=== PATIENT | male | born 1955 | race Caucasian/White ===

== ENCOUNTER 2021-07-17 21:54 | Inpatient (IN) | payer MEDICARE, OTHER ==
[~2021-07-17] VITALS: Ht 167.6 cm; Wt 77.1 kg
[~2021-07-17 21:54] MED LIST: ACET500C PO; AMLO5TAB OR; ASPI81TA83 OR; ATIV1TAB2 OR; CELE1CAP4 OR; CLON1TAB OR; CLOP75TA2 PO; COUM1TAB19 OR; CYCL10TA3 PO; CYMB1CAP PO; IBUP200T2 PO; PAXI20TA OR; PERC5TAB8 OR; PREG50CA OR; SKEL800T5 OR; STOOL SOFTENER PO; ULTR37.539 PO; ZANA4CAP OR; [UNRECOGNIZED DRUG - OTHER] OD
[2021-07-17 22:39] LABS: BASO # 0.1 10^3/uL (0.0-0.2); BASO % 0.4 % (0.0-1.0); HEMATOCRIT 43.5 % (42.0-52.0); HEMOGLOBIN 14.7 g/dl (13.5-17.5); LYMPH # 1.4 10^3/uL (1.5-5.0); LYMPH % 6.9 % (24.0-44.0); MEAN CORPUSCULAR HEMOGLOBIN 36.5 pg (27.0-33.0); MEAN CORPUSCULAR HGB CONC 33.8 g/dl (32.0-36.5); MEAN CORPUSCULAR VOLUME 107.9 fl (80.0-96.0); MONO # 1.8 10^3/uL (0.0-0.8); MONO % 8.7 % (2.0-8.0); NEUTROPHILS # 17.1 10^3/uL (1.5-8.5); PLATELET COUNT, AUTOMATED 264 10^3/uL (150-450); RED BLOOD COUNT 4.03 10^6/uL (4.30-6.10); WHITE BLOOD COUNT 20.6 10^3/uL (4.0-10.0)
[2021-07-17] MEDS ORDERED: HEPARIN DRIP 25,000 UNITS in IV 1 EA IV SCH ×2 (22:45→23:55)
[2021-07-17] MEDS ORDERED: MORPHINE 4 MG/ML 1ML VIAL/SYRINGE (J2270) IV ONE (22:45)
[2021-07-17] MEDS ORDERED: HEPARIN SOD (PORCINE) 5000UNITS/ML 1ML VIAL/SYRINGE IV PRN (22:45)
[2021-07-17 23:01] LABS: CREATININE FOR GFR 1.53 MG/DL (0.70-1.30)
[2021-07-17 23:02] LABS: C REACTIVE PROTEIN QUANTITATIV 0.51 MG/DL (0.00-0.30); CALCIUM LEVEL 8.6 MG/DL (8.8-10.2); MAGNESIUM LEVEL 1.9 MG/DL (1.8-2.4); POTASSIUM SERUM 5.3 MEQ/L (3.5-5.1)
[2021-07-17 23:09] LABS: HEMATOCRIT 39.2 % (42.0-52.0); HEMOGLOBIN 13.4 g/dl (13.5-17.5); MEAN CORPUSCULAR HEMOGLOBIN 36.7 pg (27.0-33.0); MEAN CORPUSCULAR HGB CONC 34.2 g/dl (32.0-36.5); MEAN CORPUSCULAR VOLUME 107.4 fl (80.0-96.0); PLATELET COUNT, AUTOMATED 258 10^3/uL (150-450); RED BLOOD COUNT 3.65 10^6/uL (4.30-6.10); WHITE BLOOD COUNT 20.8 10^3/uL (4.0-10.0)
[2021-07-17] MEDS ORDERED: NS 1,000 ML IV ONE (23:20)
[2021-07-17] MEDS ORDERED: ALLO300T2 PO (23:39)
[2021-07-17] MEDS ORDERED: ENOX80IN3 INJ (23:39)
[2021-07-17] MEDS ORDERED: LOSA100T50 PO (23:39)
[2021-07-17] MEDS ORDERED: PANT20TA6 PO (23:39)
[2021-07-17] MEDS ORDERED: HOME MED LIST COMPLETE! XX SCH (23:45)
--- OUTSIDE RECORDS SUMMARY | 2021-07-17 23:47 | CCD ---
Author Author [facility] Organization [facility] Address Unknown Phone Unavailable Care Team Providers Care Chief Sales Officer Name Role Phone Felton Chapin MD Unavailable Unavailable Felton Chapin MD Unavailable Unavailable Felton Chapin MD Unavailable Unavailable Felton Chapin MD Unavailable Unavailable Felton Chapin MD Unavailable Unavailable Felton Chapin MD Unavailable Unavailable Felton Chapin MD Unavailable Unavailable Felton Chapin MD Unavailable Unavailable Felton Chapin MD Unavailable Unavailable Felton Chapin MD Unavailable Unavailable Felton Chapin MD Unavailable Unavailable Felton Chapin MD Unavailable Unavailable Felton Chapin MD Unavailable Unavailable Felton Chapin MD Unavailable Unavailable Felton Chapin MD Unavailable Unavailable Felton Chapin MD Unavailable Unavailable Felton Chapin MD Unavailable Unavailable Felton Chapin MD Unavailable Unavailable Felton Chapin MD Unavailable Unavailable Felton Chapin MD Unavailable Unavailable Felton Chapin MD Unavailable Unavailable Felton Chapin MD Unavailable Unavailable Felton Cahpin MD Unavailable Unavailable Felton Chapin MD Unavailable Unavailable Felton Chapin MD Unavailable Unavailable Felton Chapin MD Unavailable Unavailable Felton Chapin MD Unavailable Unavailable Felton Chapin MD Unavailable Unavailable MAGDIEL, M.D. GUILLERMO M.D. Unavailable Unavailable MAGDIEL, M.D. GUILLERMO M.D. Unavailable Unavailable MAGDIEL, M.D. GUILLERMO M.D. Unavailable Unavailable MAGDIEL, M.D. GUILLERMO M.D. Unavailable Unavailable MAGDIEL, M.D. GUILLERMO M.D. Unavailable Unavailable MAGDIEL, M.D. GUILLERMO M.D. Unavailable Unavailable MAGDIEL, M.D. GUILLERMO M.D. Unavailable Unavailable MAGDIEL, M.D. GUILLERMO M.D. Unavailable Unavailable MAGDIEL, M.D. GUILLERMO M.D. Unavailable Unavailable MAGDIEL, M.D. GUILLERMO M.D. Unavailable Unavailable MAGDIEL, M.D. GUILLERMO M.D. Unavailable Unavailable MAGDIEL, M.D. GUILLERMO M.D. Unavailable Unavailable MAGDIEL, M.D. GUILLERMO M.D. Unavailable Unavailable MAGDIEL, M.D. GUILLERMO M.D. Unavailable Unavailable MAGDIEL, M.D. GUILLERMO M.D. Unavailable Unavailable Jayy Mcdaniel MD Unavailable Unavailable Palma, M Michelle FACULTY NEUROPSYCHOLOGIST Unavailable Unavailable Palma, M Michelle FACULTY NEUROPSYCHOLOGIST Unavailable Unavailable Palma, M Michelle FACULTY NEUROPSYCHOLOGIST Unavailable Unavailable Palma, M Michelle FACULTY NEUROPSYCHOLOGIST Unavailable Unavailable Palma, M Michelle FACULTY NEUROPSYCHOLOGIST Unavailable Unavailable Palma, M Michelle FACULTY NEUROPSYCHOLOGIST Unavailable Unavailable Palma, M Michelle FACULTY NEUROPSYCHOLOGIST Unavailable Unavailable Palma, M Michelle FACULTY NEUROPSYCHOLOGIST Unavailable Unavailable Palma, M Michelle FACULTY NEUROPSYCHOLOGIST Unavailable Unavailable Palma, M Michelle FACULTY NEUROPSYCHOLOGIST Unavailable Unavailable Nostrom, R Kurt HIGHWAY PATROL COMMANDER Unavailable Unavailable NAHUM, AGUILA PA Unavailable Unavailable NAHUM, AGUILA PA Unavailable Unavailable NAHUM, AGUILA PA Unavailable Unavailable NAHUM, AGUILA PA Unavailable Unavailable NAHUM, AGUILA PA Unavailable Unavailable NAHUM, AGUILA PA Unavailable Unavailable NAHUM, AGUILA PA Unavailable Unavailable NAHUM, AGUILA PA Unavailable Unavailable NAHUM, AGUILA PA Unavailable Unavailable NAHUM, AGUILA PA Unavailable Unavailable NAHUM, AGUILA PA Unavailable Unavailable BHAGAT, SUMEET Unavailable Unavailable WESTBROOKAnabelle RUBINA PA Unavailable Unavailable WESTBROOK, K RUBINA PA Unavailable Unavailable WESTBROOK, K RUBINA PA Unavailable Unavailable WESTBROOK, K RUBINA PA Unavailable Unavailable WESTBROOK, K RUBINA PA Unavailable Unavailable WESTBROOK, K RUBINA PA Unavailable Unavailable WESTBROOK, K RUBINA PA Unavailable Unavailable WESTBROOK, K RUBINA PA Unavailable Unavailable WESTBROOK, K RUBINA PA Unavailable Unavailable WESTBROOK, K RUBINA PA Unavailable Unavailable WESTBROOK, K RUBINA PA Unavailable Unavailable WESTBROOK, K RUBINA PA Unavailable Unavailable WESTBROOK, K RUBINA PA Unavailable Unavailable WESTBROOK, K RUBINA PA Unavailable Unavailable WESTBROOK, K RUBINA PA Unavailable Unavailable WESTBROOK, K RUBINA PA Unavailable Unavailable WESTBROOK, K RUBINA PA Unavailable Unavailable WESTBROOK, K RUBINA PA Unavailable Unavailable WESTBROOK, K RUBINA PA Unavailable Unavailable WESTBROOK, K RUBINA PA Unavailable Unavailable WESTBROOK, K RUBINA PA Unavailable Unavailable WESTBROOK, K RUBINA PA Unavailable Unavailable WESTBROOK, K RUBINA PA Unavailable Unavailable WESTBROOK, K RUBINA PA Unavailable Unavailable WESTBROOK, K RUBINA PA Unavailable Unavailable WESTBROOK, K RUBINA PA Unavailable Unavailable WESTBROOK, K RUBINA PA Unavailable Unavailable WESTBROOK, K RUBINA PA Unavailable Unavailable WESTBROOK, K RUBINA PA Unavailable Unavailable WESTBROOK, K RUBINA PA Unavailable Unavailable WESTBROOK, K RUBINA PA Unavailable Unavailable WESTBROOK, K RUBINA PA Unavailable Unavailable WESTBROOK, K RUBINA PA Unavailable Unavailable WESTBROOK, K RUBINA PA Unavailable Unavailable WESTBROOK, K RUBINA PA Unavailable Unavailable WESTBROOK, K RUBINA PA Unavailable Unavailable WESTBROOK, K RUBINA PA Unavailable Unavailable WESTBROOK, K RUBINA PA Unavailable Unavailable WESTBROOK, K RUBINA PA Unavailable Unavailable WESTBROOK, K RUBINA PA Unavailable Unavailable WESTBROOK, K RUBINA PA Unavailable Unavailable WESTBROOK, K RUBINA PA Unavailable Unavailable WESTBROOK, K RUBINA PA Unavailable Unavailable WESTBROOK, K RUBINA PA Unavailable Unavailable WESTBROOK, K RUBINA PA Unavailable Unavailable WESTBROOK, K RUBINA PA Unavailable Unavailable WESTBROOK, K RUBINA PA Unavailable Unavailable WESTBROOK, K RUBINA PA Unavailable Unavailable WESTBROOK, Anabelle CESPEDES PA Unavailable Unavailable WESTBROOK, K RUBINA PA Unavailable Unavailable WESTBROOK, K RUBINA PA Unavailable Unavailable WESTBROOK, K RUBINA PA Unavailable Unavailable WESTBROOK, K RUBINA PA Unavailable Unavailable WESTBROOK, K RUBINA PA Unavailable Unavailable WESTBROOK, K RUBINA PA Unavailable Unavailable Puja RIVAS MD Unavailable Unavailable Puja RIVAS MD Unavailable Unavailable Puja RIVAS MD Unavailable Unavailable Puja RIVAS MD Unavailable Unavailable WISPuja Lam MD Unavailable Unavailable DIGIACCO, EMILY DO Unavailable Unavailable DIGIACCO, EMILY DO Unavailable Unavailable DIGIACCO, EMILY DO Unavailable Unavailable DIGIACCO, EMILY DO Unavailable Unavailable DIGIACCO, EMILY DO Unavailable Unavailable DIGIACCO, EMILY DO Unavailable Unavailable DIGIACCO, EMILY DO Unavailable Unavailable DIGIACCO, EMILY DO Unavailable Unavailable DIGIACCO, EMILY DO Unavailable Unavailable DIGIACCO, EMILY DO Unavailable Unavailable DIGIACCO, EMILY DO Unavailable Unavailable DIGIACCO, EMILY DO Unavailable Unavailable DIGIACCO, EMILY DO Unavailable Unavailable DIGIACCO, EMILY DO Unavailable Unavailable DIGIACCO, EMILY DO Unavailable Unavailable DIGIACCO, EMILY DO Unavailable Unavailable DIGIACCO, EMILY DO Unavailable Unavailable DIGIACCO, EMILY DO Unavailable Unavailable DIGIACCO, EMILY DO Unavailable Unavailable DIGIACCO, EMILY DO Unavailable Unavailable DIGIACCO, EMILY DO Unavailable Unavailable DIGIACCO, EMILY DO Unavailable Unavailable DIGIACCO, EMILY DO Unavailable Unavailable Celso, Wahib MD Unavailable Unavailable Celso, Wahib MD Unavailable Unavailable Celso, Wahib MD Unavailable Unavailable Celso, Wahib MD Unavailable Unavailable Celso, Wahib MD Unavailable Unavailable Celso, Wahib MD Unavailable Unavailable Celso, Wahib MD Unavailable Unavailable Celso, Wahib MD Unavailable Unavailable Celso, Wahib MD Unavailable Unavailable Celso, Wahib MD Unavailable Unavailable Celso, Wahib MD Unavailable Unavailable Celso, Wahib MD Unavailable Unavailable Cleso, Wahib MD Unavailable Unavailable Celso, Wahib MD Unavailable Unavailable Celso, Wahib MD Unavailable Unavailable Celso, Wahib MD Unavailable Unavailable Celso, Wahib MD Unavailable Unavailable Celso, Wahib MD Unavailable Unavailable Celso, Wahib MD Unavailable Unavailable Celso, Wahib MD Unavailable Unavailable Celso, Wahib MD Unavailable Unavailable Celso, Wahib MD Unavailable Unavailable Celso, Wahib MD Unavailable Unavailable Celso, Wahib MD Unavailable Unavailable Celso, Wahib MD Unavailable Unavailable Celso, Wahib MD Unavailable Unavailable Celso, Wahib MD Unavailable Unavailable Celso, Wahib MD Unavailable Unavailable Celso, Wahib MD Unavailable Unavailable Celso, Wahib MD Unavailable Unavailable Mcdaniel, E Addis MD Unavailable Mcdaniel, E Addis MD Unavailable Mcdaniel, E Addis MD Unavailable Mcdaniel, E Addis MD Unavailable Mcdaniel, E Addis MD Unavailable Mcdaniel, E Addis MD Unavailable Mcdaniel, E Addis MD Unavailable Mcdaniel, E Addis MD Unavailable Mcdaniel, E Addis MD Unavailable Mcdaniel, E Addis MD Unavailable Mcdaniel, E Addis MD Unavailable Mcdaniel, E Addis MD Unavailable Mcdaniel, E Addis MD Unavailable Mcdaniel, E Addis MD Unavailable Mcdaniel, E Addis MD Unavailable Mcdaniel, E Addis MD Unavailable Mcdaniel, E Addis MD Unavailable Mcdaniel, E Adids MD Unavailable Mcdaniel, E Addis MD Unavailable Mcdaniel, E Addis MD Unavailable Mcdaniel, E Addis MD Unavailable Mcdaniel, E Addis MD Unavailable Mcdaniel, E Addis MD Unavailable Maxime Armendariz MD Unavailable Unavailable Maxime Armendariz MD Unavailable Unavailable Maxime Armendariz MD Unavailable Unavailable GALIMIDI ZORA DPM, J Zora DPM Unavailable GALIMIDI ZORA DPM, J Zora DPM Unavailable [phone] GALIMIDI ZORA DPM, J Zora DPM Unavailable [phone] GALIMIDI ZORA DPM, J Zora DPM Unavailable [phone] GALIMIDI ZORA DPM, J Zora DPM Unavailable [phone] GALIMIDI ZORA DPM, J Zora DPM Unavailable GALIMIDI ZORA DPM, J Zora DPM Unavailable GALIMIDI ZORA DPM, J Zora DPM Unavailable GALIMIDI ZORA DPM, J Zora DPM Unavailable GALIMIDI ZORA DPM, J Zora DPM Unavailable GALIMIDI ZORA DPM, J Zora DPM Unavailable Williams Ramirez MD Unavailable [phone] Williams Ramirez MD Unavailable [phone] Williams Ramirez MD Unavailable [phone] Williams Ramirez MD Unavailable [phone] Williams Ramirez MD Unavailable [phone] Williams Ramirez MD Unavailable [phone] Williams Ramirez MD Unavailable [phone] Williams Ramirez MD Unavailable [phone] NOSTROM, KURT BAILING MACHINE OPERATOR Unavailable Unavailable NOSTROM, KURT BAILING MACHINE OPERATOR Unavailable Unavailable NOSTROM, KURT BAILING MACHINE OPERATOR Unavailable Unavailable NOSTROM, KURT BAILING MACHINE OPERATOR Unavailable Unavailable NOSTROM, KURT BAILING MACHINE OPERATOR Unavailable Unavailable NOSTROM, KURT BAILING MACHINE OPERATOR Unavailable Unavailable NOSTROM, KURT BAILING MACHINE OPERATOR Unavailable Unavailable NOSTROM, KURT BAILING MACHINE OPERATOR Unavailable Unavailable NOSTROM, KURT BAILING MACHINE OPERATOR Unavailable Unavailable NOSTROM, KURT BAILING MACHINE OPERATOR Unavailable Unavailable NOSTROM, KURT BAILING MACHINE OPERATOR Unavailable Unavailable NOSTROM, KURT BAILING MACHINE OPERATOR Unavailable Unavailable NOSTROM, KURT BAILING MACHINE OPERATOR Unavailable Unavailable TYLER BIRMINGHAM MD Unavailable Unavailable BIRMINGHAMTYLER MD Unavailable Unavailable BIRMINGHAM, TYLER MD Unavailable Unavailable BIRMINGHAM, TYLER MD Unavailable Unavailable BIRMINGHAM, TYLER MD Unavailable Unavailable BIRMINGHAM, TYLER MD Unavailable Unavailable BIRMINGHAM, TYLER MD Unavailable Unavailable BIRMINGHAM, TYLER MD Unavailable Unavailable BIRMINGHAM, TYLER MD Unavailable Unavailable BIRMINGHAM, TYLER MD Unavailable Unavailable BIRMINGHAM, TYLER MD Unavailable Unavailable BIRMINGHAM, TYLER MD Unavailable Unavailable BIRMINGHAM, TYLER MD Unavailable Unavailable BIRMINGHAM, TYLER MD Unavailable Unavailable BIRMINGHAM, TYLER MD Unavailable Unavailable BIRMINGHAM, TYLER MD Unavailable Unavailable BIRMINGHAM, TYLER MD Unavailable Unavailable BIRMINGHAM, TYLER MD Unavailable Unavailable BIRMINGHAM, TYLER MD Unavailable Unavailable CHO, FREDY MD Unavailable Unavailable CHO, FREDY MD Unavailable Unavailable CHO, FREDY MD Unavailable Unavailable CHO, FREDY MD Unavailable Unavailable CHO, FREDY MD Unavailable Unavailable CHO, FREDY MD Unavailable Unavailable CHO, FREDY MD Unavailable Unavailable CHO, FREDY TURNER Unavailable Unavailable CHO, FREDY TURNER Unavailable Unavailable CHO, FREDY MD Unavailable Unavailable CHO, FREDY MD Unavailable Unavailable CHO, FREDY MD Unavailable Unavailable CHO, FREDY MD Unavailable Unavailable CHO, FREDY MD Unavailable Unavailable CHO, FREDY MD Unavailable Unavailable CHO, FREDY MD Unavailable Unavailable CHO, FREDY MD Unavailable Unavailable CHO, FREDY MD Unavailable Unavailable CHO, FREDY MD Unavailable Unavailable CHO, FREDY MD Unavailable Unavailable CHO, FREDYSUSAN TURNER Unavailable Unavailable Adelaide Sanders MD Unavailable Unavailable Adelaide Sanders MD Unavailable Unavailable Adelaide Sanders MD Unavailable Unavailable Adelaide Sanders MD Unavailable Unavailable Genaro Henry MD Unavailable Unavailable Genaro Henry MD Unavailable Unavailable Genaro Henry MD Unavailable Unavailable DR MD ADDIS MCDANIEL Unavailable Unavailable Shweta Curry MD Unavailable Unavailable SorShweta caban MD Unavailable Unavailable Sorarsh, Shweta Ray MD Unavailable Unavailable SorShweta caban MD Unavailable Unavailable Sorarsh C Cory TURNER Unavailable Unavailable Sorarsh, C Cory TURNER Unavailable Unavailable Sorarsh, C Cory TURNER Unavailable Unavailable Sorge, C Cory TURNER Unavailable Unavailable Sorge, C Cory TURNER Unavailable Unavailable Sorge, C Cory TURNER Unavailable Unavailable Sorge, C Cory MD Unavailable Unavailable Sorge, C Cory MD Unavailable Unavailable Sorge, C Cory MD Unavailable Unavailable Sorge, C Cory MD Unavailable Unavailable Sorge, C Cory MD Unavailable Unavailable Sorge, C Cory MD Unavailable Unavailable Sorge, C Cory MD Unavailable Unavailable Sorge, C Cory MD Unavailable Unavailable Sorge, C Cory MD Unavailable Unavailable Sorge, C Cory MD Unavailable Unavailable Sorge, C Cory MD Unavailable Unavailable Sorge, C Cory MD Unavailable Unavailable Sorge, C Cory MD Unavailable Unavailable Sorge, C Cory MD Unavailable Unavailable Sorge, C Cory MD Unavailable Unavailable Sorge, C Cory MD Unavailable Unavailable Yan, R Ousmane PA Unavailable Unavailable Yan, R Ousmane PA Unavailable Unavailable JULIA, NIHARIKA PA Unavailable Unavailable JULIA, NIHARIKA PA Unavailable Unavailable JULIA, NIHARIKA PA Unavailable Unavailable JULIA, NIHARIKA PA Unavailable Unavailable JULIA, NIHARIKA PA Unavailable Unavailable JULIA, NIHARIKA PA Unavailable Unavailable JULIA, NIHARIKA PA Unavailable Unavailable JULIA, NIHARIKA PA Unavailable Unavailable JULIA, NIHARIKA PA Unavailable Unavailable JULIA, NIHARIKA PA Unavailable Unavailable JULIA, NIHARIKA PA Unavailable Unavailable JULIA, NIHARIKA PA Unavailable Unavailable JULIA, NIHARIKA PA Unavailable Unavailable JULIA, NIHARIKA PA Unavailable Unavailable MD KALEN RIVAS Unavailable Unavailable Lashonda WALLACE MD Unavailable Unavailable MADISONLashonda JENKINS MD Unavailable Unavailable MADISONLashonda JENKINS MD Unavailable Unavailable MADISONLashonda MD Unavailable Unavailable MADISONLashonda MD Unavailable Unavailable MADISONLashonda MD Unavailable Unavailable Lashonda WALLACE MD Unavailable Unavailable Lashonda WALLACE MD Unavailable Unavailable Lashonda WALLACE MD Unavailable Unavailable Lashonda WALLACE MD Unavailable Unavailable Lashonda WALLACE MD Unavailable Unavailable Lashonda WALLACE MD Unavailable Unavailable Lashonda WALLACE MD Unavailable Unavailable Lashonda WALLACE MD Unavailable Unavailable Lashonda WALLACE MD Unavailable Unavailable Lashonda WALLACE MD Unavailable Unavailable Lashonda WALLACE MD Unavailable Unavailable MADISONLashonda JENKINS MD Unavailable Unavailable MADISONLashonda JENKINS MD Unavailable Unavailable MADISONLashonda JENKINS MD Unavailable Unavailable MADISONLashonda MD Unavailable Unavailable MADISON, J CHATO TURNER Unavailable Unavailable MADISON, J CHATO TURNER Unavailable Unavailable MADISON, J CHATO TURNER Unavailable Unavailable MADISON, J CHATO TURNER Unavailable Unavailable MADISON, J CHATO TURNER Unavailable Unavailable MADISON, J CHATO TURNER Unavailable Unavailable MADISON, J CHATO TURNER Unavailable Unavailable MADISON, J CHATO TURNER Unavailable Unavailable MADISON, J CHATO TURNER Unavailable Unavailable MADISON, J CHATO TURNER Unavailable Unavailable MADISON, J CHATO TURNER Unavailable Unavailable MADISON, J CHATO TURNER Unavailable Unavailable MADISON, J CHATO TURNER Unavailable Unavailable MADISON, J CHATO TURNER Unavailable Unavailable MADISON, J CHATO TURNER Unavailable Unavailable MADISON, J CHATO TURNER Unavailable Unavailable MADISON, J CHATO TURNER Unavailable Unavailable MADISON, J CHATO TURNER Unavailable Unavailable MADISON, J CHATO TURNER Unavailable Unavailable MADISON, J CHATO TURNER Unavailable Unavailable MADISON, J CHATO TURNER Unavailable Unavailable MADISON, J CHATO TURNER Unavailable Unavailable MADISON, J CHATO TURNER Unavailable Unavailable MADISON, J CHATO TURNER Unavailable Unavailable MADISON, J CHATO TURNER Unavailable Unavailable MADISON, J CHATO TURNER Unavailable Unavailable MADISON, J CHATO TURNER Unavailable Unavailable MADISON, J CHATO TURNER Unavailable Unavailable MADISON, J CHATO TURNER Unavailable Unavailable MADISON, J CHATO TURNER Unavailable Unavailable MADISON, J CHATO TURNER Unavailable Unavailable MADISON, J CHATO TURNER Unavailable Unavailable MADISON, J CHATO TURNER Unavailable Unavailable MADISON, J CHATO TURNER Unavailable Unavailable MADISON, J CHATO TURNER Unavailable Unavailable MADISON, J CHATO TURNER Unavailable Unavailable MADISON, J CHATO TURNER Unavailable Unavailable MADISON, J CHATO TURNER Unavailable Unavailable MADISON, J CHATO TURNER Unavailable Unavailable MADISON, J CHATO TURNER Unavailable Unavailable MADISON, J CHATO TURNER Unavailable Unavailable MADISON, J CHATO TURNER Unavailable Unavailable MADISON, J CHATO TURNER Unavailable Unavailable MADISON, J CHATO TURNER Unavailable Unavailable MADISON, J CHATO TURNRE Unavailable Unavailable MADISON, J CHATO TURNER Unavailable Unavailable MADISON, J CHATO TURNER Unavailable Unavailable MADISON, J CHTAO TURNER Unavailable Unavailable MADISON, J CHATO TURNER Unavailable Unavailable MADISON, J CHATO TURNER Unavailable Unavailable MADISON, J CHATO TURNER Unavailable Unavailable MADISON, J CHATO TURNER Unavailable Unavailable MADISON, J CHATO TURNER Unavailable Unavailable MADISON, J CHATO TURNER Unavailable Unavailable MADISON, J CHATO TURNER Unavailable Unavailable MADISON, J CHATO TURNER Unavailable Unavailable Lashonda WALLACE MD Unavailable Unavailable BROUGHAL, C BERNARD PA Unavailable Unavailable BROUGHAL, C BERNARD PA Unavailable Unavailable BROUGHAL, C BERNARD PA Unavailable Unavailable BROUGHAL, C BERNARD PA Unavailable Unavailable BROUGHAL, C BERNARD PA Unavailable Unavailable BROUGHAL, C BERNARD PA Unavailable Unavailable Re-disclosure Warning The records that you are about to access may contain information from federally-assisted alcohol or drug abuse programs. If such information is present, then the following federally mandated warning applies: This information has been disclosed to you from records protected by federal confidentiality rules (42 CFR part 2). The federal rules prohibit you from making any further disclosure of this information unless further disclosure is expressly permitted by the written consent of the person to whom it pertains or as otherwise permitted by 42 CFR part 2. A general authorization for the release of medical or other information is NOT sufficient for this purpose. The Federal rules restrict any use of the information to criminally investigate or prosecute any alcohol or drug abuse patient.The records that you are about to access may contain highly sensitive health information, the redisclosure of which is protected by Article 27-F of the [facility] Public Health law. If you continue you may have access to information: Regarding HIV / AIDS; Provided by facilities licensed or operated by the [facility] Office of Mental Health; or Provided by the [facility] Office for People With Developmental Disabilities. If such information is present, then the following [facility] mandated warning applies: This information has been disclosed to you from confidential records which are protected by state law. State law prohibits you from making any further disclosure of this information without the specific written consent of the person to whom it pertains, or as otherwise permitted by law. Any unauthorized further disclosure in violation of state law may result in a fine or residential sentence or both. A general authorization for the release of medical or other information is NOT sufficient authorization for further disc losure. Allergies and Adverse Reactions Type Description Substance Reaction Status Data Source(s ) Miscellaneous allergy No Known Drug Allergies No Known Drug Allergies [facility] Miscellaneous allergy No Known Environmental Allergies No Kn own Environmental Allergies [facility] Miscellaneous allergy No Known Food Allergies No Known Food Allergies [facility] Drug allergy Drug allergy oxycodone Nausea, Upset st omach Nausea/GI upset I Nausea [facility] Encounters Encounter Providers Location Date Indications Data Source(s ) Outpatient Attender: SUMEET BHAGAT [id number] 07/17/2021 04:45:20 PM EST [facility] Emergency Attender: NIHARIKA MEZA dmitter: NIHARIKA DUMONT PAConsultant: Cory Curry MD [id number] 07/17/2021 01:34:00 PM EST - 07/17/2021 08:23:00 PM EST Right groin/leg pain swelling [facility] Right groin/leg pain swelling Patient discharged. Outpatient Attender: Williams Ramirez MD [id number] 02:03:00 PM EST - 07/05/2021 02:04:00 PM EST [facility] Patient discharged. Outpatient Attender: Williams Ramirez MD [id number] 02:48:00 PM EST - 06/29/2021 02:49:00 PM EST H60.311 [facility] H60.311 Patient discharged. Outpatient Attender: Michelle SON CPSCAORT-CPSCAORT 1 10:39:00 AM EDT - 06/01/2021 10:40:00 AM EDT [facility] Patient discharged. Outpatient Attender: CHATO WALLACE MD CPSCAORT-LABPNP 01/2021 03:31:00 PM EDT - 05/25/2021 03:32:00 PM EDT Z98.890 [facility] Z98.890 Patient discharged. Outpatient Attender: BERNARD ARANA CPSCAORT-LABCOVWAR 1 01:03:00 PM EDT - 05/21/2021 01:04:00 PM [facility]. Outpatient Attender: Williams Ramirez MD CPSCAORT-[id number] 09:53:00 AM EDT - 05/11/2021 09:54:00 AM EDT [facility] Patient discharged. Outpatient Attender: KALEN RIVAS MD ER-CTCMEDON 05/04/2021 11:48:00 AM EDT [facility] Outpatient Attender: AGUILA ARANA CPSCAORT-CPSLADER 04/2021 10:43:00 AM EDT - 04/28/2021 10:44:00 AM EDT [facility] Patient discharged. Outpatient Attender: CHATO WALLACE MD CPSCAORT-LABPNP 03/21 12:53:00 PM EDT - 04/13/2021 12:54:00 PM EDT R60.1 [facility] R60.1 Patient discharged. Outpatient Attender: KALEN Carbajal er: KALEN Nagelsultant: Cory Curry MD 008 04/11/2021 09:55:00 AM EDT - 04/11/2021 09:55:00 AM EDT LAB TEST [facility] LAB TEST Emergency Attender: RUBINA Funes mitter: RUBINA WESTBROOK PAConsultant: Cory Curry MD [id number] 04/10/2021 02:53:00 PM EDT - 04/10/2021 07:30:00 PM EDT WEAKNESS [facility] WEAKNESS Patient discharged. Outpatient Attender: Williams Ramirez MD CPSCAORT-[id number] 11:02:00 AM EDT - 04/06/2021 11:03:00 AM EDT [facility] Patient discharged. Outpatient Attender: Holger Armendariz MD CPSCAORT-CPSCNPOD 10:35:00 AM EDT - 03/29/2021 10:36:00 AM EDT [facility] Patient discharged. Outpatient Attender: Williams Ramirez MD CPSCABHARATHI-ZMCT1YRE 12:45:00 PM EDT - 03/24/2021 12:46:00 PM EDT H66.93 [facility] H66.93 Patient discharged. Outpatient Attender: AGUILA ARANA CPSCABHARATHI-CPSLADER 09/2020 10:15:00 AM EDT - 03/21/2021 10:16:00 AM EDT [facility] Patient discharged. Emergency Attender: NIHARIKA MEZA dmitter: NIHARIKA DUMONT PAConsultant: Cory Curry MD 03/10/2021 08:29:20 PM EDT - 03/10/2021 09:00:00 PM EDT LEFT EAR PLUGGED [facility] LEFT EAR PLUGGED Patient discharged. Outpatient Attender: CHATO WALLACE MD CPSCAORT-LABPNP 01/18 01:07:00 PM EDT - 02/01/2021 01:08:00 PM [facility]. Outpatient Attender: Holger Armendariz MD CPSCAORT-CPSCNPOD 02:48:00 PM EDT - 01/19/2021 02:49:00 PM EDT [facility] al Patient discharged. Outpatient Attender: Zora MARTINEZ DPM DPM CPSCAORT- CPSCNPOD 01/19/2021 02:19:00 PM EDT - 01/19/2021 02:20:00 PM EDT [facility] Patient discharged. Outpatient Attender: CAHTO WALLACE MD CPSCAORT-LABPNP 08/2020 11:18:00 AM EDT - 01/18/2021 11:19:00 AM EDT R60.1 [facility] al R60.1 Patient discharged. Outpatient Attender: Addis Mcdaniel MD CPSCAORT-CPSCNFMP 01/06/2021 12:16:00 PM EDT - 01/06/2021 12:17:00 PM EDT [facility] pital Patient discharged. Outpatient Attender: KALEN RIVAS MD 01/05/2021 09:49:00 A M EDT [facility] Outpatient Attender: Addis Mcdaniel MD CPSCAORT-CPSCNFMP 12/13/2020 12:23:00 PM EDT - 12/13/2020 12:24:[facility] Emergency Attender: RUBINA Funes mitter: RUBINA WESTBROOK PAConsultant: Cory Curry MD [phone] 11/22/2020 01:30:00 PM EDT - 11/22/2020 06:09:00 PM EDT POSSIBLE BLOOD CLOT IN STOMACH/ GROIN AR [facility] POSSIBLE BLOOD CLOT IN STOMACH/ GROIN AR Patient discharged. Outpatient Attender: Kaci Houston [facility] 11/16/2020 11:41:00 AM EDT [facility] Outpatient Attender: [facility]cd[facility]iel [facility] 11/15/2020 11:06:00 AM EDT - 11/15/2020 11:07:00 AM EDT [facility] Patient discharged. Outpatient Attender: Addis Mcdaniel MDAttender: Addis Mcdaniel MDReferrer: Kaci Houston MD [facility] 11/10/2020 11:24:00 AM EDT - 11/10/2020 11:25:00 AM EDT K76.9;I10;E78.49 [facility] K76.9;I10;E78.49 Patient discharged. Emergency Attender: RUBINA Funes mitter: RUBINA WESTBROOK PAConsultant: Cory Curry MD [phone] 11/04/2020 09:57:00 PM EDT - 11/05/2020 12:27:00 AM EDT RIGHT LEG PAIN, S/P FALL [facility] RIGHT LEG PAIN, S/P FALL Patient discharged. Outpatient Attender: Addis Mcdaniel MD PSYCHIATRICCNP 11/02/2020 03:18:00 PM EDT - 11/02/2020 03:19:00 PM EDT [facility] Patient discharged. Emergency Attender: Ousmane Yan PAAttender: Kiko batista [facility] 11/01/2020 01:04:00 PM EDT - 11/01/2020 06:05:00 PM EDT BACK PAIN, LEG PAIN, LEG SWELLING, URINARY PROBLEM [facility] BACK PAIN, LEG PAIN, LEG SWELLING, URINA RY PROBLEM Patient discharged. Emergency Attender: Kiko Henry MD CPSCAORT-ED 03:32:00 PM EST - 10/28/2020 07:35:00 PM EST EVALUATION OF DVT IN R LEG, BACK PAIN [facility] EVALUATION OF DVT IN R LEG, BACK PAIN Patient discharged. Outpatient Attender: Addis Mcdaniel MD CPSCABHARATHI-CPSCNFMP 10/28/2020 01:32:00 PM EST - 10/28/2020 01:33:00 PM EST [facility] pital Patient discharged. Outpatient Attender: Addis Mcdaniel MD CPSCABHARATHI-CPSCNFMP 10/18/2020 12:23:00 PM EST - 10/18/2020 12:24:00 PM EST [facility] Patient discharged. Outpatient Attender: BERNARD ARANA [facility]LABCOVEJN 0 10/08/2020 09:50:00 AM EST - 10/08/2020 09:51:00 AM EST COVID SCREENING [facility] COVID SCREENING Patient discharged. Outpatient Attender: Addis Mcdaniel MD CPSCAORT-IMACN 0 10/04/2020 10:51:00 AM EST - 10/04/2020 10:52:00 AM EST M81.0 [facility] M81.0 Patient discharged. Outpatient Attender: Addis Mcdaniel MD CPSCAORT-CPSCNFMP 09/30/2020 11:21:00 AM EST - 09/30/2020 11:22:00 AM EST [facility] Patient discharged. Outpatient Attender: MIMA VELOZ M.D. [facility]CPSOMPMC 09/16 03:08:00 PM EST - 09/16/2020 03:09:00 PM EST [facility] Patient discharged. Outpatient Attender: Holger Armendariz MD CPSCABHARATHI-CPSCNPOD 09:24:00 AM EST - 09/15/2020 09:25:00 AM EST [facility] Outpatient Attender: Kaci Houston MD -CTCMEDON 09/09/2020 10:39:00 AM EST [facility] Outpatient [address] [place] [address] 12:00:00 AM EST eCW1 ([facility]) Outpatient Attender: Addis Mcdaniel [facility] 08/18/2020 12:42:00 PM EST - 08/18/2020 12:43:00 PM EST [facility] pital Patient discharged. Outpatient Attender: Felton Chapin MD [facility]-ONCPDMED 12:19:00 PM EST - 08/16/2020 12:20:00 PM EST FU DVT POST PROCEDURE CVPH [facility] FU DVT POST PROCEDURE CVPH Patient discharged. Outpatient Attender: Addis Mcdaniel [facility] 08/11/2020 02:34:00 PM EST - 08/11/2020 02:35:00 PM EST [facility] pital Patient discharged. Outpatient Attender: Felton Chapin MDA dmitter: Felton Chapin MDConsultant: Cory Curry MD 008 08/09/2020 11:31:00 AM EST - 08/09/2020 11:31:00 AM EST Lab test [facility] Lab test Emergency Attender: TYLER Luo DAttender: Kiko Henry MDAdmitter: TYLER BIRMINGHAM MD CPSCAORT-ED 07/29/2020 11:25:00 AM EST - 07/29/2020 08:39:00 PM EST DEEP VEIN THROMBOSIS [facility] DEEP VEIN THROMBOSIS Admission cancelled. Disregard status an d admitted date. Outpatient Attender: FREDY CHO [facility] 02:24:00 PM EST - 07/27/2020 02:25:00 PM EST R10.9; R19.7 [facility] R10.9; R19.7 Patient discharged. Outpatient Attender: DR ADDIS PRO NDAdmitter: DR ADDIS MCDANIELConsultant: Cory Curry MD 008 07/16/2020 09:3 6:00 AM EST - 07/16/2020 09:36:00 AM EST Lab test [facility] Lab test Outpatient Attender: EMILY DE DIOS DO 07/12/2020 12:52:0 0 PM EST [facility] Outpatient [address] [place] [address] 07/12/2020 12:00:00 AM EST eCW1 ([facility]) Outpatient Attender: DR ADDIS PRO NDAttender: Cory Curry MDAdmitter: DR ADDIS MCDANIELConsultant: Cory Curry MD 008 07/08/20 10:57:00 AM EST - 07/08/2020 10:57:00 AM EST Lab test [facility] Lab test Outpatient Attender: Addis Mcdaniel MD CPSCABHARATHI-CPSCNFMP 07/05/2020 12:51:00 PM EST - 07/05/2020 12:52:00 PM EST [facility] pital Patient discharged. Outpatient Attender: DR ADDIS PRO NDAdmitter: DR ADDIS MCDANIELConsultant: Cory Curry MD 008 07/05/2020 09:0 9:00 AM EST - 07/05/2020 09:10:00 AM EST Lab test [facility] Lab test Outpatient Attender: DR ADDIS PRO NDAdmitter: DR ADDIS MCDANIELConsultant: Cory Curry MD 008 06/30/2020 01:1 0:00 PM EST - 06/30/2020 01:10:00 PM EST Lab test [facility] Lab test Outpatient Attender: Felton Chapin MD CPSCAORT-ONCPDMED 10:17:00 AM EST - 06/30/2020 10:18:00 AM EST 3 WK FU HX DVT/PE-FAILED TX [facility] 3 WK FU HX DVT/PE-FAILED [place] Patient discharged. Outpatient Attender: Addis Mcdaniel MDAttender: Addis Mcdaniel MD CPSCAORT-IMACN 06/28/2020 09:39:00 AM EST - 06/28/2020 09:40:00 AM ES T Z79.01; M10.9; R74.8; R79.89; D75.89; M81.0 [facility] Z79.01; M10.9; R74.8; R79.89; D75.89; M8 1.0 Patient discharged. 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 Outpatient Attender: Holger Armendariz MD CPSCABHARATHI-CPSCNPOD 11:30:00 AM EDT - 06/09/2020 11:31:00 AM EDT [facility] Patient discharged. Outpatient Attender: Addis Mcdaniel MD CPSCAORT-CPSCNFMP 06/08/2020 11:49:00 AM EDT - 06/08/2020 11:50:00 AM EDT [facility] Patient discharged. Outpatient Attender: Adelaide Sanders MDAdmit ter: Adelaide Sanders MDConsultant: Cory Curry MD 008 06/04/2020 11:22:00 AM EDT - 06/04/2020 11:22:00 AM EDT Lab test [facility] Lab test Inpatient Attender: TYLER Luo DAttender: Kiko Henry MDAdmitter: TYLER BIRMINGHAM MDConsultant: KURT JONES NPConsultant: Kurt SUAREZ CPSCAORT-MSU2 05/27/2020 02:44:00 PM EDT - 06/02/2020 03:15:00 PM EDT DEEP VEIN THROMBOSIS [facility] DEEP VEIN THROMBOSIS Patient discharged. Outpatient Attender: Addis Mcdaniel MD CPSCAORT-IMAPD 1 12:54:00 PM EDT - 05/27/2020 12:55:00 PM EDT M79.89 [facility] M79.89 Patient discharged. Outpatient Attender: Addis Mcdaniel MD CPSCAORT-CPSCNFMP 05/27/2020 11:24:00 AM EDT - 05/27/2020 11:25:00 AM EDT [facility] Patient discharged. Immunizations Vaccine Date Status Description Data Source(s) COVID-19 VACCINE [facility] 06/10/2021 12:00:00 AM EDT completed [place] Vaccine Series Complete: YESThis Data wa s Submitted to [facility] Via [employer] COVID-19 VACCINE [facility] 11/11/2020 12:00:00 AM EDT completed [place] Vaccine Series Complete: YESThis Data wa s Submitted to [facility] [employer] COVID-19 VACCINE [facility] 10/21/2020 12:00:00 AM EST completed [facility] Vaccine Series Complete: NOThis Data was Submitted to [facility] [employer] Medications Medication Brand Name Start Date Product Form Dose Route Admi nistrative Instructions Pharmacy Instructions Status Indications Reaction Description Data Source(s) rivaroxaban 20 MG Oral Tablet [Xarelto] Xarelto 20MG O ral Tablet Xarelto 20MG Oral Tablet 11/22/2020 12:00:00 AM EDT 20 MILLIGRAMS ORAL active <td>Xarelto 20MG Oral Tablet</td><td>11/22/2020</td><td>Unknown</td><td>ORAL</td><td>DAILY</td><td>20 MILLIGRAMS</td><td>9620172</td><td>RxNorm</td><td>TAKE 20 MILLIGRAMS ORAL DAILY</td> [facility] atorvastatin 20 MG Oral Tablet Atorvastatin Calcium 20 MG Oral Tablet Atorvastatin Calcium 20MG Oral Tablet 11/22/2020 12:00:00 AM EDT 20 MILLIGRAMS ORAL active <td>Atorva statin Calcium 20MG Oral Tablet</td><td>11/22/2020</td><td>Unknown</td><td>ORAL</td><td>DAILY</td><td>20 MILLIGRAMS</td><td>[id number]</td><td>RxNorm</td><td>TAKE 20 MILLIGRAMS ORAL DAILY </td> [facility] Acetaminophen 325 MG / Hydrocodone Bobbi trate 5 MG Oral Tablet HYDROcodone bitartrate-acetaminophen 5MG-325MG Oral Tablet HYDROcodone bitartrate- acetaminophen 5MG-325MG Oral Tablet 11/22/2020 12:00:00 AM EDT 1 TABLET BY MOUTH active <td>HYDROcodon e bitartrate-acetaminophen 5MG-325MG Oral Tablet</td><td>11/22/2020</td><td>Unknown</td><td>BY MOUTH</td><td> NEEDED EVERY 6 HR</td><td>1 TABLET</td><td>219956</td><td>RxNorm</td><td>TAKE 1 TABLET BY MOUTH NEEDED EVERY 6 HR FOR Pain</td> [facility] Allopurinol 300 MG Oral Tablet Allopurinol 300MG Oral Tablet Allopurinol 300MG Oral Tablet 11/22/2020 12:00:00 AM EDT 300 MILLIGRAMS ORAL active <td>Allopurinol 300MG Oral Tablet</td><td>11/22/2020</td><td>Unknown</td><td>ORAL</td><td>DAILY</td><td>300 MILLIGRAMS</td><td>[id number]</td><td>RxNorm</td><td>TAKE 300 MILLIGRAMS ORAL DAILY </td> [facility] pantoprazole 20 MG Delayed Release Oral Tablet Pantoprazole Sodium 20 MG Oral Tablet, Delayed Release Pantoprazole Sodium 20 MG Oral Tablet, Delayed Release 11/22/2020 12:00:00 AM EDT 20 MG ORAL active <td>Pantoprazole Sodium 20 MG Oral Tablet, Delayed Release</td><td>11/22/2020</td><td>Unknown</td><td>ORAL</td><td>DAILY</td><td>20 MG</td><td>221783</td><td>RxNorm</td><td>TAKE 20 MG ORAL DAILY</td> [facility] Losartan Potassium 100 MG Oral Tablet Losartan Potassi um 100MG Oral Tablet Losartan Potassium 100MG Oral Tablet 11/04/2020 12:00:00 AM EDT 100 MILLIGRAMS ORAL active <td>Losart an Potassium 100MG Oral Tablet</td><td>11/04/2020</td><td>Unknown</td><td>ORAL</td><td>DAILY</td><td>100 MILLIGRAMS</td><td>342546</td><td>RxNorm</td><td>TAKE 100 MILLIGRAMS ORAL DAILY </td> [facility] gabapentin 300 MG Oral Capsule Gabapentin 300MG Oral C apsule Gabapentin 300MG Oral Capsule 11/04/2020 12:00:00 AM EDT 300 MILLIGRAMS ORAL active <td>Gabapentin 300MG Oral Capsule</td><td>11/04/2020</td><td>Unknown</td><td>ORAL</td><td>THREE TIMES A DAY</td><td>300 MILLIGRAMS</td><td>482848</td><td>RxNorm</td><td>TAKE 300 MILLIGRAMS ORAL THREE TIMES A DAY</td> [facility] Insurance Providers Payer name Policy type / Coverage type Policy ID Covered green party ID Covered green party's relationship to raygoza Policy Raygoza Plan Information GHANAIAN PROGRESSIVE [id number] S [id number] MEDICARE A [id number] Self [id number] A MEDICARE [id number] S [id number] [facility] [id number] [facility] [id number] AMER PROG TODAYS OPTIONS G [id number] Self [id number] AMER PROG TODAYS OPTIONS G [id number] Self [id number] [facility] INSURANCE FUND [id number] Other [id number] WELLCARE HEALTH TODAYS OPTIONS [id number] SP [id number] WELLCARE MAO [id number] SP [id number] ANSI-Commercial [id number] WELLCARE [id number] MSS INSURANCE FUND [id number] Other [id number] WELLCARE [id number] SP [id number] [facility] [id number] undefined [id number] GHANAIAN PROGRESSIVE-OP [id number] undefined [id number] STATE INSURANCE FUND-CLINIC [id number] undefined [id number] STATE INSURANCE FUND-OP [id number] undefined [id number] STATE INSURANCE FUND-IP [id number] 18 [id number] [facility] [id number] S [id number] A TODAYS OPTIONS AMER PROG [id number] Other [id number] [facility] [id number] SP [id number] WELLCARE [id number] Other [id number] WELLCARE [id number] S [id number] WELLCARE HEALTH PLANS - OP [id number] undefined [id number] [facility] INSURANCE FUND [id number] Other [id number] Problems, Conditions, and Diagnoses Code Display Name Description Problem Type Effective Dates Data Source(s) H61.21 Impacted cerumen, right ear IMPACTED CERUMEN, RIGHT EA R Diagnosis 07/05/2021 02:03:00 PM [facility] H66.004 Acute suppurative otitis med ia without spontaneous rupture of ear drum, recurrent, right ear AC SUPPR OTITIS MEDIA W/O SPON RUPT EAR DRUM, RECUR, R EAR Diagnosis 07/05/2021 02:03:00 PM [facility] H61.22 Impacted cerumen, left ear IMPACTED CERUMEN, LEFT EAR Diagnosis 06/29/2021 02:48:00 PM [facility] H60.311 Diffuse otitis externa, right ear DIFFUSE OTITIS EXTERNA, RIGHT EAR Diagnosis 06/29/2021 02:48:00 PM [facility] M25.571 Pain in right ankle and joints of right foot PAIN IN RIGHT ANKLE AND JOINTS OF RIGHT FOOT Diagnosis 06/01/2021 10:39:00 AM EDT [facility] Z20.822 CONTACT WITH AND (SUSPECTED) EXPOSURE TO COVID-19 CONTACT WITH AND (SUSPECTED) EXPOSURE TO COVID-19 Diagnosis 05/21/2021 01:03:00 PM EDT [facility] Z87.891 Personal history of nicotine dependence PERSONAL HISTORY OF NICOTINE DEPENDENCE Diagnosis 05/04/2021 11:48:00 AM EDT [facility] 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 Diagnosis 05/04/2021 11:48:00 AM EDT [facility] F10.20 Alcohol dependence, uncomplicated ALCOHOL DEPEND ENCE, UNCOMPLICATED Diagnosis 05/04/2021 11:48:00 AM EDT [facility] I10 Essential (primary) hypertension ESSENTIAL (PRIMARY) H YPERTENSION Diagnosis 05/04/2021 11:48:00 AM EDT [facility] K21.9 Gastro-esophageal reflux disease without esophagitis GASTRO-ESOPHAGEAL REFLUX DISEASE WITHOUT ESOPHAGIT Diagnosis 05/04/2021 11:48:00 AM EDT [facility] E78.5 Hyperlipidemia, unspecified HYPERLIPIDEMIA, UNSPECIFIE D Diagnosis 05/04/2021 11:48:00 AM [facility] 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 ferry terminal agent (current) use of anticoagulants Diagnosis 04/11/2021 09:55:00 AM EDT [facility] E878 Other disorders of electrolyte and fluid balance, not elsewhere classified Other disorders of electrolyte and fluid balance, not elsewhere classified Diagnosis 04/11/2021 09:55:00 AM EDT [facility] D689 Coagulation defect, unspecified Coagulation defect, un specified Diagnosis 04/10/2021 02:53:00 PM EDT [facility] D649 Anemia, unspecified Anemia, unspecified Diagnosis 0 04/10/2021 02:53:00 PM [facility] E860 Dehydration Dehydration Diagnosis 04/10/2021 02:53:00 PM EDT [facility] E861 Hypovolemia Hypovolemia Diagnosis 04/10/2021 02:53:00 PM EDT [facility] I959 Hypotension, unspecified Hypotension, unspecified Diag nosis 04/10/2021 02:53:00 PM [facility] R42 Dizziness and giddiness Dizziness and giddiness Diagno sis 04/10/2021 02:53:00 PM [facility] H62.41 Otitis externa in other diseases classif ied elsewhere, right ear OTITIS EXTERNA IN OTH DISEASES CLASSD ELSWHR, RIGHT EAR Diagnosis 04/06 11:02:00 AM [facility] B36.9 Superficial mycosis, unspecified SUPERFICIAL MYC OSIS, UNSPECIFIED Diagnosis 04/06/2021 11:02:00 AM [facility] H60.312 Diffuse otitis externa, left ear DIFFUSE OTITIS EXTERNA, LEFT EAR Diagnosis 04/06/2021 11:02:00 AM [facility] M79.672 Pain in left foot PAIN IN LEFT FOOT Diagnosis 03/29 10:35:00 AM [facility] M72.2 Plantar fascial fibromatosis PLANTAR FASCIAL FIBROMATO SIS Diagnosis 03/29/2021 10:35:00 AM [facility] H66.93 Otitis media, unspecified, bilateral BRIJESH TIS MEDIA, UNSPECIFIED, BILATERAL Diagnosis 03/24/2021 12:45:00 PM [facility] B35.2 Tinea manuum TINEA MANUUM Diagnosis 03/21/2021 10:15:00 A [facility] H6693 Otitis media, unspecified, bilateral Otitis medi a, unspecified, bilateral Diagnosis 03/10/2021 08:29:00 PM [facility] H9202 Otalgia, left ear Otalgia, left ear Diagnosis 03/10/2021 08:29:00 PM [facility] R19.09 Other intra-abdominal and pelvic swellin g, mass and lump OTHER INTRA- ABDOMINAL AND PELVIC SWELLING, MASS AND LUMP Diagnosis 12:16:00 PM [facility] I82.409 Acute embolism and thrombosi s of unspecified deep veins of unspecified lower extremity ACUTE EMBOLISM AND THOMBOS UNSP DEEP VN UNSP LOWER EXT REMITY Diagnosis 01/06/2021 12:16:00 PM [facility] M96.1 Postlaminectomy syndrome, not elsewhere classified POSTLAMINECTOMY SYNDROME, NOT ELSEWHERE CLASSIFIED Diagnosis 01/06/2021 12:16:00 PM ED T [facility] R04205 Personal history of other venous thrombo sis and embolism Personal history of other venous thrombosis and embolism Diagnosis 11/22/2020 01:30:00 PM EDT [facility] R102 Pelvic and perineal pain Pelvic and perineal pain Diag nosis 11/22/2020 01:30:00 PM EDT [facility] K8020 Calculus of gallbladder without cholecys titis without obstruction Calculus of gallbladder without cholecystitis without obstruction Diagnosis 11/22/2020 01:30:00 PM EDT [facility] A24221 Muscle spasm of back Muscle spasm of back Diagnosis 11/22/2020 01:30:00 PM EDT [facility] R109 Unspecified abdominal pain Unspecified abdominal pain Diagnosis 11/22/2020 01:30:00 PM EDT [facility] R2241 Localized swelling, mass and lump, right lower limb Localized swelling, mass and lump, right lower limb Diagnosis 11/04/2020 09:57:00 PM EDT [facility] N53921 Unspecified place in single- family (private) house as the place of occurrence of the external cause Unspecified place in single-family (priv ate) house as the place of occurrence of the external cause Diagnosis 11/04/2020 09:57:00 PM EDT [facility] Y9301 Activity, walking, marching and hiking A ctivity, walking, marching and hiking Diagnosis 11/04/2020 09:57:00 PM EDT [facility] Y998 Other external cause status Other external cause statu s Diagnosis 11/04/2020 09:57:00 PM EDT [facility] [id number] Overexertion from prolonged static or awkward postures, initial encounter Overexertion from prolonged static or aw kward postures, initial encounter Diagnosis 11/04/2020 09:57:00 PM EDT [facility] [id number] Fall on same level, unspecified, initial encounter Fall on same level, unspecified, initial encounter Diagnosis 11/04/2020 09:57:00 PM EDT [facility] [id number] Sprain of unspecified ligament of right ankle, initial encounter Sprain of unspecified ligament of right ankle, initial encounter Diagnosis 11/04/2020 09:57:00 PM EDT [facility] Q57368 Pain in right ankle and joints of right foot Pain in right ankle and joints of right foot Diagnosis 11/04/2020 09:57:00 PM EDT [facility] [id number] Unspecified injury of head, initial enco unter Unspecified injury of head, initial encounter Diagnosis 11/04/2020 09:57:00 PM EDT [facility] M25.471 Effusion, right ankle EFFUSION, RIGHT ANKLE Diagnosis 10/28/2020 01:32:00 PM [facility] M79.671 Pain in right foot PAIN IN RIGHT FOOT Diagnosis 09:24:00 AM [facility] M20.22 Hallux rigidus, left foot HALLUX RIGIDUS, LEFT FOOT Di agnosis 09/15/2020 09:24:00 AM [facility] Z80.6 Family history of leukemia FAMILY HISTORY OF LEUKEMIA Diagnosis 09/09/2020 10:39:00 AM [facility] Z90.79 Acquired absence of other genital organ( s) ACQUIRED ABSENCE OF OTHER GENITAL ORGAN(S) Diagnosis 09/09/2020 10:39:[address] [facility] Z87.01 Personal history of pneumonia (recurrent ) PERSONAL HISTORY OF PNEUMONIA (RECURRENT) Diagnosis 09/09/2020 10:39:[address] 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 maria l Z98.890 OTHER SPECIFIED POSTPROCEDURAL STATES OT HER SPECIFIED POSTPROCEDURAL STATES Diagnosis 09/09/2020 10:39:[address] [facility] maria l Z86.718 Personal history of other venous thrombo sis and embolism PERSONAL HISTORY OF OTHER VENOUS THROMBOSIS AND EM Diagnosis 09/09/2020 10:39:0 0 AM [facility] I87.1 Compression of vein COMPRESSION OF VEIN Diagnosis 0 09/09/2020 10:39:00 AM [facility] Z86.718 Personal history of other venous thrombo sis and embolism PERSONAL HISTORY OF OTHER VENOUS THROMBOSIS AND EMBOLISM Diagnosis 2019 12:19:00 PM [facility] Z88.5 Allergy status to narcotic agent status ALLERGY STATUS TO NARCOTIC AGENT Diagnosis 07/29/2020 11:25:00 AM [facility] Z79.899 Other longterm (current) drug therapy O THER HALFWAY (CURRENT) DRUG THERAPY Diagnosis 07/29/2020 11:25:00 AM [facility] Z79.01 ferry 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 agent (current) use of anticoagulant s 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 OF 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 (CURRENT) USE OF ANTICOAGULANTS Diagnosis 07/29/2020 11:25:00 AM [facility] Z90.89 Acquired absence of other organs ACQUIRED ABSENC E OF OTHER ORGANS Diagnosis 07/29/2020 11:25:00 AM [facility] Z72.0 Tobacco use TOBACCO USE Diagnosis 07/29/2020 11:25:00 AM [facility] Z85.47 Personal history of malignant neoplasm o f testis PERSONAL HISTORY OF MALIGNANT NEOPLASM OF TESTIS Diagnosis 07/29/2020 11:25:00 AM [facility] R56.9 Unspecified convulsions UNSPECIFIED CONVULSIONS Diagno sis 07/29/2020 11:25:00 AM [facility] I25.2 Old myocardial infarction OLD MYOCARDIAL INFARCTION Di agnosis 07/29/2020 11:25:00 AM [facility] E78.5 Hyperlipidemia, unspecified HYPERLIPIDEMIA, UNSPECIFIE D Diagnosis 07/29/2020 11:25:00 AM [facility] I10 Essential (primary) hypertension ESSENTIAL (PRIMARY) H YPERTENSION Diagnosis 07/29/2020 11:25:00 AM [facility] K21.9 Gastro-esophageal reflux disease without esophagitis GASTRO-ESOPHAGEAL REFLUX DISEASE WITHOUT ESOPHAGITIS Diagnosis 07/29/2020 11:25:00 AM [facility] 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 ATHSCL HEART DISEASE OF [place] CORONARY ARTERY W/O ANG PCTRS Diagnosis 07/29/2020 11:25:00 AM [facility] F41.9 Anxiety disorder, unspecified ANXIETY DISORDER, UNSPEC IFIED Diagnosis 07/29/2020 11:25:00 AM [facility] I82.403 Acute embolism and thrombosi s of unspecified deep veins of lower extremity, bilateral ACUTE EMBOLISM AND THOMBOS UNSP DEEP VEI NS OF LOW EXTRM, BI Diagnosis 07/29/2020 11:25:00 AM [facility] R11.2 Nausea with vomiting, unspecified NAUSEA WITH VO MITING, UNSPECIFIED Diagnosis 07/27/2020 02:24:00 PM [facility] R19.7 Diarrhea, unspecified DIARRHEA, UNSPECIFIED Diagnosis 07/27/2020 02:24:00 PM [facility] R10.9 Unspecified abdominal pain UNSPECIFIED ABDOMINAL PAIN Diagnosis 07/27/2020 02:24:00 PM [facility] G89.29 Other chronic pain OTHER CHRONIC PAIN Diagnosis 12:52:00 PM [facility] M54.5 Low back pain LOW BACK PAIN Diagnosis 07/12/2020 12:52:00 PM [facility] G40.909 Epilepsy, unspecified, not intractable, without status epilepticus EPILEPSY, UNSP, NOT INTRACTABLE, WITHOUT STATUS EPILEPTICUS Diagnosis 07/12/2020 12:52:00 PM [facility] Z5181 Encounter for therapeutic drug level mon itoring Encounter for therapeutic drug level monitoring Diagnosis 07/05/2020 09:09:00 AM [facility] I82.402 Acute embolism and thrombosi s of unspecified deep veins of left lower extremity ACUTE EMBOLISM AND THOMBOS UNSP DEEP VEINS OF L LOW EXTREM D iagnosis 06/30/2020 10:17:00 AM [facility] Z51.81 Encounter for therapeutic drug level mon itoring ENCOUNTER FOR THERAPEUTIC DRUG LEVEL MONITORING Diagnosis 06/28/2020 09:39:00 AM [facility] D75.89 Other specified diseases of blood and bl ood-forming organs OTHER SPECIFIED DISEASES OF BLOOD AND BLOOD-FORMING ORGANS Diagnosis 1 08/28/2019 09:39:00 AM [facility] R79.89 Other specified abnormal findings of blo od chemistry OTHER SPECIFIED ABNORMAL FINDINGS OF BLOOD CHEMISTRY Diagnosis 06/28/2020 09:39:00 AM [facility] R74.8 Abnormal levels of other serum enzymes A BNORMAL LEVELS OF OTHER SERUM ENZYMES Diagnosis 06/28/2020 09:39:00 AM [facility] [id number] Acute embolism and thrombosi s of unspecified deep veins of right lower extremity Acute embolism and thrombosis of unspeci fied deep veins of right lower extremity Diagnosis 06/14/2020 [facility] Chronic embolism and thrombo sis of unspecified deep veins of left lower extremity Chronic embolism and thrombosis of unspe cified deep veins of left lower extremity Diagnosis 06/14/2020 10:09:00 AM [facility] Z23 Encounter for immunization ENCOUNTER FOR IMMUNIZATION Diagnosis 06/08/2020 11:49:00 AM [facility] M81.0 Age-related osteoporosis without current pathological fracture AGE-RELATED OSTEOPOROSIS W/O CURRENT PATHOLOGICAL FRACTURE Diagnosis 2019 11:49:00 AM [facility] Z86.711 Personal history of pulmonary embolism P ERSONAL HISTORY OF PULMONARY EMBOLISM Diagnosis 05/27/2020 02:44:00 PM [facility] F10.10 Alcohol abuse, uncomplicated ALCOHOL ABUSE, UNCOMPLICA YAHAIRA Diagnosis 05/27/2020 02:44:00 PM [facility] F17.290 Nicotine dependence, other tobacco produ ct, uncomplicated NICOTINE DEPENDENCE, OTHER TOBACCO PRODUCT, UNCOMPLICATED Diagnosis 05/27 02:44:00 PM [facility] Z96.642 Presence of left artificial hip joint MI ESENCE OF LEFT ARTIFICIAL HIP JOINT Diagnosis 05/27/2020 02:44:00 PM [facility] Z85.72 Personal history of non-Hodgkin lymphoma s PERSONAL HISTORY OF NON-HODGKIN LYMPHOMAS Diagnosis 05/27/2020 02:44:00 PM [facility] Z87.11 Personal history of peptic ulcer disease PERSONAL HISTORY OF PEPTIC ULCER DISEASE Diagnosis 05/27/2020 02:44:00 PM [facility] M54.9 Dorsalgia, unspecified DORSALGIA, UNSPECIFIED Diagnosi s 05/27/2020 02:44:00 PM [facility] G89.29 Other chronic pain OTHER CHRONIC PAIN Diagnosis 03/2020 02:44:00 PM [facility] N18.2 Chronic kidney disease, stage 2 (mild) C HRONIC KIDNEY DISEASE, STAGE 2 (MILD) Diagnosis 05/27/2020 02:44:00 PM [facility] I12.9 Hypertensive chronic kidney disease with stage 1 through stage 4 chronic kidney disease, or unspecified chronic kidney disease HYPERTENSIVE CHRONIC KIDNEY DISEASE W STG 1-4/UNSP CHR KDNY Diagnosis 05/27/2020 02:44:00 P M [facility] M10.9 Gout, unspecified GOUT, UNSPECIFIED Diagnosis 05/27/2020 02:44:00 PM [facility] L03.116 Cellulitis of left lower limb CELLULITIS OF LEFT LOWER LIMB Diagnosis 05/27/2020 02:44:00 PM [facility] R60.0 Localized edema LOCALIZED EDEMA Diagnosis 05/27/2020 12:5 4:00 PM [facility] I82.412 Acute embolism and thrombosis of left fe moral vein ACUTE EMBOLISM AND THROMBOSIS OF LEFT FEMORAL VEIN Diagnosis 05/27/2020 12:54:00 PM [facility] R59.0 Localized enlarged lymph nodes LOCALIZED ENLARGED LYMP H NODES Diagnosis 05/27/2020 12:54:00 PM [facility] Z87.81 Personal history of (healed) traumatic f racture PERSONAL HISTORY OF (HEALED) TRAUMATIC FRACTURE Diagnosis 05/27/2020 12:54:[address] [facility] M11.262 Other chondrocalcinosis, left knee OTHER CHONDRO CALCINOSIS, LEFT KNEE Diagnosis 05/27/2020 12:54:00 PM [facility] M79.89 Other specified soft tissue disorders OT HER SPECIFIED SOFT TISSUE DISORDERS Diagnosis 05/27/2020 12:54:00 PM [facility] R11.2 Nausea and vomiting Nausea & vomiting Problem 0 12:00:00 AM EST eCW1 ([facility]) R10.9 Abdominal pain Abdominal pain Problem 07/21/2020 12:00: 00 AM EST eCW1 ([facility]) R19.7 Diarrhea Diarrhea Problem 07/21/2020 12:00:00 AM ES T eCW1 ([facility]) Surgeries/Procedures Procedure Description Date Indications Data Source(s) Hospital outpatient clinic visit for assessment and ma nagement of a patient Hospital Outpatient Clinic Visit 06/29/2021 12:00:00 AM [facility] RMVL IMPACTED CERUMEN SPX 1/BOTH EARS REMOVE IMPACTED EAR WA X UNI 06/29/2021 12:00:00 AM [facility] CUL BACT AEROBIC ADDL METHS DEFINITIVE EA ISOL CULTURE AEROB IC IDENTIFY 06/29/2021 12:00:00 AM [facility] CUL BACT XCPT URINE BLOOD/STOOL AEROBIC ISOL CULTURE OTHR SP ECIMN AEROBIC 06/29/2021 12:00:00 AM [facility] SUSCEPTIBLTY STDY ANTIMICRBIAL MICRO/AGAR DILUTJ MICROBE MARIA ESTHER CEPTIBLE [place] 06/29/2021 12:00:00 AM [facility] RADEX ANKLE COMPLETE MINIMUM 3 VIEWS X-RAY EXAM OF ANKLE 12:00:00 AM [facility] C9803 Sars-cov-2 Hospital outpt clinic visit s pecimen collection 05/21/2021 12:00:00 AM [facility] U0003 SARS-CoV-2 detection by nucleic acid 05/21/2021 12:00: 00 AM [facility] INJECTION 1 TENDON SHEATH/LIGAMENT APONEUROSIS INJ TENDON SH EATH/LIGAMENT 01/19/2021 12:00:00 AM [facility] DEBRIDEMENT NAIL ANY METHOD 6/> DEBRIDE NAIL 6 OR MORE 01/19 12:00:00 AM [facility] Injection, triamcinolone acetonide, not otherwise specified , 10 mg 01/19/2021 12:00:00 AM [facility] ARTHROCENTESIS ASPIR&/INJECTION SMALL JT/BURSA DRAIN/INJ KRISTA NT/BURSA W/O US 09/15/2020 12:00:00 AM [facility] DUP-SCAN XTR VEINS COMPLETE BILATERAL STUDY EXTREMITY STUDY 07/29/2020 12:00:00 AM [facility] ECG ROUTINE ECG W/LEAST 12 LDS TRCG ONLY W/O I&R ELECTROCARD IOGRAM TRACING 07/29/2020 12:00:00 AM [facility] 54494 SARS-COV-2 COVID-19 AMP PRB 07/29/2020 12:00:00 AM [facility] THROMBOPLASTIN TIME PARTIAL PLASMA/WHOLE BLOOD THROMBOPLASTI N TIME PARTIAL 07/29/2020 12:00:00 AM [facility] PROTHROMBIN TIME PROTHROMBIN TIME 07/29/2020 12:00:00 AM [facility] BLOOD COUNT COMPLETE AUTO&AUTO DIFRNTL WBC COUNT COMPLETE CB C W/AUTO DIFF WBC 07/29/2020 12:00:00 AM [facility] TROPONIN QUANTITATIVE ASSAY OF TROPONIN QUANT 07/29/2020 12:00:00 A M [facility] BASIC METABOLIC PANEL CALCIUM TOTAL METABOLIC PANEL TOTAL CA 07/29/2020 12:00:00 AM [facility] Injection, acetaminophen, 10 mg 07/29/2020 12:00:00 AM [facility] Injection, heparin sodium, per 1000 units 07/29/2020 1 2:00:00 AM [facility] Injection, morphine sulfate, up to 10 mg 07/29/2020 12 :00:00 AM [facility] COLLECTION VENOUS BLOOD VENIPUNCTURE ROUTINE VENIPUNCTURE 12:00:00 AM [facility] THERAPEUTIC INJECTION IV PUSH EACH NEW DRUG TX/PRO/DX INJ NE W DRUG ADDON 07/29/2020 12:00:00 AM [facility] THER PROPH/DX NJX IV PUSH SINGLE/1ST SBST/DRUG THER/PROPH/DI AG INJ IV PUSH 07/29/2020 12:00:00 AM [facility] EMERGENCY DEPT VISIT HIGH SEVERITY&THREAT FUNCJ EMERGENCY DE PT VISIT 07/29/2020 12:00:00 AM [facility] PARATHORMONE ASSAY OF PARATHORMONE 06/28/2020 12:00:00 AM [facility] THYROXINE FREE ASSAY OF FREE THYROXINE 06/28/2020 12:00:00 AM [facility] THYROID STIMULATING HORMONE TSH ASSAY THYROID STIM HORMONE 1 08/28/2019 12:00:00 AM [facility] 25 HYDROXY INCLUDES FRACTIONS IF PERFORMED VITAMIN D 25 HYDR OXY 06/28/2020 12:00:00 AM [facility] FOLIC ACID SERUM ASSAY OF FOLIC ACID SERUM 06/28/2020 12:00:00 AM [facility] CYANOCOBALAMIN VITAMIN B-12 VITAMIN B-12 06/28/2020 12:00:00 AM [facility] URIC ACID BLOOD ASSAY OF BLOOD/URIC ACID 06/28/2020 12:00:00 AM [facility] TRIIODOTHYRONINE T3 FREE FREE ASSAY (FT-3) 06/28/2020 12:00:00 AM [facility] COMPREHENSIVE METABOLIC PANEL COMPREHEN METABOLIC PANEL 04/2020 12:00:00 AM [facility] Computerized Tomography (CT Scan) of Left Foot/Toe Krista nt COMPUTERIZED TOMOGRAPHY (CT SCAN) OF LEFT FOOT/TOE JOINT 06/01/2020 12:00:00 AM [facility] DUP-SCAN XTR VEINS UNILATERAL/LIMITED STUDY EXTREMITY STUDY 05/27/2020 12:00:00 AM [facility] RADIOLOGIC EXAMINATION TIBIA & FIBULA 2 VIEWS X-RAY EXAM OF LOWER LEG 05/27/2020 12:00:00 AM [facility] BLOOD COUNT SMEAR MCRSCP W/MNL DIFRNTL WBC COUNT BL SMEAR W/ DIFF WBC COUNT 05/27/2020 12:00:00 AM [facility] BLOOD COUNT COMPLETE AUTOMATED COMPLETE CBC AUTOMATED 2019 12:00:00 AM [facility] Non-covered item or service NON-COVERED ITEM OR SERVICE 03/2020 12:00:00 AM [facility] Injection, enoxaparin sodium, 10 mg 05/27/2020 12:00:0 0 AM [facility] Results ID Date Data Source [id number] 07/17/2021 04:45:20 PM [facility] Name Value Range Interpretation Code Description Data Gala rce(s) Supporting Document(s) Progress Note [facility] ZURXKo3yBxNSNrBi58/VVQbsLZCvx9IfKKmhEWa3VAjvPAAkZ7EyTYV7fW5gZEB9FWiBIfIpSfKeOFH3 lbm [file] [facility]//2/330yE784jwnIjY4ij95xMUCZ0TVNQW58OP2njEKhVr+vc8JijLBKOpIjNh2UeM4H6rfCpe05 [file] ogICAgICAgICAgICAgICAgICAgICAgICAgICAgICAgICAgICAgICAgICAgICAgICAgICAgICAgICAgIC AgICAgICAgICAgICAgICAgICAgICAgICAgICAgICAgICAgICAgICAgDQogICAgICAgICAgICAgICAgIC AgICAgICAgICAgICAgICAgICAgICAgICAgICAgICAg ICAgICAgICAgICAgICAgICAgICAgICAgICAgICAgICAgICAgICAgICAgICAgICAgICAgDQogICAgICAg ICAgICAgICAgICAgICAgICAgICAgICAgICAgICAgICAgICAgICAgICAgICAgICAgICAgICAgICAgICAg ICAgICAgICAgICAgICAgICAgICAgICAgICAgICAgIC AgDQogICAgICAgICAgICAgICAgICAgICAgICAgICAgICAgICAgICAgICAgICAgICAgICAgICAgICAgIC AgICAgICAgICAgICAgICAgICAgICAgICAgICAgICAgICAgICAgICAgICAgDQogICAgICAgICAgICAgIC AgICAgICAgICAgICAgICAgICAgICAgICAgICAgICAg ICAgICAgICAgICAgICAgICAgICAgICAgICAgICAgICAgICAgICAgICAgICAgICAgICAgICAgDQogICAg ICAgICAgICAgICAgICAgICAgICAgICAgICAgICAgICAgICAgICAgICAgICAgICAgICAgICAgICAgICAg ICAgICAgICAgICAgICAgICAgICAgICAgICAgICAgIC AgICAgDQogICAgICAgICAgICAgICAgICAgICAgICAgICAgICAgICAgICAgICAgICAgICAgICAgICAgIC AgICAgICAgICAgICAgICAgICAgICAgICAgICAgICAgICAgICAgICAgICAgICAgDQogICAgICAgICAgIC AgICAgICAgICAgICAgICAgICAgICAgICAgICAgICAg ICAgICAgICAgICAgICAgICAgICAgICAgICAgICAgICAgICAgICAgICAgICAgICAgICAgICAgICAgDQog ICAgICAgICAgICAgICAgICAgICAgICAgICAgICAgICAgICAgICAgICAgICAgICAgICAgICAgICAgICAg ICAgICAgICAgICAgICAgICAgICAgICAgICAgICAgIC AgICAgICAgDQogICAgICAgICAgICAgICAgICAgICAgICAgICAgICAgICAgICAgICAgICAgICAgICAgIC YvHPQyWWIeTHSeAZImWBFhQSLuQYMwIBFhITVhVQNcPYQtDNRfUKHpULDhDQTeRANgLSt0V1uySCRgYL OjMY4aTOz6Qz4+IHaBWaFoBUI9qlEacC2AEG6mo4Cf EAtfNDSdm2WlBSn3JL5KJFJbMUkuAO5AZUivap4HPBLqPDRboRPIo8asEzFyUCR9VJUnIddjNI8FDOCp W1xhdrOzTQGgLPCANL3LHvVrJ9BqzE57AMWUUw4+FBdtadMwOecPBcRkPLXhi3UoGCb6DK3FKHUuEmjn i2DlLeOgXDBQTTznHL3JEZE6KXCyTBHlCl2AKXDzU6 53vdVjJQ0DUo7HMdNgUY8veb7GIoFcREYySblRQqs6AGdhAV4IoXKyGRpAhn4ckrHugyQKl0IsuuHglN LJpHIzYOOnDCZgd1Lwu70mREXWHtBdcCHfXI4vPF1lGIZyEIB9VrB8JSPXQD4YDSCnOCHqnUJkMCMrPU UGST5ZQFpgJZV2QWVbvhWynBAtGZlbIM8ZWJMmeuDo MjIgMCBSDQo+Xx0DMR4px2RjYItyPANcDQ6oup8ZXKcUPdLgT2O3hDIdC0H2JVuxUg0DQDGhFSEtHiEh XRUNDLntMT0JJJ6kruS4NX3PpYOiGPMkTFCjcNVyUHs6M85ltWGjYSnbQM3RRRE+Sarah Beth+Up9NCGJdKHLp LVPiYaEpTKAMUqUlT0HaJ5ZXq4XxY4XlUH33vKxedu OgCNwqOZ2SUA2xJPNxTFAHAK1TzAGtzU1idvMfJgGiBGKQYiLlM60psPSvPFCaNNNxASDuBk1MQKRwS3 YppdPplAiwdtXxQLBpJECEIV3NDXvotpMsiCUxrPasAI72aQpeLV8VQt4TKmAqKY4uam2McBDbBh3ZLD KeHU7HBZJfWMYaFAChSYP1KFIgXtRpNHaqWKQfIPYf HHP5ZPUsBNElVS8YMuAmCSYiTMjpXhUrKUZnDAWmzn1CKWUmSVUyHWUxHSCmIIQpHFBzMQveXJJfPPDl CXX3JRQfNXXzES5DMxViEZKiDTK1DKHqGBOlGDUigi7SONIdWOHdNzYqEGBaYHReNRBgPPceFUWwJBUn LXR2UEPlSZOtSO3AClUaGWUuBWQtWLSxLJQoWJZslq 4CNTVsLUXkZzFlRYIdXWCeIYXiWQnbTIHpDCQ5NmhyMJDtARNuBY2EXvLtSVYsWQO0HRZyNEOpVYYumj 1DYKSqKYRaOBP5FbFyKGUbVGYjJWlsFZKdKCO8SRB1OGPlTPKmNK8OJbXvLGSlHIRpWGMbHBRrWUUiyv 5XHXDvDKVaGsE5MoTuDRNaTUSoCCphPNHlXYA4RWWn MRQnFMOeOI5PJaHaYDOhMDJ1MMdmOUFjKAGqvb3MKVWdWFVgKcd7RkKdQVYpDMIzRIjkIPRsLSU5IPgh CLYuRIHvHW3SJpOhTFCpVTpuKMBpACYhLCBdts2TXNDxCGEdONU0JIOhYLKmEDByHOdjOGOuMVKjPKy8 JQNyIJAkHA9NYwIsSOUzKxBfRcuzCZFcKVQemj1JJG BoEQFxUEDhROZxNYHsLIEeCEw2fwDokTPoICd1KX7TB8EniuAeUwMMFn8Fj436IXZ0STFdSr3PF5ykCw 6qVQKpQDUVOp1BLJw1EUc8AlI8EVRrTkG3Q8R1Noi1KZU3TXNeFXQgPPDtAnY+PVjaAUblRnJvUkX8MJ p1XBhfFdBoIgzfPTGcGuXuHiIiFp3uORSCUa7+IZxpoZGseFetIFELLjWlVPZ0DYrwNVOMZh8H ID Date Data Source [id number] 07/17/2021 02:50:00 PM EST [facility] Name Value Range Interpretation Code Description Data Gala rce(s) Supporting Document(s) Lactate [Moles/volume] in Serum or Plasma 3.9 mmol/L 0.4 - 2.0 Above high normal [facility] \\BLDo\\[LA]LACTIC ACID \\BLDx\\ [facility] Adult and Pediatric Sepsis Protocols: Adult SIRS/Septic Patient = Lactate > or = 4.0 mmol/L Pediatric SIRS/Septic Patient = Lactate > or = 2.2 mmol/L Base Line, 3 hour and 6 hour lactic acid values should be obtained for further evaluation. ID Date Data Source [id number] 07/17/2021 02:50:00 PM EST [facility] Name Value Range Interpretation Code Description Data Gala rce(s) Supporting Document(s) Potassium [Moles/volume] in Serum or Plasma 5.6 mEq/L 3.5 - 5.1 Above high normal [facility] ID Date Data Source [id number] 07/17/2021 02:25:00 PM EST [facility] Name Value Range Interpretation Code Description Data Gala rce(s) Supporting Document(s) RESP PROFILE RP2.1 NASAL PCR [facility] \\BLDo\\RESPIRATORY PROFILE NASAL PHARYNGEAL BY PCR\\BLDx\\ \\BLDo\\DETECTED _NONE \\BLDx\\ [facility] \\BLDo\\EQUIVOCAL _NONE \\BLDx\\ 07/17/21[facility] VIRUSES ADENOVIRUS NOT DETECTED NORMAL: NOT DETECTED [facility] CORONAVIRUS 229E NOT DETECTED NORMAL: NOT DETECTED [facility] CORONAVIRUS HKU1 NOT DETECTED NORMAL: NOT DETECTED [facility] CORONAVIRUS NL63 NOT DETECTED NORMAL: NOT DETECTED [facility] CORONAVIRUS OC43 NOT DETECTED NORMAL: NOT DETECTED [facility] 95461-5 NOT DETECTED NORMAL: NOT DETECTED [facility] REPORT TO DEPARTMENT OF HEAL TH HUMAN METAPNEUMO NOT DETECTED NORMAL: NOT DETECTED [facility] HUMAN RHINO/ENTERO NOT DETECTED NORMAL: NOT DETECTED [facility] NOT DETECTEDNOT DETECTEDNOT DETECTEDNOT DETECTED PARAINFLUENZA V3 NOT DETECTED NORMAL: NOT DETECTED [facility] NOT DETECTED RSV NOT DETECTED NORMAL: NOT DETECTED [facility] BACTERIANOT DET ECTEDNOT DETECTEDNOT DETECTEDNOT DETECTED TESTING PERFORMED USING THE [employer] RP2.1 MULTIPLEXED NUCLEIC ACID TEST. THIS TEST HAS NOT BEEN FDA CLEARED OR APPROVED; THIS TEST HAS BEEN AUTHORIZED BY FDA UNDER AN EUA FOR USE BY AUTHORIZED LABORATORIES; THIS TEST HAS BEEN AUTHORIZED ONLY FOR THE DETECTION AND DIFFERENTATION OF NUCLEI ACID OF SARS-CoV-2 FROM MULTIPLE RESPIRATORY VIRAL AND BACTERIAL ORGANIMS; AND THIS TEST IS ONLY AUTHORIZED FOR THE DURATION OF THE DECLARATION THAT CIRCUMSTANCES EXIST JUSTIFYING THE AUTHORIZATION OF EMERGENCY USE OF IN VITRO DIAGNOSTIC TESTS FOR THE DETECTION AND/OR DIAGNOSIS OF COVID-19 UNDER SECTION 564(b)(1) OF THE ACT, 21 U.S.C. 360bbb-3(b) (1), UNLESS THE AUTHORIZATION IS TERMINATED OR REVOKED SOONER. ID Date Data Source [id number] 07/17/2021 02:10:00 PM EST [facility] Name Value Range Interpretation Code Description Data [facility] rce(s) Supporting Document(s) Magnesium [Mass/volume] in Serum or Plasma 1.8 mg/dL 1.8 - 2.4 [facility] ID Date Data Source [id number] 07/17/2021 02:10:00 PM EST [facility] Name Value Range Interpretation Code Description Data [facility] rce(s) Supporting Document(s) COMPREHENSIVE CHEM PROFILE [facility] COMPREHENSIVE METABOLIC PANEL Sodium [Moles/volume] in Serum or Plasma 135 mEq/L 136 - 145 Below low normal [facility] Potassium [Moles/volume] in Serum or Plasma 5.6 mEq/L 3.5 - 5.1 Above high normal [facility] Chloride [Moles/volume] in Serum or Plasma 101 mEq/L 98 - 107 [facility] Carbon dioxide, total [Moles/volume] in Serum or Plasma 20.2 mEq /L 21.0 - 32.0 Below low normal [facility] Glucose [Mass/volume] in Serum or Plasma 140 mg/dL 70 - 100 Above high normal [facility] Urea nitrogen [Mass/volume] in Serum or Plasma 7 mg/dL 7 - 18 [facility] CREATININE SERUM 1.06 mg/dL 0.70 - 1.30 [facility] AGE 65 yrs [facility] HEIGHT 66.00 INCHES [facility] ital eGFR NON-AFR AMR >60 [facility] eGFR AFR AMR >60 [facility] ital BUN/CREAT 7 6 - 25 [facility] l Protein [Mass/volume] in Serum or Plasma 6.6 g/dL 6.0 - 8.3 [facility] Albumin [Mass/volume] in Serum or Plasma 3.0 g/dL 3.8 - 5.4 Below low normal [facility] GLOBULIN 3.6 g/dL 2.0 - 4.0 [facility] A/G RATIO 0.8 0.8 - 2.0 [facility] Calcium [Mass/volume] in Serum or Plasma 8.5 mg/dL 8.8 - 10.2 Below low normal [facility] Bilirubin.total [Mass/volume] in Serum or Plasma 0.5 mg/dL 0.2 - 1.0 [facility] Bilirubin.direct [Mass/volume] in Serum or Plasma 0.2 mg/dL 0.0 - 0. 2 [facility] INDIRECT BILI 0.3 mg/dL 0.0 - 1.1 [facility] pital ALK PHOSPHATASE 259 U/L 40 - 129 Above high normal [facility] Aspartate aminotransferase [Enzymatic ac tivity/volume] in Serum or Plasma by With P-5'-P 62 IU/L 7 - 37 Above high normal [facility] Alanine aminotransferase [Enzymatic acti vity/volume] in Serum or Plasma by With P-5'-P 33 IU/L 12 - 78 [facility] ANION GAP 14 7 - 15 [facility] Estimated GFR referenc e range: >60ml/min/1.73m >18 years: Calculated using IDMS traceable Study Equation <18 years: Calculated using IDNC tracable Bedside Schartz Equation ID Date Data Source [id number] 07/17/2021 02:10:00 PM EST [facility] Name Value Range Interpretation Code Description Data Gala rce(s) Supporting Document(s) CBC [facility] COMPLETE BLOOD COUNT Leukocytes [#/volume] in Blood by Automated count 18.8 K/uL 4.0 - 10.0 Above high normal [facility] Erythrocytes [#/volume] in Blood by Automated count 3.76 M/uL 4.30 - 6.10 Below low normal [facility] Hemoglobin [Mass/volume] in Blood 13.9 g/dL 13.5 - 17.5 [facility] Hematocrit [Volume Fraction] of Blood by Automated count 39.6 % 3 9.0 - 50.0 [facility] Erythrocyte mean corpuscular volume [Entitic volume] b y Automated count 105.3 fL 80.0 - 96.0 Above high normal [facility] Erythrocyte mean corpuscular hemoglobin [Entitic mass] by Automated count 37.0 pg 26.0 - 34.0 Above high normal [facility] Erythrocyte mean corpuscular hemoglobin concentration [Mass/volume] by Automated count 35.1 g/dL 32.0 - 36.0 [facility] Erythrocyte distribution width [Ratio] by Automated count 15.4 % 11.6 - 14.8 Above high normal [facility] Platelets [#/volume] in Blood by Automated count 273 K/uL 150 - 450 [facility] Platelet mean volume [Entitic volume] in Blood by Automated count 8.4 fL 7.1 - 10.4 [facility] Neutrophils [#/volume] in Blood by Automated count 16.26 K/uL 1.70 - 7.70 Above high normal [facility] Lymphocytes [#/volume] in Blood by Automated count 1.04 K/uL 1.50 - 6.00 Below low normal [facility] Monocytes [#/volume] in Blood by Automated count 1.17 K/uL 0.00 - 1.00 Above high normal [facility] Eosinophils [#/volume] in Blood by Automated count 0.02 K/uL 0.03 - 0.48 Below low normal [facility] Basophils [#/volume] in Blood by Automated count 0.12 K/uL 0.01 - 0.08 Above high normal [facility] 0.15 Urinalysis macro (dipstick) panel - Urine 0.150 10^3/uL 0.000 - 0.012 Above high normal [facility] Neutrophils/100 leukocytes in Blood by Automated count 86.8 % 42.0 - 75.0 Above high normal [facility] Lymphocytes/100 leukocytes in Blood by Automated count 5.5 % 15.0 - 41.0 Below low normal [facility] Monocytes/100 leukocytes in Blood by Automated count 6.2 % 0.0 - 12.0 [facility] Eosinophils/100 leukocytes in Blood by Automated count 0.1 % 0.0 - 7.0 [facility] 0.60.80 NRBC 0.8 % Rahul Fine Hospita l MANUAL DIFF NOT INDICATED [facility] H ospital RBC MORPH NOT INDICATED [facility] pital ID Date Data Source [id number] 07/17/2021 02:10:00 PM EST [facility] Name Value Range Interpretation Code Description Data Gala rce(s) Supporting Document(s) [id number] 15.0 pg/mL 4.0 - 76.2 [facility] Hospi maria l \\BLDo\\TROPONIN I I NTERPRETATION:\\BLDx\\ FEMALE: <= 51.4 pg/mL NORMAL MALE: <= 76.2 pg/mL NORMAL In addition to an elevated troponin, WHO recommends additional criterion for confirmation of acute myocardial infarction; 1) Electrochanges consistent with infarction or 2) chest disc omfort of significant duration. Reference range and units updated for new HIGH SENSITIVE TROPONIN LOCI method. Effective 06/16/21. ID Date Data Source [id number] 07/17/2021 02:10:00 PM [facility] Name Value Range Interpretation Code Description Data Gala rce(s) Supporting Document(s) Fibrin D-dimer DDU [Mass/volume] in Platelet poor plas ma by Immunoassay >5000 ng/mL 0 - 400 Above high normal [facility] METHODOLOGY: FLUORESCENCE IMM UNOASSAY \\BLDo\\D- DIMER INTERPRETATION\\BLDx\\ Elevated D-dimer levels occur in a number of clinical situations and are not diagnostic of any specific condition. While increased levels are not specific for DVT or PE, low D-dimer levels may be used to rule out these conditions. Limitations: Specimens from patients who have routinely exposed to animals or to animal serum products may have contain heterophile antibodies, which may cause erroneous D-dimer results. ID Date Data Source [id number] 07/01/2021 11:59:00 AM EST [facility] Value Range Interpretation Code Description Data Gala rce(s) Supporting Document(s) Ear Culture [facility] pital ID Date Data Source [id number] 07/01/2021 11:59:00 AM EST [facility] Value Range Interpretation Code Description Data Gala rce(s) Supporting Document(s) Ampicillin 16 Specimen in lab; results pending [facility] Cefazolin Susceptible. Indicates for microbiol ogy susceptibilities only. [facility] Cefepime Susceptible. Indicates for microbiol ogy susceptibilities only. [facility] ESBL - [facility] Hospi maria l Ceftazadime Susceptible. Indicates for m icrobiology susceptibilities only. [facility] Ceftriaxone Susceptible. Indicates for m icrobiology susceptibilities only. [facility] Ciprofloxacin Susceptible. Ind icates for microbiology susceptibilities only. [facility] Ertapenem Susceptible. Indicates for microbiol ogy susceptibilities only. [facility] Gentamicin Susceptible. Indicates for microbiol ogy susceptibilities only. [facility] Levofloxacin Susceptible. Indicates for m icrobiology susceptibilities only. [facility] Pipercillin/Tazobactam Susceptib le. Indicates for microbiology susceptibilities only. [facility] Trimeth/Sulfamethoxazole Suscept ible. Indicates for microbiology susceptibilities only. [facility] ID Date Data Source [id number] 06/02/2021 07:26:00 AM EDT [facility] Name: ZAY SMITH : 7 Age/Sex: 65M Ordering Provider: ADELAIDA Goncalves Med Rec #: [id number] Reg Status: [facility] Room #: Date of Service: 06/01/21 Report Number: [id number] cc:ADELAIDA Goncalves Send Report To: [id number] XRP/XR Ankle Rt Min. 3 Views Reason for exam: RIGHT ANKLE PAIN Comparison: 11-01-2020. FINDINGS: A sideplate is present at the distal fibula and surgical screws are present in the medial malleolus. No change in alignment or position is identified as compared to the previous examination. There is a well corticatedcalcification inferior to the medial malleolus likely secondary to an old healedfracture. Degenerative changes are identified in the foot and ankle. Soft tissues appear unremarkable. IMPRESSION: Postsurgical and degenerative changes. No acute findings. REPORT DICTATED BY LUZ SINGH, REVIEWED AND SIGNED BY DR. ENGLE. Fluoroscopy time in seconds: Number of Exposures: Time Portable Image Performed: Contrast Agent in ml: Method of Administration: REPORT SIGNATURE ON FILE Reported By: Luz Engle MD Electronically signed by: Luz Engle MD 06/02/21 0904 Dictation Date/Time: 06/01/21 1527 Transcribed Date/Time: 06/02/21 0726 Tip Fixer: MANDEEP Name Value Range Interpretation Code Description Data Gala rce(s) Supporting Document(s) ID Date Data Source [id number] 05/25/2021 10:21:00 PM EDT [facility] Name Value Range Interpretation Code Description Data Gala rce(s) Supporting Document(s) White Blood Count 4.8-10.8 Above high normal [facility] Red Blood Count 4.35-6.08 Below low normal [facility] Hemoglobin 13.0-17.5 Normal (applies to non-numeric resul ts) [facility] Hematocrit 37.7-51.0 Below low normal [facility] Mean Corpuscular Volume 80-94 Above high normal [facility] Mean Corpuscular Hemoglobin 27.0-33.0 Above high normal [facility] Mean Corpuscular HGB Conc 32.0-36.0 Normal (applies to no n-numeric results) [facility] Red Cell Distribution Width 11.5-14.5 Normal (appli es to non-numeric results) [facility] Platelet Count 466 X10 3/uL 130-450 Above high normal [facility] Mean Platelet Volume 9.6-13.1 Normal (applies to non-num mariya results) [facility] Imm Grans% (AUTO) 1 % 0-2 Normal (applies to non-numeri c results) [facility] Neutrophils % (AUTO) 59 % 40-75 Normal (applies to non-num mariya results) [facility] Lymphocytes % (AUTO) 28 % 21-46 Normal (applies to non-num mariya results) [facility] Monocytes % (AUTO) 10 % 5-12 Normal (applies to non-numer ic results) [facility] Eosinophils % (AUTO) 1 % 1-5 Normal (applies to non-num mariya results) [facility] Basophils % (AUTO) 1 % 0-1 Normal (applies to non-numer ic results) [facility] Imm Grans# (AUTO) 0.0-0.5 Normal (applies to non-numeri c results) [facility] Neutrophils # (AUTO) 1.5-8.1 Normal (applies to non-num mariya results) [facility] Lymphocytes # (AUTO) 1.0-3.1 Above high normal [facility] Monocytes # (AUTO) 0.2-1.3 Normal (applies to non-numer ic results) [facility] Eosinophils# (AUTO) 0.0-0.5 Normal (applies to non-nume adrianna results) [facility] Basophils # (AUTO) 0.0-0.1 Above high normal [facility] Slide Reviewed By Normal (applies to non-numeri c results) [facility] Slide has been reviewed and findings con firmed by a technologist/survey data technician. ID Date Data Source [id number] 05/25/2021 08:49:00 PM EDT [facility] Name Value Range Interpretation Code Description Data Gala rce(s) Supporting Document(s) Sodium 136 mmol/L 137-145 Below low normal [facility] Potassium 3.5-5.1 Normal (applies to non-numeric resul ts) [facility] Chloride 105 mmol/L 98-112 Normal (applies to non-numeric resul ts) [facility] Carbon Dioxide CO2 22.0-33.0 Normal (applies to non-numer ic results) [facility] Anion Gap 4.0-11.0 Normal (applies to non-numeric resul ts) [facility] BUN 6 mg/dL 9-20 Below low normal [facility] Creatinine 0.80-1.50 Below low normal [facility] GFR >60 Normal (applies to non-numeric results) [facility] Result based on MDRD formula. Glucose Level 56 mg/dL 74-99 Below low normal [facility] The reference range is only applicable w hen fasting. Calcium-Uncorrected 8.4-10.2 Normal (applies to non-nume adrianna results) [facility] Corrected Calcium 8.4-10.2 Normal (applies to non-numeri c results) [facility] ID Date Data Source [id number] 05/21/2021 01:03:00 PM EDT [facility] Name Value Range Interpretation Code Description Data Gala rce(s) Supporting Document(s) Respiratory specimen severe acute respir atory syndrome coronavirus 2 (SARS-CoV-2) RNA Negative (qualifier value) [facility] This lab was ordered by [facility] dania and reported by [facility]. ID Date Data Source [id number] 05/21/2021 10:37:00 PM EDT [facility] COVID-19 Specimen Source NASOPHARYNGEAL Testing was performed using the Aptima SARS-CoV-2 Assay (NetCom System) Methodology: Nucleic Acid Amplification Utilization Reviewer RT-PCR Mediated Amplification (TMA) and Dual Kinetic Assay (DKA) Negative results do not preclude SARS-CoV-2 infection and should not be used as the sole basis for patient management decisions. Negative results must be combined with clinical observations, patient history, and epidemiological information. This test has been authorized by FDA under an (Emergency Use Authorization) EUA for use by authorized laboratories for individuals who are suspected of COVID-19 by their healthcare provider. This test is only authorized for the duration of the declaration that circumstances exist justifying the authorization of emergency use of in vitro diagnostic tests for detection and/or diagnosis of SARS-CoV-2. Fact sheets for this EUA assay can be found at the following links EUA Fact Sheet for Providers: https://www.fda.gov/media/716277/download EUA Fact Sheet for Patients: https://www.fda.gov/media/584942/download THIS IS A STATE REPORTABLE COMMUNICABLE DISEASE. Test Performed By: [facility] [address] [place] [address] Director: Jesús Chen MD Name Value Range Interpretation Code Description Data Gala rce(s) Supporting Document(s) ID Date Data Source [id number] 05/04/2021 12:53:00 PM EDT [facility] SALLY HopeJennifer [facility] [address] [place] [id number] FOLLOW UP NOTENAME: ZAY SMITH DPHYSICIAN: KALEN RIVAS MDDATE OF SERVICE: 05/04/21DATE OF : 57ACCOUNT #: [id number]: ZAY SMITHDate: May 04OB: 1955Physician: Dr. Malcolm Ballard M.D., M.P.H.Dr. Kaci Houston M.D.Kalen Rivas M.D.Age: 65Note Title: Follow UpDiagnosis:Primary - I82.4Z9 - Acute embolism and thrombosis of unspecified deep veins ofunspecified distal lower extremity, Diagnosed Sep 09, 2020 (Active)Primary - D64.9 - Anemia, unspecified, Diagnosed Sep 12, 2018 (Active)Primary - I26.99 - Other pulmonary embolism without acute cor pulmonale,Diagnosed Sep 12, 2018 (Active)History of Problems:Problems / Chief Complaint:hx of multiple clotting events.Toxicities:There are no reported toxicities.History of Present Illness:65 years old white male with known history of few medical problems includingatherosclerotic heart disease, dyslipidemia, gastroesophageal reflux disease,hypertension, history of atypical pneumonia, alcohol dependence, chronic backpain, history of pneumothorax and history of pulmonary embolization and recentdiagnosis of recurrent DVT right lower extremity. Patient was noncompliantwith oral anticoagulation and currently on Lovenox twice daily. Patient offersno new complaint today especially no bleeding and no skin rash or petechiae.Patient claimed the swelling of the right lower extremity is better. Patientis more compliant with Lovenox injection twice daily.Lower extremitiesLower extremities.Patient claimed that the oral anticoagulants were not effective and he hadclotting disorder while he is taking oral treatment. He is more comfortableusing Lovenox.Past Medical History:Atypical pneumoniaChronic alcohol abuseChronic back painCoronary artery diseaseDyslipidemiaGastroesophageal reflux diseaseHypertensionPneumothoraxPulmonary emboliRight femoral vein DVTSeizurePast Surgical History:Ankle SurgeryAppendectomyBack surgeryDiscectomy - L3- L6Yqkkxtftr back stimulatorRight chest tube placementSplenectomyTesticle removal - rightTonsillectomyCataract surgery in 2016Cardiac catheterization in 2016Right knee scope in 1980Speenectomy in 1974Allergies:OxycodoneCurrent Medications:Allopurinol 300 mg Tablet Oral daily (Start Date - unknown)Cozaar 100 mg Tablet Oral daily (Start Date - unknown)Ferrous Sulfate 325 mg Tablet Oral daily (Start Date - unknown)Gabapentin 300 mg Capsule Oral t.i.d. (Start Date - unknown)Lipitor 20 mg Tablet Oral daily (Start Date - unknown)Lovenox 80 mg Subcutaneous b.i.d. (Start Date - unknown)Pantoprazole Sodium 40 mg Tablet, enteric coated Oral daily (Start Date -unknown)Social History:Mr. SMITH is single and he is retired. Mr. SMITH no longer smokes buthad smoked for 46 years. He drinks occasionally.Mr. SMITH reports the following support systems: lives alone and lives inown house. Patient states he was a "very heavy liquor drinker" but now onlydrinks beer.Family History:Mr. SMITH's mother is alive. Mr. SMITH's father is : LeukemiaCancer.Review of Systems:ConstitutionalNormal - No fevers, chills, night sweats, excessive fatigue or weight loss.Allergic/ImmunologicNormal - Denies allergies and adverse reactions.EyesNormal - Denies blurred vision, double vision, lacrimation, night blindness,visual difficulties and photophobia.ENMTNormal - Denies dysphagia, ear pain, epistaxis, esophagitis, problems withhearing, mouth dryness, oral bleeding, otitis, sinusitis, sputum production,stomatitis, altered taste and tinnitus.EndocrineNormal - Denies diabetes, hot flashes, menstrual irregularities and thyroiddisease.Hematologic/LymphaticNormal - Denies easy bruising and tender or enlarged lymph nodes.BreastsNormal - Denies breast masses, nipple discharge, nipple inversion and pain.RespiratoryNormal - Denies cough, dyspnea, hemoptysis, hiccoughs, pleuritic chest painand wheezing.CardiovascularNormal - Denies arrhythmias, chest pain, dyspnea, edema, orthopnea andpalpitations.GastrointestinalNormal - Denies abdominal pain, change in bowel habits, constipation,diarrhea, heartburn / dyspepsia, hematemesis, hematochezia, hemorrhoids, melena/ GI bleeding, nausea, pain / cramping, satiety and vomiting.Genitourinary (M)Normal - Denies dysuria, frequency, hematuria, impotence, incontinence,nocturia, renal stone disease, retrograde ejaculation, scrotal swelling,urgency and urine color change.MusculoskeletalAbnormal - improvement in rom, mild to moderate swelling of the right lowerextremities.IntegumentaryNormal - Denies alopecia, blistering, bruising, dry skin, facial burning, nailchanges, photosensitivity, pruritus, rash and urticaria.NeurologicNormal - Denies disorientation, dizziness, abnormal gait, headaches, insomnia,memory loss, motor weakness, sensory problems, paralysis, seizure and stroke.PsychiatricNormal - Denies delusions, hallucinations, mood swings, depression andeuphoria.Vital Signs:Performed on May 04, 2021 11:07Quwvkg27.00 ooZhehct257 lbs(LOW)BSA (derived)1.84 sq.mBMI26.14Ysxfsoszmoq63.7 CJrblx20 /dshHftvuxaoxqs30 /pltWH137/72Pulse Oximetry (O2 Sat)98 %Fall RiskModerate RiskPerformance Status:1 - No physically strenuous activity, but ambulatory and able to carry outlight or sedentary work (e.g. office work, light house work). (ECOG)Physical Exam:ConstitutionalNormal - Alert, cooperative, oriented. Mood and affect appropriate. Appearsclose to chronological age. Well nourished. Well developed.HeadNormal - Normocephalic; no scars.EyesNormal - Conjunctivae and sclerae are clear and without icterus.ENMTN ormal - Sinuses are nontender. No oral exudates, ulcers, masses, thrush ormucositis. Oropharynx clear. Tongue normal.NeckNormal - Supple without masses or thyromegaly. No jugular venous distension.Hematologic/LymphaticNormal - No petechiae or purpura.RespiratoryAbnormal - decreased breath sound,Few scattered rhonchi bilaterally.CardiovascularAbnormal - faint systolic murmur,Normal S1 and S2, no gallop.ChestNormal - Chest is symmetric without chest wall deformities.AbdomenNormal - Non-tender, non-distended, no masses, ascites or hepatosplenomegaly.Good bowel sounds. NBack/SpineAbnormal - tender to pa lpation.ExtremitiesAbnormal - Mild to moderate swelling of the right lower extremities, slighterythema, no tenderness, no palpable cords. Homans' sign is negative.Peripheral pulses palpable.MusculoskeletalAbnormal - restricted ROMIntegumentaryNormal - No rashes, scars, or lesions suggestive of malignancy.NeurologicNormal - grossly non focalPsychiatricNormal - Alert and oriented times three. Coherent speech. Verbalizesunderstanding of our discussions today.Laboratory:Most recent lab results are not available for this patient.Test performed on Sep 12, 2018 11:00Please Note - CommentProtein electrophoresis scan will follow via computer,mail, or liquor merchant delivery.Impression:65 years old white male with known history of few medical problems includingatherosclerotic heart disease, dyslipidemia, gastroesophageal reflux disease,hypertension, history of atypical pneumonia, alcohol dependence, chronic backpain, history of pneumothorax and history of pulmonary embolization and recentdiagnosis of recurrent DVT right lower extremity. Patient was noncompliantwith oral anticoagulation and currently on Lovenox twice daily. Patient offersno new complaint today especially no bleeding and no skin rash or petechiae.Patient claimed the swelling of the right lower extremity is better. Patientis more compliant with Lovenox injection twice daily.Lower extremitiesLower extremities.Patient claimed that the oral anticoagulants were not effective and he hadclotting disorder while he is taking oral treatment. He is more comfortableusing Lovenox.Most recent laboratory studies done on 04/11/2021: WBC 12.3,hemoglobin 11.3, hematocrit 32.9, platelet count 453. Differential countneutrophils 58.3% and lymphocytes 26.6%. Lymphocytes 10.1%. D-dimer 104(normal).Plan:1) Recurrent DVT and history of pulmonary embolization. Patient is currentlyon Lovenox twice daily without adverse reaction. Patient claims improvement ofright lower extremity swelling. Patient is advised to continue Lovenox twicedaily as ordered. Most likely patient will need long-term anticoagulation inview of recurrent DVT and pulmonary embolization.We will schedule the patient for laboratory studies and Doppler studies inthe future to evaluate the response to the treatment.2) History of leukocytosis: Most likely reactive, patient has history ofsplenectomy. Patient will be scheduled for routine laboratory studies prior tonext visit.3) mild anemia hemoglobin 11.3 and hematocrit 32.9.Patient will be scheduled for anemia work-up in the future.No evidence of bleeding.Discussed with patient colonoscopy.4) health maintenance: Discussed with patient lifestyle, screening andvaccination.Patient is advised to continue all his other routine medications and tofollow-up with his primary care provider as directed.5) follow-up:Return to clinic after 2 months with labs and Doppler studies of lowerextremities. Name Value Range Interpretation Code Description Data Gala rce(s) Supporting Document(s) ID Date Data Source [id number] 04/13/2021 01:25:00 PM EDT [facility] Name Value Range Interpretation Code Description Data Gala rce(s) Supporting Document(s) Sodium 141 mmol/L 137-145 Normal (applies to non-numeric resul ts) [facility] Potassium 3.5-5.1 Normal (applies to non-numeric resul ts) [facility] Chloride 112 mmol/L 98-112 Normal (applies to non-numeric resul ts) [facility] Carbon Dioxide CO2 22.0-33.0 Normal (applies to non-numer ic results) [facility] Anion Gap 4.0-11.0 Normal (applies to non-numeric resul ts) [facility] BUN 8 mg/dL 9-20 Below low normal [facility] Creatinine 0.80-1.50 Below low normal [facility] GFR >60 Normal (applies to non-numeric results) [facility] Result based on MDRD formula. Glucose Level 89 mg/dL 74-99 Normal (applies to non-numeric re sults) [facility] The reference range is only applicable w hen fasting. Calcium-Uncorrected 8.4-10.2 Normal (applies to non-nume adrianna results) [facility] Corrected Calcium 8.4-10.2 Normal (applies to non-numeri c results) [facility] ID Date Data Source [id number] 04/11/2021 09:55:00 AM EDT [facility] Name Value Range Interpretation Code Description Data Gala rce(s) Supporting Document(s) COMPREHENSIVE CHEM PROFILE [facility] COMPREHENSIVE METABOLIC PANEL Sodium [Moles/volume] in Serum or Plasma 140 mEq/L 136 - 145 [facility] Potassium [Moles/volume] in Serum or Plasma 3.8 mEq/L 3.5 - 5.1 [facility] Chloride [Moles/volume] in Serum or Plasma 105 mEq/L 98 - 107 [facility] Carbon dioxide, total [Moles/volume] in Serum or Plasma 23.6 mEq /L 21.0 - 32.0 [facility] Glucose [Mass/volume] in Serum or Plasma 97 mg/dL 70 - 100 [facility] Urea nitrogen [Mass/volume] in Serum or Plasma 5 mg/dL 7 - 18 Below low normal [facility] CREATININE SERUM 1.03 mg/dL 0.70 - 1.30 [facility] AGE 65 yrs [facility] HEIGHT NA [facility] eGFR NON-AFR AMR >60 [facility] eGFR AFR AMR >60 [facility] BUN/CREAT 5 6 - 25 Below low normal [facility] Protein [Mass/volume] in Serum or Plasma 5.7 g/dL 6.0 - 8.3 Below low normal [facility] Albumin [Mass/volume] in Serum or Plasma 2.7 g/dL 3.8 - 5.4 Below low normal [facility] GLOBULIN 3.0 g/dL 2.0 - 4.0 [facility] A/G RATIO 0.9 0.8 - 2.0 [facility] Calcium [Mass/volume] in Serum or Plasma 8.3 mg/dL 8.8 - 10.2 Below low normal [facility] Bilirubin.total [Mass/volume] in Serum or Plasma 0.8 mg/dL 0.2 - 1.0 [facility] Bilirubin.direct [Mass/volume] in Serum or Plasma 0.3 mg/dL 0.0 - 0.2 Above high normal [facility] INDIRECT BILI 0.5 mg/dL 0.0 - 1.1 [facility] pital ALK PHOSPHATASE 142 U/L 40 - 129 Above high normal [facility] Aspartate aminotransferase [Enzymatic ac tivity/volume] in Serum or Plasma by With P-5'-P 34 IU/L 7 - 37 [facility] Alanine aminotransferase [Enzymatic acti vity/volume] in Serum or Plasma by With P-5'-P 22 IU/L 12 - 78 [facility] ANION GAP 11 7 - 15 [facility] Estimated GFR referenc e range: >60ml/min/1.73m >18 years: Calculated using IDMS traceable Study Equation <18 years: Calculated using IDMS tracable Bedside Schartz Equation ID Date Data Source [id number] 04/11/2021 09:55:00 AM EDT [facility] Name Value Range Interpretation Code Description Data Gala rce(s) Supporting Document(s) Fibrin D-dimer DDU [Mass/volume] in Platelet poor plas ma by Immunoassay 104 ng/mL 0 - 400 [facility] METHODOLOGY: FLUORESCENCE IMM UNOASSAY \\BLDo\\D- DIMER INTERPRETATION\\BLDx\\ Elevated D-dimer levels occur in a number of clinical situations and are not diagnostic of any specific condition. While increased levels are not specific for DVT or PE, low D-dimer levels may be used to rule out these conditions. Limitations: Specimens from patients who have routinely exposed to animals or to animal serum products may have contain heterophile antibodies, which may cause erroneous D-dimer results. ID Date Data Source [id number] 04/11/2021 09:55:00 AM EDT [facility] Name Value Range Interpretation Code Description Data Gala rce(s) Supporting Document(s) CBC [facility] COMPLETE BLOOD COUNT Leukocytes [#/volume] in Blood by Automated count 12.3 K/uL 4.0 - 10.0 Above high normal [facility] Erythrocytes [#/volume] in Blood by Automated count 3.09 M/uL 4.30 - 6.10 Below low normal [facility] Hemoglobin [Mass/volume] in Blood 11.3 g/dL 13.5 - 17.5 Below low no rmal [facility] Hematocrit [Volume Fraction] of Blood by Automated count 32.9 % 39.0 - 50.0 Below low normal [facility] Erythrocyte mean corpuscular volume [Entitic volume] b y Automated count 106.5 fL 80.0 - 96.0 Above high normal [facility] Erythrocyte mean corpuscular hemoglobin [Entitic mass] by Automated count 36.6 pg 26.0 - 34.0 Above high normal [facility] Erythrocyte mean corpuscular hemoglobin concentration [Mass/volume] by Automated count 34.3 g/dL 32.0 - 36.0 [facility] Erythrocyte distribution width [Ratio] by Automated count 14.6 % 11.6 - 14.8 [facility] Platelets [#/volume] in Blood by Automated count 453 K/uL 150 - 450 Above high normal [facility] Platelet mean volume [Entitic volume] in Blood by Automated count 8.1 fL 7.1 - 10.4 [facility] Neutrophils [#/volume] in Blood by Automated count 7.17 K/uL 1.70 - 7.70 [facility] Lymphocytes [#/volume] in Blood by Automated count 3.28 K/uL 1.50 - 6.00 [facility] Monocytes [#/volume] in Blood by Automated count 1.25 K/uL 0.00 - 1.00 Above high normal [facility] Eosinophils [#/volume] in Blood by Automated count 0.37 K/uL 0.03 - 0.48 [facility] Basophils [#/volume] in Blood by Automated count 0.15 K/uL 0.01 - 0.08 Above high normal [facility] 0.10 Urinalysis macro (dipstick) panel - Urine 0.090 10^3/uL 0.000 - 0.012 Above high normal [facility] Neutrophils/100 leukocytes in Blood by Automated count 58.3 % 42. 0 - 75.0 [facility] Lymphocytes/100 leukocytes in Blood by Automated count 26.6 % 15. 0 - 41.0 [facility] Monocytes/100 leukocytes in Blood by Automated count 10.1 % 0.0 - 12.0 [facility] Eosinophils/100 leukocytes in Blood by Automated count 3.0 % 0.0 - 7.0 [facility] 1.20.80 NRBC 0.7 % [facility] NOT INDICATED [facility] ospital RBC MORPH NOT INDICATED [facility] pital ID Date Data Source [id number] 04/10/2021 06:10:00 PM EDT [facility] Name Value Range Interpretation Code Description Data Gala rce(s) Supporting Document(s) RESP PROFILE RP2.1 NASAL PCR [facility] \\BLDo\\RESPIRATORY PROFILE NASAL PHARYNGEAL BY PCR\\BLDx\\ \\BLDo\\DETECTED _NONE \\BLDx\\ 04/10/21.1902.TMG. \\BLDo\\EQUIVOCAL _NONE \\BLDx\\ 04/10/21.TMG. VIRUSES ADENOVIRUS NOT DETECTED NORMAL: NOT DETECTED [facility] CORONAVIRUS 229E NOT DETECTED NORMAL: NOT DETECTED [facility] CORONAVIRUS HKU1 NOT DETECTED NORMAL: NOT DETECTED [facility] CORONAVIRUS NL63 NOT DETECTED NORMAL: NOT DETECTED [facility] CORONAVIRUS OC43 NOT DETECTED NORMAL: NOT DETECTED [facility] [id number] NOT DETECTED NORMAL: NOT DETECTED [facility] REPORT TO DEPARTMENT OF HEAL TH HUMAN METAPNEUMO NOT DETECTED NORMAL: NOT DETECTED [facility] HUMAN RHINO/ENTERO NOT DETECTED NORMAL: NOT DETECTED [facility] NOT DETECTEDNOT DETECTEDNOT DETECTEDNOT DETECTED PARAINFLUENZA V3 NOT DETECTED NORMAL: NOT DETECTED [facility] NOT DETECTED RSV NOT DETECTED NORMAL: NOT DETECTED [facility] BACTERIANOT DET ECTEDNOT DETECTEDNOT DETECTEDNOT DETECTED TESTING PERFORMED USING THE kooabaARRAY RP2.1 MULTIPLEXED NUCLEIC ACID TEST. THIS TEST HAS NOT BEEN FDA CLEARED OR APPROVED; THIS TEST HAS BEEN AUTHORIZED BY FDA UNDER AN EUA FOR USE BY AUTHORIZED LABORATORIES; THIS TEST HAS BEEN AUTHORIZED ONLY FOR THE DETECTION AND DIFFERENTATION OF NUCLEI ACID OF SARS-CoV-2 FROM MULTIPLE RESPIRATORY VIRAL AND BACTERIAL ORGANIMS; AND THIS TEST IS ONLY AUTHORIZED FOR THE DURATION OF THE DECLARATION THAT CIRCUMSTANCES EXIST JUSTIFYING THE AUTHORIZATION OF EMERGENCY USE OF IN VITRO DIAGNOSTIC TESTS FOR THE DETECTION AND/OR DIAGNOSIS OF COVID-19 UNDER SECTION 564(b)(1) OF THE ACT, 21 U.S.C. 360bbb-3(b) (1), UNLESS THE AUTHORIZATION IS TERMINATED OR REVOKED SOONER. ID Date Data Source [id number] 04/10/2021 06:10:00 PM EDT [facility] Name Value Range Interpretation Code Description Data Gala rce(s) Supporting Document(s) URINALYSIS ROUTINE wMICRO RFLX TO CX [facility] URINALYSIS W/REFLEX CULTURE REFERENCE RANGES SOURCE Clean Catch [facility] maria l COLOR Yellow Colorless-Suzie [facility] ospital CLARITY Clear Normal: Clear [facility] pital LEUK EST Negative Negative - Trace [facility] NITRITE Negative Normal: Negative [facility] UROBILINOGEN Negative Negative - Trace [facility] PROTEIN Negative Negative - Trace [facility] pH 7.0 5.0 - 8.0 [facility] l BLOOD Negative Negative - Trace [facility] SPEC GRAVITY <=1.005 1.000 - 1.030 Abnormal (applies to non-numeri c results) [facility] KETONE Negative Negative - Trace [facility] BILIRUBIN Negative Normal: Negative [facility] GLUCOSE Negative Normal: Negative [facility] MICROSCOPIC See Below [facility] maria l WBC 1 - 3 None Seen - 5/hpf [facility] RBC 0 - 1 None Seen - 5/hpf [facility] EPITHELIAL See Below NORMAL: None Seen [facility] SQUAMOUS EPI FEW/hpf NORMAL: None Seen [facility] TRANS EPI NONE SEEN NORMAL: None Seen [facility] RENAL EPI NONE SEEN NORMAL: None Seen [facility] BACTERIA NONE SEEN NORMAL: None Seen [facility] MUCOUS NONE SEEN NORMAL: None Seen [facility] CASTS Not Indicated [facility] pital CRYSTALS Not Indicated [facility] pital CULTURE INDICATED? NO Normal: No [facility] ID Date Data Source [id number] 04/10/2021 06:05:00 PM EDT [facility] Name Value Range Interpretation Code Description Data Gala rce(s) Supporting Document(s) Lactate [Moles/volume] in Serum or Plasma 2.8 mmol/L 0.4 - 2.0 Above high normal [facility] \\BLDo\\[LA]LACTIC ACID [facility] Protocols: Adult SIRS/Septic Patient = Lactate > or = 4.0 mmol/L Pediatric SIRS/Septic Patient = Lactate > or = 2.2 mmol/L Base Line, 3 hour and 6 hour lactic acid values should be obtained for further evaluation. ID Date Data Source [id number] 04/10/2021 06:05:00 PM EDT [facility] Name Value Range Interpretation Code Description Data Gala rce(s) Supporting Document(s) Troponin I.cardiac [Mass/volume] in Serum or Plasma <0.017 ng/mL 0.017 - 0.060 [facility] \\BLDo\\TROPONIN I I NTERPRETATION:\\BLDx\\ < 0.06 ng/mL NOT SUSPICIOUS FOR AN AMI 0.06 - 0.59 ng/mL RUSSELL ZONE FOR AN AMI, SERIAL MONITORING RECOMMENDED 0.6 - 1.5 ng/mL SUSPICIOUS FOR AN AMI Reference range updated for new chemiluminescent immunoassay method based on RingCentral technology. Effective 04/01/18. ID Date Data Source [id number] 04/10/2021 03:15:00 PM EDT [facility] Name Value Range Interpretation Code Description Data Gala rce(s) Supporting Document(s) Lactate [Moles/volume] in Serum or Plasma 6.1 mmol/L 0.4 - 2.0 Above high normal [facility] \\BLDo\\[LA]LACTIC ACID \\BLDx\\ [facility] Adult and Pediatric Sepsis Protocols: Adult SIRS/Septic Patient = Lactate > or = 4.0 mmol/L Pediatric SIRS/Septic Patient = Lactate > or = 2.2 mmol/L Base Line, 3 hour and 6 hour lactic acid values should be obtained for further evaluation. ID Date Data Source [id number] 04/10/2021 03:15:00 PM EDT [facility] Name Value Range Interpretation Code Description Data Gala rce(s) Supporting Document(s) Fibrin D-dimer DDU [Mass/volume] in Platelet poor plas ma by Immunoassay <100 ng/mL 0 - 400 [facility] METHODOLOGY: FLUORESCENCE IMM UNOASSAY \\BLDo\\D- DIMER INTERPRETATION\\BLDx\\ Elevated D-dimer levels occur in a number of clinical situations and are not diagnostic of any specific condition. While increased levels are not specific for DVT or PE, low D-dimer levels may be used to rule out these conditions. Limitations: Specimens from patients who have routinely exposed to animals or to animal serum products may have contain heterophile antibodies, which may cause erroneous D-dimer results. ID Date Data Source [id number] 04/10/2021 03:15:00 PM EDT [facility] Name Value Range Interpretation Code Description Data Gala rce(s) Supporting Document(s) Natriuretic peptide B [Mass/volume] in Serum or Plasma 487 PG/ML 0 - 125 Above high normal [facility] Testing methodology changed t o chemiluminscent immunoassay based on RingCentral technology. Effective 03/26/18. ID Date Data Source [id number] 04/10/2021 03:15:00 PM EDT [facility] Name Value Range Interpretation Code Description Data Gala rce(s) Supporting Document(s) Troponin I.cardiac [Mass/volume] in Serum or Plasma <0.017 ng/mL 0.017 - 0.060 [facility] \\BLDo\\TROPONIN I I NTERPRETATION:\\BLDx\\ < 0.06 ng/mL NOT SUSPICIOUS FOR AN AMI 0.06 - 0.59 ng/mL RUSSELL ZONE FOR AN AMI, SERIAL MONITORING RECOMMENDED 0.6 - 1.5 ng/mL SUSPICIOUS FOR AN AMI Reference range updated for new chemiluminescent immunoassay method based on [employer]Central technology. Effective 04/01/18. ID Date Data Source [id number] 04/10/2021 03:15:00 PM EDT [facility] Name Value Range Interpretation Code Description Data Gala rce(s) Supporting Document(s) COMPREHENSIVE CHEM PROFILE [facility] COMPREHENSIVE METABOLIC PANEL Sodium [Moles/volume] in Serum or Plasma 138 mEq/L 136 - 145 [facility] Potassium [Moles/volume] in Serum or Plasma 3.6 mEq/L 3.5 - 5.1 [facility] Chloride [Moles/volume] in Serum or Plasma 104 mEq/L 98 - 107 [facility] Carbon dioxide, total [Moles/volume] in Serum or Plasma 19.1 mEq /L 21.0 - 32.0 Below low normal [facility] Glucose [Mass/volume] in Serum or Plasma 109 mg/dL 70 - 100 Above high normal [facility] Urea nitrogen [Mass/volume] in Serum or Plasma 5 mg/dL 7 - 18 Below low normal [facility] CREATININE SERUM 1.06 mg/dL 0.70 - 1.30 [facility] AGE 65 yrs [facility] l HEIGHT 65.00 INCHES [facility] ital eGFR NON-AFR AMR >60 [facility] eGFR AFR AMR >60 [facility] ital BUN/CREAT 5 6 - 25 Below low normal [facility] Protein [Mass/volume] in Serum or Plasma 5.4 g/dL 6.0 - 8.3 Below low normal [facility] Albumin [Mass/volume] in Serum or Plasma 2.6 g/dL 3.8 - 5.4 Below low normal [facility] GLOBULIN 2.8 g/dL 2.0 - 4.0 [facility] A/G RATIO 0.9 0.8 - 2.0 [facility] Calcium [Mass/volume] in Serum or Plasma 8.3 mg/dL 8.8 - 10.2 Below low normal [facility] Bilirubin.total [Mass/volume] in Serum or Plasma 0.4 mg/dL 0.2 - 1.0 [facility] Bilirubin.direct [Mass/volume] in Serum or Plasma 0.2 mg/dL 0.0 - 0. 2 [facility] INDIRECT BILI 0.2 mg/dL 0.0 - 1.1 [facility] pital ALK PHOSPHATASE 127 U/L 40 - 129 [facility] ospital Aspartate aminotransferase [Enzymatic ac tivity/volume] in Serum or Plasma by With P-5'-P 36 IU/L 7 - 37 [facility] Alanine aminotransferase [Enzymatic acti vity/volume] in Serum or Plasma by With P-5'-P 19 IU/L 12 - 78 [facility] ANION GAP 15 7 - 15 [facility] Estimated GFR referenc e range: >60ml/min/1.73m >18 years: Calculated using IDMS traceable Study Equation <18 years: Calculated using IDMS tracable Bedside Schartz Equation ID Date Data Source [id number] 04/10/2021 03:15:00 PM EDT [facility] PROTHROMBIN TIME Name Value Range Interpretation Code Description Data Gala rce(s) Supporting Document(s) WARFARIN? NO [facility] 13.2 INR in Platelet poor plasma by Coagulation assay 1.0 1.0 - 4.5 [facility] Reference ranges Warf aldair (Coumadin) Therapy: 21.6 - 40.7 secs Normal (Non-warfarin Therapy): 10.7 - 15.2 secs New Protime Reference Range as of July 09, 2020 ID Date Data Source [id number] 04/10/2021 03:15:00 PM EDT [facility] Name Value Range Interpretation Code Description Data Gala rce(s) Supporting Document(s) CBC [facility] COMPLETE BLOOD COUNT Leukocytes [#/volume] in Blood by Automated count 13.2 K/uL 4.0 - 10.0 Above high normal [facility] Erythrocytes [#/volume] in Blood by Automated count 2.94 M/uL 4.30 - 6.10 Below low normal [facility] Hemoglobin [Mass/volume] in Blood 10.7 g/dL 13.5 - 17.5 Below low no rmal [facility] Hematocrit [Volume Fraction] of Blood by Automated count 31.0 % 39.0 - 50.0 Below low normal [facility] Erythrocyte mean corpuscular volume [Entitic volume] b y Automated count 105.4 fL 80.0 - 96.0 Above high normal [facility] Erythrocyte mean corpuscular hemoglobin [Entitic mass] by Automated count 36.4 pg 26.0 - 34.0 Above high normal [facility] Erythrocyte mean corpuscular hemoglobin concentration [Mass/volume] by Automated count 34.5 g/dL 32.0 - 36.0 [facility] Erythrocyte distribution width [Ratio] by Automated count 14.5 % 11.6 - 14.8 [facility] Platelets [#/volume] in Blood by Automated count 425 K/uL 150 - 450 [facility] Platelet mean volume [Entitic volume] in Blood by Automated count 8.1 fL 7.1 - 10.4 [facility] Neutrophils [#/volume] in Blood by Automated count 9.42 K/uL 1.70 - 7.70 Above high normal [facility] Lymphocytes [#/volume] in Blood by Automated count 1.89 K/uL 1.50 - 6.00 [facility] Monocytes [#/volume] in Blood by Automated count 1.52 K/uL 0.00 - 1.00 Above high normal [facility] Eosinophils [#/volume] in Blood by Automated count 0.10 K/uL 0.03 - 0.48 [facility] Basophils [#/volume] in Blood by Automated count 0.16 K/uL 0.01 - 0.08 Above high normal [facility] 0.10 Urinalysis macro (dipstick) panel - Urine 0.090 10^3/uL 0.000 - 0.012 Above high normal [facility] Neutrophils/100 leukocytes in Blood by Automated count 71.4 % 42. 0 - 75.0 [facility] Lymphocytes/100 leukocytes in Blood by Automated count 14.3 % 15.0 - 41.0 Below low normal [facility] Monocytes/100 leukocytes in Blood by Automated count 11.5 % 0.0 - 12.0 [facility] Eosinophils/100 leukocytes in Blood by Automated count 0.8 % 0.0 - 7.0 [facility] 1.20.80 NRBC 0.7 % [facility] l MANUAL DIFF NOT INDICATED [facility] H ospital RBC MORPH NOT INDICATED [facility] pital ID Date Data Source [id number] 03/27/2021 08:18:00 AM EDT [facility] Name Value Range Interpretation Code Description Data Gala rce(s) Supporting Document(s) Ear Culture [facility] pital ID Date Data Source [id number] 03/27/2021 08:18:00 AM EDT [facility] Name Value Range Interpretation Code Description Data Gala rce(s) Supporting Document(s) Ceftazadime Susceptible. Indicates for m icrobiology susceptibilities only. [facility] Ciprofloxacin 2 Specimen in lab; results pending [facility] Gentamicin Susceptible. Indicates for microbiol ogy susceptibilities only. [facility] Imipenem Susceptible. Indicates for microbiol ogy susceptibilities only. [facility] Levofloxacin 4 Specimen in lab; results pending [facility] Pipercillin/Tazobactam 8 Susceptib le. Indicates for microbiology susceptibilities only. [facility] ID Date Data Source [id number] 03/26/2021 10:05:00 AM EDT [facility] RIGHT EAR YEASTSCTFew Name Value Range Interpretation Code Description Data Gala rce(s) Supporting Document(s) ID Date Data Source [id number] 02/03/2021 08:36:00 AM EDT [facility] Name Value Range Interpretation Code Description Data Gala rce(s) Supporting Document(s) Ear Culture [facility] pital ID Date Data Source [id number] 02/03/2021 08:36:00 AM EDT [facility] Name Value Range Interpretation Code Description Data Gala rce(s) Supporting Document(s) Ampicillin Results entered -- not verified [facility] Cefazolin Susceptible. Indicates for microbiol ogy susceptibilities only. [facility] Cefepime Susceptible. Indicates for microbiol ogy susceptibilities only. [facility] Ceftazadime Susceptible. Indicates for m icrobiology susceptibilities only. [facility] Ceftriaxone Susceptible. Indicates for m icrobiology susceptibilities only. [facility] Ciprofloxacin Susceptible. Ind icates for microbiology susceptibilities only. [facility] Ertapenem Susceptible. Indicates for microbiol ogy susceptibilities only. [facility] Gentamicin Susceptible. Indicates for microbiol ogy susceptibilities only. [facility] Levofloxacin Susceptible. Indicates for m icrobiology susceptibilities only. [facility] Pipercillin/Tazobactam Susceptib le. Indicates for microbiology susceptibilities only. [facility] Trimeth/Sulfamethoxazole Suscept ible. Indicates for microbiology susceptibilities only. [facility] ID Date Data Source [id number] 01/18/2021 02:21:00 PM EDT [facility] Name Value Range Interpretation Code Description Data Gala rce(s) Supporting Document(s) Sodium 139 mmol/L 137-145 Normal (applies to non-numeric resul ts) [facility] Potassium 3.5-5.1 Above high normal [facility] Chloride 105 mmol/L 98-112 Normal (applies to non-numeric resul ts) [facility] Carbon Dioxide CO2 22.0-33.0 Normal (applies to non-numer ic results) [facility] Anion Gap 4.0-11.0 Normal (applies to non-numeric resul ts) [facility] BUN 4 mg/dL 9-20 Below low normal [facility] Creatinine 0.80-1.50 Below low normal [facility] GFR >60 Normal (applies to non-numeric results) [facility] Result based on MDRD formula. Glucose Level 82 mg/dL 74-99 Normal (applies to non-numeric re sults) [facility] The reference range is only applicable w hen fasting. Calcium-Uncorrected 8.4-10.2 Normal (applies to non-nume adrianna results) [facility] Corrected Calcium 8.4-10.2 Normal (applies to non-numeri c results) [facility] Bilirubin,Total 0.2-1.3 Normal (applies to non-numeric results) [facility] SGOT(AST) 37 U/L 17-59 Normal (applies to non-numeric resul ts) [facility] SGPT(ALT) 16 U/L 21-72 Below low normal [facility] Alkaline Phosphatase 183 U/L 38-126 Above high normal [facility] can increase Alkaline Phosp le vels up to 2 times the normal adult value. Normal values for children and adolescents are 2 to 3 times the normal adult value. Total Protein 6.3-8.2 Normal (applies to non-numeric re sults) [facility] Albumin 3.5-5.0 Below low normal [facility] ID Date Data Source [id number] 01/18/2021 02:21:00 PM EDT [facility] Name Value Range Interpretation Code Description Data Gala rce(s) Supporting Document(s) B-Type Natriuretic Peptide BNP 433 pg/mL <125 Above high neno l [facility] NT-proBNP values less than 300 pg/mL hav e a 99% negative predictive value for excluding acute congestive heart failure. A diagnostic NT-proBNP cutoff of 900 pg/mL has been suggested in adults over 50 years of age in the absence of renal failure. A cutoff of 1200 pg/mL for patients with GFR <60 yields a diagnostic sensitivity and specificity of 89% and 72% for acute congestive failure. ID Date Data Source [id number] 11/25/2020 11:16:04 AM EDT [facility] [address] [place] [address] TELEPHONE RADIOLOGY DEPARTMENT Name: [facility] #: [id number] : 1955 Ordering Physician: PIETRO OKEEFE Sex: M Date: 11/22/20 Admission Type: E/R X-ray Number: [id number] Unsigned Transcriptions are preliminary reports and do not represent a Medical or Legal Document XRAY CHEST 2 VIEW SUMIT SOLIZ [id number] COMPLETE:11/22/20 15:34 LEI 16702 (REASON FOR CHEST: COUGH FINDINGS: Examination of the chest 2 views submitted for evaluation. Mediastinal structures are midline. The heart is normal in size and shape. Hilar structures are normal in appearance. The lungs are clear. No diaphragmatic, pleural or skeletal abnormalities are seen. IMPRESSION: Normal study. Electronically Reviewed and Signed By TUNDE GOETZ 11:14 Dictating Initials: BE Transcribed Date: 11/24/20 08:30 Transcribe Initials: LI Name Value Range Interpretation Code Description Data Gala rce(s) Supporting Document(s) ID Date Data Source [id number] 11/25/2020 11:15:58 [place] [address] TELEPHONE RADIOLOGY DEPARTMENT Name: [facility] #: [id number] : 1955 Ordering Physician: PIETRO OKEEFE Sex: M Date: 11/22/20 Admission Type: E/R X-ray Number: [id number] Unsigned Transcriptions are preliminary reports and do not represent a Medical or Legal Document CT ABDOMEN PELVIS WO CONTRAST [id number] COMPLETE:11/22/20 15:34 LEI 97454 (REASON FOR ABDOMEN: right flank/back pain Patient weight: 168lbs FINDINGS: Noncontrast CT examination of the abdomen and pelvis acquired. Axial, coronal and sagittal images evaluated. Visualized lower lungs are clear. Decreased attenuation of the liver with areas of sparing. No obvious liver lesion. Small gallstone. Gallbladder is fluid distended. Pancreas is within normal limits. Small splenule remnants are identified in the left upper quadrant. Bilateral adrenal glands are unremarkable. No obstructing renal stones or hydronephrosis. Ureters are unremarkable. Multiple surgical clips are identified in the retroperitoneum. No retroperitoneal adenopathy. No aneurysm or dilatation of the aorta. No bowel obstruction. Appendix is not visualized. No free air or free fluid. Few scattered diverticula along the distal colon. No surrounding inflammation. [id number] [place] [address] TELEPHONE RADIOLOGY DEPARTMENT Name: SARAH HERNANDEZ [facility] #: [id number] : 1955 Ordering Physician: PIETRO OKEEFE Sex: M Date: 11/22/20 Admission Type: E/R X-ray Number: [id number] Unsigned Transcriptions are preliminary reports and do not represent a Medical or Legal Document Urinary bladder is unremarkable. Prostate gland and seminal vesicles are unremarkable. Left hip prosthesis causing some artifact. IMPRESSION: No renal or ureteral stones. No hydronephrosis. Appendix not visual ized. Diverticulosis. No obstruction. No free air or free fluid. Single gallstone. While performing the above CT exam, Radiation dose reduction was accomplished utilizing automated exposure control, adjusting of the mA and kV based on the patient's body size and/or the use of imperative reconstructive techniques. CT dose in mGy*CM: 409.5 Electronically Reviewed and Signed By TUNDE GOETZ 11/25/20 11:14 Dictating Initials: BE Transcribed Date: 11/24/20 08:32 Transcribe Initials: LI Name Value Range Interpretation Code Description Data Gala rce(s) Supporting Document(s) ID Date Data Source [id number] 11/22/2020 03:02:00 PM EDT [facility] Name Value Range Interpretation Code Description Data Gala rce(s) Supporting Document(s) URINE DRUG PANEL ER AND IP i [facility] [facility] URINE DRUG SCREEN AMPHETAMINES NEGATIVE NORMAL: NEGATIVE [facility] BARBITURATES NEGATIVE NORMAL: NEGATIVE [facility] BENZO NEGATIVE NORMAL: NEGATIVE [facility] COCAINE NEGATIVE NORMAL: NEGATIVE [facility] METHADONE NEGATIVE NORMAL: NEGATIVE [facility] METHAMPHET NEGATIVE NORMAL: NEGATIVE [facility] OPIATES NEGATIVE NORMAL: NEGATIVE [facility] PCP NEGATIVE NORMAL: NEGATIVE [facility] THC NEGATIVE NORMAL: NEGATIVE [facility] TRICYCLIC NEGATIVE NORMAL: NEGATIVE [facility] OXYCODONE NEGATIVE NORMAL: NEGATIVE [facility] PROPOXYPHENE NEGATIVE NORMAL: NEGATIVE [facility] \\BLDo\\URINE D RUG SCREEN INTERPRETATION\\BLDx\\ Qualitative results only. A result of "Negative" may mean that the drug is present, but below the threshold of the method. A result of "Positive" indicates a presence of the drug in the sample. Additional tests are necessary for confirmation. TEST NAME DRUG STANDARD CUTOFF CONC. (ng/mL) THC 99-KEV-[id number] 50 OPI MORPHINE 100 AMP D-AMPHETAMINE 500 NGOZI BENZOLYECGONINE 150 TCA DESIPRAMINE 300 BAR BUTALBITAL 200 MTD METHADONE 200 BZO NORDIAZEPAM 150 PPX NORPROPOXYPHENE 300 MAMP d-METHAMPHETAMINE 500 OXY OXYCODONE 100 PCP PHENCYCLIDINE 25 ID Date Data Source [id number] 11/22/2020 03:02:00 PM EDT [facility] Name Value Range Interpretation Code Description Data [facility] rce(s) Supporting Document(s) URINALYSIS ROUTINE wMICRO RFLX TO CX [facility] URINALYSIS W/REFLEX CULTURE REFERENCE RANGES SOURCE [facility] Yellow Colorless-Suzie [facility] CLARITY Clear Normal: Clear [facility] LEUK EST Negative Negative - Trace [facility] NITRITE Negative Normal: Negative [facility] UROBILINOGEN 1+ Negative - Trace Abnormal (applies to non-num mariya results) [facility] PROTEIN Negative Negative - Trace [facility] pH 6.5 5.0 - 8.0 [facility] l BLOOD Negative Negative - Trace [facility] SPEC GRAVITY 1.010 1.000 - 1.030 [facility] KETONE Negative Negative - Trace [facility] BILIRUBIN Negative Normal: Negative [facility] GLUCOSE Negative Normal: Negative [facility] MICROSCOPIC See Below [facility] WBC 0 - 1 None Seen - 5/hpf [facility] RBC NONE SEEN None Seen - 5/hpf [facility] EPITHELIAL None Seen NORMAL: None Seen [facility] BACTERIA NONE SEEN NORMAL: None Seen [facility] MUCOUS NONE SEEN NORMAL: None Seen [facility] CASTS Not Indicated [facility] pital CRYSTALS Not Indicated [facility] pital OTHER 0 [facility] CULTURE INDICATED? NO Normal: No [facility] ID Date Data Source [id number] 11/22/2020 02:40:00 PM EDT [facility] Name Value Range Interpretation Code Description Data Gala rce(s) Supporting Document(s) Lactate [Moles/volume] in Serum or Plasma 4.0 mmol/L 0.4 - 2.0 Above high normal [facility] \\BLDo\\[LA]LACTIC ACID \\BLDx\\ [facility] Adult and Pediatric Sepsis Protocols: Adult SIRS/Septic Patient = Lactate > or = 4.0 mmol/L Pediatric SIRS/Septic Patient = Lactate > or = 2.2 mmol/L Base Line, 3 hour and 6 hour lactic acid values should be obtained for further evaluation. ID Date Data Source [id number] 11/22/2020 02:40:00 PM EDT [facility] Name Value Range Interpretation Code Description Data Gala rce(s) Supporting Document(s) RESP PROFILE RP2.1 NASAL PCR [facility] \\BLDo\\RESPIRATORY PROFILE NASAL PHARYNGEAL BY PCR\\BLDx\\ \\BLDo\\DETECTED _NONE \\BLDx\\ 04/05/21.1541.TMG. \\BLDo\\EQUIVOCAL _NONE \\BLDx\\ 11/22/20.1541.TMG. VIRUSES ADENOVIRUS NOT DETECTED NORMAL: NOT DETECTED [facility] CORONAVIRUS 229E NOT DETECTED NORMAL: NOT DETECTED [facility] CORONAVIRUS HKU1 NOT DETECTED NORMAL: NOT DETECTED [facility] CORONAVIRUS NL63 NOT DETECTED NORMAL: NOT DETECTED [facility] CORONAVIRUS OC43 NOT DETECTED NORMAL: NOT DETECTED [facility] [id number] NOT DETECTED NORMAL: NOT DETECTED [facility] REPORT TO DEPARTMENT OF HEAL TH HUMAN METAPNEUMO NOT DETECTED NORMAL: NOT DETECTED [facility] HUMAN RHINO/ENTERO NOT DETECTED NORMAL: NOT DETECTED [facility] NOT DETECTEDNOT DETECTEDNOT DETECTEDNOT DETECTED PARAINFLUENZA V3 NOT DETECTED NORMAL: NOT DETECTED [facility] NOT DETECTED RSV NOT DETECTED NORMAL: NOT DETECTED [facility] BACTERIANOT DET ECTEDNOT DETECTEDNOT DETECTEDNOT DETECTED TESTING PERFORMED USING THE [employer] RP2.1 MULTIPLEXED NUCLEIC ACID TEST. THIS TEST HAS NOT BEEN FDA CLEARED OR APPROVED; THIS TEST HAS BEEN AUTHORIZED BY FDA UNDER AN EUA FOR USE BY AUTHORIZED LABORATORIES; THIS TEST HAS BEEN AUTHORIZED ONLY FOR THE DETECTION AND DIFFERENTATION OF NUCLEI ACID OF SARS-CoV-2 FROM MULTIPLE RESPIRATORY VIRAL AND BACTERIAL ORGANIMS; AND THIS TEST IS ONLY AUTHORIZED FOR THE DURATION OF THE DECLARATION THAT CIRCUMSTANCES EXIST JUSTIFYING THE AUTHORIZATION OF EMERGENCY USE OF IN VITRO DIAGNOSTIC TESTS FOR THE DETECTION AND/OR DIAGNOSIS OF COVID-19 UNDER SECTION 564(b)(1) OF THE ACT, 21 U.S.C. 360bbb-3(b) (1), UNLESS THE AUTHORIZATION IS TERMINATED OR REVOKED SOONER. ID Date Data Source [id number] 11/22/2020 02:00:00 PM EDT [facility] Name Value Range Interpretation Code Description Data Gala rce(s) Supporting Document(s) C reactive protein [Mass/volume] in Serum or Plasma <2.0 mg/L 0.0 - 9.0 [facility] Reference range updated to adriana monique recommended. Effective 04/17/18. ID Date Data Source [id number] 11/22/2020 02:00:00 PM EDT [facility] Name Value Range Interpretation Code Description Data Gala rce(s) Supporting Document(s) COMPREHENSIVE CHEM PROFILE [facility] COMPREHENSIVE METABOLIC PANEL Sodium [Moles/volume] in Serum or Plasma 135 mEq/L 136 - 145 Below low normal [facility] Potassium [Moles/volume] in Serum or Plasma 4.3 mEq/L 3.5 - 5.1 [facility] Chloride [Moles/volume] in Serum or Plasma 101 mEq/L 98 - 107 [facility] Carbon dioxide, total [Moles/volume] in Serum or Plasma 23.1 mEq /L 21.0 - 32.0 [facility] Glucose [Mass/volume] in Serum or Plasma 74 mg/dL 70 - 100 [facility] Urea nitrogen [Mass/volume] in Serum or Plasma 11 mg/dL 7 - 18 [facility] CREATININE SERUM 0.66 mg/dL 0.70 - 1.30 Below low normal [facility] AGE 65 yrs [facility] l eGFR NON-AFR AMR >60 [facility] eGFR AFR AMR >60 [facility] ital BUN/CREAT 17 6 - 25 [facility] Protein [Mass/volume] in Serum or Plasma 5.8 g/dL 6.0 - 8.3 Below low normal [facility] Albumin [Mass/volume] in Serum or Plasma 2.7 g/dL 3.8 - 5.4 Below low normal [facility] GLOBULIN 3.1 g/dL 2.0 - 4.0 [facility] A/G RATIO 0.9 0.8 - 2.0 [facility] Calcium [Mass/volume] in Serum or Plasma 7.7 mg/dL 8.8 - 10.2 Below low normal [facility] Bilirubin.total [Mass/volume] in Serum or Plasma 1.0 mg/dL 0.2 - 1.0 [facility] Bilirubin.direct [Mass/volume] in Serum or Plasma 0.4 mg/dL 0.0 - 0.2 Above high normal [facility] INDIRECT BILI 0.6 mg/dL 0.0 - 1.1 [facility] pital ALK PHOSPHATASE 150 U/L 40 - 129 Above high normal [facility] Aspartate aminotransferase [Enzymatic ac tivity/volume] in Serum or Plasma by With P-5'-P 51 IU/L 7 - 37 Above high normal [facility] Alanine aminotransferase [Enzymatic acti vity/volume] in Serum or Plasma by With P-5'-P 28 IU/L 12 - 78 [facility] ANION GAP 11 7 - 15 [facility] l Estimated GFR referenc e range: >60ml/min/1.73m >18 years: Calculated using IDNC traceable Study Equation <18 years: Calculated using IDNC tracable Bedside Schartz Equation ID Date Data Source [id number] 11/22/2020 02:00:00 PM EDT [facility] Name Value Range Interpretation Code Description Data Gala rce(s) Supporting Document(s) Fibrin D-dimer DDU [Mass/volume] in Platelet poor plas ma by Immunoassay <100 ng/mL 0 - 400 [facility] METHODOLOGY: FLUORESCENCE IMM UNOASSAY \\BLDo\\D- DIMER INTERPRETATION\\BLDx\\ Elevated D-dimer levels occur in a number of clinical situations and are not diagnostic of any specific condition. While increased levels are not specific for DVT or PE, low D-dimer levels may be used to rule out these conditions. Limitations: Specimens from patients who have routinely exposed to animals or to animal serum products may have contain heterophile antibodies, which may cause erroneous D-dimer results. ID Date Data Source [id number] 11/22/2020 02:00:00 PM EDT [facility] PROTHROMBIN TIME Name Value Range Interpretation Code Description Data Gala rce(s) Supporting Document(s) WARFARIN? NO [facility] l 19.8 INR in Platelet poor plasma by Coagulation assay 1.8 1.0 - 4.5 [facility] Reference ranges Warf aldair (Coumadin) Therapy: 21.6 - 40.7 secs Normal (Non-warfarin Therapy): 10.7 - 15.2 secs New Protime Reference Range as of July 09, 2020 ID Date Data Source [id number] 11/22/2020 02:00:00 PM EDT [facility] Name Value Range Interpretation Code Description Data Gala e(s) Supporting Document(s) CBC [facility] COMPLETE BLOOD COUNT Leukocytes [#/volume] in Blood by Automated count 14.9 K/uL 4.0 - 10.0 Above high normal [facility] Erythrocytes [#/volume] in Blood by Automated count 3.11 M/uL 4.30 - 6.10 Below low normal [facility] Hemoglobin [Mass/volume] in Blood 12.4 g/dL 13.5 - 17.5 Below low no rmal [facility] Hematocrit [Volume Fraction] of Blood by Automated count 34.9 % 39.0 - 50.0 Below low normal [facility] Erythrocyte mean corpuscular volume [Entitic volume] b y Automated count 112.2 fL 80.0 - 96.0 Above high normal [facility] Erythrocyte mean corpuscular hemoglobin [Entitic mass] by Automated count 39.9 pg 26.0 - 34.0 Above high normal [facility] Erythrocyte mean corpuscular hemoglobin concentration [Mass/volume] by Automated count 35.5 g/dL 32.0 - 36.0 [facility] Erythrocyte distribution width [Ratio] by Automated count 17.4 % 11.6 - 14.8 Above high normal [facility] Platelets [#/volume] in Blood by Automated count 426 K/uL 150 - 450 [facility] Platelet mean volume [Entitic volume] in Blood by Automated count 8.8 fL 7.1 - 10.4 [facility] Neutrophils [#/volume] in Blood by Automated count 11.19 K/uL 1.70 - 7.70 Above high normal [facility] Lymphocytes [#/volume] in Blood by Automated count 2.20 K/uL 1.50 - 6.00 [facility] Monocytes [#/volume] in Blood by Automated count 1.23 K/uL 0.00 - 1.00 Above high normal [facility] Eosinophils [#/volume] in Blood by Automated count 0.07 K/uL 0.00 - 0.30 [facility] Basophils [#/volume] in Blood by Automated count 0.13 K/uL 0.00 - 0.10 Above high normal [facility] 0.08 Urinalysis macro (dipstick) panel - Urine 0.170 10^3/uL 0.000 - 0.012 Above high normal [facility] Neutrophils/100 leukocytes in Blood by Automated count 75.0 % 42. 2 - 75.2 [facility] Lymphocytes/100 leukocytes in Blood by Automated count 14.8 % 15.0 - 41.0 Below low normal [facility] Monocytes/100 leukocytes in Blood by Automated count 8.3 % 0.0 - 12.0 [facility] Eosinophils/100 leukocytes in Blood by Automated count 0.5 % 0.0 - 7.0 [facility] 0.90.50 NRBC 1.1 % [facility] MANUAL DIFF NOT INDICATED [facility] RBC MORPH NOT INDICATED [facility] ID Date Data Source [id number] 11/16/2020 11:16:00 PM EDT [facility] [place] [address] [address] FOLLOW UP NOTENAME: ZAY SMITH DPHYSICIAN: KACI HOUSTON, PAWANATE OF SERVICE: 11/16/20DATE OF : [birth year]ACCOUNT #: [id number]: ZAY AmorHONGDate: Nov 16OB: 1955Physician: Dr. Malcolm Ballard M.D., M.P.H.Dr. 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 after dc he was placed on oral eliquis.patient was readmiited to hospital with clot of RLE after traumatic fallinjuring the left leg. HE says a week after falling and hurting his leg, hedeveloped pain the RLE. He says he did not take his eqlius regularly, wouldnever take it at night and sometimes take it in the day.he would like a pill once a day, his primary dr. mcdaniel has prsescribedthis for him and he will start the medication tomorrow. patient is aware ofclotting risks during air travel. he is leaving for [place] at the end of the week.he thinks he will be more complaint with a daily pill because then he can takeit with all his other medications.Past Medical History:Atypical pneumoniaChronic alcohol abuseChronic back painCoronary artery diseaseDyslipidemiaGastroesophageal reflux diseaseHypertensionPneumothoraxPulmonary emboliRight femoral vein DVTSeizurePast Surgical History:Ankle SurgeryAppendectomyBack surgeryDiscectomy - L3- D9Svgmflxyq back stimulatorRight chest tube placementSplenectomyTesticle removal - rightTonsillectomyCataract surgery in 2016Cardiac catheterization in 2016Right knee scope in 1980Speenectomy in 1974Allergies:OxycodoneCurrent Medications:Allopurinol 100 mg Tablet Oral daily (Start Date - unknown)Lipitor 20 mg (of 40 mg) Tablet Oral daily (Start Date - unknown)Losartan Potassium 100 mg Tablet Oral daily (Start Date - unknown)Lovenox 80 mg Subcutaneous b.i.d. (Start Date - unknown)Pantoprazole Sodium 40 mg (of 40 mg) Tablet, enteric coated Oral daily (StartDate - unknown)Social History:Mr. SMITH is single and he is retired. Mr. SMITH no longer smokes buthad smoked for 44 years. He drinks occasionally.Mr. SMITH reports the following support systems: lives alone and lives inown house. Patient states he was a "very heavy liquor drinker" but now onlydrinks beer.Family History:Mr. SMITH's mother is alive. Mr. SMITH's father is : LeukemiaCancer.Review of Systems:ConstitutionalNormal - non compliance of doac because would forget to take evening dose ofpills/p fall prior to dvt in right leg.Allergic/ImmunologicNormal - Denies allergies and adverse reactions.EyesNormal - Denies blurred vision, double vision, lacrimation, night blindness,visual difficulties and photophobia.ENMTNormal - Denies dysphagia, ear pain, epistaxis, esophagitis, problems withhearing, mouth dryness, oral bl eeding, otitis, sinusitis, sputum production,stomatitis, altered taste and tinnitus.EndocrineNormal - Denies diabetes, hot flashes, menstrual irregularities and thyroiddisease.Hematologic/LymphaticNormal - Denies easy bruising and tender or enlarged lymph nodes.BreastsNormal - Denies breast masses, nipple discharge, nipple inversion and pain.RespiratoryNormal - Denies cough, dyspnea, hemoptysis, hiccoughs, pleuritic chest painand wheezing.CardiovascularNormal - Denies arrhythmias, chest pain, dyspnea, edema, orthopnea andpalpitations.GastrointestinalNormal - Denies abdominal pain, change in bowel habits, constipation,diarrhea, heartburn / dyspepsia, hematemesis, hematochezia, hemorrhoids, melena/ GI bleeding, nausea, pain / cramping, satiety and vomiting.Genitourinary (M)Normal - Denies dysuria, frequency, hematuria, impotence, incontinence,nocturia, renal stone disease, retrograde ejaculation, scrotal swelling,urgency and urine color change.MusculoskeletalAbnormal - improvement in romIntegumentaryNormal - Denies alopecia, blistering, bruising, dry skin, facial burning, nailchanges, photosensitivity, pruritus, rash and urticaria.NeurologicNormal - Denies disorientation, dizziness, abnormal gait, headaches, insomnia,memory loss, motor weakness, sensory problems, paralysis, seizure and stroke.PsychiatricNormal - Denies delusions, hallucinations, mood swings, depression andeuphoria.Vital Signs:Performed on Nov 16, 2020 11:16Jwcqyq95.00 daDmctsf105 lbs(LOW)BSA (derived)1.84 sq.mBMI26.45Gzedssaiwbx84.5 QCsmbp20 /rdsJedjijiydle98 /ebdZN714/70Pulse Oximetry (O2 Sat)95 %(LOW)Fall RiskModerate RiskPerformance Status:0 - Fully active, able to carry on all predisease activities withoutrestrictions. (ECOG)Physical Exam:ConstitutionalNormal - Alert, cooperative, oriented. Mood and affect appropriate. Appearsclose to chronological age. Well nourished. Well developed.HeadNormal - Normocephalic; no scars.EyesNormal - Conjunctivae and sclerae are clear and without icterus.ENMTNormal - Sinuses are nontender. No oral exudates, ulcers, masses, thrush ormucositis. Oropharynx clear. Tongue normal.NeckNormal - Supple without masses or thyromegaly. No jugular venous distension.Hematologic/LymphaticNormal - No petechiae or purpura.RespiratoryAbnormal - decreased breath soundCardiovascularAbnormal - faint systolic murmurAbdomenNormal - Non-tender, non-distended, no masses, ascites or hepatosplenomegaly.Good bowel sounds. NBack/SpineAbnormal - tender to palpation.ExtremitiesAbnormal - left leg circumference > right leg; no residual pain or tendernessin calf/thigh.MusculoskeletalAbnormal - restricted ROMInteg umentaryNormal - No rashes, scars, or lesions suggestive of malignancy.NeurologicNormal - grossly non focalPsychiatricNormal - Alert and oriented times three. Coherent speech. 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 This was completed during hospitalizationin July 2020.new RLE dvt after fall; patient was "taking elquis" but after furtherquestioning , he reports infrequently taking the medication. He never tookeliquis dose at night and in the day he would sporadically, he know feels hewill take the DOAC regularly and be complaint but will not be able to take amedication that is required to be taken twice daily. 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 hismcv reflective of this. daily folic acid would be recommended.Plan:xarelto 20mg dailyrepeat cbc, d dimer , folate, b12 levels todayf/u in 3 monthsElectronically signed by:Dr. Kaci HoustonCC: Name Value Range Interpretation Code Description Data [facility] rce(s) Supporting Document(s) ID Date Data Source [id number] 11/12/2020 11:51:00 AM EDT [facility] Name Value Range Interpretation Code Description Data [facility] rce(s) Supporting Document(s) Coag Fac VIII F8 Act Assay res 205 % 55 - 200 [facility] ADDITIONAL INFORMATIO N This test has been modified from the floor layer's instructions. Its performance characteristics were determined by [facility] in a manner consistent with CLIA requirements. This test has not been cleared or approved by the U.S. Food and Drug Administration. Test Performed by: [facility] [address] [address] Engineering Agent: Kurt Castillo M.D. Ph.D.; CLIA# [id number] ID Date Data Source [id number] 11/10/2020 02:40:00 PM EDT [facility] Name Value Range Interpretation Code Description Data [facility] rce(s) Supporting Document(s) PT 9.4-12.5 Above high normal [facility] INR Normal (applies to non-numeric results) [facility] The use of the INR is restricted to steven ents on stable oral anticoagulant. Therapeutic Range: 2.0-3.0 High Risk Values: 2.5-3.5 ID Date Data Source [id number] 11/10/2020 02:40:00 PM EDT [facility] Name Value Range Interpretation Code Description Data Gala rce(s) Supporting Document(s) PTT 25.1-36.5 Above high normal [facility] ID Date Data Source [id number] 11/10/2020 02:40:00 PM EDT [facility] Name Value Range Interpretation Code Description Data Gala rce(s) Supporting Document(s) D-Dimer Quant 546 ng/mLFEU <500 PH [facility] BHUPENDRA OVALLE read back critical informa tion 11/10/20 1434 LAB.DAVSA Positive for D-Dimer. DVT/PE or DIC may be present. D-Dimer is an exclusionary test and is used in conjunction with a clinical pretest probability (PTP) assessment model to exclude DVT and PE. Consider further diagnostic studies to confirm diagnosis. ID Date Data Source [id number] 11/10/2020 02:33:00 PM T [facility] Name Value Range Interpretation Code Description Data Gala rce(s) Supporting Document(s) LDH 195 U/L 87-241 Normal (applies to non-numeric resul ts) [facility] ID Date Data Source [id number] 11/10/2020 02:33:00 PM T [facility] Name Value Range Interpretation Code Description Data Gala rce(s) Supporting Document(s) Vitamin B12 332 pg/mL 193-986 Normal (applies to non-numeric resu lts) [facility] ID Date Data Source [id number] 11/10/2020 01:16:00 PM [facility] Name Value Range Interpretation Code Description Data Gala rce(s) Supporting Document(s) White Blood Count 4.8-10.8 Above high normal [facility] Red Blood Count 4.35-6.08 Below low normal [facility] Hemoglobin 13.0-17.5 Below low normal [facility] Hematocrit 37.7-51.0 Below low normal [facility] Mean Corpuscular Volume 80-94 Above high normal [facility] Mean Corpuscular Hemoglobin 27.0-33.0 Above high normal [facility] Mean Corpuscular HGB Conc 32.0-36.0 Above high normal [facility] Red Cell Distribution Width 11.5-14.5 Above high normal [facility] Platelet Count 631 X10 3/uL 130-450 Above high normal [facility] Mean Platelet Volume 9.6-13.1 Below low normal [facility] Imm Grans% (AUTO) 0 % 0-2 Normal (applies to non-numeri c results) [facility] Neutrophils % (AUTO) 70 % 40-75 Normal (applies to non-num mariya results) [facility] Lymphocytes % (AUTO) 20 % 21-46 Below low normal [facility] Monocytes % (AUTO) 7 % 5-12 Normal (applies to non-numer ic results) [facility] Eosinophils % (AUTO) 1 % 1-5 Normal (applies to non-num mariya results) [facility] [facility] Basophils % (AUTO) 2 % 0-[address] [facility] Imm Grans# (AUTO) 0.0-0.5 Normal (applies to non-numeri c results) [facility] Neutrophils # (AUTO) 1.5-8.1 Normal (applies to non-num mariya results) [facility] Lymphocytes # (AUTO) 1.0-3.1 Normal (applies to non-num mariya results) [facility] Monocytes # (AUTO) 0.2-1.3 Normal (applies to non-numer ic results) [facility] Eosinophils# (AUTO) 0.0-0.5 Normal (applies to non-nume adrianna results) [facility] Basophils # (AUTO) 0.0-0.1 Above high normal [facility] ID Date Data Source [id number] 11/12/2020 09:18:00 AM EDT [facility] Name Value Range Interpretation Code Description Data Gala rce(s) Supporting Document(s) FibroTest Score Normal (applies to non-numeric results) [facility] FibroTest Stage Normal (applies to non-numeric results) [facility] FibroTest Interpretation Normal (applies to non -numeric results) [facility] FibroTest estimates liver fibrosis Fibr oTest Score Stage Interpretation 0.00-0.21 F0 no fibrosis 0.21-0.27 F0-F1 no fibrosis 0.27-0.31 F1 minimal fibrosis 0.31-0.48 F1-F2 minimal fibrosis 0.48-0.58 F2 moderate fibrosis 0.58-0.72 F3 advanced fibrosis 0.72-0.74 F3-F4 advanced fibrosis 0.74-1.00 F4 severe fibrosis (Cirrhosis) NashTest 2 Score Normal (applies to non-numeric results) [facility] NashTest 2 Grade Normal (applies to non-numeric results) [facility] NashTest 2 Interpretation Normal (applies to no n-numeric results) [facility] NashTest 2 estimates non-alcoholic steat ohepatitis (BRANHAM) NashTest 2 Score Grade Interpretation 0.00-0.25 N0 no BRANHAM 0.25-0.50 N1 mild BRANHAM 0.50-0.75 N2 moderate BRANHAM 0.75-1.00 N3 severe BRANHAM SteatoTest 2 Score Normal (applies to non-numer ic results) [facility] SteatoTest 2 Grade Normal (applies to non-numer ic results) [facility] SteatoTest 2 Interpretation Normal (applies to non-numeric results) [facility] RESULT: moderate/severe steatosis (34-10 0%) SteatoTest 2 estimates liver steatosis. A stage of S1 or S2S3 is considered clinically significant. SteatoTest 2 Score Stage Interpretation 0.00-0.40 S0 no steatosis (<5%) 0.40-0.55 S1 mild steatosis (5-33%) 0.55-1.00 S2S3 moderate/severe steatosis (34-100%) BRANHAM-FibroTest Comment Normal (applies to non-n umeric results) [facility] The reliability of results is dependent on compliance with the preanalytical and analytical conditions recommended by [facility]. The tests have to be deferred for: acute hemolysis, acute hepatitis, acute inflammation, extra hepatic cholestasis. The advice of a specialist should be sought for interpretation in chronic hemolysis and Gilbert's syndrome. The test interpretation is not validated in liver transplant patients. Isolated extreme values of one of the components should lead to caution in interpreting the results. In case of discordance between a biopsy result and a test, it is r ecommended to seek advice of a specialist. The causes of these discordances could be due to a flaw of the test or to a flaw in the biopsy: i.e. a liver biopsy has a 33% variability rate for one fibrosis stage. FibroTest is interpretable for chronic hepatitis B and C, alcoholic and non alcoholic steatosis. SteatoTest 2 is interpretable for chronic hepatitis B and C, and non alcoholic steatosis. NashTest 2 is interpretable for assessing the severity of BRANHAM in patients with non alcoholic fatty liver disease (NAFLD). ADDITIONAL INFORMATION This test was developed and its performance characteristics determined by [facility] in a manner consistent with CLIA requirements. This test has not been cleared or approved by the U.S. Food and Drug Administration. [facility] Serial Number [id number] Normal (appli es to non-numeric results) [facility] Apolipoprotein A1,S 124 mg/dL >=120 Normal (applies to non-nume adrianna results) [facility] Aonyt-1-Rzlogielqtinv,S 141 mg/dL 100 - 280 Normal ( applies to non-numeric results) [facility] Haptoglobin,S 92 mg/dL 30 - 200 Normal (applies to non-numeric re sults) [facility] Alanine Amino (ALT),S 43 U/L 7-55 Normal (applies to non-nu meric results) [facility] Gamma Glutamyltrans (GGT),S 807 U/L 8 - 61 [facility] Total Bilirubin,S <=1.2 Normal (applies to non-numeri c results) [facility] Aspartate Aminotrans (AST),S 115 U/L 8 - 48 [facility] Total Cholesterol,S 79 mg/dL Normal (applies to non-nume adrianna results) [facility] REFERENCE VALUE------ Desirable: < 200 Borderline high: 200 - 239 High: > or = 240 Triglycerides,S 95 mg/dL Normal (applies to non-numeric results) [facility] REFERENCE VALUE------ Normal: <150 Borderline high: 150-199 High: 200-499 Very high: > or =500 Fasting Glucose,Plas 130 mg/dL 70 - 100 [facility] Test Performed by: [facility] - [facility] [address] [place] [address] Engineering Agent: Kurt Castillo M.D. Ph.D.; CLIA# [id number] Test Performed by: [facility] - [facility] [address] [place] [address] Engineering Agent: Kurt Castillo M.D. Ph.D.; CLIA# [id number] ID Date Data Source [id number] 11/10/2020 03:39:00 PM EDT [facility] Name Value Range Interpretation Code Description Data Gala rce(s) Supporting Document(s) Creatinine,Urine Normal (applies to non-numeric results) [facility] Interpret with care as there is no estab lished reference range associated with this assay's methodology that pertains to this particular sex and/or age. Microalbumin,Urine <1.7 Normal (applies to non-numer ic results) [facility] Albumin/Creatinine Ratio,Urine Normal (applies to non-numeric results) [facility] Reference Ranges for Microalbumin,spot: Normal <30 ug/mg creatinine Microalbuminuria 30-300 ug/mg creatinine Clinical Albuminuria >300 ug/mg creatinine ID Date Data Source [id number] 11/10/2020 03:00:00 PM EDT [facility] Name Value Range Interpretation Code Description Data Gala rce(s) Supporting Document(s) Hep C Ab-T Test Nonreactive Normal (applies to non-numeric results) [facility] ID Date Data Source [id number] 11/10/2020 02:58:00 PM EDT [facility] Name Value Range Interpretation Code Description Data Gala rce(s) Supporting Document(s) Sodium 139 mmol/L 137-145 Normal (applies to non-numeric resul ts) [facility] Potassium 3.5-5.1 Normal (applies to non-numeric resul ts) [facility] Chloride 111 mmol/L 98-112 Normal (applies to non-numeric resul ts) [facility] Carbon Dioxide CO2 22.0-33.0 Normal (applies to non-numer ic results) [facility] Anion Gap 4.0-11.0 Normal (applies to non-numeric resul ts) [facility] BUN 6 mg/dL 9-20 Below low normal [facility] Creatinine 0.80-1.50 Below low normal [facility] GFR >60 Normal (applies to non-numeric results) [facility] Result based on MDRD formula. Glucose Level 126 mg/dL 74-99 Above high normal [facility] The reference range is only applicable w hen fasting. Calcium-Uncorrected 8.4-10.2 Normal (applies to non-nume adrianna results) [facility] Corrected Calcium 8.4-10.2 Normal (applies to non-numeri c results) [facility] Bilirubin,Total 0.2-1.3 Normal (applies to non-numeric results) [facility] SGOT(AST) 111 U/L 17-59 Above high normal [facility] SGPT(ALT) 47 U/L 21-72 Normal (applies to non-numeric resul ts) [facility] Alkaline Phosphatase 157 U/L 38-126 Above high normal [facility] can increase Alkaline Phosp le vels up to 2 times the normal adult value. Normal values for children and adolescents are 2 to 3 times the normal adult value. Total Protein 6.3-8.2 Below low normal [facility] Albumin 3.5-5.0 Below low normal [facility] ID Date Data Source [id number] 11/10/2020 02:58:00 PM EDT [facility] Name Value Range Interpretation Code Description Data Gala rce(s) Supporting Document(s) Gamma Glutamyl Transpep GGT 1062 U/L 15-73 Above high normal [facility] ID Date Data Source [id number] 11/10/2020 02:58:00 PM EDT [facility] Name Value Range Interpretation Code Description Data Gala rce(s) Supporting Document(s) Triglycerides 92 mg/dL 0-150 Normal (applies to non-numeric re sults) [facility] Cholesterol 82 mg/dL 0-200 Normal (applies to non-numeric resu lts) [facility] LDL Cholesterol,Direct 28 mg/dL <100 Normal (applies to non-n umeric results) [facility] LDL Interpretative Data Optimal <100 (mg/dL) Near optimal 100-129 (mg/dL) Borderline High 130-159 (mg/dL) High 160-189 (mg/dL) Very High >190 (mg/dL) HDL Cholesterol 40 mg/dL 40-60 Normal (applies to non-numeric results) [facility] CHOL/HDL Ratio Normal (applies to non-numeric r esults) [facility] NATIONAL CHOLESTEROL GUIDEL [facility] ([facility]) guidelines for classificaton, testing and management of cholesterol levels in adults over 20 years of age. This new classification creates three categories of risk for coronary heart disease, regardless of age or sex, according to total amd LDL cholesterols levels: Based on total cholesterol level Desirable <200 mg/dl Borderline-high 200-239 mg/dl High >=240 mg/dl Based on cholesterol ratio CHD RISK CHOL/HDL RATIO MALE FEMALE 0.5 x Average 3.4 3.3 1.0 x Average 5.0 4.4 2.0 x Average 9.6 7.1 3.0 x Average 13.5 11.0 ID Date Data Source [id number] 11/05/2020 03:59:33 PM EDT [place] [id number] [place] [address] TELEPHONE RADIOLOGY DEPARTMENT Name: [facility] Hospital #: [id number] : 1955 Ordering Physician: PIETRO OKEEFE Sex: M Date: 11/04/20 Admission Type: E/R X-ray Number: [id number] Unsigned Transcriptions are preliminary reports and do not represent a Medical or Legal Document XRAY ANKLE RIGHT MIN 3 VIEWS [id number] COMPLETE:11/04/20 22:43 RLL [id number] (REASON FOR PROCESS: fall with twist Examination of the right ankle 4 views submitted. FINDINGS/IMPRESSION: Patient is status post ORIF for a bimalleolar fracture. There is no evidence of acute hardware complication. No acute fracture or dislocation. There is medial and lateral soft tissue swelling and a large joint effusion. Electronically Reviewed and Signed By KHAI PARK MD, MD 11/05/20 15:58 Dictating Initials: [place] Transcribed Date: 11/05/20 08:51 Transcribe Initials: [facility] Name Value Range Interpretation Code Description Data Gala rce(s) Supporting Document(s) ID Date Data Source [id number] 11/04/2020 10:24:00 PM EDT [facility] Name Value Range Interpretation Code Description Data Gala rce(s) Supporting Document(s) Urate [Mass/volume] in Serum or Plasma 2.1 mg/dL 3.5 - 7.2 Below lo w normal [facility] ID Date Data Source [id number] 11/04/2020 10:24:00 PM EDT [facility] Name Value Range Interpretation Code Description Data Gala rce(s) Supporting Document(s) COMPREHENSIVE CHEM PROFILE [facility] COMPREHENSIVE METABOLIC PANEL Sodium [Moles/volume] in Serum or Plasma 136 mEq/L 136 - 145 [facility] Potassium [Moles/volume] in Serum or Plasma 4.6 mEq/L 3.5 - 5.1 [facility] Chloride [Moles/volume] in Serum or Plasma 101 mEq/L 98 - 107 [facility] Carbon dioxide, total [Moles/volume] in Serum or Plasma 25.8 mEq /L 21.0 - 32.0 [facility] Glucose [Mass/volume] in Serum or Plasma 82 mg/dL 70 - 100 [facility] Urea nitrogen [Mass/volume] in Serum or Plasma 9 mg/dL 7 - 18 [facility] CREATININE SERUM 0.71 mg/dL 0.70 - 1.30 [facility] AGE 64 yrs [facility] l HEIGHT 66.00 INCHES [facility] ital eGFR NON-AFR AMR >60 [facility] eGFR AFR AMR >60 [facility] BUN/CREAT 13 6 - 25 [facility] l Protein [Mass/volume] in Serum or Plasma 6.0 g/dL 6.0 - 8.3 [facility] Albumin [Mass/volume] in Serum or Plasma 2.7 g/dL 3.8 - 5.4 Below low normal [facility] GLOBULIN 3.3 g/dL 2.0 - 4.0 [facility] l A/G RATIO 0.8 0.8 - 2.0 [facility] Calcium [Mass/volume] in Serum or Plasma 7.9 mg/dL 8.8 - 10.2 Below low normal [facility] Bilirubin.total [Mass/volume] in Serum or Plasma 0.6 mg/dL 0.2 - 1.0 [facility] Bilirubin.direct [Mass/volume] in Serum or Plasma 0.3 mg/dL 0.0 - 0.2 Above high normal [facility] INDIRECT BILI 0.3 mg/dL 0.0 - 1.1 [facility] pital ALK PHOSPHATASE 144 U/L 40 - 129 Above high normal [facility] Aspartate aminotransferase [Enzymatic ac tivity/volume] in Serum or Plasma by With P-5'-P 77 IU/L 7 - 37 Above high normal [facility] Alanine aminotransferase [Enzymatic acti vity/volume] in Serum or Plasma by With P-5'-P 29 IU/L 12 - 78 [facility] ANION GAP 9 7 - 15 [facility] l Estimated GFR referenc e range: >60ml/min/1.73m >18 years: Calculated using [facility] traceable Study Equation <18 years: Calculated using [facility] tracable Bedside Schartz Equation ID Date Data Source [id number] 11/04/2020 10:24:00 PM EDT [facility] Name Value Range Interpretation Code Description Data Gala rce(s) Supporting Document(s) Fibrin D-dimer DDU [Mass/volume] in Platelet poor plas ma by Immunoassay 149 ng/mL 0 - 400 [facility] METHODOLOGY: FLUORESCENCE IMM UNOASSAY \\BLDo\\D- DIMER INTERPRETATION\\BLDx\\ Elevated D-dimer levels occur in a number of clinical situations and are not diagnostic of any specific condition. While increased levels are not specific for DVT or PE, low D-dimer levels may be used to rule out these conditions. Limitations: Specimens from patients who have routinely exposed to animals or to animal serum products may have contain heterophile antibodies, which may cause erroneous D-dimer results. ID Date Data Source [id number] 11/04/2020 10:24:00 PM EDT [facility] Name Value Range Interpretation Code Description Data Gala rce(s) Supporting Document(s) CBC [facility] l COMPLETE BLOOD COUNT Leukocytes [#/volume] in Blood by Automated count 10.7 K/uL 4.0 - 10.0 Above high normal [facility] Erythrocytes [#/volume] in Blood by Automated count 3.07 M/uL 4.30 - 6.10 Below low normal [facility] Hemoglobin [Mass/volume] in Blood 11.8 g/dL 13.5 - 17.5 Below low no rmal [facility] Hematocrit [Volume Fraction] of Blood by Automated count 33.3 % 39.0 - 50.0 Below low normal [facility] Erythrocyte mean corpuscular volume [Entitic volume] b y Automated count 108.5 fL 80.0 - 96.0 Above high normal [facility] Erythrocyte mean corpuscular hemoglobin [Entitic mass] by Automated count 38.4 pg 26.0 - 34.0 Above high normal [facility] Erythrocyte mean corpuscular hemoglobin concentration [Mass/volume] by Automated count 35.4 g/dL 32.0 - 36.0 [facility] Erythrocyte distribution width [Ratio] by Automated count 17.9 % 11.6 - 14.8 Above high normal [facility] Platelets [#/volume] in Blood by Automated count 533 K/uL 150 - 450 Above high normal [facility] REVIEW OF SLIDE AGREES W/AUTOMATED PLT C T Platelet mean volume [Entitic volume] in Blood by Automated count 8.2 fL 7.1 - 10.4 [facility] Neutrophils [#/volume] in Blood by Automated count 5.08 K/uL 1.70 - 7.70 [facility] Lymphocytes [#/volume] in Blood by Automated count 3.65 K/uL 1.50 - 6.00 [facility] Monocytes [#/volume] in Blood by Automated count 1.24 K/uL 0.00 - 1.00 Above high normal [facility] Eosinophils [#/volume] in Blood by Automated count 0.38 K/uL 0.00 - 0.30 Above high normal [facility] Basophils [#/volume] in Blood by Automated count 0.21 K/uL 0.00 - 0.10 Above high normal [facility] 0.09 Urinalysis macro (dipstick) panel - Urine 0.040 10^3/uL 0.000 - 0.012 Above high normal [facility] 0.800.0 MANUAL DIFF SEE BELOW [facility] maria l SEGS 39 % 42.2000 - 75.2000 Below low normal [facility] RICHIE 0 % [facility] l MYEL 0 % [facility] META 1 % 0 - 1 [facility] l BAND 0 % 0 - 5 [facility] LYMPH 40 % 15 - 41 [facility] ALYM 0 % 0 - 5 [facility] MONO 10 % 0 - 12 [facility] EOS 6 % 0 - 7 [facility] BASO 4 % 0 - 2 Above high normal [facility] 0.0 RBC MORPH SEE BELOW [facility] POLYCHROMSIA NONE SEEN NORMAL: NONE SEEN [facility] HYPOCHROMIA NONE SEEN NORMAL: NONE SEEN [facility] POIKLOCYTOSIS NONE SEEN NORMAL: NONE SEEN [facility] BASO STIPPLING NONE SEEN NORMAL: NONE SEEN [facility] ANISOCYTOSIS 1+ NORMAL: NONE SEEN Abnormal (applies to non-nu meric results) [facility] MICROCYTOSIS NONE SEEN NORMAL: NONE SEEN [facility] MACROCYTOSIS 2+ NORMAL: NONE SEEN Abnormal (applies to non-nu meric results) [facility] SPHEROCYTES NONE SEEN NORMAL: NONE SEEN [facility] SCHISTOCYTES NONE SEEN NORMAL: NONE SEEN [facility] TARGET CELLS 1+ NORMAL: NONE SEEN [facility] TEARDROP NONE SEEN NORMAL: NONE SEEN [facility] OVALOCYTES NONE SEEN NORMAL: NONE SEEN [facility] STOMATOCYTES 1+ NORMAL: NONE SEEN [facility] HELMET CELLS NONE SEEN NORMAL: NONE SEEN [facility] CONSTANTINO JOLLY NONE SEEN NORMAL: NONE SEEN [facility] CABOT RINGS NONE SEEN NORMAL: NONE SEEN [facility] TOXIC GRAN NONE SEEN NORMAL: NONE SEEN [facility] DOHLE BODIES NONE SEEN NORMAL: NONE SEEN [facility] BRETT CELLS NONE SEEN NORMAL: NONE SEEN [facility] ACANTHOCYTES NONE SEEN NORMAL: NONE SEEN [facility] HYPER NEUT NONE SEEN NORMAL: NONE SEEN [facility] WILMA RODS NONE SEEN NORMAL: NONE SEEN [facility] ROULEAUX NONE SEEN NORMAL: NONE SEEN [facility] CRENATED CELL NONE SEEN NORMAL: NONE SEEN [facility] ID Date Data Source [id number] 11/01/2020 01:04:00 PM EDT [facility] Name: ZAY SMITH [facility] Rec #: [id number] : 1955 Age/Sex: 64M Date of Service: 11/01/20 DISPOSITION SUMMARY Discharge Summary [facility] Age:64 yrs Sex:Male :1955 Arrival:11/01/2020 13:04 Departure Date11/01/2020 Departure Time18:05 Private MD:Addis Mcdaniel MD Outcome: Discharge Location: Home/Self Care Condition: Good Chief Complaint: Back Pain, Leg Pain, Leg Swelling, Urinary Problem Diagnosis: Deep Vein Thrombosis (DVT) Prescriptions: Lovenox 80 mg/0.8 mL Subcutaneous syringe - inject 0.8 milliliter by SUBCUTANEOUS route every 12 hours; 34 milliliter, Georgiana 5-325 mg Oral Tablet - take 1 tablet by ORAL route every 6 hours As needed; 12 tablet Follow up: Addis Mcdaniel MD Custom Notes: <span>Please call your primary care provider, Dr. Mcdaniel, tomorrow morning</span><span> to establish a follow-up appointment</span><span> this week concerning your DVT and medication change.</span><span> Please take</span><span> the Lovenox subcutaneously every 12 hours</span><span>.</span><span> Please call your primary care provider or return to the emergency department should you experience worsening symptoms.</span> Attending Physician: Kiko Henry MD Private MD: Addis Mcdaniel MD Mid Level Provider: Ousmane Yan PA Followup Physician: Addis Mcdaniel MD Orders: UA., Cbc With Auto Differential, COMMET, PT, PTT, POC COVID19 NOW, Us Duplex Lower Ext Veins Rt, Collect Urine - Clean Catch, HYDROcodone- acetaminophen, Ankle Rt Min 3 Views - Xray, Lovenox, POC - Col lect COVID-19 swab, HYDROcodone-acetaminophen Discharge Instruction: Discharge Summary Sheet, Deep Vein Thrombosis, Medication Reconciliation Name Value Range Interpretation Code Description Data Gala rce(s) Supporting Document(s) ID Date Data Source [id number] 11/01/2020 01:04:00 PM EDT [facility] Name: ZAY SMITH [facility] Rec #: [id number] : 1955 Age/Sex: 64M Date of Service: 11/01/20 PHYSICIAN CHART Physician Documentation [facility] Name: Zay Smith Age: 64 yrs Sex: Male : 1955 Arrival Date: 11/01/2020 Time: 13:04 Bed 12 Private MD: Addis Mcdaniel E ED Physician Kiko Henry Disposition: 11/01 17:29 Attestation: I was present, saw, evaluated and participated jam2 in the care with the Advanced Practice Provider. I agree with HPI as documented. My personal exam reveals findings consistent with those documented. I have reviewed relevant laboratory values and/or imaging studies. HPI: 15:09 This 64 yrs old Male presents to ER via zrw1 Wheelchair with complaints of Back Pain, Leg Pain, Leg Swelling, Urinary Problem. 15:09 This patient is a 64-year-old male history of anxiety, CAD, zrw1 chronic back pain, DVT and PE currently on anticoagulation, GERD, HTN, hyperlipidemia that presents to the emergency department concerns of right leg swelling. Patient reports that he was seen here last week and discharged with supportive measures. He states that the leg swelling is remained the same since that time. He does have a history of breakthrough clotting despite anticoagulation. In July 2020 the patient was transferred for thrombectomy of the left leg. He states that he has had no issues with the left leg since. He has had this right DVT for several weeks now. He is currently taking Eliquis 10 mg daily as anticoagulation. He also reports continued low back pain which has been a chronic issue for him. He feels like it has been worse for the past 1 to 2 weeks. He also notes he has had some urinary urgency recently. He denies any urinary incontinence, bowel incontinence, numbness to the groin. He denies any fevers, chills, chest pain, shortness of breath, cough, hemoptysis, headache, abdominal pain.. Historical: - Allergies: Oxycodone HCl (nausea, stomach discomforts); - Home Meds: 1. allopurinol 100 mg Oral tab 1 tab once daily 2. artificial tears(hypromellose) 0.3 % Opht drop 1 drop in each eye at bedtime 3. colon health 1 tab daily 4. latanoprost 0.005 % ophthalmic (eye) drop 1 drop in each eye at bedtime. 5. losartan 100 mg Oral tab 1 tab once daily 6. mirtazapine 15 mg Oral tab 1 tab at bedtime, PRN 7. Multiple Vitamins Oral tab 1 tab daily 8. nitroglycerin 0.4 mg SL subl 1 tab every 5 minutes x 3, PRN 9. tramadol 50 mg Oral tab 1 tab Twice a day, PRN 10. Warfarin Oral 3mg on Mondays, Tuesdays, Wednesdays, , Fridays and 4mg on Saturdays and Sundays. 11. Xarelto 5mg Oral 1 tab 2 times per day 12. hydrocodone-acetaminophen 5-325 mg Oral tab 2 tabs every 4-6 hours - PMHx: ANXIETY; BACK PAIN; Blood Clots (leg and lungs); CAD - coronary artery disease; GERD; HTN - hypertension; Hyperlipidemia; LYMPHOMA; AK; narcotic OD accidental; 12/30; SEIZURES; testicular cancer; - PSHx: Appendectomy; Hip replacement- Left; spleenectomy; testical - right; Thrombectomy; - Med Reconciliation:: Yellow Alert: The patient's home medication list is partly complete. However, additional information is required to complete list. Medications reviewed, completed by nurse verbally from patient/family. - Immunization history: Flu vaccine is up to date. - Advance directive: There is no existing advanced directive. Information offered. - Family History:: mother is . Father is . - Social History: Smoking status (Tobacco): Pt states smokes cigars, No barriers to communication noted, The patient speaks fluent [place]. ROS: 15:22 Skin: Negative for injury, rash, and discoloration. zrw1 Constitutional: Negative for fever, chills. Cardiovascular: Negative for chest pain, palpitations. Respiratory: Negative for cough, shortness of breath, hemoptysis. Abdomen/GI: Negative for abdominal pain, nausea, vomiting, diarrhea. Back: See HPI. MS/extremity: See HPI. Exam: 15:23 Head/Face: Normocephalic, atraumatic. zrw1 15:23 Constitutional: The patient appears to have no acute distress, appears alert, appears to be awake. 15:23 Cardiovascular: Rate: normal, R hythm: regular, Pulses: no pulse deficits are appreciated, Heart sounds: normal, normal S1and S2, no murmur, Edema: 2+ edema to level of right midcalf. 15:23 Respiratory: the patient does not display signs of respiratory distress, Respirations: normal, Breath sounds: are normal, clear throughout, no rales, no wheezing. 15:23 Abdomen/GI: Inspection: abdomen appears normal, Bowel sounds: normal, active, all quadrants, Palpation: abdomen is soft and non-tender, in all quadrants. 15:23 Back: pain, that is moderate, of the left low back and right low back, ROM is painful. 15:23 Musculoskeletal/extremity: Extremities: grossly normal except: noted in the right le+ pitting edema to the midcalf. Tenderness to palpation above the right ankle posteriorly. Neurovascularly intact distally., Circulation is intact in all extremities. Sensation intact. 15:23 Skin: Appearance: normal except for affected area. 15:23 Neuro: Motor: moves all fours, Sensation: no obvious gross deficits, Gait: is steady. Vital Signs: 13:21 BP 106 / 66; Pulse 104; Resp 18; Temp 98.9; Pulse Ox 97% on edv R/A; Weight 76.2 kg; Height 5 ft. 6 in. (167.64 cm); 15:26 BP 111 / 76; Pulse 92; Resp 20; Pulse Ox 99% on R/A; willi 18:04 BP 118 / 72; Pulse 88; Resp 18; Temp 98.4(TE); Pulse Ox 99% md1 on R/A; Pain 4/10; 13:21 Body Mass Index 27.12 (76.20 kg, 167.64 cm) edv MDM: 14:40 Patient medically screened. zrw1 15:16 ED course: Ultrasound today demonstrates "there is DVT zrw1 identified in the proximal femoral vein through the popliteal vein. That is not significantly changed as compared to previous study 10/28/2020. Some clotted material is also noted in the posterior tibial vein.". 17:20 Case presented to: Dr. Kiko Henry. Data reviewed: zrw1 vital signs, nurses notes, old medical records, lab test result(s), radiologic studies. ED course: 64-year-old male with history of chronic recurrent DVTs presents today with continued right lower extremity swelling. Patient seen here 4 days ago and diagnosed with nonocclusive thrombus in the proximal superficial femoral vein. Patient has been stable while in the department. Denies chest pain, shortness of breath, hemoptysis. I reviewed the work-up from 4 days ago including a negative PE study. Laboratory work today not significantly different. I attempted to get a hold of the patients primary care provider, however; was unsuccessful. Patient has previously failed Xarelto, Coumadin, and now Eliquis. Therefore, I recommend initiating Lovenox therapy. The patient has been on Lovenox previously. I did offer the patient observation for further evaluation and education given the fact that he is unable to a hold of the patient's primary care provider. The hospitalist did not feel as though the patient would benefit from observation stay. Therefore, I will discharge the patient on Lovenox and instructed patient to call his primary care provider first thing tomorrow morning to schedule close follow-up appointment. I discussed indica tions for which the patient should return to the emergency department. Patient voices understanding and is agreeable to the discharge. The patient states he knows how to administer himself Lovenox as he had been on it for 1 month previously.. 11/01 15:03 Order name: UA.; Complete Time: 17:49 zrw1 11/01 17:50 Interpretation: Ur Color Yellow; Ur Clarity Clear; Ur Spec zrw1 gravity 1.005; Ur PH 7.5; Ur Protein Negative; Ur Glucose Negative; Ur Ketones Negative; Ur Blood Negative; Ur Bilirubin Negative; Ur Urobilinogen 1.0; Ur Leuk Est Negative; Ur Nitrite Negative. 11/01 15:59 Order name: Cbc With Auto Differential; Complete Time: 17:49zrw1 11/01 17:50 Interpretation: WBC 14.8; RBC 3.32; HGB 12.8; HCT 34.8; MCV zrw1 104.8; MCH 38.6; MCHC 36.8; RDW 18.1; PLT 415; MPV 8.6; ImmGran% (AUTO) 1; Neut% (AUTO) 72; Lymph% (AUTO) 15; [place]% (AUTO) 10; Eos% (AUTO) 2; Baso% (AUTO) 1; ImmGran# (AUTO) 0.1; Neut# (AUTO) 10.6; Lymph# (AUTO) 2.3; [place]# (AUTO) 1.5; Eos# (AUTO) 0.2; Baso# (AUTO) 0.1. 11/01 15:59 Order name: COMMET; Complete Time: 17:49 [facility] 11/01 17:50 Interpretation: NA 139; K 4.6; CL 106; CO2 28.0; GAP 5.0; zrw1 BUN 6; CREAT 0.58; Glom Filtration > 90; GLU 92; CA 8.4; Corrected CA 9.4; T Bili 0.9; SGOT(AST) 52; SGPT(ALT) 29; ALK PHOS 148; TP 5.9; ALB 2.7. 11/01 15:59 Order name: PT; Complete Time: 17:49 [facility] 11/01 17:50 Interpretation: PT 13.8; INR 1.20. [facility] 11/01 15:59 Order name: PTT; Complete Time: 17:49 [facility] 11/01 17:50 Interpretation: PTT 37.6. [facility] 11/01 16:52 Order name: POC COVID19 NOW; Complete Time: 17:49 [facility] 11/01 17:50 Interpretation: SARS-CoV-2 RNA Negative. [facility] 11/01 13:42 Order name: Us Duplex Lower Ext Veins Rt jam2 11/01 15:03 Order name: Collect Urine - Clean Catch; Complete Time: zrw1 17:24 11/01 15:23 Order name: Ankle Rt Min 3 Views - Xray [facility] 11/01 16:22 Order name: POC - Collect COVID-19 swab; Complete Time: zrw1 16:41 Dispensed Medications: 15:26 Drug: HYDROcodone- acetaminophen 1 tabs [hydrocodone 5 willi mg-acetaminophen 325 mg tablet (1 tabs)] Route: PO; 16:29 Follow up: Response: Pain is decreased md1 16:28 Drug: Lovenox 76.2 mg [Lovenox 100 mg/mL subcutaneous md1 syringe (0.762 mL)] Route: Sub-Q; Site: right lower abdomen; 18:03 Follow up: Response: No adverse reaction md1 18:03 Drug: HYDROcodone-acetaminophen 1 tabs [hydrocodone 5 md1 mg-acetaminophen 325 mg tablet (1 tabs)] Route: PO; 18:03 Follow up: Response: Medication administered at discharge.; 1 pt requested to take pill at home Disposition Summary: 11/01/20 17:25 Discharge Ordered Location: Home/Self Care zrw1 Condition: Good zrw1 Diagnosis - Deep Vein Thrombosis (DVT) zrw1 Followup: zrw1 - With: Addis Mcdaniel MD - When: 1 - 2 days - Reason: Recheck today's complaints, Continuance of care Discharge Instruc tions: - Discharge Summary Sheet zrw1 - Deep Vein Thrombosis zrw1 Forms: - Medication Reconciliation zrw1 Prescriptions: - Lovenox 80 mg/0.8 mL Subcutaneous syringe - inject 0.8 milliliter by SUBCUTANEOUS route every zrw1 12 hours; 34 milliliter; Refills: 0, Product Selection Permitted - [place] 5-325 mg Oral Tablet - take 1 tablet by ORAL route every 6 hours As zrw1 needed; 12 tablet; Refills: 0, Product Selection Permitted Signatures: Dispatcher [employer] Gene Mckeon RN RN edv MacKinnon, Justin, MD MD jam2 Ni Ceballos RN RN md1 Rosemary Bell RN RN ras Willis, Zachary, PA PA zrw1 Name Value Range Interpretation Code Description Data Gala rce(s) Supporting Document(s) ID Date Data Source [id number] 11/01/2020 01:04:00 PM EDT [facility] Name: ZAY SMITH [facility] Rec #: [id number] : 1955 Age/Sex: 64M Date of Service: 11/01/20 NURSE CHART Nurse's Notes [facility] Name: Zay Smith Age: 64 yrs Sex: Male : 1955 Arrival Date: 11/01/2020 Time: 13:04 Bed 12 Private MD: Addis Mcdaniel E Diagnosis: Deep Vein Thrombosis (DVT) Presentation: 11/01 13:20 Transition of care: patient was not received from another edv setting of care. Presenting complaint: Patient states - low back pain w/RT leg apin and swelling. Have you travelled in the last 30 days? No. Have you had contact with an individual with a confirmed diagnosis of Ebola or COVID-19? No. 13:20 Method Of Arrival: Wheelchair edv 13:20 Acuity: Urgent - 3 edv Triage Assessment: 13:20 Suicide Screening: Have you had thoughts of harming edv yourself or others? No. The patient appears to be uncomfortable, The patient is behaving appropriately according to age, cooperative. The patient complains of pain in lumbar area, left low back and right low back. The patient also complains of pain in lateral aspect of right calf, right ankle, right calf, medial aspect of right calf and anterior aspect of right ankle. The patient states the pain began gradually, 2weeks ago. The quality of the pain is described as sharp, The pain is described as continuous, The pain is reportedly aggravated by increased activity, weight bearing. 13:22 : loses control of bladder recently. edv 18:05 SEPSIS SCREEN: A Confirmed or Suspected Infection is md1 Unknown, SIRS or Sepsis criteria is not present. Historical: - Allergies: Oxycodone HCl (nausea, stomach discomforts); - Home Meds: 1. allopurinol 100 mg Oral tab 1 tab once daily 2. artificial tears(hypromellose) 0.3 % Opht drop 1 drop in each eye at bedtime 3. colon health 1 tab daily 4. latanoprost 0.005 % ophthalmic (eye) drop 1 drop in each eye at bedtime. 5. losartan 100 mg Oral tab 1 tab once daily 6. mirtazapine 15 mg Oral tab 1 tab at bedtime, PRN 7. Multiple Vitamins Oral tab 1 tab daily 8. nitroglycerin 0.4 mg SL subl 1 tab every 5 minutes x 3, PRN 9. tramadol 50 mg Oral tab 1 tab Twice a day, PRN 10. Warfarin Oral 3mg on Mondays, Tuesdays, Wednesdays, , Fridays and 4mg on Saturdays and Sundays. 11. Xarelto 5mg Oral 1 tab 2 times per day 12. hydrocodone-acetaminophen 5-325 mg Oral tab 2 tabs every 4- 6 hours - PMHx: ANXIETY; BACK PAIN; Blood Clots (leg and lungs); CAD - coronary artery disease; GERD; HTN - hypertension; Hyperlipidemia; LYMPHOMA; AK; narcotic OD accidental; 12/30; SEIZURES; testicular cancer; - PSHx: Appendectomy; Hip replacement- Left; spleenectomy; testical -right; Thrombectomy; - Med Reconciliation:: Yellow Alert: The patient's home medication list is partly complete. However, additional information is required to complete list. Medications reviewed, completed by nurse verbally from patient/family. - Immunization history: Flu vaccine is up to date. - Advance directive: There is no existing advanced directive. Information offered. - Family History:: mother is . Father is . - Social History: Smoking status (Tobacco): Pt states smokes cigars, No barriers to communication noted, The patient speaks fluent [place]. Screenin:26 AUDIT 1. How often do you have a drink containing alcohol? willi 4 or more times a week (4 points). Drug Abuse Screening Test: 1. Have you used drugs other than those required for medical reasons? No (0 points), screen is complete, no risk. Abuse screen: Denies threats or abuse. Denies injuries from another. Nutritional screening: No deficits noted. The patient uses crutches/cane to ambulate (15 points). Patient's gait is weak (10 points). The patient is a MODERATE FALL RISK (Daly Scale=25-45 pts). Fall prevention measures have been instituted. Side rails are up, patient is being reassessed frequently, Patient and Family have been educated on fall prevention program and strategies. Assessment: 15:27 See Triage Assessment. The patient complains of pain in willi right leg and right ankle. The patient also complains of pain in lumbar area. The patient states the pain began gradually, 2weeks ago. The patient appears to have no apparent distress, The patient is behaving appropriately acc ording to age, cooperative, The patient denies that he/she has been feeling like he/she has had a fever. Neuro: Level of Consciousness is awake, alert, Patient is oriented to person, place and time. Respiratory: Airway is patent. Respiratory effort is even, unlabored, Respiratory pattern is regular. Derm: Skin is intact, Skin is reddened, right lower leg, right ankle, right foot Skin temperature is warm right leg Edema noted in right leg and right ankle and right foot. Musculoskeletal: Circulation, motion, and sensation are all intact. Capillary Refill is sluggish, in right toes No deformity noted. Range of motion intact in all extremities. Swelling present in right foot and right leg. Pulses present in right dorsalis pedis artery and left dorsalis pedis artery. Vital Signs: 13:21 BP 106 / 66; Pulse 104; Resp 18; Temp 98.9; Pulse Ox 97% on edv R/A; Weight 76.2 kg; Height 5 ft. 6 in. (167.64 cm); 15:26 BP 111 / 76; Pulse 92; Resp 20; Pulse Ox 99% on R/A; willi 18:04 BP 118 / 72; Pulse 88; Resp 18; Temp 98.4(TE); Pulse Ox 99% md1 on R/A; Pain 4/10; 13:21 Body Mass Index 27.12 (76.20 kg, 167.64 cm) edv ED Course: 13:05 Patient arrived in ED. jst 13 :20 Addis Mcdaniel MD is Private Physician. edv 13:20 Triage completed. edv 13:22 Arm band placed on left wrist. Patient placed in exam room edv Patient has correct armband on for positive identification. 14:38 Rosemary Bell, ROLA is Primary Nurse. sm6 14:38 Ousmane Yan PA is PHCP. zrw1 14:38 Kiko Henry MD is Attending Physician. zrw1 14:44 Patient placed in exam room Patient has correct armband on willi for positive identification. Placed in gown. Bed in low position. Call light in reach. Side rails up X 1. 15:01 Ni Ceballos, RN is Primary Nurse. willi 15:26 Ankle Rt Min 3 Views - Xray Sent. willi 15:26 Us Duplex Lower Ext Veins Rt Sent. willi 15:31 Radiology: a portable X-ray was completed at 15:31. willi 16:52 The patient was tested for COVID-19 and the result was desiree negative, provider notified: Ousmane ARANA. 17:24 Addis Mcdaniel MD is Referral Physician. zrw1 17:24 Urine collected. Clean catch specimen. mdLatasha 18:05 No procedures ordered. md1 Administered Medications: 15:26 Drug: HYDROcodone-acetaminophen 1 tabs [hydrocodone 5 willi mg-acetaminophen 325 mg tablet (1 tabs)] Route: PO; 16:29 Follow up: Response: Pain is decreased mdLatasha 16:28 Drug: Lovenox 76.2 mg [Lovenox 100 mg/mL subcutaneous md1 syringe (0.762 mL)] Route: Sub-Q; Site: right lower abdomen; 18:03 Follow up: Response: No adverse reaction mdLatasha 18:03 Drug: HYDROcodone-acetaminophen 1 tabs [hydrocodone 5 md1 mg-acetaminophen 325 mg tablet (1 tabs)] Route: PO; 18:03 Follow up: Response: Medication administered at discharge.; md1 pt requested to take pill at home Intake: Outcome: 17:25 Discharge ordered by MD. zrw1 18:04 Reassessment: Patient states feeling better. desiree 18:04 Patient verbalized understanding of disposition instructions. Patient has no functional deficits. 18:04 Patient discharged to home via wheelchair. 18:04 Condition: stable 18:04 Discharge instructions given to patient, Patient was instructed on discharge instructions, follow up and referral plans, medication usage, The patient demonstrated understanding of instructions, medications, Prescriptions given X 1. 18:04 Vitals are Complete in accordance with Emergency Department Policy. 18:05 Patient left the ED. desiree 11/02 09:06 24 hour call back completed with no concerns vocalized. sm6 Signatures: Gene Crane RN RN edv Monroe, Susan, RN RN [facility] Ni Ceballos, RN RN Rosemary Webber RN RN willi Juanita Muhammad Zachary PA PA zrw1 Name Value Range Interpretation Code Description Data Gala rce(s) Supporting Document(s) ID Date Data Source [id number] 11/01/2020 05:34:00 PM EDT [facility] Name Value Range Interpretation Code Description Data Gala rce(s) Supporting Document(s) Color,Urine Yellow Normal (applies to non-numeric resu lts) [facility] Clarity,Urine Clear Normal (applies to non-numeric re sults) [facility] Specific [place],Urine 1.001-1.030 Normal (applies to non- numeric results) [facility] PH,Urine 5.0-8.0 Normal (applies to non-numeric resul ts) [facility] Protein,Urine Negative Normal (applies to non-numeric re sults) [facility] Glucose,Urine (UA) Negative Normal (applies to non-numer ic results) [facility] Ketones,Urine Negative Normal (applies to non-numeric re sults) [facility] Blood,Urine Negative Normal (applies to non-numeric resu lts) [facility] Bilirubin,Urine Negative Normal (applies to non-numeric results) [facility] Urobilinogen,Urine Norm 0.2-1 Normal (applies to non-numer ic results) [facility] Leukocyte Esterase,Urine Negative Normal (applies to non -numeric results) [facility] Nitrite,Urine Negative Normal (applies to non-numeric re sults) [facility] ID Date Data Source [id number] 11/01/2020 05:33:00 PM EDT [facility] Name Value Range Interpretation Code Description Data [facility] rce(s) Supporting Document(s) Sodium 139 mmol/L 137-145 Normal (applies to non-numeric resul ts) [facility] Potassium 3.5-5.1 Normal (applies to non-numeric resul ts) [facility] Chloride 106 mmol/L 98-112 Normal (applies to non-numeric resul ts) [facility] Carbon Dioxide CO2 22.0-33.0 Normal (applies to non-numer ic results) [facility] Anion Gap 4.0-11.0 Normal (applies to non-numeric resul ts) [facility] BUN 6 mg/dL 9-20 Below low normal [facility] Creatinine 0.80-1.50 Below low normal [facility] GFR >60 Normal (applies to non-numeric results) [facility] Result based on MDRD formula. Glucose Level 92 mg/dL 74-99 Normal (applies to non-numeric re sults) [facility] The reference range is only applicable w hen fasting. Calcium-Uncorrected 8.4-10.2 Normal (applies to non-nume adrianna results) [facility] Corrected Calcium 8.4-10.2 Normal (applies to non-numeri c results) [facility] Bilirubin,Total 0.2-1.3 Normal (applies to non-numeric results) [facility] SGOT(AST) 52 U/L 17-59 Normal (applies to non-numeric resul ts) [facility] SGPT(ALT) 29 U/L 21-72 Normal (applies to non-numeric resul ts) [facility] Alkaline Phosphatase 148 U/L 38-126 Above high normal [facility] can increase Alkaline Phosp le vels up to 2 times the normal adult value. Normal values for children and adolescents are 2 to 3 times the normal adult value. Total Protein 6.3-8.2 Below low normal [facility] Albumin 3.5-5.0 Below low normal [facility] ID Date Data Source [id number] 11/01/2020 05:18:00 PM EDT [facility] Name Value Range Interpretation Code Description Data Gala rce(s) Supporting Document(s) PT 9.4-12.5 Above high normal [facility] INR Normal (applies to non-numeric results) [facility] The use of the INR is restricted to steven ents on stable oral anticoagulant. Therapeutic Range: 2.0-3.0 High Risk Values: 2.5-3.5 ID Date Data Source [id number] 11/01/2020 05:18:00 PM EDT [facility] Name Value Range Interpretation Code Description Data Gaal rce(s) Supporting Document(s) PTT 25.1-36.5 Above high normal [facility] ID Date Data Source [id number] 11/01/2020 05:08:00 PM EDT [facility] Name Value Range Interpretation Code Description Data Gala rce(s) Supporting Document(s) White Blood Count 4.8-10.8 Above high normal [facility] Red Blood Count 4.35-6.08 Below low normal [facility] Hemoglobin 13.0-17.5 Below low normal [facility] Hematocrit 37.7-51.0 Below low normal [facility] Mean Corpuscular Volume 80-94 Above high normal [facility] Mean Corpuscular Hemoglobin 27.0-33.0 Above high normal [facility] Mean Corpuscular HGB Conc 32.0-36.0 Above high normal [facility] Red Cell Distribution Width 11.5-14.5 Above high normal [facility] Platelet Count 415 X10 3/uL 130-450 Normal (applies to non-numeric results) [facility] Mean Platelet Volume 9.6-13.1 Below low normal [facility] Imm Grans% (AUTO) 1 % 0-2 Normal (applies to non-numeri c results) [facility] Neutrophils % (AUTO) 72 % 40-75 Normal (applies to non-num mariya results) [facility] Lymphocytes % (AUTO) 15 % 21-46 Below low normal [facility] Monocytes % (AUTO) 10 % 5-12 Normal (applies to non-numer ic results) [facility] Eosinophils % (AUTO) 2 % 1-5 Normal (applies to non-num mariya results) [facility] Basophils % (AUTO) 1 % 0-1 Normal (applies to non-numer ic results) [facility] Imm Grans# (AUTO) 0.0-0.5 Normal (applies to non-numeri c results) [facility] Neutrophils # (AUTO) 1.5-8.1 Above high normal [facility] Lymphocytes # (AUTO) 1.0-3.1 Normal (applies to non-num mariya results) [facility] Monocytes # (AUTO) 0.2-1.3 Above high normal [facility] Eosinophils# (AUTO) 0.0-0.5 Normal (applies to non-nume adrianna results) [facility] Basophils # (AUTO) 0.0-0.1 Normal (applies to non-numer ic results) [facility] ID Date Data Source [id number] 11/01/2020 04:52:00 PM EDT [facility] Name Value Range Interpretation Code Description Data Gala rce(s) Supporting Document(s) Respiratory specimen severe acute respir atory syndrome coronavirus 2 (SARS-CoV-2) RNA Negative (qualifier value) [facility] This lab was ordered by [facility] dania and reported by [facility]. ID Date Data Source [id number] 11/01/2020 05:10:00 PM EDT [facility] Performed by: [employer] Pre sent? YCOVID Screen Result: NEGATIVENegative results should be treated as presumptive and, if inconsistent with clinical signs and symptoms or necessary for patient management, should be tested with different authorized or cleared molecular tests. Negative results do not preclude SARS-CoV-2 infection and should not be used as the sole basis for patient management decisions. Negative results should be considered in the context of a patients recent exposures, history and the presence of clinical signs and symptoms consistent with COVID-19. This test has not been FDA cleared or approved; this test has been authorized by FDA under an Emergency Use Authorization for use by laboratories certified under the Clinical Laboratory Improvement Amendments of 1988 (CLIA), 42 U.S.C. 263a, to perform moderate complexity/high complexity tests and at the Point of Care (POC), i.e., in patient care settings operating under a CLIA Certificate of Waiver, Certificate of Compliance, or Certificate of Accreditation. Factsheets for healthcare providers: https://www.fda.gov/media/035969/download Factsheets for patients: https://www.fda.gov/media/227093/download The ID NOW Instrument is a rapid molecular in vitro diagnostic test utilizing an isothermal nucleic acid amplification technology intended for the qualitative detection of nucleic acid from the SARS-CoV-2 viral RNA. THIS IS A STATE REPORTABLE COMMUNICABLE DISEASE. Manual entry verified by Mariza Abdi 11/01/209 Name Value Range Interpretation Code Description Data Gala rce(s) Supporting Document(s) ID Date Data Source [id number] 11/01/2020 05:01:00 PM EDT [facility] Name: ZAY SMITH : 7 Age/Sex: 64M Ordering Provider: SUMIT Gann Med Rec #: [id number] Reg Status: [facility] Room #: Date of Service: 11/01/20 Report Number: [id number] cc:Addis Mcdaniel MD Send Report To: [id number] XRP/XR Ankle Rt Min. 3 Views Reason for exam: PAIN. FINDINGS: Your patient is status post plating of the distal fibula and lag screwfixation of the medial malleolus. Hardware is intact with normal alignment and position. IMPRESSION: Normal alignment and position. DJD is noted. Hardware intact. Fluoroscopy time in seconds: 0 Number of Exposures: 4 Time Portable Image Performed: Contrast Agent in ml: Method of Administration: REPORT SIGNATURE ON FILE Reported By: Luz Engle MD <Electronically signed by Keith Engle MD> 11/02/20 0848 Dictation Date/Time: 11/01/20 1509 Transcribed Date/Time: 11/01/20 170 Tip Fixer: PATO Name Value Range Interpretation Code Description Data Gala rce(s) Supporting Document(s) ID Date Data Source [id number] 11/02/2020 07:23:00 AM EDT [facility] Name: ZAY SMITH : Age/Sex: 64M Ordering Provider: Kiko Henry MD Med Rec #: [id number] Reg Status: [facility] Room #: Date of Service: 11/01/20 Report Number: [id number] cc:Kiko Henry MD; Addis Mcdaniel MD Send Report To: [id number] US/US Duplex Lower Ext Veins Rt Reason for exam: PAIN, SWELLING Technique: Ultrasound imaging performed using color flow and spectral Doppler interrogation. Comparison: 10-28-20 FINDINGS: There is DVT identified in the proximal femoral vein through the popliteal vein. That is not significantly changed as compared to previous studyof 10-28-20. Some clotting material is also noted in the posterior tibial vein. IMPRESSION: DVT again noted not significantly changed. REPORT SIGNATURE ON FILE Reported By: Luz Engle MD <Electronically signed by Keith Engle MD> 11/02/20 0849 Dictation Date/Time: 11/01/20 1358 Transcribed Date/Time: 11/02/20 0723 Tip Fixer: MANDEEP Name Value Range Interpretation Code Description Data Gala rce(s) Supporting Document(s) ID Date Data Source [id number] 10/28/2020 03:32:00 PM EST [facility] Name: ZAY SMITH Med Rec #: [id number] : 1955 Age/Sex: 64M Date of Service: 10/28/20 PHYSICIAN CHART Physician Documentation [facility] Name: Zay Smith Age: 64 yrs Sex: Male : 1955 Arrival Date: 10/28/2020 Time: 15:32 Bed 2 Private MD: Addis Mcdaniel E ED Physician Kiko Henry Disposition: 10/28 18:39 Chart complete. [facility] HPI: 16:03 This 64 yrs old Male presents to ER via Walk-In [facility] with complaints of Evaluation of DVT in R Leg, Back Pain. 16:03 The patient presents for evaluation of right leg swelling [facility] and mid back pain bilaterally. He has a history of DVT and is on Eliquis. In July he was told he had DVTs in both lower extremities. He went to [facility] where he had a thrombectomy on the left side. No procedure on the right. He tells me he has been faithfully taking his Eliquis since. He for 1 week he has had swelling of his right lower extremity from the knee down. No fall or trauma. During the same time he also has had bilateral mid back pain. Worse with movement and palpation. No cough or shortness of breath. No abdominal pain. No nausea, vomiting, diarrhea. He was well before this. Historical: - Allergies: Oxycodone HCl (nausea, stomach discomforts); - Home Meds: 1. allopurinol 100 mg Oral tab 1 tab once daily 2. artificial tears(hypromellose) 0.3 % Opht drop 1 drop in each eye at bedtime 3. colon health 1 tab daily 4. latanoprost 0.005 % ophthalmic (eye) drop 1 drop in each eye at bedtime. 5. losartan 100 mg Oral tab 1 tab once daily 6. mirtazapine 15 mg Oral tab 1 tab at bedtime, PRN 7. Multiple Vitamins Oral tab 1 tab daily 8. nitroglycerin 0.4 mg SL subl 1 tab every 5 minutes x 3, PRN 9. tramadol 50 mg Oral tab 1 tab Twice a day, PRN 10. Xarelto 5mg oral 1 tab 2 times per day - PMHx: ANXIETY; BACK PAIN; Blood Clots (leg and lungs); CAD - coronary artery disease; GERD; HTN - hypertension; Hyperlipidemia; LYMPHOMA; AK; SEIZURES; testicular cancer; narcotic OD accidental; 12/30; - PSHx: Appendectomy; Hip replacement- Left; spleenectomy; testical - right; Thrombectomy; - Med Reconciliation:: Green Alert: The patient's med list is complete to the best of the nurse's/provider's knowledge. Medications reviewed, completed by nurse verbally from patient/family. - Immunization history: The patients tetanus immunization is up to date. Flu vaccine is up to date. Pneumococcal vaccine is up to date. COVID-19 Vaccine. - Advance directive: There is no existing advanced directive. Information offered. - Family History:: mother : unknown medical history. Father : unknown medical history. - Social History: Smoking status (Tobacco): Cigars. ROS: 16:04 Constitutional: Negative for fever, chills. Cardiovascular: jam2 Negative for chest pain. Respiratory: Negative for cough, shortness of breath. Abdomen/GI: Negative for abdominal pain, nausea, vomiting, diarrhea. Back: Positive for pain at rest, pain with movement. MS/extremity: Positive for swelling. All other systems are negative. Exam: 16:05 Constitutional: This is a well developed, well nourished jam2 patient who is awake, alert, and in no acute distress. Head/Face: Normocephalic, atraumatic. Eyes: Pupils equal round and reactive to light, extra-ocular motions intact. Conjunctiva and sclera are non-icteric and not injected. Periorbital areas with no swelling, redness, or edema. ENT: Oropharynx with no redness, swelling, or masses, exudates, or evidence of obstruction, uvula midline. Mucous membranes moist. Cardiovascular: Regular rate and rhythm with a normal S1 and S2. No gallops, murmurs, or rubs. No JVD. No pulse deficits. Respiratory: Lungs have equal breath sounds bilaterally, clear to auscultation. No rales, rhonchi or wheezes noted. No increased work of breathing, no retractions or nasal flaring. Abdomen/GI: Soft, non-tender, with normal bowel sounds. No distension. No rebound, rigidity, or guarding. No organomegaly. Skin: Warm, dry with normal turgor. Normal color with no rashes, no lesions, and no evidence of cellulitis. Psych: Awake, alert, with orientation to person, place and time. Behavior, mood, and affect are within normal limits. 16:05 Back: pain, that is mild, of the left subscapular area and right subscapular area, ROM is painful, with rotation to the right, with rotation to the left, vertebral tenderness, is not appreciated. 16:05 Musculoskeletal/extremity: ROM: full active range of motion, full passive range of motion, Circulation is intact in all extremities. Sensation intact. RLE 2+ nonpitting edema to the knee. 16:05 Neuro: Motor: strength is 5/5 in all extremities, jam2 Sensation: is normal, no obvious gross deficits. Vital Signs: 15:39 BP 104 / 68; Pulse 111; Resp 18; Temp 98.7; Pulse Ox 97% on selena R/A; Weight 74.84 kg (R); Height 5 ft. 6 in. (167.64 cm) (R); 16:56 BP 110 / 76; Pulse 91; Resp 15; Pulse Ox 96% on R/A; Pain tlf 8/10; 19:02 BP 106 / 65; Pulse 85; Resp 18; Pulse Ox 99% on R/A; Pain rp1 9/10; 19:15 BP 109 / 62; Pulse 85; Resp 18; Pulse Ox 94% on R/A; rp1 19:50 BP 109 / 70; Pulse 84; Resp 18; Pulse Ox 95% on R/A; khf 15:39 Body Mass Index 26.63 (74.84 kg, 167.64 cm) selena MDM: 15:55 Patient medically screened. jam2 18:37 Data reviewed: vital signs, nurses notes, lab test jam2 result(s), EKG, radiologic studies, CT scan, ultrasound. ECG: The ECG on this patient demonstrates no evidence of ischemia, normal sinus rhythm. ED course: The patient has been stable while here. He comes in with mid back pain which is acute on chronic. No mechanism of injury. He also complains of right leg pain that is again acute on chronic after bilateral DVTs in his lower extremities diagnosed in July. Here his right leg is mildly swollen. No sign of arterial insufficiency. Labs are similar to baseline. CT chest shows no PE. Ultrasound of the leg does show a nonocclusive DVT of the right superficial femoral vein to the popliteal. I reassessed the patient found to be improved. Given this ultrasound finding I suspect that the patient has not in fact failed Xarelto. He did have more extensive thrombus noted in his ultrasound in July. This clot is nonocclusive. I did discuss this with the patient. Rather than switching his anticoagulation at this point I advised discharge with supportive measures, elevating the leg as much as possible, and a repeat ultrasound next week. At that point he will have withstood the test of time and we will have more information about if the patient actually has failed Xarelto versus if he simply has a slowly resolving clot. He will follow-up with his primary. I did give indications for emergent return. He voiced understanding. 10/28 16:01 Order name: Cbc With Auto Differential; Complete Time: 17:14m2 10/28 16:01 Order name: COMMET; Complete Time: 17:20 [facility] 10/28 16:01 Order name: Troponin I; Complete Time: 17:14 [facility] 10/28 16:01 Order name: PT; Complete Time: 17:14 [facility] 10/28 16:01 Order name: PTT; Complete Time: 17:14 [facility] 10/28 16:01 Order name: Magnesium; Complete Time: 17:20 [facility] 10/28 16:01 Order name: Us Duplex Lower Ext Veins Rt [facility] 10/28 16:01 Order name: CT Chest for PE with contrast (choose symptom) [facility] 10/28 16:01 Order name: Cardiology EKG Interpretation - Choose Reason [facility] for Test 10/28 16:01 Order name: Lipase; Complete Time: 17:20 [facility] 10/28 16:01 Order name: BNP; Complete Time: 17:20 [facility] 10/28 17:58 Order name: POC COVID19 NOW; Complete Time: 18:02 kd2 10/28 16:01 Order name: Iv Saline Lock; Complete Time: 16:34 [facility] 10/28 16:01 Order name: Emergency Room EKG Order - Use EKG Work- Up [facility] /Quick Select; Complete Time: 16:16 10/28 16:01 Order name: POC - Collect COVID-19 swab; Complete Time: jam2 16:33 Dispensed Medications: 16:54 Drug: morphine 4 mg [morphine 2 mg/mL injection syringe (2 tlf mL)] Route: IVP; Site: left antecubital; 19:51 Follow up: Response: Pain is decreased khf 19:02 Drug: HYDROmorphone 1 mg [hydromorphone 0.5 mg/0.5 mL rp1 injection syringe (1 mL)] Route: IVP; Site: left antecubital; 19:51 Follow up: Response: Pain is decreased khf Disposition Summary: 10/28/20 18:40 Discharge Ordered Location: Home/Self Care jam2 Condition: Good jam2 Diagnosis - Acute Mid Back Pain, Thoracic jam2 - Deep Vein Thrombosis (DVT) jam2 Followup: jam2 - With: Addis Mcdanile MD - When: 1 week - Reason: Continuance of care Discharge Instructions: - Discharge Summary Sheet jam2 - Acute Back Pain, Adult jam2 - Deep Vein Thrombosis jam2 Forms: - Medication Reconciliation [facility] Prescriptions: - Georgiana 5-325 mg Oral Tablet - take 1 tablet by ORAL route every 6 hours As jam2 needed; 12 tablet; Refills: 0, Product Selection Permitted Signatures: Dispatcher [employer] EDMS Kiko Henry MD MD [facility] Silvia Auguste RN RN sm6 Farr, Tammy, RN RN tlf Lecuyer, Kelly, RN RN kal Paige, Rachel, RN RN rp1 Farr, Karina RN khf Corrections: (The following items were deleted from the chart) 15:48 15:45 Home Meds: Warfarin Oral 3mg on Mondays, Tuesdays, selena Wednesdays, , Fridays and 4mg on Saturdays and Sundays.; selena Name Value Range Interpretation Code Description Data Gala rce(s) Supporting Document(s) ID Date Data Source [id number] 10/28/2020 03:32:00 PM [facility] Name: ZAY SMITH [facility] Rec #: [id number] : 1955 Age/Sex: 64M Date of Service: 10/28/20 DISPOSITION SUMMARY Discharge Summary [facility] Name:[facility] Emergency Department Age:64 yrs Sex:Male :1955 Arrival:10/28/2020 15:32 Departure Date10/28/2020 Departure Time19:51 Private MD:Addis Mcdaniel MD Outcome: Discharge Location: Home/Self Care Condition: Good Chief Complaint: - Evaluation of DVT in R Leg, Back Pain Diagnosis: Acute Mid Back Pain, Thoracic, Deep Vein Thrombosis (DVT) Prescriptions: Georgiana 5-325 mg Oral Tablet - take 1 tablet by ORAL route every 6 hours As needed; 12 tablet Follow up: Addis Mcdaniel MD Custom Notes: Attending Physician: Kiko Henry MD Private MD: Addis Mcdaniel MD Mid Level Provider: Followup Physician: Addis Mcdaniel MD Orders: Cbc With Auto Differential, COMMET, Troponin I, PT, PTT, Magnesium, Us Duplex Lower Ext Veins Rt, CT Chest for PE with contrast (choose symptom), morphine, Cardiology EKG Interpretation - Choose Reason for Test, Lipase, BNP, POC COVID19 NOW, HYDROmorphone, Iv Saline Lock, Emergency Room EKG Order - Use EKG Work-Up /Quick Select, POC - Collect COVID-19 swab Discharge Instruction: Discharge Summary Sheet, Acute Back Pain, Adult, Deep Vein Thrombosis, Medication Reconciliation Name Value Range Interpretation Code Description Data Gala rce(s) Supporting Document(s) ID Date Data Source [id number] 10/28/2020 03:32:00 PM EST [facility] Name: ZAY SMITH [facility] Rec #: [id number] : 1955 Age/Sex: 64M Date of Service: 10/28/20 NURSE CHART Nurse's Notes [facility] Age[facility] 64 y[facility] Sex: Male : 1955 Arrival Date: 10/28/2020 Time: 15:32 Bed 2 Private MD: Addis Mcdaniel E Diagnosis: Acute Mid Back Pain, Thoracic;Deep Vein Thrombosis (DVT) Inbound Details: Referred by: Arriving by: Walk-In ETA: Who will see patient? ED Physician Notes: Call from Dr Bartlett office possible DVT RL leg Notify referring provider: Do not notify Presentation: 10/28 15:42 Transition of care: patient was not received from another [facility] setting of care. Presenting complaint: Patient states - States mid back pain since Sunday. No SOB. Here also for evaluation of pain in the Right lower leg that he had gout ruled out. His PCP is concerned for DVT. Hx. of DVT in left leg. Have you travelled in the last 30 days? No. Have you had contact with an individual with a confirmed diagnosis of Ebola or COVID-19? No. 15:42 Method Of Arrival: Walk-In [facility] 15:42 Acuity: Urgent - 3 [facility] Triage Assessment: 15:43 SEPSIS SCREEN: A Confirmed or Suspected Infection is selena Unknown, their temperature is not <96.8 or >100.9, their heart rate is >90, their RR is not >20, it is unknown if their WBC is <4 or >12, the patient does not have new or unexplained altered mental status. SIRS or Sepsis criteria is not present. Suicide Screening: Have you had thoughts of harming yourself or others? No. The patient appears to have some mild discomfort, The patient is cooperative. Patient states the pain is currently a 10 / 10 The patient complains of pain in right calf. The patient also complains of pain in left low back, left mid back, right mid back and right low back. The patient states the pain began 2weeks ago. The quality of the pain is described as aching, The pain is described as continuous. Historical: - Allergies: Oxycodone HCl (nausea, stomach discomforts); - Home Meds: 1. allopurinol 100 mg Oral tab 1 tab once daily 2. artificial tears(hypromellose) 0.3 % Opht drop 1 drop in each eye at bedtime 3. colon health 1 tab daily 4. latanoprost 0.005 % ophthalmic (eye) drop 1 drop in each eye at bedtime. 5. losartan 100 mg Oral tab 1 tab once daily 6. mirtazapine 15 mg Oral tab 1 tab at bedtime, PRN 7. Multiple Vitamins Oral tab 1 tab daily 8. nitroglycerin 0.4 mg SL subl 1 tab every 5 minutes x 3, PRN 9. tramadol 50 mg Oral tab 1 tab Twice a day, PRN 10. Xarelto 5mg oral 1 tab 2 times per day - PMHx: ANXIETY; BACK PAIN; Blood Clots (leg and lungs); CAD - coronary artery disease; GERD; HTN - hypertension; Hyperlipidemia; LYMPHOMA; AK; SEIZURES; testicular cancer; narcotic OD accidental; 12/30; - PSHx: Appendectomy; Hip replacement- Left; spleenectomy; testical - right; Thrombectomy; - Med Reconciliation:: Green Alert: The patient's med list is complete to the best of the nurse's/provider's knowledge. Medications reviewed, completed by nurse verbally from patient/family. - Immunization history: The patients tetanus immunization is up to date. Flu vaccine is up to date. Pneumococcal vaccine is up to date. COVID-19 Vaccine. - Advance directive: There is no existing advanced directive. Information offered. - Family History:: mother : unknown medical history. Father : unknown medical history. - Social History: Smoking status (Tobacco): Cigars. Screenin:34 Abuse screen: Denies threats or abuse. Nutritional tlf screening: No deficits noted. The patient has IV access (20 points). The patient is hooked up to a monitor (20 points). The patient is a MODERATE FALL RISK (Daly Scale=25-45 pts). Fall prevention measures have been instituted. Side rails are up, Placed close to Nursing Station, patient is being reassessed frequently, Patient and Fami ly have been educated on fall prevention program and strategies. Assessment: 16:34 See Triage Assessment. tlf 16:57 Musculoskeletal: Range of motion limited in right ankle tlf Swelling present in right ankle. Pulses are all present. Patient reports Pain in right ankle. 16:57 The patient appears to have some mild discomfort. tlf Vital Signs: 15:39 BP 104 / 68; Pulse 111; Resp 18; Temp 98.7; Pulse Ox 97% on selena R/A; Weight 74.84 kg (R); Height 5 ft. 6 in. (167.64 cm) (R); 16:56 BP 110 / 76; Pulse 91; Resp 15; Pulse Ox 96% on R/A; Pain tlf 8/10; 19:02 BP 106 / 65; Pulse 85; Resp 18; Pulse Ox 99% on R/A; Pain rp1 9/10; 19:15 BP 109 / 62; Pulse 85; Resp 18; Pulse Ox 94% on R/A; rp1 19:50 BP 109 / 70; Pulse 84; Resp 18; Pulse Ox 95% on R/A; khf 15:39 Body Mass Index 26.63 (74.84 kg, 167.64 cm) [facility] ED Course: 15:32 Patient arrived in ED. EDMS 15:41 Addis Mcdaniel MD is Private Physician. selena 15:43 Triage completed. selena 15:45 Arm band placed on right wrist. Patient placed in exam room selena Patient has correct armband on for positive identification. 15:48 Maite Estrada, ROLA is Primary Nurse. selena 15:55 Kiko Henry MD is Attending Physician. [facility] 16:11 An EKG was obtained and reviewed by Kiko Henry MD. [facility] 16:16 Cardiology EKG Interpretation - Choose Reason for Test Sent.[facility] 16:33 Us Duplex Lower Ext Veins Rt Sent. tlf 16:34 Radiology: The patient returned from ultrasound at 16:34. tlf 16:34 childcare center director on. Pulse on is on. NIBP on. tlf 16:40 Labs drawn by ED staff. The patient was tested for COVID-19 nnq and the result was. Inserted saline lock: 2 0 gauge in left antecubital area. 17:58 No procedures ordered. The patient was tested for COVID-19 kd2 and the result was negative, provider notified: Kiko Henry MD. 18:39 Addis Mcdaniel MD is Referral Physician. bobbi Administered Medications: 16:54 Drug: morphine 4 mg [morphine 2 mg/mL injection syringe (2 tlf mL)] Route: IVP; Site: left antecubital; 19:51 Follow up: Response: Pain is decreased [facility] 19:02 Drug: HYDROmorphone 1 mg [hydromorphone 0.5 mg/0.5 mL rp1 injection syringe (1 mL)] Route: IVP; Site: left antecubital; 19:51 Follow up: Response: Pain is decreased [facility] Outcome: 18:40 Discharge ordered by MD. martines 19:50 Patient verbalized understanding of disposition [facility] instructions. Patient has no functional deficits. 19:50 Patient discharged Discontinued lock intact, bleeding controlled, pressure dressing applied, No redness/swelling at site. 19:50 Condition: good Condition: stable 19:50 Discharge instructions given to patient, Patient was instructed on discharge instructions, follow up and referral plans, medication usage, The patient demonstrated understanding of instructions, medications, Prescriptions given X 1. 19:50 Vitals are Complete in accordance with Emergency Department Policy. 19:51 Patient left the ED. [facility] 10/29 10:04 24 hour call back attempted, no answer tp1 Signatures: Dispatcher [employer] EDYahaira Giraldo RN RN fidel1 Kiko Henry MD MD jam2 Monroe, Susan, RN RN sm6 Maite Estrada RN RN tlf Jessica Hernandez RN Morenita Bowen RN ROLA nnq Jamila Hernandez RN RN kd2 Renetta Archuleta RN RN rp1 Leti Estrada RN RN khf Corrections: (The following items were deleted from the chart) 10/28 15:48 15:45 Home Meds: Warfarin Oral 3mg on Mondays, Tuesdays, selena Wednesdays, , Fridays and 4mg on Saturdays and Sundays.; selena Name Value Range Interpretation Code Description Data Gala rce(s) Supporting Document(s) ID Date Data Source [id number] 10/28/2020 05:58:00 PM [facility] Name Value Range Interpretation Code Description Data Gala rce(s) Supporting Document(s) Respiratory specimen severe acute respir atory syndrome coronavirus 2 (SARS-CoV-2) RNA Negative (qualifier value) [facility] This lab was ordered by [facility] dania and reported by [facility]. ID Date Data Source [id number] 10/28/2020 06:02:[address] [facility] Performed by: Ramon moffett YCOVID Screen Result: NEGATIVENegative results should be treated as presumptive and, if inconsistent with clinical signs and symptoms or necessary for patient management, should be tested with different authorized or cleared molecular tests. Negative results do not preclude SARS-CoV-2 infection and should not be used as the sole basis for patient management decisions. Negative results should be considered in the context of a patients recent exposures, history and the presence of clinical signs and symptoms consistent with COVID-19. This test has not been FDA cleared or approved; this test has been authorized by FDA under an Emergency Use Authorization for use by laboratories certified under the Clinical Laboratory Improvement Amendments of 1988 (CLIA), 42 U.S.C. 263a, to perform moderate complexity/high complexity tests and at the Point of Care (POC), i.e., in patient care settings operating under a CLIA Certificate of Waiver, Certificate of Compliance, or Certificate of Accreditation. Factsheets for healthcare providers: https://www.fda.gov/media/358836/download Factsheets for patients: https://www.fda.gov/media/606495/download The ID NOW Instrument is a rapid molecular in vitro diagnostic test utilizing an isothermal nucleic acid amplification technology intended for the qualitative detection of nucleic acid from the SARS-CoV-2 viral RNA. THIS IS A STATE REPORTABLE COMMUNICABLE DISEASE. Manual entry verified by Mariza Abdi 10/28/201800 Name Value Range Interpretation Code Description Data Gala rce(s) Supporting Document(s) ID Date Data Source [id number] 10/28/2020 05:17:00 PM EST [facility] Name Value Range Interpretation Code Description Data [facility] rce(s) Supporting Document(s) Sodium 139 mmol/L 137-145 Normal (applies to non-numeric resul ts) [facility] Potassium 3.5-5.1 Normal (applies to non-numeric resul ts) [facility] Chloride 109 mmol/L 98-112 Normal (applies to non-numeric resul ts) [facility] Carbon Dioxide CO2 22.0-33.0 Normal (applies to non-numer ic results) [facility] Anion Gap 4.0-11.0 Normal (applies to non-numeric resul ts) [facility] BUN 8 mg/dL 9-20 Below low normal [facility] Creatinine 0.80-1.50 Normal (applies to non-numeric resul ts) [facility] GFR >60 Normal (applies to non-numeric results) [facility] Result based on MDRD formula. Glucose Level 124 mg/dL 74-99 Above high normal [facility] The reference range is only applicable w hen fasting. Calcium-Uncorrected 8.4-10.2 Normal (applies to non-nume adrianna results) [facility] Corrected Calcium 8.4-10.2 Normal (applies to non-numeri c results) [facility] Bilirubin,Total 0.2-1.3 Normal (applies to non-numeric results) [facility] SGOT(AST) 59 U/L 17-59 Normal (applies to non-numeric resul ts) [facility] SGPT(ALT) 29 U/L 21-72 Normal (applies to non-numeric resul ts) [facility] Alkaline Phosphatase 146 U/L 38-126 Above high normal [facility] can increase Alkaline Phosp le vels up to 2 times the normal adult value. Normal values for children and adolescents are 2 to 3 times the normal adult value. Total Protein 6.3-8.2 Below low normal [facility] Albumin 3.5-5.0 Below low normal [facility] ID Date Data Source [id number] 10/28/2020 05:17:[address] [facility] Name Value Range Interpretation Code Description Data Gala rce(s) Supporting Document(s) Lipase 117 U/L 73-393 Normal (applies to non-numeric resul ts) [facility] ID Date Data Source [id number] 10/28/2020 05:17:00 PM [facility] Value Range Interpretation Code Description Data Gala rce(s) Supporting Document(s) Magnesium 1.80-2.40 Normal (applies to non-numeric resul ts) [facility] ID Date Data Source [id number] 10/28/2020 05:17:[address] [facility] Name Value Range Interpretation Code Description Data Gala rce(s) Supporting Document(s) B-Type Natriuretic Peptide BNP 445 pg/mL <125 Above high neno l [facility] NT-proBNP values less than 300 pg/mL hav e a 99% negative predictive value for excluding acute congestive heart failure. A diagnostic NT-proBNP cutoff of 900 pg/mL has been suggested in adults over 50 years of age in the absence of renal failure. A cutoff of 1200 pg/mL for patients with GFR <60 yields a diagnostic sensitivity and specificity of 89% and 72% for acute congestive failure. ID Date Data Source [id number] 10/28/2020 05:13:[address] [facility] Name Value Range Interpretation Code Description Data Gala rce(s) Supporting Document(s) Troponin I 0.000-0.045 Normal (applies to non-numeric resu lts) [facility] ID Date Data Source [id number] 10/28/2020 05:08:[address] [facility] Name Value Range Interpretation Code Description Data Gala rce(s) Supporting Document(s) PT 9.4-12.5 Above high normal [facility] INR Normal (applies to non-numeric results) [facility] The use of the INR is restricted to steven ents on stable oral anticoagulant. Therapeutic Range: 2.0-3.0 High Risk Values: 2.5-3.5 ID Date Data Source [id number] 10/28/2020 05:08:[address] [facility] Name Value Range Interpretation Code Description Data Gala rce(s) Supporting Document(s) PTT 25.1-36.5 Normal (applies to non-numeric resul ts) [facility] ID Date Data Source [id number] 10/28/2020 04:52:[address] [facility] Name Value Range Interpretation Code Description Data Gala rce(s) Supporting Document(s) White Blood Count 4.8-10.8 Above high normal [facility] Red Blood Count 4.35-6.08 Below low normal [facility] Hemoglobin 13.0-17.5 Below low normal [facility] Hematocrit 37.7-51.0 Below low normal [facility] Mean Corpuscular Volume 80-94 Above high normal [facility] Mean Corpuscular Hemoglobin 27.0-33.0 Above high normal [facility] Mean Corpuscular HGB Conc 32.0-36.0 Above high normal [facility] Red Cell Distribution Width 11.5-14.5 Above high normal [facility] Platelet Count 504 X10 3/uL 130-450 Above high normal [facility] Mean Platelet Volume 9.6-13.1 Below low normal [facility] Imm Grans% (AUTO) 1 % 0-2 Normal (applies to non-numeri c results) [facility] Neutrophils % (AUTO) 74 % 40-75 Normal (applies to non-num mariya results) [facility] Lymphocytes % (AUTO) 15 % 21-46 Below low normal [facility] Monocytes % (AUTO) 9 % 5-12 Normal (applies to non-numer ic results) [facility] Eosinophils % (AUTO) 1 % 1-5 Normal (applies to non-num mariya results) [facility] Basophils % (AUTO) 1 % 0-1 Normal (applies to non-numer ic results) [facility] Imm Grans# (AUTO) 0.0-0.5 Normal (applies to non-numeri c results) [facility] Neutrophils # (AUTO) 1.5-8.1 Above high normal [facility] Lymphocytes # (AUTO) 1.0-3.1 Normal (applies to non-num mariya results) [facility] Monocytes # (AUTO) 0.2-1.3 Above high normal [facility] Eosinophils# (AUTO) 0.0-0.5 Normal (applies to non-nume adrianna results) [facility] Basophils # (AUTO) 0.0-0.1 Normal (applies to non-numer ic results) [facility] ID Date Data Source [id number] 10/29/2020 04:39:00 PM [facility] Hospital Name: ZAY SMITH : 7 Age/Sex: 64M Ordering Provider: Kiko Henry MD Med Rec #: [id number] Reg Status: [facility] Room #: Date of Service: 10/28/20 Report Number: [id number] cc:Kiko Henry MD; Addis Mcdaniel MD Send Report To: [id number] CT/CT Chest for PE with Contrast Reason for exam: _PAIN - CHEST FINDINGS: The neck base is clear. There is trace dependent atelectasis bilaterally. The heart is normal in size. Severe coronary artery calcifications are noted. There is no lymphadenopathy. There is no pulmonary embolism. The visualized upper abdomen demonstrates a fatty liver. There are old right posterolateral rib fractures of the fifth, sixth, seventh, eighth, ninth and eleventh ribs on the right. No acute osseous abnormality is visualized. IMPRESSION: No pulmonary embolism. No acute pulmonary process. Old right sided rib fractures. While performing the above CT exam, the following dose reduction techniques wereused: *Automated exposure control *Adjustment of the mA and/or kV according to patient size *Use of iterative reconstruction technique CT Dose in mSv: 2.55\\ Contrast Agent in ml: Isovue 370 90 Method of Administration: Intraveneous REPORT SIGNATURE ON FILE Reported By: Khai Park MD <Electronically signed by Khai Park MD> 11/01/20 1127 Dictation Date/Time: 10/28/20 1755 Transcribed Date/Time: 10/29/20 1639 Tip Fixer: PATO Name Value Range Interpretation Code Description Data Gala rce(s) Supporting Document(s) ID Date Data Source [id number] 10/29/2020 03:50:00 PM [facility] Name: ZAY SMITH : 7 Age/Sex: 64M Ordering Provider: Kiko Henry MD Med Rec #: [id number] Reg Status: [facility] Room #: Date of Service: 10/28/20 Report Number: [id number] cc:Kiko Henry MD; Addis Mcdaniel MD Send Report To: [id number] US/US Duplex Lower Ext Veins Rt Reason for exam: _INJURY Technique: Ultrasound imaging performed using color flow and spectral Doppler interrogation. Comparison is made to 09/06/2018 FINDINGS: There is nonocclusive thrombus identified in the superficial femoral vein through the popliteal vein. Thrombus is also identified in the posterior tibial vein. There is compressibility and color flow in the right common femoral vein and at the right saphenofemoral junction. Right groin lymph nodes identified. IMPRESSION: Nonocclusive thrombus from the proximal right superficial femoral vein through the popliteal vein. Age is indeterminate. REPORT SIGNATURE ON FILE Reported By: Tunde Plaza DO <Electronically signed by Tunde Plaza DO> 11/01/20 1010 Dictation Date/Time: 10/28/20 1735 Transcribed Date/Time: 10/29/20 1550 Tip Fixer: PATO Name Value Range Interpretation Code Description Data Gala rce(s) Supporting Document(s) ID Date Data Source [id number] 10/29/2020 07:02:00 AM [facility] Name: ZAY SMITH : 7 Age/Sex: 64M Ordering Provider: Kiko Henry MD Med Rec #: [id number] Reg Status:[facility] Room #: Date of Service: 10/28/20 Report Number: [id number] cc: Kiko Henry MD; Addis Mcdaniel MD Send Report To: Reason for exam: Chest Pain SINUS RHYTHM BORDERLINE LEFT AXIS DEVIATION LOW LIMB VOLTAGE BORDERLINE ECG NO SIGNIFICANT CHANGE Physician Director Product Development: Luz Sneed M.D. ECG HEART RATE: 99 /min ECG RR INTERVAL: 606 ms ECG P DURATION: 117 ms ECG QRS DURATION: 82 ms ECG MI INTERVAL: 170 ms ECG QT INTERVAL: 351 ms ECG QTC INTERVAL: 419 ms Q-T dispersion: ms ECG P AXIS: 41 deg ECG QRS AXIS: -24 deg ECG T AXIS: 39 deg REPORT SIGNATURE ON FILE 10/29/20 0703 Reported By: Luz Sneed MD <<Signature on File>> Exam Date/Time: 10/28/20 1611 Order #: [id number] Dictation Date/Time: 10/29/20701 Transcribed Date/Time: 10/29/20701 Tip Fixer: DANITA Name Value Range Interpretation Code Description Data Gala rce(s) Supporting Document(s) ID Date Data Source [id number] 10/08/2020 10:00:00 AM EST [facility] Name Value Range Interpretation Code Description Data Gala rce(s) Supporting Document(s) Respiratory specimen severe acute respir atory syndrome coronavirus 2 (SARS-CoV-2) RNA Negative (qualifier value) [facility] This lab was ordered by [facility] and reported by [facility]. ID Date Data Source [id number] 10/08/2020 08:55:[address] [facility] THIS IS A [facility] REPORTABLE COMMUNICABLE DISEASE. Testing was performed using the [employer] COVID-19 MDx Assay. This test has been authorized by FDA under an (Emergency Use Authorization) EUA for use by authorized laboratories for individuals who are suspected of COVID-19 by their healthcare provider. This test is only authorized for the duration of the declaration that circumstances exist justifying the authorization of emergency use of in vitro diagnostic tests for detection and/or diagnosis of SARS-CoV-2. Methodology: Endpoint RT-PCR. Fact sheets for this EUA assay can be found at the following links: Providers: https://www.fda.gov/media/867557/download Patients : https://www.fda.gov/media/101271/download THIS IS A [facility] REPORTABLE COMMUNICABLE DISEASE Negative results do not preclude SARS-CoV-2 infection and should not be used as the sole basis for patient management decisions. Negative results must be combined with clinical observations,patient history, and epidemiological information. Name Value Range Interpretation Code Description Data Gala rce(s) Supporting Document(s) ID Date Data Source [id number] 10/05/2020 09:37:00 AM [facility] Name: ZAY SMITH : 7 Age/Sex: 64M Ordering Provider: Addis Mcdaniel MD Med Rec #: [id number] Reg Status: DEP REF Room #: Date of Service: 10/04/20 Report Number: [id number] cc: Send Report To: [id number] BD/Bone Densitometry Reason for exam: OSTEOPOROSIS W/O CURRENT PATHOLOGICAL FX The Bone Density results for this patient can be found in the E-chart and/or Synapse. REPORT SIGNATURE ON FILE Reported By: COLIN Cordon 10/05/20937 Dictation Date/Time: 10/05/20936 Transcribed Date/Time: 10/05/20936 Tip Fixer: [email or web address] Name Value Range Interpretation Code Description Data Gala rce(s) Supporting Document(s) ID Date Data Source [id number] 09/13/2020 09:57:00 PM EST [facility] SALLY Syed [address] [address] NEW PATIENT CONSULTATIONNAME: ZAY SMITH DPHYSICIAN: KACI HOUSTON MDDATE OF SERVICE: 09/09/20DATE OF : [birth year]ACCOUNT #: [id number]: ZAY Antonina AmorHONGDate: Sep 09OB: 1955Physician: Dr. Malcolm Ballard M.D., M.P.H.Dr. 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 Patient is here for management of diseaseand restarting oral anticoagulant. Patient is on lovenox and can't affordinjections and would like to resume doac. patient had a clotting event on ppxdose of elqius, but on full dose has never clotted. patient denies bleeding ondoac, lovenox or warfarin in the past. Patient denies any acute events sincedischarge from hospital after stenting and thrombectomy. CT imaging did notshow malignancy. APS work up was negative.Past Medical History:Atypical pneumoniaChronic alcohol abuseChronic back painCoronary artery diseaseDyslipidemiaGastroesophageal reflux diseaseHypertensionPneumothoraxPulmonary emboliRight femoral vein DVTSeizurePast Surgical History:Ankle SurgeryAppendectomyBack surgeryDiscectomy - L3- U4Latxcptcq back stimulatorRight chest tube placementSplenectomyTesticle removal - rightTonsillectomyCataract surgery in 2016Cardiac catheterization in 2016Right knee scope in 1980Speenectomy in 1974Allergies:OxycodoneCurrent Medications:Eliquis 5 mg (of 5 mg) Tablet Oral b.i.d. for 30 days (Sep 09, 2020)Allopurinol 100 mg Tablet Oral daily (Start Date - unknown)Lipitor 20 mg (of 40 mg) Tablet Oral daily (Start Date - unknown)Losartan Potassium 100 mg Tablet Oral daily (Start Date - unknown)Lovenox 80 mg Subcutaneous b.i.d. (Start Date - unknown)Pantoprazole Sodium 40 mg (of 40 mg) Tablet, enteric coated Oral daily (StartDate - unknown)Social History:Mr. SMITH is single and he is retired. Mr. SMITH no longer smokes buthad smoked for 44 years. He drinks occasionally.Mr. SMITH reports the following support systems: lives alone and lives inown house. Patient states he was a "very heavy liquor drinker" but now onlydrinks beer.Family History:Mr. SMITH's mother is alive. Mr. SMITH's father is : LeukemiaCancer.Review of Systems:ConstitutionalDenies lack of appetite, fatigue, fever, lethargy, malaise, night sweats,rigors / chills and change in weight.Allergic/ ImmunologicDenies allergies and adverse reactions.EyesDenies blurred vision, double vision, lacrimation, night blindness, visualdifficulties and photophobia.ENMTDenies dysphagia, ear pain, epistaxis, esophagitis, problems with hearing,mouth dryness, oral bleeding, otitis, sinusitis, sputum production, stomatitis,altered taste and tinnitus.EndocrineDenies diabetes, hot flashes, menstrual irregularities and thyroid disease.Hematologic/LymphaticDenies easy bruising and tender or enlarged lymph nodes.BreastsDenies breast masses, nipple discharge, nipple inversion and pain.RespiratoryDenies cough, dyspnea, hemoptysis, hiccoughs, pleuritic chest pain andwheezing.CardiovascularDenies arrhythmias, chest pain, dyspnea, edema, orthopnea and palpitations.GastrointestinalDenies abdominal pain, change in bowel habits, constipation, diarrhea,heartburn / dyspepsia, hematemesis, hematochezia, hemorrhoids, melena / GIbleeding, nausea, pain / cramping, satiety and vomiting.Genitourinary (M)Denies dysuria, frequency, hematuria, impotence, incontinence, nocturia, renalstone disease, retrograde ejaculation, scrotal swelling, urgency and urinecolor change.Musculoskeletalimprovement in romIntegumentaryDenies alopecia, blistering, bruising, dry skin, facial burning, nail changes,photosensitivity, pruritus, rash and urticaria.NeurologicDenies disorientation, dizziness, abnormal gait, headaches, insomnia, memoryloss, motor weakness, sensory problems, paralysis, seizure and stroke.PsychiatricDenies delusions, hallucinations, mood swings, depression and euphoria.Vital Signs:Performed on Sep 09, 2020 10:22Qcgktu47.00 hbXmwiru476.2 lbs(HIGH)BSA (derived)1.89 sq.mBMI28.42Isioagyxmtj25.1 OHetmz54 /eulPwfsjwqhtvn34 /tfkEJ804/74Pulse Oximetry (O2 Sat)98 %Fall RiskModerate RiskPerformance Status:1 - No physically strenuous activity, but ambulatory and able to carry outlight or sedentary work (e.g. office work, light house work). (ECOG)Physical Exam:ConstitutionalNormal - Alert, cooperative, oriented. Mood and affect rich ropriate. Appearsclose to chronological age. Well nourished. Well developed.HeadNormal - Normocephalic; no scars.EyesNormal - Conjunctivae and sclerae are clear and without icterus.ENMTNormal - Sinuses are nontender. No oral exudates, ulcers, masses, thrush ormucositis. Oropharynx clear. Tongue normal.NeckNormal - Supple without masses or thyromegaly. No jugular venous distension.Hematologic/LymphaticNormal - No petechiae or purpura.RespiratoryAbnormal - decreased breath soundCardiovascularAbnormal - faint systolic murmurAbdomenNormal - Non-tender, non-distended, no masses, ascites or hepatosplenomegaly.Good bowel sounds. NBack/SpineAbnormal - tender to palpation.ExtremitiesAbnormal - left leg circumference > right leg; no residual pain or tendernessin calf/thigh.MusculoskeletalAbnormal - restricted ROMInteg umentaryNormal - No rashes, scars, or lesions suggestive of malignancy.NeurologicNormal - grossly non focalPsychiatricNormal - Alert and oriented times three. Coherent speech. 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 f/;u in 3 monthsddimer, coags, factor 8 and cbc before next visitElectronically signed by: Dr. Kaci HoustonCC: 21 :57:21 Name Value Range Interpretation Code Description Data Gala rce(s) Supporting Document(s) ID Date Data Source [id number] 08/30/2020 05:42:00 PM [facility] Name Value Range Interpretation Code Description Data Gala rce(s) Supporting Document(s) Respiratory specimen severe acute respir atory syndrome coronavirus 2 (SARS-CoV-2) RNA Negative (qualifier value) [facility] This lab was ordered by [facility] and reported by [facility]. ID Date Data Source [id number] 08/10/2020 09:10:00 AM EST [facility] Name Value Range Interpretation Code Description Data Gala rce(s) Supporting Document(s) FERRITIN 83 ng/mL 26 - 388 [facility] ID Date Data Source [id number] 08/10/2020 09:10:00 AM EST [facility] Name Value Range Interpretation Code Description Data Gala rce(s) Supporting Document(s) IRON AND TIBC PROFILE [facility] IRON PROFILE Iron [Mass/volume] in Serum or Plasma 62 ug/mL 65 - 175 Below low normal [facility] Iron binding capacity [Mass/volume] in Serum or Plasma 294 ug/dL 250 - 450 [facility] IRON SAT 21 % [facility] ID Date Data Source [id number] 08/09/2020 11:33:00 AM EST [facility] Name Value Range Interpretation Code Description Data Gala rce(s) Supporting Document(s) CBC [facility] COMPLETE BLOOD COUNT Leukocytes [#/volume] in Blood by Automated count 12.7 K/uL 4.0 - 10.0 Above high normal [facility] Erythrocytes [#/volume] in Blood by Automated count 3.62 M/uL 4.30 - 6.10 Below low normal [facility] Hemoglobin [Mass/volume] in Blood 12.8 g/dL 13.5 - 17.5 Below low no rmal [facility] Hematocrit [Volume Fraction] of Blood by Automated count 37.4 % 39.0 - 50.0 Below low normal [facility] Erythrocyte mean corpuscular volume [Entitic volume] b y Automated count 103.3 fL 80.0 - 96.0 Above high normal [facility] Erythrocyte mean corpuscular hemoglobin [Entitic mass] by Automated count 35.4 pg 26.0 - 34.0 Above high normal [facility] Erythrocyte mean corpuscular hemoglobin concentration [Mass/volume] by Automated count 34.2 g/dL 32.0 - 36.0 [facility] Erythrocyte distribution width [Ratio] by Automated count 18.7 % 11.6 - 14.8 Above high normal [facility] Platelets [#/volume] in Blood by Automated count 691 K/uL 150 - 450 Above upper panic limits [facility] CALLED TO: [facility] al REP/VERIFIED 699 [facility] ital READ BACK YES [facility] l Platelet mean volume [Entitic volume] in Blood by Automated count 8.2 fL 7.1 - 10.4 [facility] Neutrophils [#/volume] in Blood by Automated count 7.10 K/uL 1.70 - 7.70 [facility] Lymphocytes [#/volume] in Blood by Automated count 3.31 K/uL 1.50 - 6.00 [facility] Monocytes [#/volume] in Blood by Automated count 1.19 K/uL 0.00 - 1.00 Above high normal [facility] Eosinophils [#/volume] in Blood by Automated count 0.65 K/uL 0.00 - 0.30 Above high normal [facility] Basophils [#/volume] in Blood by Automated count 0.31 K/uL 0.00 - 0.10 Above high normal [facility] 0.10 Urinalysis macro (dipstick) panel - Urine 0.030 10^3/uL 0.000 - 0.012 Above high normal [facility] Neutrophils/100 leukocytes in Blood by Automated count 56.2 % 42. 2 - 75.2 [facility] Lymphocytes/100 leukocytes in Blood by Automated count 26.1 % 15. 0 - 41.0 [facility] Monocytes/100 leukocytes in Blood by Automated count 9.4 % 0.0 - 12.0 [facility] Eosinophils/100 leukocytes in Blood by Automated count 5.1 % 0.0 - 7.0 [facility] 2.40.80 NRBC 0.2 % [facility] MANUAL DIFF NOT INDICATED [facility] RBC MORPH NOT INDICATED [facility] ID Date Data Source [id number] 08/09/2020 11:33:00 AM EST [facility] Name Value Range Interpretation Code Description Data Gala rce(s) Supporting Document(s) COMPREHENSIVE CHEM PROFILE i [facility] COMPREHENSIVE METABOLIC PANEL Sodium [Moles/volume] in Serum or Plasma 137 mEq/L 136 - 145 [facility] Potassium [Moles/volume] in Serum or Plasma 4.6 mEq/L 3.5 - 5.1 [facility] Chloride [Moles/volume] in Serum or Plasma 103 mEq/L 98 - 107 [facility] Carbon dioxide, total [Moles/volume] in Serum or Plasma 22.5 mEq /L 21.0 - 32.0 [facility] Glucose [Mass/volume] in Serum or Plasma 123 mg/dL 70 - 100 Above high normal [facility] Urea nitrogen [Mass/volume] in Serum or Plasma 8 mg/dL 7 - 18 [facility] CREATININE SERUM 0.90 mg/dL 0.70 - 1.30 [facility] AGE 64 yrs [facility] HEIGHT NA [facility] eGFR NON-AFR AMR >60 [facility] eGFR AFR AMR >60 [facility] ital BUN/CREAT 9 6 - 25 [facility] Protein [Mass/volume] in Serum or Plasma 6.4 g/dL 6.0 - 8.3 [facility] Albumin [Mass/volume] in Serum or Plasma 2.6 g/dL 3.8 - 5.4 Below low normal [facility] GLOBULIN 3.8 g/dL 2.0 - 4.0 [facility] A/G RATIO 0.7 0.8 - 2.0 Below low normal [facility] Calcium [Mass/volume] in Serum or Plasma 8.8 mg/dL 8.8 - 10.2 [facility] Bilirubin.total [Mass/volume] in Serum or Plasma 0.5 mg/dL 0.2 - 1.0 [facility] Bilirubin.direct [Mass/volume] in Serum or Plasma 0.3 mg/dL 0.0 - 0.2 Above high normal [facility] INDIRECT BILI 0.2 mg/dL 0.0 - 1.1 [facility] pital ALK PHOSPHATASE 125 U/L 40 - 129 [facility] ospital Aspartate aminotransferase [Enzymatic ac tivity/volume] in Serum or Plasma by With P-5'-P 30 IU/L 7 - 37 [facility] Alanine aminotransferase [Enzymatic acti vity/volume] in Serum or Plasma by With P-5'-P 25 IU/L 12 - 78 [facility] ANION GAP 12 7 - 15 [facility] l Estimated GFR referenc e range: >60ml/min/1.73m >18 years: Calculated using IDNC traceable Study Equation <18 years: Calculated using IDNC tracable Bedside Schartz Equation ID Date Data Source [id number] 08/09/2020 11:33:00 AM EST [facility] Name Value Range Interpretation Code Description Data Gala rce(s) Supporting Document(s) ACTIVATED PARTIAL THROMBOPLASTIN [facility] ACTIVATED PARTIAL THROMBOPLASTIN HEPARIN? NO [facility] l PTT-A 37.2 24.3 - 100 [facility] al New PTT Heparin Therapeutic ra nge effective February 18, 2016 Heparin dose Therapeutic Range 0.1 - 0.3 uL 70.7 - 80.3 seconds 0.3 - 0.7 uL 80.3 - 99.6 seconds New normal reference range effective July 09, 2020 Normal 24.3 - 40.8 seconds ID Date Data Source [id number] 08/09/2020 11:33:00 AM EST [facility] PROTHROMBIN TIME Name Value Range Interpretation Code Description Data Gala rce(s) Supporting Document(s) WARFARIN? NO [facility] l 12.9 INR in Platelet poor plasma by Coagulation assay 1.0 1.0 - 4.5 [facility] Reference ranges Warf aldair (Coumadin) Therapy: 21.6 - 40.7 secs Normal (Non-warfarin Therapy): 10.7 - 15.2 secs New Protime Reference Range as of July 09, 2020 ID Date Data Source [id number] 07/29/2020 11:25:00 AM [facility] Name: ZAY SMITH [facility] Rec #: [id number] : 1955 Age/Sex: 64M Date of Service: 07/29/20 PHYSICIAN CHART Physician Documentation [facility] Name: Zay Smith Age: 64 yrs Sex: Male : 1955 Arrival Date: 07/29/2020 Time: 11:25 Bed 7 Private MD: Addis Mcdaniel E ED Physician Kkio Henry Disposition: 07/29 16:38 Attestation: I discussed the plan of care with [facility] Practice Provider and agree with what they have documented. HPI: 11:55 This 64 yrs old Male presents to ER via Walk-In jja1 with complaints of Leg Pain. 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 Patient has been followed by her alignment technician here at [facility]. Patient states that he had a therapeutic INR 1 week ago. He reports that he is supposed to have his blood work done tomorrow. Patient's primary complaint today is continued swelling of the left leg, redness, significant calf pain. He did call his primary care provider who instructed him to come to the emergency department. At this point patient denies chest pain, shortness of breath, palpitations, other symptoms.. Historical: - Allergies: Oxycodone HCl (nausea, stomach discomforts); - Home Meds: 1. pantoprazole 40 mg oral TbEC 1 tab every other day 2. tramadol 50 mg Oral tab 1 tab Twice a day, PRN 3. allopurinol 100 mg Oral tab 1 tab once daily 4. losartan 100 mg oral tab 1 tab once daily 5. mirtazapine 15 mg Oral tab 1 tab at bedtime, PRN 6. artificial tears(hypromellose) 0.3 % Opht drop 1 drop in each eye at bedtime 7. nitroglycerin 0.4 mg SL subl 1 tab every 5 minutes x 3, PRN 8. Multiple Vitamins oral tab 1 tab daily 9. latanoprost 0.005 % ophthalmic (eye) drop 1 drop in each eye at bedtime. 10. colon health 1 tab daily 11. warfarin Unknown Oral 3mg on Mondays, Tuesdays, Wednesdays, , Fridays and 4mg on Saturdays and Sundays. - PMHx: ANXIETY; BACK PAIN; Blood Clots (leg and lungs); CAD - coronary artery disease; GERD; HTN - hypertensio n; Hyperlipidemia; LYMPHOMA; AK; narcotic OD accidental; 12/30; SEIZURES; testicular cancer; - PSHx: Appendectomy; Hip replacement- Left; spleenectomy; testical -right; - Med Reconciliation:: Green Alert: The patient's med list is complete to the best of the nurse's/provider's knowledge. Medications reviewed, completed by Medical History Coordinator verbally from patient/family. from patient's primary provider's office. through the retail pharmacy the patient's meds were obtained from. - Immunization history: Flu vaccine is up to date. - Advance directive: There is no existing advanced directive. Information offered. - Family History:: mother : unknown medical history. Father : unknown medical history. - Social History: Smoking status (Tobacco): Cigars Preferred Language: Australian. - The history of the events were obtained from: the patient. ROS: 11:56 Constitutional: See HPI. Chest See HPI. Cardiovascular: See jja1 HPI. Respiratory: See HPI. MS/extremity: See HPI. Skin: See HPI. Neuro: Negative for tingling. All other systems are negative. Exam: 11:57 Constitutional: The patient appears alert, appears to be jja1 awake, does not appear to be toxic, appears well developed, is well groomed. 11:57 Musculoskeletal/extremity: Extremities: grossly normal except: noted in the left hart: pain, ROM: intact in all extremities, Pulses: noted to be 2+ in the left posterior tibial artery and left dorsalis pedis artery, Sensation intact. 11:57 Skin: Appearance: Color: 11:57 Neuro: Orientation: to person, place, time & situation. Vital Signs: 11:27 Pulse 86; Resp 18; Temp 97.7(TE); Pulse Ox 96% on R/A; awr Weight 77.11 kg (R); Height 5 ft. 6 in. (167.64 cm); Pain 8/10; 11:28 BP 117 / 80; awr 13:04 BP 115 / 68; Pulse 91; Resp 18; Pulse Ox 99% on R/A; awr 14:22 BP 105 / 78; Pulse 86; Resp 20; Pulse Ox 98% on R/A; Pain awr 8/10; 16:03 BP 104 / 66; Pulse 84; Resp 18; Pulse Ox 96% on R/A; awr 18:08 BP 112 / 67; Pulse 79; Resp 16; Pulse Ox 98% ; awr 20:02 BP 125 / 76; Pulse 77; Resp 16; Pulse Ox 98% on R/A; kl1 11:27 Body Mass Index 27.44 (77.11 kg, 167.64 cm) awr MDM: 11:32 Patient medically screened. j1 11:59 Case presented to: Dr. Kiko Henry. Data reviewed: jja1 vital signs, nurses notes, old medical records. 14:14 ED course: Patient presented to the ER today with jja1 complaints of left lower leg pain and swelling with known DVT. However, patient has been on Coumadin as an outpatient and been followed by hematology. He states that his INR was therapeutic 1 week ago. An ultrasound was performed here in the emergency department which shows extensive DVTs in bilateral legs. These clots have occurred despite being on anticoagulation as an outpatient. I have decided to employ the help of Dr. العلي on from internal medicine. We have discussed this case at length and decided to place patient on a heparin drip and to admit him to the hospital for further care. Patient continues to develop DVTs despite anticoagulation. This will be further looked into while admitted to the hospital.. 07/29 11:40 Order name: Cbc With Auto Differential; Complete Time: 12:23jja07/29 11:40 Order name: BMP; Complete Time: 13:33 jja07/29 11:40 Order name: PT 07/29 11:40 Order name: PTT jja1 07/29 11:40 Order name: Us Duplex Lower Ext Vein Bilat; Complete Time: jja 13:33 07/29 13:33 Order name: Troponin I j07/29 13:33 Order name: Emergency Room EKG Order - Use EKG Work-Up j /Quick Select; Complete Time: 13:43 07/29 13:33 Order name: Cardiology EKG Interpretation - Choose Reason jja for Test 07/29 13:41 Order name: Saline Lock; Complete Time: 13:47 jja07/29 14:32 Order name: Admit to Inpatient EDMS 07/29 13:53 Order name: POC - Collect COVID-19 swab; Complete Time: awr 13:53 Dispensed Medications: 14:00 Drug: Heparin - DVT/PE - heparin 1300 units/hr [heparin awr (porcine) 25,000 unit/500 mL in 0.45 % sodium chloride IV soln] {Co-Signature: selena (Jessica Hernandez RN).} Route: IV; Rate: 18 units/kg/hr; Site: left antecubital; 14:22 CANCELLED (Physician Discretion): HYDROmorphone 1 mg IVP jja1 once 14:26 Drug: Ofirmev 1000 mg [Ofirmev 1,000 mg/100 mL (10 mg/mL) awr intravenous solution] Route: IVPB; Site: right forearm; 14:41 Follow up: IV Status: Completed infusion; IV Intake: 100ml awr 19:42 Drug: morphine 4 mg Route: IVP; Site: right forearm; kl1 Disposition Summary: 07/29/20 20:39 Transfer Ordered Transfer Location: [facility] Reason: Higher level of care jesse Condition: Stable jesse Accepting Physician: Amrit(07/29/20 20:39) jesse Diagnosis - Deep Vein Thrombosis (DVT)(07/29/20 20:39) [facility] Forms: - Fax Visit Summary [facility] Signatures: Dispatcher [employer] EDMS Rob Garner RN RN kl1 Yahaira Thomas RN RN tp1 Kiko Henry MD MD jam2 Reed, Anthony, RN RN awr Banks, Gabrielle gab Adams, Joseph, RNP RNP jja1 JorgelulMeredith dmd Jessica walters Corrections: (The following items were deleted from the chart) 13:41 11:55 Patient is a 64-year-old male medical history jja1 significant for 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 Patient has been followed by her alignment technician here at [facility]. Patient states that he had a therapeutic INR 1 week ago. He reports that he is supposed to have his blood work done tomorrow. Patient's primary complaint today is continued swelling of the left leg, redness, significant calf pain. He did call his primary care provider who instructed him to come to the emergency department. At this point patient denies chest pain, shortness of breath, palpitations, other symptoms.. [email or web address] 14:22 14:22 HYDROmorphone 1 mg IVP once ordered. guerda guerda1 15:14 12:09 Home Meds: warfarin 1 mg Oral tab 1 tab once daily; dmd Every Sunday and Sunday; awr 15:14 12:09 Home Meds: warfarin 3 mg Oral tab 1 tab once daily; dmd awr 15:14 12:09 Home Meds: colchicine 0.6 mg Oral cap 1 cap once dmd daily; awr 15:16 12:09 Med Reconciliation: Green Alert: The patient's med dmd list is complete to the best of the nurse's/provider's knowledge. Medications reviewed, completed by nurse using patient's med list. awr 15:16 15:09 Home Meds: warfarin 4 mg oral tab Saturdays and dmd Sundays takes 4mg; dmd 15:16 15:09 Home Meds: warfarin 3 mg Oral tab 1 tab Sunday, dmd Sunday, Sunday, , Sunday; dmd 20:38 14:13 Inpatient Admission paulette jesse 20:38 14:13 [place], Tyler jja1 jesse 20:38 14:13 Med-Surg 2 jja1 jesse 20:38 14:13 jja1 jesse 20:38 14:13 Deep Vein Thrombosis (DVT) jja1 jesse 20:38 14:13 Patient Status Inpatient. jja1 jesse 20:39 20:39 Desa jesse jesse Name Value Range Interpretation Code Description Data Gala rce(s) Supporting Document(s) ID Date Data Source [id number] 07/29/2020 11:25:00 AM EST [facility] Name: ZAY SMITH [facility] Rec #: [id number] : 1955 Age/Sex: 64M Date of Service: 07/29/20 DISPOSITION SUMMARY Discharge Summary [facility] Name:[facility] Emergency Department Age:64 yrs Sex:Male :1955 Arrival:07/29/2020 11:25 Departure Date07/29/2020 Departure Time20:39 Private MD:Addis Mcdaniel MD Outcome: Transfer Location: [facility] Condition: Stable Chief Complaint: Leg Pain Diagnosis: Deep Vein Thrombosis (DVT) Prescriptions: Custom Notes: Attending Physician: Kiko Henry MD Private MD: Addis Mcdaniel MD Mid Level Provider: Santi Cook RNP Accepting Physician: Amrit Orders: Cbc With Auto Differential, BMP, PT, PTT, Us Duplex Lower Ext Vein Bilat, Troponin I, Emergency Room EKG Order - Use EKG Work-Up /Quick Select, Cardiology EKG Interpretation - Choose Reason for Test, Saline Lock, heparin, HYDROmorphone, Ofirmev, Admit to Inpatient, mor phine, POC - Collect COVID-19 swab Discharge Instruction: Fax Visit Summary Name Value Range Interpretation Code Description Data Gala rce(s) Supporting Document(s) ID Date Data Source [id number] 07/29/2020 11:25:00 AM [facility] Name: ZAY SMITH [facility] Rec #: [id number] : 1955 Age/Sex: 64M Date of Service: 07/29/20 NURSE CHART Nurse's Notes [facility] Name: aZy Smith Age: 64 yrs Sex: Male : 1955 Arrival Date: 07/29/2020 Time: 11:25 Bed 7 Private MD: Addis Mcdaniel E Diagnosis: Deep Vein Thrombosis (DVT) Presentation: 07/29 11:27 Transition of care: patient was not received from another [facility] setting of care. Presenting complaint: Patient states - I was admitted here for a week last month with blood clots in my leg. My left calf is now very swollen and tender, and my doctor told me to come right to the ER. Have you travelled in the last 30 days? No. Have you had contact with an individual with a confirmed diagnosis of Ebola or COVID-19? No. 11:27 Method Of Arrival: Walk-In awr 11:27 Acuity: Urgent - 3 awr Triage Assessment: 11:28 SEPSIS SCREEN: A Confirmed or Suspected Infection is awr Unknown. Suicide Screening: Have you had thoughts of harming yourself or others? No. The patient appears to have some mild discomfort, The patient is behaving appropriately according to age, cooperative. Patient states the pain is currently a 8 / 10. Historical: - Allergies: Oxycodone HCl (nausea, stomach discomforts); - Home Meds: 1. pantoprazole 40 mg oral TbEC 1 tab every other day 2. tramadol 50 mg Oral tab 1 tab Twice a day, PRN 3. allopurinol 100 mg Oral tab 1 tab once daily 4. losartan 100 mg oral tab 1 tab once daily 5. mirtazapine 15 mg Oral tab 1 tab at bedtime, PRN 6. artificial tears(hypromellose) 0.3 % Opht drop 1 drop in each eye at bedtime 7. nitroglycerin 0.4 mg SL subl 1 tab every 5 minutes x 3, PRN 8. Multiple Vitamins oral tab 1 tab daily 9. latanoprost 0.005 % ophthalmic (eye) drop 1 drop in each eye at bedtime. 10. colon health 1 tab daily 11. warfarin Unknown Oral 3mg on Mondays, Tuesdays, Wednesdays, , Fridays and 4mg on Saturdays and Sundays. - PMHx: ANXIETY; BACK PAIN; Blood Clots (leg and lungs); CAD - coronary artery disease; GERD; HTN - hypertension; Hyperlipidemia; LYMPHOMA; AK; narcotic OD accidental; 12/30; SEIZURES; testicular cancer; - PSHx: Appendectomy; Hip replacement- Left; spleenectomy; testical -right; - Med Reconciliation:: Green Alert: The patient's med list is complete to the best of the nurse's/provider's knowledge. Medications reviewed, completed by Medical History Coordinator verbally from patient/family. from patient's primary provider's office. through the retail pharmacy the patient's meds were obtained from. - Immunization history: Flu vaccine is up to date. - Advance directive: There is no existing advanced directive. Information offered. - Family History:: mother : unknown medical history. Father : unknown medical history. - Social History: Smoking status (Tobacco): Cigars Preferred Language: Australian. - The history of the events were obtained from: the patient. Screenin:51 AUDIT 1. How often do you have a drink containing alcohol? awr Never (0 points). Drug Abuse Screening Test: 1. Have you used drugs other than those required for medical reasons? No (0 points), screen is complete, no risk. Abuse screen: Denies threats or abuse. Denies injuries from another. Nutritional screening: No deficits noted. The patient has a history of falls (25 points). The patient has more than one active medical diagnosis or is on a medication that may impair gait. The patient uses cr utches/cane to ambulate (15 points). Patient's gait is weak (10 points). The patient is at HIGH RISK for falls (Daly Scale = >45 pts). Fall prevention measures have been instituted. Side rails are up, Placed close to Nursing Station, Patient and Family have been educated on fall prevention program and strategies. Assessment: 11:51 See Triage Assessment. awr Vital Signs: 11:27 Pulse 86; Resp 18; Temp 97.7(TE); Pulse Ox 96% on R/A; awr Weight 77.11 kg (R); Height 5 ft. 6 in. (167.64 cm); Pain 8/10; 11:28 BP 117 / 80; awr 13:04 BP 115 / 68; Pulse 91; Resp 18; Pulse Ox 99% on R/A; awr 14:22 BP 105 / 78; Pulse 86; Resp 20; Pulse Ox 98% on R/A; Pain awr 8/10; 16:03 BP 104 / 66; Pulse 84; Resp 18; Pulse Ox 96% on R/A; awr 18:08 BP 112 / 67; Pulse 79; Resp 16; Pulse Ox 98% ; awr 20:02 BP 125 / 76; Pulse 77; Resp 16; Pulse Ox 98% on R/A; kl1 11:27 Body Mass Index 27.44 (77.11 kg, 167.64 cm) awr ED Course: 11:26 Patient arrived in ED. mlr 11:27 Addis Mcdaniel MD is Private Physician. awr 11:28 Triage completed. awr 11:28 Arm band placed on Patient has correct armband on for awr positive identification. 11:30 Cory Awad RN is Primary Nurse. awr 11:32 Santi Cook RNP is PHCP. jja1 11:32 Kiko Henry MD is Attending Physician. jja1 11:52 Labs drawn by lab staff. awr 12:13 Radiology: The patient was taken to get an ultrasound at awr 12:13. 12:13 Us Duplex Lower Ext Vein Bilat Sent. awr 13:01 Radiology: The patient returned from ultrasound at 13:01. awr 13:43 An EKG was obtained and reviewed by Lashonda Henry MD. tp1 13:46 Labs drawn by ED staff. Inserted peripheral IV: 18 gauge in awr left antecubital area and blood collected. 13:56 Cardiology EKG Interpretation - Choose Reason for Test Sent.awr 14:13 Tyler [place] MD is Hospitalizing Provider. jja1 14:16 The patient was tested for COVID-19 by Cory Awad RN , awr the result was negative, the procedural control was valid, provider notified: Santi SUAREZ. 14:22 Inserted peripheral IV: 18 gauge in dorsal aspect of right awr forearm. 19:05 Rob Garner, ROLA is Primary Nurse. kl1 20:37 Primary Nurse role handed off by Cory Awad RN jc3 Administered Medications: 14:00 Drug: Heparin - DVT/PE - heparin 1300 units/hr [heparin awr (porcine) 25,000 unit/500 mL in 0.45 % sodium chloride IV soln] {Co-Signature: selena (Jessica Hernandez RN).} Route: IV; Rate: 18 units/kg/hr; Site: left antecubital; 14:22 CANCELLED (Physician Discretion): HYDROmorphone 1 mg IVP jja1 once 14:26 Drug: Ofirmev 1000 mg [Ofirmev 1,000 mg/100 mL (10 mg/mL) awr intravenous solution] Route: IVPB; Site: right forearm; 14:41 Follow up: IV Status: Completed infusion; IV Intake: 100ml awr 19:42 Drug: morphine 4 mg Route: IVP; Site: right forearm; kl1 Intake: 14:41 IV: 100ml; Total: 100ml. awr Outcome: 14:13 Decision to Hospitalize by Provider. jja1 19:54 Report given to ROLA Caldera at [facility] ER ([phone]) awr 20:39 ER care complete, transfer ordered by . jesse 20:39 Patient left the ED. jesse 07/30 09:02 24 hour call back N/A - Patient was transferred edv Signatures: Gene Crane, RN RN edv Rob Garner, RN RN kl1 Yahaira Thomas, RN RN tp1 Carolyn Wall RN RN jc3 Cory Awad RN RN awr Meliza Julian Joseph, HIGHWAY PATROL COMMANDER HIGHWAY PATROL COMMANDER jja1 Meredith Vásquez dmd Ni Tapia RN Corrections: (The following items were deleted from the chart) 07/29 15:14 12:09 Home Meds: warfarin 1 mg Oral tab 1 tab once daily; dmd Every Sunday and Sunday; awr 15:14 12:09 Home Meds: warfarin 3 mg Oral tab 1 tab once daily; dmd awr 15:14 12:09 Home Meds: colchicine 0.6 mg Oral cap 1 cap once dmd daily; awr 15:16 12:09 Med Reconciliation: Green Alert: The patient's med dmd list is complete to the best of the nurse's/provider's knowledge. Medications reviewed, completed by nurse using patient's med list. awr 15:16 15:09 Home Meds: warfarin 4 mg oral tab Saturdays and dmd Sundays takes 4mg; dmd 15:16 15:09 Home Meds: warfarin 3 mg Oral tab 1 tab Sunday, dmd Sunday, Sunday, , Sunday; dmd 07/30 09:02 09:00 24 hour call back completed edv edv Name Value Range Interpretation Code Description Data Gala rce(s) Supporting Document(s) ID Date Data Source [id number] 08/30/2020 05:27:[address] [facility] test? UNKNOWNEmployed in health[facility] re? UNKNOWNSymptomatic per CDC? UNKNOWNHospitalized? UNKNOWNICU? UNKNOWNResident in congregated care? ex skilled nursing, [facility] UNKNOWN? UNKNOWN Name Value Range Interpretation Code Description Data Gala rce(s) Supporting Document(s) SARS-CoV-2 RNA Negative Normal (applies to non-numeric r esults) [facility] Negative results should be treated as pr esumptive and, if inconsistent with clinical signs and symptoms or necessary for patient management, should be tested with different authorized or cleared molecular tests. Negative results do not preclude SARS-CoV-2 infection and should not be used as the sole basis for patient management decisions. Negative results should be considered in the context of a patients recent exposures, history and the presence of clinical signs and symptoms consistent with COVID-19. This test has not been FDA cleared or approved; this test has been authorized by FDA under an Emergency Use Authorization for use by laboratories certified under the Clinical Laboratory Improvement Amendments of 1988 (CLIA), 42 U.S.C. 263a, to perform moderate complexity/high complexity tests and at the Point of Care (POC), i.e., in patient care settings operating under a CLIA Certificate of Waiver, Certificate of Compliance, or Certificate of Accreditation. Factsheets for healthcare providers: https://www.fda.gov/media/582488/download Factsheets for patients: https://www.fda.gov/media/265538/download The ID NOW Instrument is a rapid molecular in vitro diagnostic test utilizing an isothermal nucleic acid amplification technology intended for the qualitative detection of nucleic acid from the SARS-CoV-2 viral RNA. THIS IS A STATE REPORTABLE COMMUNICABLE DISEASE. Manual entry verified by Mariza Abdi 08/30/20 1726 ID Date Data Source [id number] 08/03/2020 12:20:[address] [facility] Name Value Range Interpretation Code Description Data Gala rce(s) Supporting Document(s) Troponin I 0.000-0.045 Normal (applies to non-numeric resu lts) [facility] ID Date Data Source [id number] 07/29/2020 03:49:00 PM [facility] Name: ZAY SMITH Antonina : 7 Age/Sex: 64M Ordering Provider: Santi Cook IV, FNP Med Rec #: [id number] Reg Status:ADM IN Room #: ED7-1 Date of Service: 07/29/20 Report Number: [id number] cc: Santi Cook IV FACULTY NEUROPSYCHOLOGIST; Addis Mcdaniel MD; Tyler [place] MD Send Report To: Reason for exam: Baseline SINUS RHYTHM BORDERLINE LEFT AXIS DEVIATION BORDERLINE ECG Physician Director Product Development: Nancy Stanton M.D. ECG HEART RATE: 89 /min ECG RR INTERVAL: 674 ms ECG P DURATION: 123 ms ECG QRS DURATION: 86 ms ECG MI INTERVAL: 173 ms ECG QT INTERVAL: 354 ms ECG QTC INTERVAL: 404 ms Q-T dispersion: ms ECG P AXIS: 36 deg ECG QRS AXIS: -24 deg ECG T AXIS: 50 deg REPORT SIGNATURE ON FILE 07/29/20 154 Reported By: Nancy Stanton MD <<Signature on File>> Exam Date/Time: 07/29/20 1342 Order #: [id number] Dictation Date/Time: 07/29/201548 Transcribed Date/Time: 07/29/201548 Tip Fixer: DANITA Name Value Range Interpretation Code Description Data Gala rce(s) Supporting Document(s) ID Date Data Source [id number] 08/03/2020 12:20:[address] [facility] Name Value Range Interpretation Code Description Data Gala rce(s) Supporting Document(s) PT 9.4-12.5 Above high normal [facility] INR Normal (applies to non-numeric results) [facility] The use of the INR is restricted to steven ents on stable oral anticoagulant. Therapeutic Range: 2.0-3.0 High Risk Values: 2.5-3.5 ID Date Data Source [id number] 08/03/2020 12:20:00 PM EST [facility] Name Value Range Interpretation Code Description Data Gala rce(s) Supporting Document(s) PTT 25.1-36.5 Above high normal [facility] ID Date Data Source [id number] 08/03/2020 12:20:00 PM EST [facility] Name Value Range Interpretation Code Description Data Gala rce(s) Supporting Document(s) Sodium 133 mmol/L 137-145 Below low normal [facility] Potassium 3.5-5.1 Normal (applies to non-numeric resul ts) [facility] Chloride 102 mmol/L 98-112 Normal (applies to non-numeric resul ts) [facility] Carbon Dioxide CO2 22.0-33.0 Normal (applies to non-numer ic results) [facility] Anion Gap 4.0-11.0 Normal (applies to non-numeric resul ts) [facility] BUN 8 mg/dL 9-20 Below low normal [facility] Creatinine 0.80-1.50 Normal (applies to non-numeric resul ts) [facility] GFR 68 mL/min >60 Normal (applies to non-numeric resul ts) [facility] Result based on MDRD formula. Glucose Level 105 mg/dL 74-99 Above high normal [facility] The reference range is only applicable w hen fasting. Calcium-Uncorrected 8.4-10.2 Normal (applies to non-nume adrianna results) [facility] Corrected Calcium 8.4-10.2 Normal (applies to non-numeri c results) [facility] ID Date Data Source [id number] 08/03/2020 12:20:[address] [facility] Name Value Range Interpretation Code Description Data Gala rce(s) Supporting Document(s) White Blood Count 4.8-10.8 Above high normal [facility] Red Blood Count 4.35-6.08 Below low normal [facility] Hemoglobin 13.0-17.5 Normal (applies to non-numeric resul ts) [facility] Hematocrit 37.7-51.0 Normal (applies to non-numeric resul ts) [facility] Mean Corpuscular Volume 80-94 Above high normal [facility] Mean Corpuscular Hemoglobin 27.0-33.0 Above high normal [facility] Mean Corpuscular HGB Conc 32.0-36.0 Above high normal [facility] Red Cell Distribution Width 11.5-14.5 Above high normal [facility] Platelet Count 375 X10 3/uL 130-450 Normal (applies to non-numeric results) [facility] Mean Platelet Volume 9.6-13.1 Below low normal [facility] Imm Grans% (AUTO) 1 % 0-2 Normal (applies to non-numeri c results) [facility] Neutrophils % (AUTO) 74 % 40-75 Normal (applies to non-num mariya results) [facility] Lymphocytes % (AUTO) 9 % 21-46 Below low normal [facility] Monocytes % (AUTO) 13 % 5-12 Above high normal [facility] Eosinophils % (AUTO) 2 % 1-5 Normal (applies to non-num mariya results) [facility] Basophils % (AUTO) 1 % 0-1 Normal (applies to non-numer ic results) [facility] Imm Grans# (AUTO) 0.0-0.5 Normal (applies to non-numeri c results) [facility] Neutrophils # (AUTO) 1.5-8.1 Above high normal [facility] Lymphocytes # (AUTO) 1.0-3.1 Normal (applies to non-num mariya results) [facility] Monocytes # (AUTO) 0.2-1.3 Above high normal [facility] Eosinophils# (AUTO) 0.0-0.5 Normal (applies to non-nume adrianna results) [facility] Basophils # (AUTO) 0.0-0.1 Above high normal [facility] ID Date Data Source [id number] 07/30/2020 01:42:00 PM EST [facility] Name: ZAY SMITH : 7 Age/Sex: 64M Ordering Provider: Santi Cook IV, FNP Med Rec #: [id number] Reg Status: DEP ER Room #: Date of Service: 07/29/20 Report Number: [id number] cc:Addis Mcdaniel MD Send Report To: [id number] US/US Duplex Lower Ext Vein Bilat Reason for exam: HX DVT, INCREASED LEG SWELLING, KNOWN DVT LEFT LEG Ultrasound imaging performed using color flow and spectral Doppler interrogation. Patient had prior venous Doppler on the right which showed nonocclusive thrombi in the right superficial femoral vein and posterior tibial vein. FINDINGS: On the current study on the left there is occlusive thrombus apparentin the left superficial femoral vein extending into the left popliteal vein, also noncompressible, and into the posterior tibial vein. On the right there isdeep vein thrombosis involving the right superficial femoral vein and suspected portions of the profunda femoral vein with extension into the right popliteal vein with partial compressibility and into the posterior tibial vein. Incidental note is made of some lymph nodes in the left groin with central fat and the largest of these measures 2.1 cm maximally. IMPRESSION: Bilateral deep vein thrombosis as described above. Fluoroscopy time in se conds: Number of Exposures: Time Portable Image Performed: Contrast Agent in ml: Method of Administration: REPORT SIGNATURE ON FILE Reported By: Macy Cannon MD <Electronically signed by Macy Cannon MD> 08/03/20 1026 Dictation Date/Time: 07/29/20 1425 Transcribed Date/Time: 07/30/20 1342 Tip Fixer: JUDE Name Value Range Interpretation Code Description Data Gala rce(s) Supporting Document(s) ID Date Data Source [id number] 08/03/2020 10:42:00 AM [facility] C.difficile strain 027/[id number] has been associated with severe disease outbreaks and poor treatment outcomes in healthcare facilities worldwide. Reference Range: Toxin producing C. difficile and 027/NAP-1 Name Value Range Interpretation Code Description Data Gala rce(s) Supporting Document(s) ID Date Data Source [id number] 08/03/2020 10:42:00 AM [facility] Methodology: Multiplexed PCR Refer ence Range: None detected Name Value Range Interpretation Code Description Data Gala rce(s) Supporting Document(s) ID Date Data Source [id number] 07/16/2020 09:44:00 AM [facility] PROTHROMBIN TIME Name Value Range Interpretation Code Description Data Gala rce(s) Supporting Document(s) WARFARIN? YES [facility] l 22.2 INR in Platelet poor plasma by Coagulation assay 2.0 1.0 - 4.5 [facility] Reference ranges Warf aldair (Coumadin) Therapy: 21.6 - 40.7 secs Normal (Non-warfarin Therapy): 10.7 - 15.2 secs New Protime Reference Range as of July 09, 2020 ID Date Data Source [id number] 07/08/2020 11:00:00 AM [facility] Name Value Range Interpretation Code Description Data Gala rce(s) Supporting Document(s) PROTIME W/ANTICOAG 18.9 Secs 22.7 - 40.3 Below low normal [facility] INR in Platelet poor plasma by Coagulation assay 1.6 2.0 - 4.5 Below low normal [facility] New Protime Reference Range a s of June 20, 2019 ID Date Data Source [id number] 07/05/2020 09:13:00 AM [facility] Name Value Range Interpretation Code Description Data Gala rce(s) Supporting Document(s) PROTIME W/ANTICOAG 18.7 Secs 22.7 - 40.3 Below low normal [facility] INR in Platelet poor plasma by Coagulation assay 1.6 2.0 - 4.5 Below low normal [facility] New Protime Reference Range a s of June 20, 2019 ID Date Data Source [id number] 06/30/2020 01:12:00 PM [facility] Name Value Range Interpretation Code Description Data Gala rce(s) Supporting Document(s) PROTIME W/ANTICOAG 44.7 Secs 22.7 - 40.3 Above high normal [facility] INR in Platelet poor plasma by Coagulation assay 4.8 2.0 - 4.5 Above high normal [facility] New Protime Reference Range a s of June 20, 2019 ID Date Data Source [id number] 06/28/2020 12:52:[address] [facility] Name Value Range Interpretation Code Description Data Gala rce(s) Supporting Document(s) PT 9.4-12.5 Above high normal [facility] read back critical informat ion 06/28/20 1244 LAB.DAVSA The use of the INR is restricted to patients on stable oral anticoagulant. Therapeutic Range: 2.0-3.0 High Risk Values: 2.5-3.5 ID Date Data Source [id number] 06/28/2020 12:15:00 PM EST [facility] Name Value Range Interpretation Code Description Data Gala rce(s) Supporting Document(s) Sodium 137 mmol/L 137-145 Normal (applies to non-numeric resul ts) [facility] Potassium 3.5-5.1 Normal (applies to non-numeric resul ts) [facility] Chloride 106 mmol/L 98-112 Normal (applies to non-numeric resul ts) [facility] Carbon Dioxide CO2 22.0-33.0 Normal (applies to non-numer ic results) [facility] Anion Gap 4.0-11.0 Normal (applies to non-numeric resul ts) [facility] BUN 3 mg/dL 9-20 Below low normal [facility] Creatinine 0.80-1.50 Normal (applies to non-numeric resul ts) [facility] GFR 84 mL/min >60 Normal (applies to non-numeric resul ts) [facility] Result based on MDRD formula. Glucose Level 102 mg/dL 74-99 Above high normal [facility] The reference range is only applicable w hen fasting. Calcium-Uncorrected 8.4-10.2 Normal (applies to non-nume adrianna results) [facility] Corrected Calcium 8.4-10.2 Normal (applies to non-numeri c results) [facility] Bilirubin,Total 0.2-1.3 Normal (applies to non-numeric results) [facility] SGOT(AST) 25 U/L 17-59 Normal (applies to non-numeric resul ts) [facility] SGPT(ALT) 18 U/L 21-72 Below low normal [facility] Alkaline Phosphatase 155 U/L 38-126 Above high normal [facility] can increase Alkaline Phosp le vels up to 2 times the normal adult value. Normal values for children and adolescents are 2 to 3 times the normal adult value. Total Protein 6.3-8.2 Normal (applies to non-numeric re sults) [facility] Albumin 3.5-5.0 Below low normal [facility] ID Date Data Source [id number] 06/28/2020 12:15:[address] [facility] Name Value Range Interpretation Code Description Data Gala rce(s) Supporting Document(s) Vitamin B12 318 pg/mL 193-986 Normal (applies to non-numeric resu lts) [facility] ID Date Data Source [id number] 06/28/2020 12:15:00 PM [facility] Value Range Interpretation Code Description Data Gala rce(s) Supporting Document(s) Uric Acid 3.5-7.2 Normal (applies to non-numeric resul ts) [facility] ID Date Data Source [id number] 06/28/2020 12:15:[address] [facility] Name Value Range Interpretation Code Description Data Gala rce(s) Supporting Document(s) Free T4 (Free Thyroxine) 0.76-1.46 Normal (applies to non -numeric results) [facility] ID Date Data Source [id number] 06/28/2020 12:15:[address] [facility] Name Value Range Interpretation Code Description Data Gala rce(s) Supporting Document(s) Folate 2.76-20.0 Below low normal [facility] ID Date Data Source [id number] 06/28/2020 12:15:[address] [facility] Name Value Range Interpretation Code Description Data Gala rce(s) Supporting Document(s) Free T3 2.18-3.98 Normal (applies to non-numeric resul ts) [facility] ID Date Data Source [id number] 06/28/2020 12:15:00 PM [facility] Value Range Interpretation Code Description Data Gala rce(s) Supporting Document(s) Thyroid Stimulate Hormone TSH 0.358-3.740 No rmal (applies to non-numeric results) [facility] ID Date Data Source [id number] 06/28/2020 12:05:00 PM [facility] Value Range Interpretation Code Description Data Gala rce(s) Supporting Document(s) Parathyroid Hormone PTH Intact 18.4-80.1 N ormal (applies to non-numeric results) [facility] ID Date Data Source [id number] 06/28/2020 12:05:00 PM [facility] Value Range Interpretation Code Description Data Gala rce(s) Supporting Document(s) Vitamin D,Total (25OH) 30.0-100.0 Normal (applies to non-n umeric results) [facility] Reference Range: <10 ng/mL: Deficien t 10-30 ng/mL: Insufficient 30-100 ng/mL: Sufficient >100 ng/mL: Toxicity possible ID Date Data Source [id number] 06/14/2020 10:25:00 AM EDT [facility] Value Range Interpretation Code Description Data Gala rce(s) Supporting Document(s) FACTOR V LEIDEN MUTATION [facility] _FACTOR V LEIDEN MUTATION_ [facility] REPORT ID Date Data Source [id number] 06/14/2020 10:25:00 AM EDT [facility] Value Range Interpretation Code Description Data Gala rce(s) Supporting Document(s) FACTOR II DNA ANALYSIS [facility] _FACTOR II DNA ANALYSIS_Factor II, DNA AnalysisReported: 06/18/2020 20:05 Status=F --------TEST RESULT FLAG RANGE UNITS SC --Factor II, DNA Analysis TG 06/18/20.rfl.COMPLETE.LCTRNEGATIVENo mutation identified. .Comment:A point mutation ([id number]) in the factor II (prothrombin) gene is thesecond most common cause of inherited thrombophilia. The incidence ofthis mutation in the [place] population is about 2% and in therican [place] population it is approximately 0.5%. This mutation israre in the and population. Being heterozygousfor a prothrombin mutation increases the risk for developing venousthrombosis about 2 to 3 times above the general population risk. Beinghomozygous for the prothrombin gene mutation increases the relativerisk for venous thrombosis further, although it is not yet known howmuch further the risk is increased. In women heterozygous for theprothrombin gene mutation, the use of estrogen containing oralcontraceptives increases the relative risk of venous thrombosis about16 times and the risk of developing cerebral thrombosis is alsosignificantly increased. In the prothrombin gene mutationincreases risk for venous thrombosis and may increase risk forstillbirth, placental abruption, pre-eclampsia and growthrestriction. If the patient possesses two or more congenital oracquired thrombophilic risk factors, the risk for thrombosis may riseto more than the sum of the risk ratios for the individual mutations.This assay detects only the prothrombin [id number] mutation and doesnot measure genetic abnormalities elsewhere in the genome. Otherthrombotic risk factors may be pursued through systematic clinicallaboratory analysis. These factors include the R506Q ([place])mutation in the Factor V gene, plasma homocysteine levels, as wellas testing for deficiencies of antithrombin III, protein C andprotein S.Genetic Counselors are available for health care providersto discuss results at [phone] .Methodology:DNA analysis of the Factor II gene wa s performed by PCRamplification followed by restriction analysis. Thediagnostic sensitivity is >99% for both. All the tests mustbe combined with clinical information for the most accurateinterpretation. Molecular-based testing is highly accurate,but as in any laboratory test, diagnostic errors may occur. .This test was developed and its performance characteristicsdetermined by [employer]. It has not been cleared or approvedby the Food and Drug Administration. .Poort SR, et al. Blood. 1996; 88:3861-4312.Amada RAMOS. Circulation. 2004; 110:e15-e18.Lis I, et al. Arterioscler Thromb Vasc Biol. 1999;19:700-703. .Presley Wells, PhD, Yi Cedeno, PhD, Moises Kaur MJenniferSJennifer, PhD, Beth Yan, PhD, Arpita Aguero, PhD, Kellee Shi, PhD, [facility] Test performed by: [employer] [facility] [address] [place] [address] [id number] Brian Holland MD ID Date Data Source [id number] 06/14/2020 10:25:00 AM EDT [facility] Name Value Range Interpretation Code Description Data Gala rce(s) Supporting Document(s) ANTI CARDIOLIPIN IGA IGG IGM QN [facility] _ANTI-CARDIOLIPIN IGA/G/M,QN_Anticar diolip Ab, IgA/G/M, QnReported: 06/16/2020 16:05 Status=F --------TEST RESULT FLAG RANGE UNITS SC --Anticardiolipin Ab,IgG,Qn <9 0-14 RN 06/16/20.1605.rfl.COMPLETE.LCTRUNITS OF MEASURE:GPL U/mL Negative: <15 Indeterminate: 15 - 20 Low- Med Positive: >20 - 80 High Positive: >80Anticardiolipin Ab,IgM,Qn 12 0-12 RN 06/16/20.1605.rfl.COMPLETE.LCTRUNITS OF MEASURE:MPL U/mL Negative: <13 Indeterminate: 13 - 20 Low-Med Positive: >20 - 80 High Positive: >80Anticardiolipin Ab,IgA,Qn <9 0-11 RN 06/16/20.160.rfl.COMPLETE.LCTRUNITS OF MEASURE:APL U/mL Negative: <12 Indeterminate: 12 - 20 Low-Med Positive: >20 - 80 High Positive: >80RN Test performed by: [place] [address] Asha Sarkar MD ID Date Data Source [id number] 06/14/2020 10:25:00 AM EDT [facility] Name Value Range Interpretation Code Description Data Gala rce(s) Supporting Document(s) BETA 2 GLYCOPROTEIN 1 IGG A M [id number] [facility] _BETA 2 GLYCOPROTEIN 1 ABG/A/M 1639 15_Beta-2 Glycoprotein I Ab,G,A,MReported: 06/16/2020 16:05 Status=F --------TEST RESULT FLAG RANGE UNITS SC --Beta-2 Glycoprotein I <9 0-20 BN 06/16/20.1604.rfl.COMPLETE.LCTRAb, IgGUNITS OF MEASURE:GPI IgG unitsThe reference interval reflects a 3SD or 99th percentile interval,which is thought to represent a potentially clinically significantresult in accordance with the International Consensus Statement onthe classification criteria for definitive antiphospholipid syndrome(APS). J Thromb Haem 2006;4:295-306.Beta-2 Glycoprotein I <9 0-25 BN 06/16/20.1604.rfl.COMPLETE.LCTRAb, IgAUNITS OF MEASURE:GPI IgA unitsThe reference interval reflects a 3SD or 99th percentile interval,which is thought to represent a potentially clinically significantresult in accordance with the International Consensus Statement onthe classification criteria for definitive antiphospholipid syndrome(APS). J Thromb Haem 2006;4:295-306.Beta-2 Glycoprotein I <9 0-32 BN 06/16/20.rfl.COMPLETE.LCTRAb, IgMUNITS OF MEASURE:GPI IgM unitsThe reference interval reflects a 3SD or 99th percentile interval,which is thought to represent a potentially clinically significantresult in accordance with the International Consensus Statement onthe classification criteria for definitive antiphospholipid syndrome(APS). J Thromb Haem 2006;4:295-306.BN Test performed by: [employer] [address] [id number] Kurt Hogue MD ID Date Data Source [id number] 06/14/2020 10:25:00 AM EDT [facility] Name Value Range Interpretation Code Description Data Gala rce(s) Supporting Document(s) ANTITHROMBIN III PANEL [facility] _ANTITHROMBIN III PANEL_Antithrombi n III, Func/ImmunolReported: 06/16/2020 14:05 Status=F --------TEST RESULT FLAG RANGE UNITS SC --Antithrombin Activity 85 75-135 % BN 06/16/201405.rfl.COMPLETE.LCTRDirect Xa inhibitor anticoagulants such as rivaroxaban, apixaban andedoxaban will lead to spuriously elevated antithrombin activitylevels possibly masking a deficiency.Antithrombin Antigen 79 72-124 % BN 06/16/201405.rfl.COMPLETE.LCTRThis test was developed and its performance characteristicsdetermined by [employer]. It has not been cleared or approvedby the Food and Drug Administration.BN Test performed by: [employer] [address] [id number] Kurt Hogue MD ID Date Data Source [id number] 06/14/2020 10:25:00 AM EDT [facility] Name Value Range Interpretation Code Description Data Gala rce(s) Supporting Document(s) PHOSPHOLIPIDS SERUM [facility] _PHOSPHOLIPIDS SERUM_Phospholipids, SerumReported: 06/16/2020 14:05 Status=F RESULT FLAG RANGE UNITS SC --Phospholipids, Serum 243 150-250 mg/dL BN 06/16/201405.rfl.COMPLETE.LCTRResults for this test are for research purposes only by the assay'smanufacturer. The performance characteristics of this product havenot been established. Results should not be used as a diagnosticprocedure without confirmation of the diagnosis by another medicallyestablished diagnostic product or procedure.BN Test performed by: [employer] [address] [id number] Kurt Hogue MD ID Date Data Source [id number] 06/14/2020 10:25:00 AM EDT [facility] Name Value Range Interpretation Code Description Data Gala rce(s) Supporting Document(s) COMPREHENSIVE CHEM PROFILE [facility] COMPREHENSIVE METABOLIC PANEL Sodium [Moles/volume] in Serum or Plasma 137 mEq/L 136 - 145 [facility] Potassium [Moles/volume] in Serum or Plasma 3.9 mEq/L 3.5 - 5.1 [facility] Chloride [Moles/volume] in Serum or Plasma 102 mEq/L 98 - 107 [facility] Carbon dioxide, total [Moles/volume] in Serum or Plasma 21.7 mEq /L 21.0 - 32.0 [facility] Glucose [Mass/volume] in Serum or Plasma 107 mg/dL 70 - 100 Above high normal [facility] Urea nitrogen [Mass/volume] in Serum or Plasma 8 mg/dL 7 - 18 [facility] CREATININE SERUM 0.94 mg/dL 0.70 - 1.30 [facility] AGE 64 yrs [facility] l HEIGHT NA [facility] eGFR NON-AFR AMR >60 [facility] eGFR AFR AMR >60 [facility] ital BUN/CREAT 9 6 - 25 [facility] Protein [Mass/volume] in Serum or Plasma 6.6 g/dL 6.0 - 8.3 [facility] Albumin [Mass/volume] in Serum or Plasma 3.0 g/dL 3.8 - 5.4 Below low normal [facility] GLOBULIN 3.6 g/dL 2.0 - 4.0 [facility] A/G RATIO 0.8 0.8 - 2.0 [facility] Calcium [Mass/volume] in Serum or Plasma 8.9 mg/dL 8.8 - 10.2 [facility] Bilirubin.total [Mass/volume] in Serum or Plasma 0.4 mg/dL 0.2 - 1.0 [facility] Bilirubin.direct [Mass/volume] in Serum or Plasma 0.1 mg/dL 0.0 - 0. 2 [facility] INDIRECT BILI 0.3 mg/dL 0.0 - 1.1 [facility] pital ALK PHOSPHATASE 108 U/L 40 - 129 [facility] ospital Aspartate aminotransferase [Enzymatic ac tivity/volume] in Serum or Plasma by With P-5'-P 20 IU/L 7 - 37 [facility] Alanine aminotransferase [Enzymatic acti vity/volume] in Serum or Plasma by With P-5'-P 21 IU/L 12 - 78 [facility] ANION GAP 13 7 - 15 [facility] l Estimated GFR referenc e range: >60ml/min/1.73m >18 years: Calculated using IDMS traceable Study Equation <18 years: Calculated using IDMS tracable Bedside Schartz Equation ID Date Data Source [id number] 06/14/2020 10:25:00 AM EDT [facility] Name Value Range Interpretation Code Description Data Gala rce(s) Supporting Document(s) CBC [facility] l COMPLETE BLOOD COUNT Leukocytes [#/volume] in Blood by Automated count 13.0 K/uL 4.0 - 10.0 Above high normal [facility] Erythrocytes [#/volume] in Blood by Automated count 3.53 M/uL 4.30 - 6.10 Below low normal [facility] Hemoglobin [Mass/volume] in Blood 13.2 g/dL 13.5 - 17.5 Below low no rmal [facility] Hematocrit [Volume Fraction] of Blood by Automated count 37.9 % 39.0 - 50.0 Below low normal [facility] Erythrocyte mean corpuscular volume [Entitic volume] b y Automated count 107.4 fL 80.0 - 96.0 Above high normal [facility] Erythrocyte mean corpuscular hemoglobin [Entitic mass] by Automated count 37.4 pg 26.0 - 34.0 Above high normal [facility] Erythrocyte mean corpuscular hemoglobin concentration [Mass/volume] by Automated count 34.8 g/dL 32.0 - 36.0 [facility] Erythrocyte distribution width [Ratio] by Automated count 15.9 % 11.6 - 14.8 Above high normal [facility] Platelets [#/volume] in Blood by Automated count 643 K/uL 150 - 450 Above upper panic limits [facility] INCREASED PLATELETS NOTED ON SMEAR CALLED TO: [facility] spital REP/VERIFIED 645 [facility] ital READ BACK YES [facility] l Platelet mean volume [Entitic volume] in Blood by Automated count 8.2 fL 7.1 - 10.4 [facility] Neutrophils [#/volume] in Blood by Automated count 7.90 K/uL 1.70 - 7.70 Above high normal [facility] Lymphocytes [#/volume] in Blood by Automated count 2.67 K/uL 1.50 - 6.00 [facility] Monocytes [#/volume] in Blood by Automated count 1.68 K/uL 0.00 - 1.00 Above high normal [facility] Eosinophils [#/volume] in Blood by Automated count 0.45 K/uL 0.00 - 0.30 Above high normal [facility] Basophils [#/volume] in Blood by Automated count 0.21 K/uL 0.00 - 0.10 Above high normal [facility] 0.08 Urinalysis macro (dipstick) panel - Urine 0.040 10^3/uL 0.000 - 0.012 Above high normal [facility] Neutrophils/100 leukocytes in Blood by Automated count 60.8 % 42. 2 - 75.2 [facility] Lymphocytes/100 leukocytes in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 mariya results) [facility] Monocytes # (AUTO) 0.2-1.3 Above high normal [facility] Eosinophils# (AUTO) 0.0-0.5 Above high normal [facility] Basophils # (AUTO) 0.0-0.1 Normal (applies to non-numer ic results) [facility] ID Date Data Source [id number] 05/30/2020 07:41:00 AM EDT [facility] Name Value Range Interpretation Code Description Data Gala rce(s) Supporting Document(s) Sodium 141 mmol/L 137-145 Normal (applies to non-numeric resul ts) [facility] Potassium 3.5-5.1 Normal (applies to non-numeric resul ts) [facility] Chloride 112 mmol/L 98-112 Normal (applies to non-numeric resul ts) [facility] Carbon Dioxide CO2 22.0-33.0 Normal (applies to non-numer ic results) [facility] Anion Gap 4.0-11.0 Normal (applies to non-numeric resul ts) [facility] BUN 6 mg/dL 9-20 Below low normal [facility] Creatinine 0.80-1.50 Below low normal [facility] GFR >60 Normal (applies to non-numeric results) [facility] Result based on MDRD formula. Glucose Level 82 mg/dL 74-99 Normal (applies to non-numeric re sults) [facility] The reference range is only applicable w hen fasting. Calcium-Uncorrected 8.4-10.2 Below low normal [facility] Corrected Calcium 8.4-10.2 Normal (applies to non-numeri c results) [facility] Bilirubin,Total 0.2-1.3 Normal (applies to non-numeric results) [facility] SGOT(AST) 34 U/L 17-59 Normal (applies to non-numeric resul ts) [facility] SGPT(ALT) 19 U/L 21-72 Below low normal [facility] Alkaline Phosphatase 116 U/L 38-126 Normal (applies to non-num mariya results) [facility] can increase Alkaline Phosp le vels up to 2 times the normal adult value. Normal values for children and adolescents are 2 to 3 times the normal adult value. Total Protein 6.3-8.2 Below low normal [facility] Albumin 3.5-5.0 Below low normal [facility] ID Date Data Source [id number] 05/30/2020 07:39:00 AM EDT [facility] Name Value Range Interpretation Code Description Data Gala rce(s) Supporting Document(s) PT 9.4-12.5 Above high normal [facility] INR Normal (applies to non-numeric results) [facility] The use of the INR is restricted to steven ents on stable oral anticoagulant. Therapeutic Range: 2.0-3.0 High Risk Values: 2.5-3.5 ID Date Data Source [id number] 05/29/2020 01:06:00 PM EDT [facility] Name Value Range Interpretation Code Description Data Gala rce(s) Supporting Document(s) White Blood Count 4.8-10.8 Normal (applies to non-numeri c results) [facility] Red Blood Count 4.35-6.08 Below low normal [facility] Hemoglobin 13.0-17.5 Below low normal [facility] Hematocrit 37.7-51.0 Below low normal [facility] Mean Corpuscular Volume 80-94 DH [facility] Delta: 114.7(u) on 05/28/20 Mean Corpuscular Hemoglobin 27.0-33.0 Above high normal [facility] Mean Corpuscular HGB Conc 32.0-36.0 Above high normal [facility] Red Cell Distribution Width 11.5-14.5 Above high normal [facility] Platelet Count 505 X10 3/uL 130-450 Above high normal [facility] Mean Platelet Volume 9.6-13.1 Below low normal [facility] ID Date Data Source [id number] 05/29/2020 07:04:00 AM EDT [facility] Name Value Range Interpretation Code Description Data Gala rce(s) Supporting Document(s) Sodium 141 mmol/L 137-145 Normal (applies to non-numeric resul ts) [facility] Potassium 3.5-5.1 Normal (applies to non-numeric resul ts) [facility] Chloride 111 mmol/L 98-112 Normal (applies to non-numeric resul ts) [facility] Carbon Dioxide CO2 22.0-33.0 Normal (applies to non-numer ic results) [facility] Anion Gap 4.0-11.0 Normal (applies to non-numeric resul ts) [facility] BUN 5 mg/dL 9-20 Below low normal [facility] Creatinine 0.80-1.50 Below low normal [facility] GFR >60 Normal (applies to non-numeric results) [facility] Result based on MDRD formula. Glucose Level 86 mg/dL 74-99 Normal (applies to non-numeric re sults) [facility] The reference range is only applicable w hen fasting. Calcium-Uncorrected 8.4-10.2 Below low normal [facility] Corrected Calcium 8.4-10.2 Normal (applies to non-numeri c results) [facility] ID Date Data Source [id number] 05/29/2020 06:52:00 AM EDT [facility] Name Value Range Interpretation Code Description Data Gala rce(s) Supporting Document(s) PT 9.4-12.5 Above high normal [facility] INR Normal (applies to non-numeric results) [facility] The use of the INR is restricted to steven ents on stable oral anticoagulant. Therapeutic Range: 2.0-3.0 High Risk Values: 2.5-3.5 ID Date Data Source [id number] 05/27/2020 02:43:00 PM EDT [facility] Name: ZAY SMITH [facility] Rec #: [id number] : 1955 Age/Sex: 64M Date of Service: 05/27/20 PHYSICIAN CHART Physician Documentation [facility] Name: Zay Amorromain Age: 64 yrs Sex: Male : 1955 Arrival Date: 05/27/2020 Time: 14:43 Bed 8 Private MD: Addis Mcdaniel E ED Physician Kiko Henry Disposition: 05/27 16:47 Attestation: I was present, saw, evaluated and participated jam2 in the care with the Advanced Practice Provider. I agree with HPI as documented. My personal exam reveals findings consistent with those documented. I have reviewed relevant laboratory values and/or imaging studies. HPI: 16:28 This 64 yrs old Male presents to ER via Walk-In zrw1 with complaints of Leg Swelling. 16:28 This patient is a 64-year-old male with history of chronic zrw1 back pain, DVT, PE, CAD, anxiety presenting to the emergency department with concerns of a left lower leg DVT. The patient has had 2 weeks of left lower leg pain with swelling. His primary care provider ordered an outpatient ultrasound which was completed today and demonstrated "DVT identified in the entire left leg. Some enlarged lymph nodes in the left groin. Subcutaneous edema noted in the thigh." His PCP called him with the results and told him to report to the emergency department due to him developing a DVT while already on Eliquis. Patient has a remote history of pulmonary embolism and DVTs. His last clot was 4 years ago in his right leg. He has been chronically anticoagulated since that point. He did have a decrease in the blood thinner dose 1 year ago. He currently takes 5 mg daily divided between 2 doses. He denies any chest pain, shortness of breath, cough, abdominal pain, fever.. Historical: - Allergies: Oxycodone HCl (nausea, stomach discomforts); - Home Meds: 1. Eliquis 5 mg Oral tab 1 tab 2 times per day 2. Nitrostat 0.4 mg SL subl every 5 minutes x 3, PRN 3. pantoprazole 40 mg Oral chew 1 tab once daily - PMHx: ANXIETY; BACK PAIN; Blood Clots (leg and lungs); CAD - coronary artery disease; GERD; HTN - hypertension; Hyperlipidemia; LYMPHOMA; AK; narcotic OD accidental; 12/30; SEIZURES; testicular cancer; - PSHx: A ppendectomy; Hip replacement- Left; spleenectomy; testical - right; - Med Reconciliation:: Yellow Alert: The patient's home medication list is partly complete. However, additional information is required to complete list. Medications reviewed, completed by nurse verbally from patient/family. - Immunization history: Flu vaccine is not up to date. - Advance directive: Yes, Patient/patient's technical support representative states that a copy of his/her advanced directive/health care proxy document on file at [facility]. - Family History:: mother is healthy, Father has/had COPD, has a history of cancer, is . - Social History: Smoking status (Tobacco): Pt states smokes cigars, No barriers to communication noted, The patient speaks fluent [place]. ROS: 15:30 ENT: Negative for injury, pain, and discharge. zrw1 Constitutional: Negative for body aches, fever, chills, fatigue. Cardiovascular: Negative for chest pain, palpitations, edema. Respiratory: Negative for cough, shortness of breath, dyspnea on exertion, wheezing. Abdomen/GI: Negative for abdominal pain, nausea, vomiting, diarrhea, constipation. MS/extremity: See HPI. Skin: See HPI. Exam: 15:30 Head/Face: Normocephalic, atraumatic. ENT: Nares patent. zrw1 No nasal discharge, no septal abnormalities noted. External auditory canals are clear. Oropharynx with no redness, swelling, or masses, exudates, or evidence of obstruction, uvula midline. Mucous membranes moist. Chest/axilla: Normal chest wall appearance and motion. Nontender with no deformity. No lesions are appreciated. 15:30 Constitutional: The patient appears to have no acute d istress, appears alert, appears to be awake. 15:30 Cardiovascular: Rate: normal, Rhythm: regular, Pulses: Pulses are 2+ in right radial artery, right dorsalis pedis artery, left radial artery and left dorsalis pedis artery. Heart sounds: normal, normal S1and S2. 15:30 Respiratory: the patient does not display signs of respiratory distress, Respirations: normal, Breath sounds: are normal, clear throughout. 15:30 Abdomen/GI: Inspection: abdomen appears normal, Bowel sounds: normal, active, all quadrants, Palpation: abdomen is soft and non-tender, in all quadrants. 15:30 Musculoskeletal/extremity: DVT Exam: pain, swelling, tenderness, of the Left leg, erythema, Circulation intact Via Doppler. 15:30 Skin: Erythema of the left leg. Vital Signs: 15:10 BP 137 / 94; Pulse 109; Resp 16; Temp 97.6; Pulse Ox 99% ; sj 15:18 Weight 78.02 kg; Height 5 ft. 6 in. (167.64 cm); sj 16:19 BP 115 / 75; Pulse 96; Resp 18; Temp 99.3; Pulse Ox 99% on edv R/A; Pain 7/10; 16:50 BP 129 / 85; Pulse 95; Resp 18; Temp 99.1; Pulse Ox 98% on edv R/A; 17:23 BP 134 / 81; Pulse 96; Resp 16; Pulse Ox 97% ; jmg 15:18 Body Mass Index 27.76 (78.02 kg, 167.64 cm) sj MDM: 15:05 Patient medically screened. zrw1 17:00 Case presented to: Dr. Kiko Henry. Data reviewed: zrw1 vital signs, nurses notes, diagnostic data from outside facility, old medical records, lab test result(s). ED course: This patient is a 64-year-old male with history of blood clots (DVT and PE) with the most recent DVT occurring 4 years ago and the patient is chronically anticoagulated with Eliquis that presented to the emergency department with concerns of left leg swelling for 2 weeks. Patient was referred by his primary care provider who performed an outpatient ultrasound which demonstrated diffuse DVT to the left leg. This is concerning given the patient is curre ntly anticoagulated with 5 mg Eliquis daily. She recommended admitting the patient for Lovenox bridge therapy and switching the patient to Coumadin. Patient is a daily cigar smoker and has a very remote history of testicular cancer at the age of 15. Physical exam demonstrates a hemodynamically stable patient that is nontoxic in appearance. The left leg is erythematous, swollen, tender up to the level of the mid thigh. Distal pulses confirmed via Doppler. Patient does have sensation intact. Labs largely reassuring. Patient will be admitted to observation.. 05/27 15:18 Order name: Cbc With Auto Differential; Complete Time: 16:w05/27 15:18 Order name: COMMET; Complete Time: 16: [facility]05/27 15:18 Order name: PT; Complete Time: 16: [facility]05/27 15:18 Order n barb: PTT; Complete Time: 16: [facility]05/27 15:27 Order name: Saline Lock; Complete Time: 15:27 [facility] 05/27 16:41 Order name: Assign to Observation EDMS Dispensed Medications: 15:34 Drug: Ofirmev 1000 mg [Ofirmev 1,000 mg/100 mL (10 mg/mL) sj intravenous solution] Route: IVPB; Site: right antecubital; 15:48 Follow up: IV Status: Completed infusion; IV Intake: 100ml edv 16:56 Follow up: Response: Pain is unchanged, physician notified edv 16:50 Drug: Lovenox 78.02 mg [Lovenox 100 mg/mL subcutaneous edv syringe (0.78 mL)] Route: Sub-Q; Site: left lower abdomen; 16:57 Follow up: Response: Medication administered at discharge. edv 17:07 Drug: morphine 4 mg [morphine 4 mg/mL injection syringe (1 edv mL)] Route: IVP; Rate: 1 mg/min; Site: right antecubital; 17:13 Follow up: Response: Pain is decreased awr Disposition Summary: 05/27/20 16:40 Hospitalization Ordered Hospitalization Status: Observation [facility] Provider: Nostrom, Kurt zrw1 Location: Observation zrw1 Condition: Fair zrw1 Room Assignment: [id number](05/27/20 16:44) hmp Diagnosis - DVT of the left leg zrw1 Additional Information - Patient Status Observation. zrw1 Forms: - Medication Reconciliation zrw1 - SBAR zrw1 Signatures: Dispatcher [employer] EDGene Kaye RN RN edv Gala Noe, Reg Reg hmp Shayy Flores RN RN Kiko Kang MD MD jam2 Reed, Anthony, RN RN awr Ousmane Yan PA PA zrw1 Corrections: (The following items were deleted from the chart) 16:44 16:40 zrw1 hmp Name Value Range Interpretation Code Description Data Gala rce(s) Supporting Document(s) ID Date Data Source [id number] 05/27/2020 02:43:00 PM EDT [facility] Name: ZAY SMITH [facility] Rec #: [id number] : 1955 Age/Sex: 64M Date of Service: 05/27/20 DISPOSITION SUMMARY Discharge Summary [facility] Name:Zay [facility] Emergency Department Age:64 yrs Sex:Male :1955 Arrival:05/27/2020 14:43 Departure Date05/27/2020 Departure Time17:33 Private MD:Adids Mcdaniel MD Outcome: Hospitalize Location: Observation Condition: Fair Chief Complaint: Leg Swelling Diagnosis: - DVT of the left leg Prescriptions: Custom Notes: Attending Physician: Kiko Henry MD Private MD: Addis Mcdaniel MD Mid Level Provider: Ousmane Yan PA Hospitalizing Provider: Kurt Jones RNP Orders: Cbc With Auto Differential, COMMET, PT, PTT, Ofirmev, Lovenox, Saline Lock, Assign to Observation, morphine Discharge Instruction: Medication Reconciliation, SBAR Name Value Range Interpretation Code Description Data Gala rce(s) Supporting Document(s) ID Date Data Source [id number] 05/27/2020 02:43:00 PM EDT [facility] Name: ZAY SMITH [facility] Rec #: [id number] : 1955 Age/Sex: 64M Date of Service: 05/27/20 NURSE CHART Nurse's Notes [facility] Name: Zay Smith Age: 64 yrs Sex: Male : 1955 Arrival Date: 05/27/2020 Time: 14:43 Bed 8 Private MD: Addis Mcdaniel E Diagnosis: DVT of the left leg Inbound Details: Referred by: [phone] Arriving by: Walk-In ETA: Who will see patient? ED Physician Notes: DVT on ultrasound today. Already on eliquis. Hx of DVTs Notify referring provider: Do not notify Presentation: 05/27 15:07 Transition of care: patient was not received from another setting of care. Presenting complaint: Patient states - He has right lower leg swelling and pain for the past two weeks. He has history of blood clots and had DVT on ultrasound. He is on eliquis. Denies chest pain or shortness of breath. Have you travelled in the last 30 days? No. Have you had contact with an individual with a confirmed diagnosis of Ebola or COVID- 19? No. 15:07 Method Of Arrival: Walk-In 15:07 Acuity: Urgent - 3 Triage Assessment: 15:09 Patient states the pain is currently a . 16:51 Suicide Screening: Have you had thoughts of harming edv yourself or others? No. The patient appears to have some mild discomfort, The patient is behaving appropriately according to age, cooperative. Historical: - Allergies: Oxycodone HCl (nausea, stomach discomforts); - Home Meds: 1. Eliquis 5 mg Oral tab 1 tab 2 times per day 2. Nitrostat 0.4 mg SL subl every 5 minutes x 3, PRN 3. pantoprazole 40 mg Oral chew 1 tab once daily - PMHx: ANXIETY; BACK PAIN; Blood Clots (leg and lungs); CAD - coronary artery disease; GERD; HTN - hypertension; Hyperlipidemia; LYMPHOMA; AK; narcotic OD accidental; 12/30; SEIZURES; testicular cancer; - PSHx: Appendectomy; Hip replacement- Left; spleenectomy; testical - right; - Med Reconciliation:: Yellow Alert: The patient's home medication list is partly complete. However, additional information is required to complete list. Medications reviewed, completed by nurse verbally from patient/family. - Immunization history: Flu vaccine is not up to date. - Advance directive: Yes, Patient/patient's technical support representative states that a copy of his/her advanced directive/health care proxy document on file at [facility]. - Family History:: mother is healthy, Father has/had COPD, has a history of cancer, is . - Social History: Smoking status (Tobacco): Pt states smokes cigars, No barriers to communication noted, The patient speaks fluent [place]. Screenin:37 AUDIT 1. How often do you have a drink containing alcohol? sj 4 or more times a week (4 points) 2. How many standard drinks containing alcohol do you have on a typical day when drinking? 5 or 6 (2 points) 3. How often do you have five or more drinks on one occasion? Daily or almost daily (4 points) 4. How often during the last year have you found that you were not able to stop drinking once you had started? Never (0 points) 5. How often during the last year have you needed a first drink in the morning to get yourself going after a heavy drinking session? Never (0 points) 6. How often during the last year have you had a feeling of guilt or remorse after drinking? Never (0 points) 7. How often during the last year have you been unable to remember what happened the night before because you had been drinking? Never (0 points) 8. How often during the last year have you been un able to remember what happened the night before because you had been drinking? Never (0 points) 9. Have you or someone else been injured as a result of your drinking? No (0 points) 10. Has a relative, a friend, a doctor or another health worker been concerned about your drinking or suggested you cut down? No (0 points). Drug Abuse Screening Test: 1. Have you used drugs other than those required for medical reasons? No (0 points), screen is complete, no risk. Abuse screen: Denies threats or abuse. Nutritional screening: No deficits noted. Patient has no identifiable fall risk (Daly Scale: 0 points). Assessment: 15:36 Patient states the pain is currently a 6 / 10 The patient sj complains of pain in left calf. The quality of the pain is described as aching, burning, The pain is described as continuous. Musculoskeletal: Swelling present in left calf and dorsum of left foot. Pulses present in left posterior tibial artery and left dorsalis pedis artery, by doppler. Vital Signs: 15:10 BP 137 / 94; Pulse 109; Resp 16; Temp 97.6; Pulse Ox 99% ; sj 15:18 Weight 78.02 kg; Height 5 ft. 6 in. (167.64 cm); sj 16:19 BP 115 / 75; Pulse 96; Resp 18; Temp 99.3; Pulse Ox 99% on edv R/A; Pain 7/10; 16:50 BP 129 / 85; Pulse 95; Resp 18; Temp 99.1; Pulse Ox 98% on edv R/A; 17:23 BP 134 / 81; Pulse 96; Resp 16; Pulse Ox 97% ; jmg 15:18 Body Mass Index 27.76 (78.02 kg, 167.64 cm) ED Course: 14:34 Addis Mcdaniel MD is Referring Provider. zrw1 14:44 Patient arrived in ED. EDMS 15:05 Gene Crane, RN is Primary Nurse. nnq 15:05 Ousmane Yan PA is PHCP. zrw1 15:05 Kiko Henry MD is Attending Physician. zrw1 15:07 Referring Provider role handed off by Addis Mcdaniel MDsj 15:07 Addis Mcdaniel MD is Private Physician. 15:09 Triage completed. 15:11 Arm band placed on right wrist. 15:26 Labs drawn by ED staff. Inserted saline lock: 20 gauge in right antecubital area. 16:39 Kurt Jones RNP is Hospitalizing Provider. zrw1 16:51 Arm band placed on edv 16:51 No procedures ordered. edv 16:52 Radiology: None performed. edv Administered Medications: 15:34 Drug: Ofirmev 1000 mg [Ofirmev 1,000 mg/100 mL (10 mg/mL) intravenous solution] Route: IVPB; Site: right antecubital; 15:48 Follow up: IV Status: Completed infusion; IV Intake: 100ml edv 16:56 Follow up: Response: Pain is unchanged, physician notified edv 16:50 Drug: Lovenox 78.02 mg [Lovenox 100 mg/mL subcutaneous edv syringe (0.78 mL)] Route: Sub-Q; Site: left lower abdomen; 16:57 Follow up: Response: Medication administered at discharge. edv 17:07 Drug: morphine 4 mg [morphine 4 mg/mL injection syringe (1 edv mL)] Route: IVP; Rate: 1 mg/min; Site: right antecubital; 17:13 Follow up: Response: Pain is decreased awr Intake: 15:48 IV: 100ml; Total: 100ml. edv Outcome: 16:40 Decision to Hospitalize by Provider. zrw1 17:19 Reassessment: Patient states feeling better. Patient states awr symptoms have improved. 17:19 Patient verbalized understanding of disposition instructions. Patient has no functional deficits. 17:19 Patient admitted to the observation unit. 17:19 Condition: stable Condition: improved 17:19 Not Applicable. 17:19 Vitals are Complete in accordance with Emergency Department Policy. 17:33 Patient left the ED. edv Signatures: Dispatcher [employer] Gene Mckeon RN RN edv Jensen, Sandra, RN RN sj Reed, Anthony, RN RN awr Juanita Goldman NA NA jmg Quicke, Natasha, RN RN nnq Ousmane Yan PA PA zrw1 Name Value Range Interpretation Code Description Data [facility] rce(s) Supporting Document(s) ID Date Data Source [id number] 05/29/2020 05:19:00 PM EDT [facility] Name Value Range Interpretation Code Description [facility](s) White Blood Count 4.8-10.8 Normal (applies to non-numeri c results) [facility] Red Blood Count 4.35-6.08 Below low normal [facility] Hemoglobin 13.0-17.5 Below low normal [facility] Hematocrit 37.7-51.0 Below low normal [facility] Mean Corpuscular Volume 80-94 [facility] Delta: 105.7 on 05/27/20-1728 Mean Corpuscular Hemoglobin 27.0-33.0 Above high normal [facility] Mean Corpuscular HGB Conc 32.0-36.0 Normal (applies to no n-numeric results) [facility] Red Cell Distribution Width 11.5-14.5 Above high normal [facility] Platelet Count 486 X10 3/uL 130-450 Above high normal [facility] Mean Platelet Volume 9.6-13.1 Below low normal [facility] ID Date Data Source [id number] 05/29/2020 11:33:00 AM EDT [facility] Name Value Range Interpretation Code Description Data Gala rce(s) Supporting Document(s) PT 9.4-12.5 Above high normal [facility] INR Normal (applies to non-numeric results) [facility] The use of the INR is restricted to steven ents on stable oral anticoagulant. Therapeutic Range: 2.0-3.0 High Risk Values: 2.5-3.5 ID Date Data Source [id number] 05/27/2020 08:10:00 PM EDT [facility] Name Value Range Interpretation Code Description Data Gala rce(s) Supporting Document(s) White Blood Count 4.8-10.8 Above high normal [facility] Red Blood Count 4.35-6.08 Below low normal [facility] Hemoglobin 13.0-17.5 Below low normal [facility] Hematocrit 37.7-51.0 Below low normal [facility] Mean Corpuscular Volume 80-94 Above high normal [facility] Mean Corpuscular Hemoglobin 27.0-33.0 Above high normal [facility] Mean Corpuscular HGB Conc 32.0-36.0 Above high normal [facility] Red Cell Distribution Width 11.5-14.5 Above high normal [facility] Platelet Count 512 X10 3/uL 130-450 Above high normal [facility] Mean Platelet Volume 9.6-13.1 Below low normal [facility] Total Cells Counted 100 0-100 Normal (applies to non-nume adrianna results) [facility] Neutrophils % (manual) 72 % 40-75 Normal (applies to non-n umeric results) [facility] Lymphocytes % (manual) 16 % 21-46 Below low normal [facility] Monocytes % (manual) 3 % 5-12 Below low normal [facility] Eosinophils % (manual) 5 % 1-5 Normal (applies to non-n umeric results) [facility] Basophils % (manual) 0 % 0-1 Normal (applies to non-num mariya results) [facility] Band Neutrophils% (manual) 0 % 0-5 Normal (applies to n on-numeric results) [facility] Atypical Lymph% (manual) 4 % 0-5 Normal (applies to non -numeric results) [facility] Neutrophils # (Manual) 1.5-8.1 Above high normal [facility] Lymphocytes # (Manual) 1.0-3.1 Normal (applies to non-n umeric results) [facility] Monocytes # (Manual) 0.2-1.3 Normal (applies to non-num mariya results) [facility] Eosinophils# (Manual) 0.0-0.5 Above high normal [facility] Basophils # (Manual) 0.0-0.1 Normal (applies to non-num mariya results) [facility] Platelet Estimate Adequate Normal (applies to non-numeri c results) [facility] Estimate agrees with automated count Slide Reviewed By Normal (applies to non-numeri c results) [facility] Slide has been reviewed and findings con firmed by a technologist/survey data technician. ID Date Data Source [id number] 05/27/2020 04:05:00 PM EDT [facility] Name Value Range Interpretation Code Description Data Gala rce(s) Supporting Document(s) Sodium 140 mmol/L 137-145 Normal (applies to non-numeric resul ts) [facility] Potassium 3.5-5.1 Normal (applies to non-numeric resul ts) [facility] Chloride 110 mmol/L 98-112 Normal (applies to non-numeric resul ts) [facility] Carbon Dioxide CO2 22.0-33.0 Normal (applies to non-numer ic results) [facility] Anion Gap 4.0-11.0 Normal (applies to non-numeric resul ts) [facility] BUN 6 mg/dL 9-20 Below low normal [facility] Creatinine 0.80-1.50 Below low normal [facility] GFR >60 Normal (applies to non-numeric results) [facility] Result based on MDRD formula. Glucose Level 85 mg/dL 74-99 Normal (applies to non-numeric re sults) [facility] The reference range is only applicable w hen fasting. Calcium-Uncorrected 8.4-10.2 Normal (applies to non-nume adrianna results) [facility] Corrected Calcium 8.4-10.2 Normal (applies to non-numeri c results) [facility] Bilirubin,Total 0.2-1.3 Normal (applies to non-numeric results) [facility] SGOT(AST) 32 U/L 17-59 Normal (applies to non-numeric resul ts) [facility] SGPT(ALT) 19 U/L 21-72 Below low normal [facility] Alkaline Phosphatase 178 U/L 38-126 Above high normal [facility] can increase Alkaline Phosp le vels up to 2 times the normal adult value. Normal values for children and adolescents are 2 to 3 times the normal adult value. Total Protein 6.3-8.2 Normal (applies to non-numeric re sults) [facility] Albumin 3.5-5.0 Below low normal [facility] ID Date Data Source [id number] 05/27/2020 03:57:00 PM EDT [facility] Name Value Range Interpretation Code Description Data Gala rce(s) Supporting Document(s) PT 9.4-12.5 Normal (applies to non-numeric results) [facility] INR Normal (applies to non-numeric results) [facility] The use of the INR is restricted to steven ents on stable oral anticoagulant. Therapeutic Range: 2.0-3.0 High Risk Values: 2.5-3.5 ID Date Data Source [id number] 05/27/2020 03:57:00 PM EDT [facility] Name Value Range Interpretation Code Description Data Gala rce(s) Supporting Document(s) PTT 25.1-36.5 Normal (applies to non-numeric resul ts) [facility] ID Date Data Source [id number] 05/27/2020 03:44:00 PM EDT [facility] Name Value Range Interpretation Code Description Data Gala rce(s) Supporting Document(s) White Blood Count 4.8-10.8 Above high normal [facility] Red Blood Count 4.35-6.08 Below low normal [facility] Hemoglobin 13.0-17.5 Normal (applies to non-numeric resul ts) [facility] Hematocrit 37.7-51.0 Normal (applies to non-numeric resul ts) [facility] Mean Corpuscular Volume 80-94 Above high normal [facility] Mean Corpuscular Hemoglobin 27.0-33.0 Above high normal [facility] Mean Corpuscular HGB Conc 32.0-36.0 Normal (applies to no n-numeric results) [facility] Red Cell Distribution Width 11.5-14.5 Above high normal [facility] Platelet Count 553 X10 3/uL 130-450 Above high normal [facility] Mean Platelet Volume 9.6-13.1 Below low normal [facility] Imm Grans% (AUTO) 1 % 0-2 Normal (applies to non-numeri c results) [facility] Neutrophils % (AUTO) 62 % 40-75 Normal (applies to non-num mariya results) [facility] Lymphocytes % (AUTO) 20 % 21-46 Below low normal [facility] Monocytes % (AUTO) 11 % 5-12 Normal (applies to non-numer ic results) [facility] Eosinophils % (AUTO) 5 % 1-5 Normal (applies to non-num mariya results) [facility] Basophils % (AUTO) 2 % 0-1 Above high normal [facility] Imm Grans# (AUTO) 0.0-0.5 Normal (applies to non-numeri c results) [facility] Neutrophils # (AUTO) 1.5-8.1 Above high normal [facility] Lymphocytes # (AUTO) 1.0-3.1 Normal (applies to non-num mariya results) [facility] Monocytes # (AUTO) 0.2-1.3 Above high normal [facility] Eosinophils# (AUTO) 0.0-0.5 Above high normal [facility] Basophils # (AUTO) 0.0-0.1 Above high normal [facility] ID Date Data Source [id number] 05/28/2020 08:46:00 AM EDT [facility] Hospital Name: ZuleymaMICHELLELILIA OSWALDQUEENIE Sarkar : 7 Age/Sex: 64M Ordering Provider: Addis Mcdaniel MD Med Rec #: [id number] Reg Status: DEP REF Room #: Date of Service: 05/27/20 Report Number: [id number] cc:Addis Mcdaniel MD Send Report To: [id number] US/US Duplex Lower Ext Veins Lt Reason for exam: LEG SWELLING Technique: Ultrasound imaging performed using color flow and spectral Doppler interrogation. FINDINGS: There is DVT identified from the left common femoral vein through the left posterior tibial vein. There are enlarged nodes identified in the leftgroin with the largest one measuring 3.6 x 1.2 cm. IMPRESSION: DVT identified in the entire left leg. Some enlarged lymph nodes in the left groin. Subcutaneous edema noted in the thigh. REPORT SIGNATURE ON FILE Reported By: Luz Engle MD <Electronically signed by Keith Engle MD> 05/28/20 0956 Dictation Date/Time: 05/27/20 1635 Transcribed Date/Time: 05/28/20 0846 Tip Fixer: MANDEEP Name Value Range Interpretation Code Description Data Gala rce(s) Supporting Document(s) ID Date Data Source [id number] 05/28/2020 05:40:00 AM EDT [facility] Name: ZAY SMITH : 7 Age/Sex: 64M Ordering Provider: Addis Mcdaniel MD Med Rec #: [id number] Reg Status: DEP REF Room #: Date of Service: 05/27/20 Report Number: [id number] cc:Addis Mcdaniel MD Send Report To: [id number] XRP/XR Leg Tibia Fibula Lt 2 views Reason for exam: LEG SWELLING Comparison: 01/15/18 FINDINGS: There has been further remodeling at the fractures of the proximal shafts of the tibia and fibula since the study in December 2017. Minimal residual deformity is present. No residual fracture line is identified. There is no evidence of acute fracture or bone destruction. There is a small amount of calcification in the hyaline cartilage at the knee. The knee joint and ankle mortise are otherwise maintained. There may be mild soft tissue swelling. IMPRESSION: Healed fractures of the proximal shafts of the tibia and fibula. Chondrocalcinosis at the knee. Mild soft tissue swelling. Fluoroscopy time in seconds: 0 Number of Exposures: Time Portable Image Performed: Contrast Agent in ml: Method of Administration: REPORT SIGNATURE ON FILE Reported By: Klaus Catalan MD <Electronically signed by Klaus Catalan MD> 05/31/20 1128 Dictation Date/Time: 05/27/20 1329 Transcribed Date/Time: 05/28/20 0540 Tip Fixer: JUDE Name Value Range Interpretation Code Description Data Gala rce(s) Supporting Document(s) Procedure Social History Code Duration Value Status Description Data Source(s ) Smoking 08/30/2020 12:00:00 AM EST Former Smoker completed Former Smoker eCW1 ([facility]) Smoking 07/12/2020 12:00:00 AM EST Former Smoker completed Former Smoker eCW1 ([facility]) Vital Signs ID Date Data Source UNK Name Value Range Interpretation Code Description Data Source(s) Body mass index (BMI) [Ratio] 26.63 kg/m2 26.63 kg/m2 [facility] Systolic blood pressure 137 mm[Hg] 137 mm[Hg] [facility] Diastolic blood pressure 64 mm[Hg] 64 mm[Hg] [facility] Body surface area Derived from formula 1.91 m2 1.91 m2 [facility] Body height 170.1800 cm 170.1800 cm [facility] Oxygen saturation in Arterial blood by Pulse oximetry 96 % 96 % [facility] Heart rate 77.0 /min 77.0 /min [facility] Respiratory rate 18 /min 18 /min [facility] Body temperature 36.6 [place] 36.6 Brook [facility] Body weight 77.11 kg 77.11 kg [facility] Systolic blood pressure 107 mm[Hg] 107 mm[Hg] [facility] Diastolic blood pressure 70 mm[Hg] 70 mm[Hg] [facility] Body surface area Derived from formula 1.90 m2 1.90 m2 [facility] Body height 170.1800 cm 170.1800 cm [facility] Oxygen saturation in Arterial blood by Pulse oximetry 99 % 99 % [facility] Heart rate 72.0 /min 72.0 /min [facility] Respiratory rate 18 /min 18 /min [facility] Body temperature 37.3 [place] 37.3 Brook [facility] Body weight 76.20 kg 76.20 kg [facility] Body mass index (BMI) [Ratio] 26.31 kg/m2 26.31 kg/m2 [facility] Systolic blood pressure 115 mm[Hg] 115 mm[Hg] [facility] Diastolic blood pressure 78 mm[Hg] 78 mm[Hg] [facility] Oxygen saturation in Arterial blood by Pulse oximetry 97 % 97 % [facility] Heart rate 101.0 /min 101.0 /min [facility] Respiratory rate 16 /min 16 /min [facility] Body temperature 36.3 [place] 36.3 Brook [facility] Heart rate 108 /min 108 /min eCW1 ([facility] Respiratory rate 18 /min 18 /min eCW1 ([facility] Body height 66 [in_i] 66 [in_i] eCW1 ([facility] Body weight 169 [lb_av] 169 [lb_av] eCW1 ([facility]) Body temperature 99.6 [degF] 99.6 [degF] eCW1 ( [facility] Body mass index (BMI) [Ratio] 27.27 kg/m2 27.27 kg/m2 eCW1 ([facility]) Systolic blood pressure 114 mm[Hg] 114 mm[Hg] e CW1 ([facility]) Diastolic blood pressure 86 mm[Hg] 86 mm[Hg] eCW1 ([facility]) Body height 68 [in_i] 68 [in_i] eCW1 ([facility]) Body weight 177 [lb_av] 177 [lb_av] eCW1 ([facility]) Body mass index (BMI) [Ratio] 26.91 kg/m2 26.91 kg/m2 eCW1 ([facility]) Heart rate 112 /min 112 /min eCW1 ([facility]) Oxygen saturation in Arterial blood by Pulse oximetry 98 % 98 % eCW1 ([facility]) Systolic blood pressure 122 mm[Hg] 122 mm[Hg] e CW1 ([facility]) Diastolic blood pressure 84 mm[Hg] 84 mm[Hg] eCW1 ([facility]) ID Date Data Source [id number] 07/07/2021 05:41:00 AM [facility] Name Value Range Interpretation Code Description Data Source(s) Weight (Calculated Kilograms) 76.71 76.71 [facility] Height (Calculated Centimeters) 167.64 167. 64 [facility] Body Mass Index (BMI) 27.3 27.3 [facility] ID Date Data Source [id number] 07/11/2021 08:13:00 AM [facility] Value Range Interpretation Code Description Data Source(s) Weight (Calculated Kilograms) 76.71 76.71 [facility] Height (Calculated Centimeters) 167.64 167. 64 [facility] Body Mass Index (BMI) 27.3 27.3 [facility] ID Date Data Source [id number] 06/16/2021 07:51:00 AM EDT [facility] Name Value Range Interpretation Code Description Data Source(s) Weight (Calculated Kilograms) 76.71 76.71 [facility] Height (Calculated Centimeters) 167.64 167. 64 [facility] Body Mass Index (BMI) 27.3 27.3 [facility] ID Date Data Source [id number] 05/26/2021 08:23:00 AM EDT [facility] Name Value Range Interpretation Code Description Data Source(s) Weight (Calculated Kilograms) 76.71 76.71 [facility] Height (Calculated Centimeters) 167.64 167. 64 [facility] Body Mass Index (BMI) 27.3 27.3 [facility] Weight (Calculated Kilograms) 76.71 76.71 [facility] Height (Calculated Centimeters) 167.64 167. 64 [facility] Body Mass Index (BMI) 27.3 27.3 [facility] ID Date Data Source [id number] 06/01/2021 10:31:00 AM EDT [facility] Name Value Range Interpretation Code Description Data Source(s) Weight (Calculated Kilograms) 76.71 76.71 [facility] Height (Calculated Centimeters) 167.64 167. 64 [facility] Body Mass Index (BMI) 27.3 27.3 [facility] Weight (Calculated Kilograms) 76.71 76.71 [facility] Height (Calculated Centimeters) 167.64 167. 64 [facility] Body Mass Index (BMI) 27.3 27.3 [facility] ID Date Data Source [id number] 05/23/2021 10:39:00 AM EDT [facility] Name Value Range Interpretation Code Description Data Source(s) Weight (Calculated Kilograms) 76.71 76.71 [facility] Height (Calculated Centimeters) 167.64 167. 64 [facility] Body Mass Index (BMI) 27.3 27.3 [facility] ID Date Data Source [id number] 05/10/2021 11:54:00 AM EDT [facility] Name Value Range Interpretation Code Description Data Source(s) Weight (Calculated Kilograms) 76.71 76.71 [facility] Height (Calculated Centimeters) 167.64 167. 64 [facility] Body Mass Index (BMI) 27.3 27.3 [facility] ID Date Data Source [id number] 04/16/2021 08:28:00 AM EDT [facility] Name Value Range Interpretation Code Description Data Source(s) Weight (Calculated Kilograms) 76.71 76.71 [facility] Height (Calculated Centimeters) 167.64 167. 64 [facility] Body Mass Index (BMI) 27.3 27.3 [facility] Weight (Calculated Kilograms) 76.71 76.71 [facility] Height (Calculated Centimeters) 167.64 167. 64 [facility] Body Mass Index (BMI) 27.3 27.3 [facility] ID Date Data Source [id number] 04/18/2021 08:03:00 AM [facility] Name Value Range Interpretation Code Description Data Source(s) Weight (Calculated Kilograms) 76.71 76.71 [facility] Height (Calculated Centimeters) 167.64 167. 64 [facility] Body Mass Index (BMI) 27.3 27.3 [facility] ID Date Data Source [id number] 04/11/2021 12:36:00 PM T [facility] Name Value Range Interpretation Code Description Data Source(s) Weight (Calculated Kilograms) 76.71 76.71 [facility] Height (Calculated Centimeters) 167.64 167. 64 [facility] Body Mass Index (BMI) 27.3 27.3 [facility] ID Date Data Source [id number] 04/04/2021 12:58:00 PM [facility] Name Value Range Interpretation Code Description Data Source(s) Weight (Calculated Kilograms) 76.71 76.71 [facility] Height (Calculated Centimeters) 167.64 167. 64 [facility] Body Mass Index (BMI) 27.3 27.3 [facility] ID Date Data Source [id number] 04/04/2021 12:57:00 PM [facility] Name Value Range Interpretation Code Description Data Source(s) Weight (Calculated Kilograms) 76.71 76.71 [facility] Height (Calculated Centimeters) 167.64 167. 64 [facility] Body Mass Index (BMI) 27.3 27.3 [facility] ID Date Data Source [id number] 02/03/2021 08:36:[address] [facility] Name Value Range Interpretation Code Description Data Source(s) Weight (Calculated Kilograms) 76.71 76.71 [facility] Height (Calculated Centimeters) 167.64 167. 64 [facility] Body Mass Index (BMI) 27.3 27.3 [facility] ID Date Data Source [id number] 03/09/2021 11:26:[address] [facility] Name Value Range Interpretation Code Description Data Source(s) Weight (Calculated Kilograms) 76.71 76.71 [facility] Height (Calculated Centimeters) 167.64 167. 64 [facility] Body Mass Index (BMI) 27.3 27.3 [facility] ID Date Data Source [id number] 01/20/2021 12:30:00 AM [facility] Name Value Range Interpretation Code Description Data Source(s) Weight (Calculated Kilograms) 76.71 76.71 [facility] Height (Calculated Centimeters) 167.64 167. 64 [facility] Body Mass Index (BMI) 27.3 27.3 [facility] ID Date Data Source [id number] 01/19/2021 12:54:00 AM [facility] Name Value Range Interpretation Code Description Data Source(s) Weight (Calculated Kilograms) 76.71 76.71 [facility] Height (Calculated Centimeters) 167.64 167. 64 [facility] Body Mass Index (BMI) 27.3 27.3 [facility] ID Date Data Source [id number] 05/02/2021 03:42:00 PM [facility] Name Value Range Interpretation Code Description Data Source(s) Weight (Calculated Kilograms) 76.71 76.71 [facility] Height (Calculated Centimeters) 167.64 167. 64 [facility] Body Mass Index (BMI) 27.3 27.3 [facility] ID Date Data Source [id number] 12/14/2020 12:22:00 AM [facility] Name Value Range Interpretation Code Description Data Source(s) Weight (Calculated Kilograms) 76.71 76.71 [facility] Height (Calculated Centimeters) 167.64 167. 64 [facility] Body Mass Index (BMI) 27.3 27.3 [facility] ID Date Data Source [id number] 11/16/2020 12:20:00 AM EDT [facility] Name Value Range Interpretation Code Description Data Source(s) Weight (Calculated Kilograms) 76.71 76.71 [facility] Height (Calculated Centimeters) 167.64 167. 64 [facility] Body Mass Index (BMI) 27.3 27.3 [facility] ID Date Data Source [id number] 11/12/2020 11:51:00 AM T [facility] Name Value Range Interpretation Code Description Data Source(s) Weight (Calculated Kilograms) 76.71 76.71 [facility] Height (Calculated Centimeters) 167.64 167. 64 [facility] Body Mass Index (BMI) 27.3 27.3 [facility] ID Date Data Source [id number] 11/03/2020 12:39:00 AM [facility] Name Value Range Interpretation Code Description Data Source(s) Weight (Calculated Kilograms) 76.71 76.71 [facility] Height (Calculated Centimeters) 167.64 167. 64 [facility] Body Mass Index (BMI) 27.3 27.3 [facility] ID Date Data Source [id number] [facility] Value Range Interpretation Code Description Data Source(s) Weight (Calculated Kilograms) 76.71 76.71 [facility] Height (Calculated Centimeters) 167.64 167. 64 [facility] Body Mass Index (BMI) 27.3 27.3 [facility] Weight (Calculated Kilograms) 76.71 76.71 [facility] Height (Calculated Centimeters) 167.64 167. 64 [facility] Body Mass Index (BMI) 27.3 27.3 [facility] ID Date Data Source [id number] 11/01/2020 11:28:00 AM [facility] Name Value Range Interpretation Code Description Data Source(s) Weight (Calculated Kilograms) 76.71 76.71 [facility] Height (Calculated Centimeters) 167.64 167. 64 [facility] Body Mass Index (BMI) 27.3 27.3 [facility] Weight (Calculated Kilograms) 76.71 76.71 [facility] Height (Calculated Centimeters) 167.64 167. 64 [facility] Body Mass Index (BMI) 27.3 27.3 [facility] Weight (Calculated Kilograms) 76.71 76.71 [facility] Height (Calculated Centimeters) 167.64 167. 64 [facility] Body Mass Index (BMI) 27.3 27.3 [facility] ID Date Data Source [id number] 11/15/2020 11:16:00 AM EDT [facility] Name Value Range Interpretation Code Description Data Source(s) Weight (Calculated Kilograms) 76.71 76.71 [facility] Height (Calculated Centimeters) 167.64 167. 64 [facility] Body Mass Index (BMI) 27.3 27.3 [facility] ID Date Data Source [id number] 10/19/2020 12:51:00 AM EST [facility] Name Value Range Interpretation Code Description Data Source(s) Weight (Calculated Kilograms) 76.71 76.71 [facility] Height (Calculated Centimeters) 167.64 167. 64 [facility] Body Mass Index (BMI) 27.3 27.3 [facility] ID Date Data Source [id number] 10/09/2020 09:06:00 AM EST [facility] Hospital Name Value Range Interpretation Code Description Data Source(s) Weight (Calculated Kilograms) 76.71 76.71 [facility] Height (Calculated Centimeters) 167.64 167. 64 [facility] Body Mass Index (BMI) 27.3 27.3 [facility] Weight (Calculated Kilograms) 76.71 76.71 [facility] Height (Calculated Centimeters) 167.64 167. 64 [facility] Body Mass Index (BMI) 27.3 27.3 [facility] ID Date Data Source [id number] 10/05/2020 09:38:00 AM EST [facility] Hospital Name Value Range Interpretation Code Description Data Source(s) Weight (Calculated Kilograms) 76.71 76.71 [facility] Height (Calculated Centimeters) 167.64 167. 64 [facility] Body Mass Index (BMI) 27.3 27.3 [facility] ID Date Data Source [id number] 10/01/2020 01:06:00 AM [facility] Hospital Name Value Range Interpretation Code Description Data Source(s) Weight (Calculated Kilograms) 76.71 76.71 [facility] Height (Calculated Centimeters) 167.64 167. 64 [facility] Body Mass Index (BMI) 27.3 27.3 [facility] ID Date Data Source [id number] 09/17/2020 12:32:00 AM [facility] Hospital Name Value Range Interpretation Code Description Data Source(s) Weight (Calculated Kilograms) 76.71 76.71 [facility] Height (Calculated Centimeters) 167.64 167. 64 [facility] Body Mass Index (BMI) 27.3 27.3 [facility] ID Date Data Source [id number] 09/30/2020 09:18:00 AM [facility] Name Value Range Interpretation Code Description Data Source(s) Weight (Calculated Kilograms) 76.71 76.71 [facility] Height (Calculated Centimeters) 167.64 167. 64 [facility] Body Mass Index (BMI) 27.3 27.3 [facility] ID Date Data Source [id number] 08/19/2020 12:22:00 AM [facility] Hospital Name Value Range Interpretation Code Description Data Source(s) Weight (Calculated Kilograms) 76.71 76.71 [facility] Height (Calculated Centimeters) 167.64 167. 64 [facility] Body Mass Index (BMI) 27.3 27.3 [facility] ID Date Data Source [id number] 08/30/2020 08:41:00 AM [facility] Name Value Range Interpretation Code Description Data Source(s) Weight (Calculated Kilograms) 76.71 76.71 [facility] Height (Calculated Centimeters) 167.64 167. 64 [facility] Body Mass Index (BMI) 27.3 27.3 [facility] Weight (Calculated Kilograms) 76.71 76.71 [facility] Height (Calculated Centimeters) 167.64 167. 64 [facility] Body Mass Index (BMI) 27.3 27.3 [facility] ID Date Data Source [id number] 08/12/2020 12:24:00 AM EST [facility] Hospital Name Value Range Interpretation Code Description Data Source(s) Weight (Calculated Kilograms) 76.71 76.71 [facility] Height (Calculated Centimeters) 167.64 167. 64 [facility] Body Mass Index (BMI) 27.3 27.3 [facility] ID Date Data Source [id number] 11/10/2020 09:50:00 AM EDT [facility] Hospital Name Value Range Interpretation Code Description Data Source(s) Weight (Calculated Kilograms) 76.71 76.71 [facility] Height (Calculated Centimeters) 167.64 167. 64 [facility] Body Mass Index (BMI) 27.3 27.3 [facility] Weight (Calculated Kilograms) 76.71 76.71 [facility] Height (Calculated Centimeters) 167.64 167. 64 [facility] Body Mass Index (BMI) 27.3 27.3 [facility] Weight (Calculated Kilograms) 76.71 76.71 [facility] Height (Calculated Centimeters) 167.64 167. 64 [facility] Body Mass Index (BMI) 27.3 27.3 [facility] Weight (Calculated Kilograms) 76.71 76.71 [facility] Height (Calculated Centimeters) 167.64 167. 64 [facility] Body Mass Index (BMI) 27.3 27.3 [facility] Weight (Calculated Kilograms) 76.71 76.71 [facility] Height (Calculated Centimeters) 167.64 167. 64 [facility] Body Mass Index (BMI) 27.3 27.3 [facility] Weight (Calculated Kilograms) 76.71 76.71 [facility] Height (Calculated Centimeters) 167.64 167. 64 [facility] Body Mass Index (BMI) 27.3 27.3 [facility] Weight (Calculated Kilograms) 76.71 76.71 [facility] Height (Calculated Centimeters) 167.64 167. 64 [facility] Body Mass Index (BMI) 27.3 27.3 [facility] ID Date Data Source [id number] 08/04/2020 05:05:00 AM [facility] Hospital Name Value Range Interpretation Code Description Data Source(s) Weight (Calculated Kilograms) 76.71 76.71 [facility] Height (Calculated Centimeters) 167.64 167. 64 [facility] Body Mass Index (BMI) 27.3 27.3 [facility] Weight (Calculated Kilograms) 76.71 76.71 [facility] Height (Calculated Centimeters) 167.64 167. 64 [facility] Body Mass Index (BMI) 27.3 27.3 [facility] ID Date Data Source [id number] 07/06/2020 12:19:00 AM [facility] Hospital Name Value Range Interpretation Code Description Data Source(s) Weight (Calculated Kilograms) 76.71 76.71 [facility] Height (Calculated Centimeters) 167.64 167. 64 [facility] Body Mass Index (BMI) 27.3 27.3 [facility] ID Date Data Source [id number] 07/14/2020 10:39:00 AM [facility] Hospital Name Value Range Interpretation Code Description Data Source(s) Weight (Calculated Kilograms) 76.71 76.71 [facility] Height (Calculated Centimeters) 167.64 167. 64 [facility] Body Mass Index (BMI) 27.3 27.3 [facility] Weight (Calculated Kilograms) 76.71 76.71 [facility] Height (Calculated Centimeters) 167.64 167. 64 [facility] Body Mass Index (BMI) 27.3 27.3 [facility] ID Date Data Source [id number] 06/28/2020 12:52:00 PM [facility] Hospital Name Value Range Interpretation Code Description Data Source(s) Weight (Calculated Kilograms) 76.71 76.71 [facility] Height (Calculated Centimeters) 167.64 167. 64 [facility] Body Mass Index (BMI) 27.3 27.3 [facility] Weight (Calculated Kilograms) 76.71 76.71 [facility] Height (Calculated Centimeters) 167.64 167. 64 [facility] Body Mass Index (BMI) 27.3 27.3 [facility] ID Date Data Source [id number] 06/10/2020 12:28:00 AM EDT [facility] Name Value Range Interpretation Code Description Data Source(s) Weight (Calculated Kilograms) 76.71 76.71 [facility] Height (Calculated Centimeters) 167.64 167. 64 [facility] Body Mass Index (BMI) 27.3 27.3 [facility] Weight (Calculated Kilograms) 76.71 76.71 [facility] Height (Calculated Centimeters) 167.64 167. 64 [facility] Body Mass Index (BMI) 27.3 27.3 [facility] ID Date Data Source [id number] 06/10/2020 08:35:00 AM EDT [facility] Name Value Range Interpretation Code Description Data Source(s) Weight (Calculated Kilograms) 76.71 76.71 [facility] Height (Calculated Centimeters) 167.64 167. 64 [facility] Body Mass Index (BMI) 27.3 27.3 [facility] ID Date Data Source [id number] 06/11/2020 10:24:00 AM EDT [facility] Name Value Range Interpretation Code Description Data Source(s) Weight (Calculated Kilograms) 76.71 76.71 [facility] Height (Calculated Centimeters) 167.64 167. 64 [facility] Body Mass Index (BMI) 27.3 27.3 [facility] ID Date Data Source [id number] 07/07/2020 10:09:00 AM EST [facility] Name Value Range Interpretation Code Description Data Source(s) Weight Measurement Method 1 1 [facility] Weight (Calculated Kilograms) 76.71 76.71 [facility] Weight 2706 2706 [facility] Temperature Source 7 7 [facility] Temperature 98.2 98.2 [facility] Respiratory Effort 1 1 [facility] Respiratory Rate 16 16 [facility] Pulse Assessment Method 4 4 [facility] Pulse Rate 66 66 [facility] Height (Calculated Centimeters) 167.64 167. 64 [facility] Height 66 66 [facility] Blood Pressure 129/74 129/74 [facility] Body Mass Index (BMI) 27.3 27.3 [facility] Weight Measurement Method 1 1 [facility] Weight (Calculated Kilograms) 76.71 76.71 [facility] Weight 2706 2706 [facility] Temperature Source 7 7 [facility] Temperature 98.2 98.2 [facility] Respiratory Effort 1 1 [facility] Respiratory Rate 16 16 [facility] Pulse Assessment Method 4 4 [facility] Pulse Rate 66 66 [facility] Height (Calculated Centimeters) 167.64 167. 64 [facility] Height 66 66 [facility] Blood Pressure 129/74 129/74 [facility] Body Mass Index (BMI) 27.3 27.3 [facility] Weight Measurement Method 1 1 [facility] Weight (Calculated Kilograms) 76.71 76.71 [facility] Weight 2706 2706 [facility] Temperature Source 7 7 [facility] Temperature 100.9 100.9 [facility] Respiratory Effort 1 1 [facility] Respiratory Rate 18 18 [facility] Pulse Assessment Method 4 4 [facility] Pulse Rate 82 82 [facility] Height (Calculated Centimeters) 167.64 167. 64 [facility] Height 66 66 [facility] Blood Pressure 128/70 128/70 [facility] Body Mass Index (BMI) 27.3 27.3 [facility] Weight Measurement Method 1 1 [facility] Weight (Calculated Kilograms) 76.71 76.71 [facility] Weight 2706 2706 [facility] Temperature Source 7 7 [facility] Temperature 98 98 [facility] Respiratory Effort 1 1 [facility] Respiratory Rate 18 18 [facility] Pulse Assessment Method 4 4 [facility] Pulse Rate 87 87 [facility] Height (Calculated Centimeters) 167.64 167. 64 [facility] Height 66 66 [facility] Blood Pressure 119/83 119/83 [facility] Body Mass Index (BMI) 27.3 27.3 [facility] Weight (Calculated Kilograms) 77.75 77.75 [facility] Height (Calculated Centimeters) 167.64 167. 64 [facility] Body Mass Index (BMI) 27.6 27.6 [facility] Weight Measurement Method 1 1 [facility] Weight (Calculated Kilograms) 76.71 76.71 [facility] Weight 2706 2706 [facility] Temperature Source 7 7 [facility] Temperature 98.2 98.2 [facility] Respiratory Effort 1 1 [facility] Respiratory Rate 16 16 [facility] Pulse Assessment Method 4 4 [facility] Pulse Rate 66 66 [facility] Height (Calculated Centimeters) 167.64 167. 64 [facility] Height 66 66 [facility] Blood Pressure 129/74 129/74 [facility] Body Mass Index (BMI) 27.3 27.3 [facility] Weight Measurement Method 1 1 [facility] Weight (Calculated Kilograms) 76.71 76.71 [facility] Weight 2706 2706 [facility] Temperature Source 7 7 [facility] Temperature 98.2 98.2 [facility] Respiratory Effort 1 1 [facility] Respiratory Rate 16 16 [facility] Pulse Assessment Method 4 4 [facility] Pulse Rate 66 66 [facility] Height (Calculated Centimeters) 167.64 167. 64 [facility] Height 66 66 [facility] Blood Pressure 129/74 129/74 [facility] Body Mass Index (BMI) 27.3 27.3 [facility] Weight (Calculated Kilograms) 77.75 77.75 [facility] Height (Calculated Centimeters) 167.64 167. 64 [facility] Body Mass Index (BMI) 27.6 27.6 [facility] Weight (Calculated Kilograms) 77.75 77.75 [facility] Height (Calculated Centimeters) 167.64 167. 64 [facility] Body Mass Index (BMI) 27.6 27.6 [facility] ID Date Data Source [id number] 05/31/2020 12:43:00 PM EDT [facility] Name Value Range Interpretation Code Description Data Source(s) Weight (Calculated Kilograms) 77.75 77.75 [facility] Height (Calculated Centimeters) 167.64 167. 64 [facility] Body Mass Index (BMI) 27.6 27.6 [facility] Weight (Calculated Kilograms) 77.75 77.75 [facility] Height (Calculated Centimeters) 167.64 167. 64 [facility] Body Mass Index (BMI) 27.6 27.6 [facility] ID Date Data Source [id number] 05/28/2020 12:20:00 AM EDT [facility] Name Value Range Interpretation Code Description Data Source(s) Weight (Calculated Kilograms) 77.75 77.75 [facility] Height (Calculated Centimeters) 167.64 167. 64 [facility] Body Mass Index (BMI) 27.6 27.6 [facility] Patient Treatment Plan of Care Planned Activity Planned Date Details Description Data Source (s) Acetaminophen 325 MG / Hydrocodone Bitartrate 5 MG Ora l Tablet [facility] Delayed Release Oral Tablet 11/22/2020 12:00:00 AM [facility] atorvastatin 20 MG Oral Tablet 11/22/2020 12:00:00 AM [facility] Allopurinol 300 MG Oral Tablet 11/22/2020 12:00:00 AM [facility] Losartan Potassium 100 MG Oral Tablet [facility]04[facility] Oral Capsule 11/04/2020 12:00:00 AM [facility]
[2021-07-17] MEDS ORDERED: CALCIUM GLUCONATE 1,000 MG in D5W MINI-BAG PLUS 100 ML IV ONE (23:55)
[2021-07-17] MEDS ORDERED: MORPHINE 2 MG/ML 1ML VIAL (J2270) IV PRN (23:55)
[2021-07-17] MEDS ORDERED: SODIUM CHLORIDE 0.9% 1000ML IV SCH (23:55)
[2021-07-17] MEDS ORDERED: SOD POLYSTYRENE SULFONATE SUSP 15 GM/60 ML UD PO ONE (23:55)
[2021-07-18] VITALS (17 sets, daily range): BP systolic 88–118; BP diastolic 56–74
--- NOTE | 2021-07-18 00:03 | HPEPDOC ---
[facility] Medical History & Physical Date of Admission Jul 18, 2021 Date of Service: Jul 18, 2021 Attending Physician: ANIKA WASHINGTON MD History and Physical CHIEF COMPLAINT: [65 y/o male c/o right groin pain x1 day] HISTORY OF PRESENT ILLNESS: [This is a 65 y/o male with a pmh of recurrent dvt on outpatient therapeutic lovenox injections, lymphoma as a teen, htn, copd who presented to [facility] last night for evaluation of new onset severe right sided groin pain that began yesterday morning. Patient was found to have large occlusive right femoral thrombus and findings consistent with phlegmasia cerula dolens and thus was transferred to our ED for vascular surgery consultation and evaluation. As of my exam, patient tells me that he has been experiencing mild right sided groin pain for approximately a month, however, yesterday upon waking up that pain had acutely become very severe in nature. Patient tells me that between then and now, he has also developed some numbness in the right leg below the knee and foot. Patient describes his pain as severe right groin pain that radiates down the leg. Patient states that he has suffered no recent injury to the leg and tells me that he has actually been rather active as of late. Patient admits to some associated cough, however states that this is chronic. Of note, patient tells me that he has not urinated today. Patient, at the time of my exam, denies any fever, chills, headache, uri sx, chest pain, sob, wheezing, hemoptysis, abd pain, n/v/d/c. ] PAST MEDICAL HISTORY: 1. 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 2. [R Testicle removal]. 3. [Left hip arthroplasty 4. Unspec. R ankle orthopedic repair]. SOCIAL HISTORY: Tobacco use:[Cigar smoker] ETOH: [Admits to "a few" drinks daily] Illicit drug use: [Denies] FAMILY HISTORY: Reviewed - none pertinent ALLERGIES: Please see below. REVIEW OF SYSTEMS: CONSTITUTIONAL: [Denies fevers, chills]. HEENT: [Denies uri sx]. CARDIOVASCULAR: [Denies chest pain, palpitations]. RESPIRATORY: [Admits to chronic cough. Denies sob, wheezing]. GASTROINTESTINAL: [Denies abd pain, n/v/d/c]. GENITOURINARY: [Admits to oliguria today]. SKIN: [Admits to erythema or R leg]. MUSCULOSKELETAL: [See HPI]. NEUROLOGICAL: [Admits to paresthesias or RLE. Denies syncope]. ENDOCRINE: [Denies hx of DM]. HEMATOLOGIC/LYMPHATIC: [Hx of lymphoma, recurrent dvt]. HOME MEDICATIONS: Please see below. PHYSICAL EXAMINATION: VITAL SIGNS: Please see below. GENERAL APPEARANCE: [HARD OF HEARING 65 y/o male seated in ED stretcher. Patient does not appear to be in any acute distress]. HEENT: [No mass or lesion. Right sided hearing aide in place. EOMI. No scleral icterus. Nares patent. Oral mucosa moist]. CARDIOVASCULAR: [Tachy rate, regular rhythm. No murmurs, rubs, gallops]. LUNGS: [Good air flow b/l. No wheezing, rales, rhonchi]. ABDOMEN: [Soft, nontender]. MUSCULOSKELETAL: [No joint deformity noted]. EXTREMITIES: [The right thigh is mottled and very tender to any palpation. The right leg below the knee is cool to touch with pitting edema. Popliteal pulse is weak but palpable. Dorsalis pedis and posterior tibial pulses weak but palpable. The toes of the right foot are dusky with delayed capillary refill. ]. NEUROLOGICAL: [Sensation to right foot is dulled severely. Sensation resumes at the level of the right knee. Speech clear. A+Ox3. No focal deficit]. PSYCHIATRIC: [Mood and affect appropriate]. LABORATORY DATA: See below. IMAGING: [Vascular US performed at [place] [facility]: "Limited exam. Extensive deep venous thrombosis is seen within the visualized common femoral vein to the popliteal vein" CXR: FINDINGS: Tubes, catheters and devices: Epidural electrodes are noted in the lower thoracic spine. Lungs: There is decreased inflation of the lungs. Minimal left upper lobe linear atelectasis or scar. No focal infiltrates. Pleural spaces: Unremarkable. No pleural effusion. No pneumothorax. Heart/Mediastinum: The heart is within normal limits considering AP and lordotic projection. Bones/joints: Chronic bilateral rotator cuff tears of the shoulders. IMPRESSION: 1. Minimal left upper lobe linear atelectasis or scar. 2. Otherwise essentially negative lordotic chest. No acute process is identified. Renal US: FINDINGS: Right kidney: The right kidney measures 10.2 cm in its cephalocaudad dimension and 5.3 x 4.4 cm in diameter. No mass, cyst or hydronephrosis. Left kidney: The left kidney measures 12.0 cm in its cephalocaudad dimension and 6.8 x 5.2 cm in diameter. No mass or hydronephrosis. There is a small left renal cyst measuring 11 x 13 x 14 mm. Mild left perinephric fluid is noted. Bladder: The urinary bladder appears normal. IMPRESSION: 1. Left renal cyst measuring 11 x 13 x 14 mm. 2. Left perinephric fluid. 3. Otherwise negative renal sonogram. No hydronephrosis. CTA Chest: FINDINGS: Tubes, catheters and devices: Lower thoracic epidural electrodes in position. Pulmonary arteries: The main pulmonary artery measures 22 mm. Minimal pulmonary embolism extending into the superior segment of the left lower lobe. Aorta: The ascending thoracic aorta measures 37 mm. Lungs: Mild scattered fibro-atelectatic change, greatest in the lower lobes and anterior left upper lobe. Pleural spaces: Unremarkable. No pneumothorax. No pleural effusion. Heart: Unremarkable. No cardiomegaly. No pericardial effusion. Heart RV/LV ratio: RV diameter is 4.7 cm, LV diameter is 3.3 cm. RV/LV ratio is 1.4. Lymph nodes: Unremarkable. No enlarged lymph nodes. Bones/joints: Probable chronic bilateral rotator cuff tears of the shoulders. Multiple old right rib fractures. Soft tissues: Unremarkable. IMPRESSION: 1. Minimal pulmonary embolism extending into the superior segment of the left lower lobe. 2. Elevated RV/LV ratio of 1.4. 3. Mild scattered fibro-atelectatic change, greatest in the lower lobes and anterior left upper lobe. ] MICROBIOLOGY: Please see below. ASSESSMENT: [This is a 65 y/o male with a pmh of recurrent dvt on outpatient therapeutic lovenox injections, lymphoma as a teen, htn, copd who presented to [facility] last night for evaluation of new onset severe right sided groin pain that began yesterday morning. Patient was found to have large occlusive right femoral thrombus and findings consistent with phlegmasia cerula dolens and thus was transferred to our ED for vascular surgery consultation and evaluation.]. . PLAN: 1. 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 Tovar, has been consulted by ED provider, and has agreed to be consult in the case. Dr. Tovar plans to take patient to the OR in the AM for surgical intervention - Heparin drip has been initiated - Morphine for pain control - Neurovascular checks q2h - F/u cpk to help r/o compartment syndrome - Admit to pcu for tx - consider Hematology consult RE: lovenox failure 2. SIRS - pt with leukocytosis of 20, lactic acidosis of 4, tachycardia in the 110s - fluid boluses ordered, will empirically cover with vanco/zosyn - f/u procal, blood cultures, urine cultures, mrsa pcr - cxr/cta not indicative of pna 3. Pulmonary embolism - CTA performed in the ED indicative of small LLL pulmonary embolus. Likely embolized from lower extremity dvt - Patient not acutely requiring any supplemental o2 and is asymptomatic besides cough which he states is chronic - Right heart strain noted on cta with rv:lv ratio of 1.4, which does not seem to correlate with a small pe. - heparin drip, as stated above - cycle troponins 4. CHARLY - pt creatinine found to be 1.53 acutely - no recent baseline lab value is available to me, however patient tells me that he has no history of kidney disease - patient found to have acute urinary retention in the ED, nagel placed - No hydro on kidney us - potential urethral obstruction from clot burden - f/u ua, urine electrolytes - hold allopurinola and losartan bc of CHARLY - IVF to help prevent post contrast ATN 5. Hyperkalemia - patients potassium acutely elevated to 5.3 - no ekg changes - calcium gluconate, kayaxelate ordered - repeat in am 6. Alcohol abuse - patient daily drinker - ciwa protocol 7. HTN - continue hold losartan bc of CHARLY / start amlodipine 8. Gout - continue allopurinol 9. GERD - continue ppi 9. Nicotine abuse - patch ordered DVT prophylaxis - heparin drip]. Vital Signs Vital Signs Date Time Temp Pulse Resp B/P (MAP) Pulse Ox O2 Delivery O2 Flow Rate FiO2 07/17/21 22:59 18 07/17/21 22:30 111/71 (84) 07/17/21 22:24 105 97 07/17/21 21:54 99.6 Room Air Laboratory Data Labs 24H Laboratory Tests 2 07/17/21 22:28: Immature Granulocyte % (Auto) 1.0, Neutrophils (%) (Auto) 83.0H, Lymphocytes (%) (Auto) 6.9L, Monocytes (%) (Auto) 8.7H, Eosinophils (%) (Auto) 0.0, Basophils (%) (Auto) 0.4, Neutrophils # (Auto) 17.1H, Lymphocytes # (Auto) 1.4L, Monocytes # (Auto) 1.8H, Eosinophils # (Auto) 0.0, Basophils # (Auto) 0.1, Nucleated Red Blood Cells % (auto) 0.9H, Anion Gap 10, Glomerular Filtration Rate 49.0, Lactic Acid Level 4.0*H, Calcium Level 8.6L, Magnesium Level 1.9, C-Reactive Protein, Quantitative 0.51H 07/17/21 22:31: POC Troponin I (Misc) 0.01 07/17/21 22:50: Nucleated Red Blood Cells % (auto) 0.8H, Activated Partial Thromboplast Time 47.0H CBC/BMP Laboratory Tests 07/17/21 22:28 07/17/21 22:50 Home Medications Scheduled Enoxaparin Sodium (Enoxaparin Sodium) 80 Mg/0.8 Ml Syringe, 80 MG INJ BID Losartan Potassium (Losartan Potassium) 100 Mg Tablet, 100 MG PO DAILY Pantoprazole Sodium (Pantoprazole Sodium) 20 Mg Tablet.dr, 20 MG PO DAILY allopurinoL (allopurinoL) 300 Mg Tablet, 300 MG PO DAILY Allergies Coded Allergies: No Known Allergies (Verified , 12/17/09) A-FIB/CHADSVASC A-FIB History Current/History of A-Fib/PAF?: No Current PO Anticoag Therapy: No MICHELLE PLUNKETT Jul 18, 2021 00:03 ANIKA WASHINGTON MD Jul 18, 2021 04:57
[2021-07-18] MEDS ORDERED: LORazepam 2 MG TAB PO PRN (00:05)
--- OUTSIDE RECORDS SUMMARY | 2021-07-18 00:22 | CCD ---
Author Author [facility] Organization [facility] Address Unknown Phone Unavailable Care Team Providers Care Clinical Informaticist Name Role Phone Felton Chapin MD Unavailable [...] Mcdaniel MD Unavailable Unavailable Palma, M Michelle FIBERGLASS LAMINATOR Unavailable Unavailable Palma, M Michelle FIBERGLASS LAMINATOR Unavailable Unavailable Palma, M Michelle FIBERGLASS LAMINATOR Unavailable Unavailable Palma, M Michelle FIBERGLASS LAMINATOR Unavailable Unavailable Palma, M Michelle FIBERGLASS LAMINATOR Unavailable Unavailable Palma, M Michelle FIBERGLASS LAMINATOR Unavailable Unavailable Palma, M Michelle FIBERGLASS LAMINATOR Unavailable Unavailable Palma, M Michelle FIBERGLASS LAMINATOR Unavailable Unavailable Palma, M Michelle FIBERGLASS LAMINATOR Unavailable Unavailable Palma, M Michelle FIBERGLASS LAMINATOR Unavailable Unavailable Nostrom, R Kurt COLLARETTE SEPARATOR Unavailable Unavailable NAHUM, AGUILA PA Unavailable Unavailable [...] Unavailable DIGIACCO, EMILY DO Unavailable Unavailable DIGIACCO, EMLIY DO Unavailable Unavailable DIGIACCO, EMILY DO Unavailable [...] GALIMIDI ZORA DPM, J Zora DPM Unavailable [phone] GALIMIDI ZORA DPM, J Zora DPM Unavailable GALIMIDI ZORA DPM, J Zora DPM Unavailable [phone] GALIMIDI ZORA DPM, J Zora DPM Unavailable Williams Ramirez MD Unavailable [phone] Williams Ramirez MD Unavailable [phone] Williams Ramirez MD Unavailable [phone] Williams Ramirez MD Unavailable [phone] Williams Ramirez MD Unavailable [phone] Williams Ramirez MD Unavailable [phone] Williams Ramirez MD Unavailable [phone] Williams Ramirez MD Unavailable [phone] NOSTROM, KURT STATISTICS PROFESSOR Unavailable Unavailable NOSTROM, KURT STATISTICS PROFESSOR Unavailable Unavailable NOSTROM, KURT STATISTICS PROFESSOR Unavailable Unavailable NOSTROM, KURT STATISTICS PROFESSOR Unavailable Unavailable NOSTROM, KURT STATISTICS PROFESSOR Unavailable Unavailable NOSTROM, KURT STATISTICS PROFESSOR Unavailable Unavailable NOSTROM, KURT STATISTICS PROFESSOR Unavailable Unavailable NOSTROM, KURT STATISTICS PROFESSOR Unavailable Unavailable NOSTROM, KURT STATISTICS PROFESSOR Unavailable Unavailable NOSTROM, KURT STATISTICS PROFESSOR Unavailable Unavailable NOSTROM, KURT STATISTICS PROFESSOR Unavailable Unavailable NOSTROM, KURT STATISTICS PROFESSOR Unavailable Unavailable NOSTROM, KURT STATISTICS PROFESSOR Unavailable Unavailable TYLER BIRMINGHAM MD Unavailable Unavailable [...] C Cory MD Unavailable Unavailable Sorge, C Ocry MD Unavailable Unavailable Sorge, C Cory MD [...] is protected by Article 27-F of the [facility] Public Health law. If you continue you may have access to information: Regarding HIV / AIDS; Provided by facilities licensed or operated by the [facility] Office of Mental Health; or Provided by the [facility] Office for People With Developmental Disabilities. If such information is present, then the following [facility] mandated warning applies: This information has been [...] law may result in a fine or senior living sentence or both. A general authorization for the release of medical or other information is NOT sufficient authorization for further disc losure. Allergies and Adverse Reactions Type Description Substance Reaction Status Data Source(s ) Miscellaneous allergy No Known Drug Allergies No Known Drug Allergies [facility] Miscellaneous allergy No Known Environmental Allergies No Kn own Environmental Allergies [facility] l Miscellaneous allergy No Known Food Allergies No Known Food Allergies [facility] Drug allergy Drug allergy oxycodone Nausea, Upset st omach Nausea/GI upset I Nausea [facility] Encounters Encounter Providers Location Date Indications Data Source(s ) Outpatient Attender: SUMEET BHAGAT [id number] 07/17/2021 04:45:20 PM EST [facility] Emergency Attender: NIHARIKA MEZA dmitter: NIHARIKA DUMONT PAConsultant: Cory Curry MD [id number] 07/17/2021 01:34:00 PM EST - 07/17/2021 08:23:00 PM EST Right groin/leg pain swelling [facility] Right groin/leg pain swelling Patient discharged. Outpatient Attender: Williams Ramirez MD CPSCAORT-[id number] 02:03:00 PM EST - 07/05/2021 02:04:00 PM EST [facility] Patient discharged. Outpatient Attender: Williams Ramirez MD CPSCAORT-[id number] 02:48:00 PM EST - 06/29/2021 02:49:00 PM EST H60.311 [facility] H60.311 Patient discharged. Outpatient Attender: Michelle SON CPSCAORT-CPSCAORT 1 10:39:00 AM EDT - 06/01/2021 10:40:00 AM EDT [facility] Patient discharged. Outpatient Attender: CHATO WALLACE MD CPSCAORT-LABPNP 01/2021 03:31:00 PM EDT - 05/25/2021 03:32:00 PM EDT Z98.890 [facility] Z98.890 Patient discharged. Outpatient Attender: BERNARD ARANA CPSCAORT-LABCOVWAR 1 01:03:00 PM EDT - 05/21/2021 01:04:00 PM EDT [facility]. Outpatient Attender: Williams Ramirez MD CPSCAORT-[id number] 09:53:00 AM EDT - 05/11/2021 09:54:00 AM EDT [facility] Patient discharged. Outpatient Attender: KALEN RIVAS MD ER-CTCMEDON 05/04/2021 11:48:00 AM EDT [facility] Outpatient Attender: AGUILA ARANA CPSCAORT-CPSLADER 04/2021 10:43:00 AM EDT - 04/28/2021 10:44:00 AM EDT [facility] Patient discharged. Outpatient Attender: CHATO WALLACE MD CPSCAORT-LABPNP 03/21 12:53:00 PM EDT - 04/13/2021 12:54:00 PM EDT R60.1 [facility] R60.1 Patient discharged. Outpatient Attender: KALEN Carbajal er: KALEN Nagelsultant: Cory Curry MD 008 04/11/2021 09:55:00 AM EDT - 04/11/2021 09:55:00 AM EDT LAB TEST [facility] LAB TEST Emergency Attender: RUBINA Funes mitter: RUBINA WESTBROOK PAConsultant: Cory Curry MD [id number] 04/10/2021 02:53:00 PM EDT - 04/10/2021 07:30:00 PM EDT WEAKNESS [facility] WEAKNESS Patient discharged. Outpatient Attender: Williams Ramirez MD CPSCAORT-[id number] 11:02:00 AM EDT - 04/06/2021 11:03:00 AM EDT [facility] Patient discharged. Outpatient Attender: Holger Armendariz MD CPSCAORT-CPSCNPOD 10:35:00 AM EDT - 03/29/2021 10:36:00 AM EDT [facility] Patient discharged. Outpatient Attender: Williams Ramirez MD CPSCABHARATHI-[id number] 12:45:00 PM EDT - 03/24/2021 12:46:00 PM EDT H66.93 [facility] H66.93 Patient discharged. Outpatient Attender: AGUILA ARANA CPSCABHARATHI-CPSLADER 09/2020 10:15:00 AM EDT - 03/21/2021 10:16:00 AM EDT [facility] Patient discharged. Emergency Attender: NIHARIKA MEZA dmitter: NIHARIKA DUMONT PAConsultant: Cory Curry MD 03/10/2021 08:29:20 PM EDT - 03/10/2021 09:00:00 PM EDT LEFT EAR PLUGGED [facility] LEFT EAR PLUGGED Patient discharged. Outpatient Attender: CHATO WALLACE MD CPSCAORT-LABPNP 01/18 01:07:00 PM EDT - 02/01/2021 01:08:00 PM ED[facility] Outpatient Attender: Holger Armendariz MD CPSCAORT-CPSCNPOD 02:48:00 PM EDT - 01/19/2021 02:49:00 PM EDT [facility] Patient discharged. Outpatient Attender: Zora MARTINEZ DPM DPM CPSCAORT- CPSCNPOD 01/19/2021 02:19:00 PM EDT - 01/19/2021 02:20:[address] [facility] Patient discharged. Outpatient Attender: CHATO WALLACE MD CPSCAORT-LABPNP 08/2020 11:18:00 AM EDT - 01/18/2021 11:19:00 AM EDT R60.1 [facility] R60.1 Patient discharged. Outpatient Attender: Addis Mcdaniel MD CPSCAORT-CPSCNFMP 01/06/2021 12:16:00 PM EDT - 01/06/2021 12:17:00 PM EDT [facility] pital Patient discharged. Outpatient Attender: KALEN RIVAS MD 01/05/2021 09:49:00 A M EDT [facility] Outpatient Attender: Addis Mcdaniel MD CPSCAORT-CPSCNFMP 12/13/2020 12:23:00 PM EDT - 12/13/2020 12:24:00 PM [facility] Emergency Attender: RUBINA Funes mitter: RUBINA WESTBROOK PAConsultant: Cory Curry MD [phone] 11/22/2020 01:30:00 PM EDT - 11/22/2020 06:09:00 PM EDT POSSIBLE BLOOD CLOT IN STOMACH/ GROIN AR [facility] POSSIBLE BLOOD CLOT IN STOMACH/ GROIN AR Patient discharged. Outpatient Attender: [facility]aci Houston [facility] 11/16/2020 11:41:00 AM EDT [facility] Outpatient Attender: [facility]cd[facility]iel [facility] 11/15/2020 11:06:00 AM EDT - 11/15/2020 11:07:00 AM EDT [facility] Patient discharged. Outpatient Attender: Addis Mcdaniel MDAttender: Addis Mcdaniel MDReferrer: Kaci Houston MD [facility] 11/10/2020 11:24:00 AM EDT - 11/10/2020 11:25:00 AM EDT K76.9;I10;E78.49 [facility] K76.9;I10;E78.49 Patient discharged. Emergency Attender: RUBINA Funes mitter: RUBINA WESTBROOK PAConsultant: Cory Curry MD [phone] 11/04/2020 09:57:00 PM EDT - 11/05/2020 12:27:00 AM EDT RIGHT LEG PAIN, S/P FALL [facility] RIGHT LEG PAIN, S/P FALL Patient discharged. Outpatient Attender: [facility]cd[facility]iel [facility] 11/02/2020 03:18:00 PM EDT - 11/02/2020 03:19:00 PM EDT [facility] Patient discharged. Emergency Attender: Ousmane Yan PAAttender: Kiko batista [facility] 11/01/2020 01:04:00 PM EDT - 11/01/2020 06:05:00 PM EDT BACK PAIN, LEG PAIN, LEG SWELLING, URINARY PROBLEM [facility] BACK PAIN, LEG PAIN, LEG SWELLING, URINA RY PROBLEM Patient discharged. Emergency Attender: Kiko Henry MD CPSCAORT-ED 03:32:00 PM EST - 10/28/2020 07:35:00 PM EST EVALUATION OF DVT IN R LEG, BACK PAIN [facility] EVALUATION OF DVT IN R LEG, BACK PAIN Patient discharged. Outpatient Attender: Addis Mcdaniel MD CPSCABHARATHI-CPSCNFMP 10/28/2020 01:32:00 PM EST - 10/28/2020 01:33:00 PM EST [facility] pital Patient discharged. Outpatient Attender: Addis Mcdaniel MD CPSCABHARATHI-CPSCNFMP 10/18/2020 12:23:00 PM EST - 10/18/2020 12:24:00 PM EST [facility] Patient discharged. Outpatient Attender: BERNARD ARANA [facility] 0 10/08/2020 09:50:00 AM EST - 10/08/2020 09:51:00 AM EST COVID SCREENING [facility] COVID SCREENING Patient discharged. Outpatient Attender: Addis Mcdaniel MD CPSCAORT-IMACN 0 10/04/2020 10:51:00 AM EST - 10/04/2020 10:52:00 AM EST M81.0 [facility] M81.0 Patient discharged. Outpatient Attender: Addis Mcdaniel MD CPSCAORT-CPSCNFMP 09/30/2020 11:21:00 AM EST - 09/30/2020 11:22:00 AM EST [facility] Patient discharged. Outpatient Attender: MIMA VELOZ M.D. [facility] 09/16 03:08:00 PM EST - 09/16/2020 03:09:00 PM EST [facility] Patient discharged. Outpatient Attender: Holger Armendariz MD CPSCABHARATHI-CPSCNPOD 09:24:00 AM EST - 09/15/2020 09:25:00 AM EST [facility] Outpatient Attender: Kaci Houston MD -CTCMEDON 09/09/2020 10:39:00 AM EST [facility] [address] [place] [address] 12:00:00 AM EST eCW1 ([facility]) Outpatient Attender: Addis Mcdaniel MD [facility] 08/18/2020 12:42:00 PM EST - 08/18/2020 12:43:00 PM EST [facility] pital Patient discharged. Outpatient Attender: Felton Chapin MD [facility]-ONCPDMED 12:19:00 PM EST - 08/16/2020 12:20:00 PM EST FU DVT POST PROCEDURE CVPH [facility] FU DVT POST PROCEDURE CVPH Patient discharged. Outpatient Attender: Addis Mcdaniel MD [facility] 08/11/2020 02:34:00 PM EST - 08/11/2020 02:35:00 PM EST [facility] pital Patient discharged. Outpatient Attender: Felton Chapin MDA dmitter: Felton Chapin MDConsultant: Cory Curry MD 008 08/09/2020 11:31:00 AM EST - 08/09/2020 11:31:00 AM EST Lab test [facility] Lab test Emergency Attender: TYLER Luo DAttender: Kiko Henry MDAdmitter: TYLER BIRMINGHAM MD CPSCAORT-ED 07/29/2020 11:25:00 AM EST - 07/29/2020 08:39:00 PM EST DEEP VEIN THROMBOSIS [facility] DEEP VEIN THROMBOSIS Admission cancelled. Disregard status an d admitted date. Outpatient Attender: FREDY CHO MD CPSCAORT-LABBHC [facility] 02:24:00 PM EST - 07/27/2020 02:25:00 PM EST R10.9; R19.7 [facility] R10.9; R19.7 Patient discharged. Outpatient Attender: DR ADDIS PRO NDAdmitter: DR ADDIS MCDANIELConsultant: Cory Curry MD 008 07/16/2020 09:3 6:00 AM EST - 07/16/2020 09:36:00 AM EST Lab test [facility] Lab test Outpatient Attender: EMILY DE DIOS DO 07/12/2020 12:52:0 0 PM EST [facility] [address] [place] [address] 07/12/2020 12:00:00 AM EST eCW1 ([facility]) Outpatient Attender: DR ADDIS PRO NDAttender: Cory Curry MDAdmitter: DR ADDIS MCDANIELConsultant: Cory Curry MD 008 07/08/20 10:57:00 AM EST - 07/08/2020 10:57:00 AM EST Lab test [facility] Lab test Outpatient Attender: Addis Mcdaniel MD CPSCABHARATHI-CPSCNFMP 07/05/2020 12:51:00 PM EST - 07/05/2020 12:52:00 PM EST [facility] pital Patient discharged. Outpatient Attender: DR ADDIS PRO NDAdmitter: DR ADDIS MCDANIELConsultant: Cory Curry MD 008 07/05/2020 09:0 9:00 AM EST - 07/05/2020 09:10:00 AM EST Lab test [facility] Lab test Outpatient Attender: DR ADDIS PRO NDAdmitter: DR ADDIS MCDANIELConsultant: Cory Curry MD 008 06/30/2020 01:1 0:00 PM EST - 06/30/2020 01:10:00 PM EST Lab test [facility] Lab test Outpatient Attender: Felton Chapin MD CPSCAORT-ONCPDMED 10:17:00 AM EST - 06/30/2020 10:18:00 AM EST 3 WK FU HX DVT/PE-FAILED TX [facility] 3 WK FU HX DVT/PE-FAILED [place] Patient discharged. Outpatient Attender: Addis Mcdaniel MDAttender: Addis Mcdaniel MD CPSCAORT-IMACN 06/28/2020 09:39:00 AM EST - 06/28/2020 09:40:00 AM ES T Z79.01; M10.9; R74.8; R79.89; D75.89; M81.0 [facility] Z79.01; M10.9; R74.8; R79.89; D75.89; M8 1.0 Patient discharged. Outpatient Attender: Felton Chapin MDA dmitter: Felton Chapin MDConsultant: Cory Curry MD 008 06/14/2020 10:09:00 AM EDT - 06/14/2020 10:09:00 AM EDT Lab test [facility] Lab test Outpatient Attender: Felton Chapin MD CPSCAORT-ONCPDMED 01:45:00 PM EDT - 06/09/2020 01:46:00 PM EDT STATISTICS PROFESSOR HX DVT/PE - FAILED TX [facility] STATISTICS PROFESSOR HX DVT/PE - FAILED [place] Patient discharged. Outpatient Attender: Holger Armendariz MD CPSCABHARATHI-CPSCNPOD 11:30:00 AM EDT - 06/09/2020 11:31:00 AM EDT [facility] Patient discharged. Outpatient Attender: Addis Mcdaniel MD CPSCAORT-CPSCNFMP 06/08/2020 11:49:00 AM EDT - 06/08/2020 11:50:00 AM EDT [facility] Patient discharged. Outpatient Attender: Adelaide Sanders MDAdmit ter: Adelaide Sanders MDConsultant: Cory Curry MD 008 06/04/2020 11:22:00 AM EDT - 06/04/2020 11:22:00 AM EDT Lab test [facility] Lab test Inpatient Attender: TYLER Luo DAttender: Kiko Henry MDAdmitter: TYLER BIRMINGHAM MDConsultant: KURT JONES NPConsultant: Kurt SUAREZ CPSCAORT-MSU2 05/27/2020 02:44:00 PM EDT - 06/02/2020 03:15:00 PM EDT DEEP VEIN THROMBOSIS [facility] DEEP VEIN THROMBOSIS Patient discharged. Outpatient Attender: Addis Mcdaniel MD CPSCAORT-IMAPD 1 12:54:00 PM EDT - 05/27/2020 12:55:00 PM EDT M79.89 [facility] M79.89 Patient discharged. Outpatient Attender: Addis Mcdaniel MD CPSCAORT-CPSCNFMP 05/27/2020 11:24:00 AM EDT - 05/27/2020 11:25:00 AM EDT [facility] Patient discharged. Immunizations Vaccine Date Status Description Data Source(s) COVID-19 VACCINE [facility] 06/10/2021 12:00:00 AM EDT completed [facility] Vaccine Series Complete: YESThis Data wa s Submitted to [facility] Via [employer]. COVID-19 VACCINE [facility] 11/11/2020 12:00:00 AM EDT completed [facility] Vaccine Series Complete: YESThis Data wa s Submitted to [facility] [employer]. COVID-19 VACCINE [facility] 10/21/2020 12:00:00 AM EST completed [facility] Vaccine Series Complete: NOThis Data was Submitted to [facility] [employer]. Medications Medication Brand Name Start Date Product Form Dose Route Admi nistrative Instructions Pharmacy Instructions Status Indications Reaction Description Data Source(s) rivaroxaban 20 MG Oral Tablet [Xarelto] Xarelto 20MG O ral Tablet Xarelto 20MG Oral Tablet 11/22/2020 12:00:00 AM EDT 20 MILLIGRAMS ORAL active <td>Xarelto 20MG Oral Tablet</td><td>11/22/2020</td><td>Unknown</td><td>ORAL</td><td>DAILY</td><td>20 MILLIGRAMS</td><td>6706399</td><td>RxNorm</td><td>TAKE 20 MILLIGRAMS ORAL DAILY</td> [facility] atorvastatin 20 MG Oral Tablet Atorvastatin Calcium 20 MG Oral Tablet Atorvastatin Calcium 20MG Oral Tablet 11/22/2020 12:00:00 AM EDT 20 MILLIGRAMS ORAL active <td>Atorva statin Calcium 20MG Oral Tablet</td><td>11/22/2020</td><td>Unknown</td><td>ORAL</td><td>DAILY</td><td>20 MILLIGRAMS</td><td>[id number]</td><td>RxNorm</td><td>TAKE 20 MILLIGRAMS ORAL DAILY </td> [facility] Acetaminophen 325 MG / Hydrocodone Bobbi trate 5 MG Oral Tablet HYDROcodone bitartrate-acetaminophen 5MG-325MG Oral Tablet HYDROcodone bitartrate- acetaminophen 5MG-325MG Oral Tablet 11/22/2020 12:00:00 AM EDT 1 TABLET BY MOUTH active <td>HYDROcodon e bitartrate-acetaminophen 5MG-325MG Oral Tablet</td><td>11/22/2020</td><td>Unknown</td><td>BY MOUTH</td><td> NEEDED EVERY 6 HR</td><td>1 TABLET</td><td>143794</td><td>RxNorm</td><td>TAKE 1 TABLET BY MOUTH NEEDED EVERY 6 HR FOR Pain</td> [facility] Allopurinol 300 MG Oral Tablet Allopurinol 300MG Oral Tablet Allopurinol 300MG Oral Tablet 11/22/2020 12:00:00 AM EDT 300 MILLIGRAMS ORAL active <td>Allopurinol 300MG Oral Tablet</td><td>11/22/2020</td><td>Unknown</td><td>ORAL</td><td>DAILY</td><td>300 MILLIGRAMS</td><td>949218</td><td>RxNorm</td><td>TAKE 300 MILLIGRAMS ORAL DAILY </td> [facility] pantoprazole 20 MG Delayed Release Oral Tablet Pantoprazole Sodium 20 MG Oral Tablet, Delayed Release Pantoprazole Sodium 20 MG Oral Tablet, Delayed Release 11/22/2020 12:00:00 AM EDT 20 MG ORAL active <td>Pantoprazole Sodium 20 MG Oral Tablet, Delayed Release</td><td>11/22/2020</td><td>Unknown</td><td>ORAL</td><td>DAILY</td><td>20 MG</td><td>[id number]</td><td>RxNorm</td><td>TAKE 20 MG ORAL DAILY</td> [facility] Losartan Potassium 100 MG Oral Tablet Losartan Potassi um 100MG Oral Tablet Losartan Potassium 100MG Oral Tablet 11/04/2020 12:00:00 AM EDT 100 MILLIGRAMS ORAL active <td>Losart an Potassium 100MG Oral Tablet</td><td>11/04/2020</td><td>Unknown</td><td>ORAL</td><td>DAILY</td><td>100 MILLIGRAMS</td><td>974806</td><td>RxNorm</td><td>TAKE 100 MILLIGRAMS ORAL DAILY </td> [facility] gabapentin 300 MG Oral Capsule Gabapentin 300MG Oral C apsule Gabapentin 300MG Oral Capsule 11/04/2020 12:00:00 AM EDT 300 MILLIGRAMS ORAL active <td>Gabapentin 300MG Oral Capsule</td><td>11/04/2020</td><td>Unknown</td><td>ORAL</td><td>THREE TIMES A DAY</td><td>300 MILLIGRAMS</td><td>276322</td><td>RxNorm</td><td>TAKE 300 MILLIGRAMS ORAL THREE TIMES A DAY</td> [facility] Insurance Providers Payer name Policy type / Coverage type Policy ID Covered libertarian ID Covered libertarian's relationship to raygoza Policy Raygoza Plan Information THAI PROGRESSIVE [id number] S [id number] MEDICARE A [id number] Self [id number] A MEDICARE [id number] S [id number] [facility] [id number] [facility] [id number] AMER PROG TODAYS OPTIONS G [id number] Self [id number] AMER PROG TODAYS OPTIONS G [id number] Self [id number] [facility] INSURANCE FUND [id number] Other [id number] WELLCARE HEALTH TODAYS OPTIONS [id number] SP [id number] WELLCARE MAO [id number] SP [id number] ANSI-Commercial [id number] WELLCARE [id number] Other [id number] L[place] INSURANCE FUND [id number] Other [id number] WELLCARE [id number] SP [id number] THAI PROGRESSIVE-CLINIC [id number] undefined [id number] THAI PROGRESSIVE-OP [id number] undefined [id number] STATE INSURANCE FUND-CLINIC [id number] undefined [id number] STATE INSURANCE FUND-OP [id number] undefined [id number] STATE INSURANCE FUND-IP [id number] 18 [id number] [facility] [id number] S [id number] A TODAYS OPTIONS AMER PROG [id number] Other [id number] COUNT INCLUDES THE [facility] INSURANCE [facility] [id number] SP [id number] WELLCARE [id number] Other [id number] WELLCARE [id number] S [id number] WELLCARE HEALTH PLANS - OP [id number] undefined [id number] [facility] INSURANCE FUND [id number] Other [id number] Problems, Conditions, and Diagnoses Code Display Name Description Problem Type Effective Dates Data Source(s) H61.21 Impacted cerumen, right ear IMPACTED CERUMEN, RIGHT EA R Diagnosis 07/05/2021 02:03:00 PM [facility] H66.004 Acute suppurative otitis med ia without spontaneous rupture of ear drum, recurrent, right ear AC SUPPR OTITIS MEDIA W/O SPON RUPT EAR DRUM, RECUR, R EAR Diagnosis 07/05/2021 02:03:00 PM [facility] H61.22 Impacted cerumen, left ear IMPACTED CERUMEN, LEFT EAR Diagnosis 06/29/2021 02:48:00 PM [facility] H60.311 Diffuse otitis externa, right ear DIFFUSE OTITIS EXTERNA, RIGHT EAR Diagnosis 06/29/2021 02:48:00 PM [facility] M25.571 Pain in right ankle and joints of right foot PAIN IN RIGHT ANKLE AND JOINTS OF RIGHT FOOT Diagnosis 06/01/2021 10:39:00 AM EDT [facility] Z20.822 CONTACT WITH AND (SUSPECTED) EXPOSURE TO COVID-19 CONTACT WITH AND (SUSPECTED) EXPOSURE TO COVID-19 Diagnosis 05/21/2021 01:03:00 PM EDT [facility] Z87.891 Personal history of nicotine dependence PERSONAL HISTORY OF NICOTINE DEPENDENCE Diagnosis 05/04/2021 11:48:00 AM EDT [facility] 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 Diagnosis 05/04/2021 11:48:00 AM EDT [facility] F10.20 Alcohol dependence, uncomplicated ALCOHOL DEPEND ENCE, UNCOMPLICATED Diagnosis 05/04/2021 11:48:00 AM EDT [facility] I10 Essential (primary) hypertension ESSENTIAL (PRIMARY) H YPERTENSION Diagnosis 05/04/2021 11:48:00 AM EDT [facility] K21.9 Gastro-esophageal reflux disease without esophagitis GASTRO-ESOPHAGEAL REFLUX DISEASE WITHOUT ESOPHAGIT Diagnosis 05/04/2021 11:48:00 AM EDT [facility] E78.5 Hyperlipidemia, unspecified HYPERLIPIDEMIA, UNSPECIFIE D Diagnosis 05/04/2021 11:48:00 AM [facility] Z79.01 snf (current) use of anticoagulant s DETENTION (CURRENT) USE OF ANTICOAGULANTS Diagnosis 05/04/2021 11:48:00 AM EDT [facility] I82.401 Acute embolism and thrombosi s of unspecified deep veins of right lower extremity ACUTE EMBOLISM AND THOMBOS UNSP DEEP VEINS OF R LOW EXTREM D iagnosis 05/04/2021 11:48:00 AM EDT [facility] B35.1 Tinea unguium TINEA UNGUIUM Diagnosis 04/28/2021 10:43:00 AM EDT [facility] Z7901 laboratory scientist (current) use of anticoagulant s laboratory scientist (current) use of anticoagulants Diagnosis 04/11/2021 09:55:00 AM EDT [facility] E878 Other disorders of electrolyte and fluid balance, not elsewhere classified Other disorders of electrolyte and fluid balance, not elsewhere classified Diagnosis 04/11/2021 09:55:00 AM EDT [facility] D689 Coagulation defect, unspecified Coagulation defect, un specified Diagnosis 04/10/2021 02:53:00 PM EDT [facility] D649 Anemia, unspecified Anemia, unspecified Diagnosis 0 04/10/2021 02:53:00 PM [facility] E860 Dehydration Dehydration Diagnosis 04/10/2021 02:53:00 PM EDT [facility] E861 Hypovolemia Hypovolemia Diagnosis 04/10/2021 02:53:00 PM EDT [facility] I959 Hypotension, unspecified Hypotension, unspecified Diag nosis 04/10/2021 02:53:00 PM [facility] R42 Dizziness and giddiness Dizziness and giddiness Diagno sis 04/10/2021 02:53:00 PM [facility] H62.41 Otitis externa in other diseases classif ied elsewhere, right ear OTITIS EXTERNA IN OTH DISEASES CLASSD ELSWHR, RIGHT EAR Diagnosis 04/06 11:02:00 AM [facility] B36.9 Superficial mycosis, unspecified SUPERFICIAL MYC OSIS, UNSPECIFIED Diagnosis 04/06/2021 11:02:00 AM [facility] H60.312 Diffuse otitis externa, left ear DIFFUSE OTITIS EXTERNA, LEFT EAR Diagnosis 04/06/2021 11:02:00 AM [facility] M79.672 Pain in left foot PAIN IN LEFT FOOT Diagnosis 03/29 10:35:00 AM [facility] M72.2 Plantar fascial fibromatosis PLANTAR FASCIAL FIBROMATO SIS Diagnosis 03/29/2021 10:35:00 AM [facility] H66.93 Otitis media, unspecified, bilateral BRIJESH TIS MEDIA, UNSPECIFIED, BILATERAL Diagnosis 03/24/2021 12:45:00 PM [facility] B35.2 Tinea manuum TINEA MANUUM Diagnosis 03/21/2021 10:15:00 A [facility] H6693 Otitis media, unspecified, bilateral Otitis medi a, unspecified, bilateral Diagnosis 03/10/2021 08:29:00 PM [facility] H9202 Otalgia, left ear Otalgia, left ear Diagnosis 03/10/2021 08:29:00 PM [facility] R19.09 Other intra-abdominal and pelvic swellin g, mass and lump OTHER INTRA- ABDOMINAL AND PELVIC SWELLING, MASS AND LUMP Diagnosis 12:16:00 PM [facility] I82.409 Acute embolism and thrombosi s of unspecified deep veins of unspecified lower extremity ACUTE EMBOLISM AND THOMBOS UNSP DEEP VN UNSP LOWER EXT REMITY Diagnosis 01/06/2021 12:16:00 PM [facility] M96.1 Postlaminectomy syndrome, not elsewhere classified POSTLAMINECTOMY SYNDROME, NOT ELSEWHERE CLASSIFIED Diagnosis 01/06/2021 12:16:00 PM ED T [facility] [id number] Personal history of other venous thrombo sis and embolism Personal history of other venous thrombosis and embolism Diagnosis 11/22/2020 01:30:00 PM EDT [facility] R102 Pelvic and perineal pain Pelvic and perineal pain Diag nosis 11/22/2020 01:30:00 PM EDT [facility] K8020 Calculus of gallbladder without cholecys titis without obstruction Calculus of gallbladder without cholecystitis without obstruction Diagnosis 11/22/2020 01:30:00 PM EDT [facility] [id number] Muscle spasm of back Muscle spasm of back Diagnosis 11/22/2020 01:30:00 PM EDT [facility] R109 Unspecified abdominal pain Unspecified abdominal pain Diagnosis 11/22/2020 01:30:00 PM EDT [facility] R2241 Localized swelling, mass and lump, right lower limb Localized swelling, mass and lump, right lower limb Diagnosis 11/04/2020 09:57:00 PM EDT [facility] [id number] Unspecified place in single- family (private) house as the place of occurrence of the external cause Unspecified place in single-family (priv ate) house as the place of occurrence of the external cause Diagnosis 11/04/2020 09:57:00 PM EDT [facility] Y9301 Activity, walking, marching and hiking A ctivity, walking, marching and hiking Diagnosis 11/04/2020 09:57:00 PM EDT [facility] Y998 Other external cause status Other external cause statu s Diagnosis 11/04/2020 09:57:00 PM EDT [facility] [id number] Overexertion from prolonged static or awkward postures, initial encounter Overexertion from prolonged static or aw kward postures, initial encounter Diagnosis 11/04/2020 09:57:00 PM EDT [facility] [id number] Fall on same level, unspecified, initial encounter Fall on same level, unspecified, initial encounter Diagnosis 11/04/2020 09:57:[address] [facility] [id number] Sprain of unspecified ligament of right ankle, initial encounter Sprain of unspecified ligament of right ankle, initial encounter Diagnosis 11/04/2020 09:57:00 PM EDT [facility] N00348 Pain in right ankle and joints of right foot Pain in right ankle and joints of right foot Diagnosis 11/04/2020 09:57:00 PM EDT [facility] [id number] Unspecified injury of head, initial enco unter Unspecified injury of head, initial encounter Diagnosis 11/04/2020 09:57:00 PM EDT [facility] M25.471 Effusion, right ankle EFFUSION, RIGHT ANKLE Diagnosis 10/28/2020 01:32:00 PM [facility] M79.671 Pain in right foot PAIN IN RIGHT FOOT Diagnosis 09:24:00 AM [facility] M20.22 Hallux rigidus, left foot HALLUX RIGIDUS, LEFT FOOT Di agnosis 09/15/2020 09:24:00 AM [facility] Z80.6 Family history of leukemia FAMILY HISTORY OF LEUKEMIA Diagnosis 09/09/2020 10:39:00 AM [facility] Z90.79 Acquired absence of other genital organ( s) ACQUIRED ABSENCE OF OTHER GENITAL ORGAN(S) Diagnosis 09/09/2020 10:39:00 AM [facility] maria l Z87.01 Personal history of pneumonia (recurrent ) PERSONAL HISTORY OF PNEUMONIA (RECURRENT) Diagnosis 09/09/2020 10:39:00 AM [facility] maria l I25.10 Atherosclerotic heart diseas e of [place] coronary artery without angina pectoris ATHSCL HEART DISEASE OF [place] CORONARY ARTERY W/O Diagnosis 09/09/2020 10:39:00 AM [facility] Z86.711 Personal history of pulmonary embolism P ERSONAL HISTORY OF PULMONARY EMBOLISM Diagnosis 09/09/2020 10:39:00 AM [facility] maria l Z98.890 OTHER SPECIFIED POSTPROCEDURAL STATES OT HER SPECIFIED POSTPROCEDURAL STATES Diagnosis 09/09/2020 10:39:00 AM [facility] maria l Z86.718 Personal history of other venous thrombo sis and embolism PERSONAL HISTORY OF OTHER VENOUS THROMBOSIS AND EM Diagnosis 09/09/2020 10:39:0 0 AM [facility] I87.1 Compression of vein COMPRESSION OF VEIN Diagnosis 0 09/09/2020 10:39:00 AM [facility] Z86.718 Personal history of other venous thrombo sis and embolism PERSONAL HISTORY OF OTHER VENOUS THROMBOSIS AND EMBOLISM Diagnosis 2019 12:19:00 PM [facility] Z88.5 Allergy status to narcotic agent status ALLERGY STATUS TO NARCOTIC AGENT Diagnosis 07/29/2020 11:25:00 AM [facility] Z79.899 Other residential (current) drug therapy O THER DETENTION (CURRENT) DRUG THERAPY Diagnosis 07/29/2020 11:25:00 AM [facility] 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 Diagnosis 07/29/2020 11:25:00 AM [facility] Z90.89 Acquired absence of other organs ACQUIRED ABSENC E OF OTHER ORGANS Diagnosis 07/29/2020 11:25:00 AM [facility] Z72.0 Tobacco use TOBACCO USE Diagnosis 07/29/2020 11:25:00 AM [facility] Z85.47 Personal history of malignant neoplasm o f testis PERSONAL HISTORY OF MALIGNANT NEOPLASM OF TESTIS Diagnosis 07/29/2020 11:25:00 AM [facility] R56.9 Unspecified convulsions UNSPECIFIED CONVULSIONS Diagno sis 07/29/2020 11:25:00 AM [facility] I25.2 Old myocardial infarction OLD MYOCARDIAL INFARCTION Di agnosis 07/29/2020 11:25:00 AM [facility] E78.5 Hyperlipidemia, unspecified HYPERLIPIDEMIA, UNSPECIFIE D Diagnosis 07/29/2020 11:25:00 AM [facility] I10 Essential (primary) hypertension ESSENTIAL (PRIMARY) H YPERTENSION Diagnosis 07/29/2020 11:25:00 AM [facility] K21.9 Gastro-esophageal reflux disease without esophagitis GASTRO-ESOPHAGEAL REFLUX DISEASE WITHOUT ESOPHAGITIS Diagnosis 07/29/2020 11:25:00 AM ES T [facility] I25.10 Atherosclerotic heart diseas e of [place] coronary artery without angina pectoris ATHSCL HEART DISEASE OF [place] CORONARY ARTERY W/O ANG PCTRS Diagnosis 07/29/2020 11:25:00 AM [facility] F41.9 Anxiety disorder, unspecified ANXIETY DISORDER, UNSPEC IFIED Diagnosis 07/29/2020 11:25:00 AM [facility] I82.403 Acute embolism and thrombosi s of unspecified deep veins of lower extremity, bilateral ACUTE EMBOLISM AND THOMBOS UNSP DEEP VEI NS OF LOW EXTRM, BI Diagnosis 07/29/2020 11:25:00 AM [facility] R11.2 Nausea with vomiting, unspecified NAUSEA WITH VO MITING, UNSPECIFIED Diagnosis 07/27/2020 02:24:00 PM [facility] R19.7 Diarrhea, unspecified DIARRHEA, UNSPECIFIED Diagnosis 07/27/2020 02:24:00 PM [facility] R10.9 Unspecified abdominal pain UNSPECIFIED ABDOMINAL PAIN Diagnosis 07/27/2020 02:24:00 PM [facility] G89.29 Other chronic pain OTHER CHRONIC PAIN Diagnosis 12:52:00 PM [facility] M54.5 Low back pain LOW BACK PAIN Diagnosis 07/12/2020 12:52:00 PM [facility] G40.909 Epilepsy, unspecified, not intractable, without status epilepticus EPILEPSY, UNSP, NOT INTRACTABLE, WITHOUT STATUS EPILEPTICUS Diagnosis 07/12/2020 12:52:00 PM [facility] Z5181 Encounter for therapeutic drug level mon itoring Encounter for therapeutic drug level monitoring Diagnosis 07/05/2020 09:09:00 AM [facility] I82.402 Acute embolism and thrombosi s of unspecified deep veins of left lower extremity ACUTE EMBOLISM AND THOMBOS UNSP DEEP VEINS OF L LOW EXTREM D iagnosis 06/30/2020 10:17:00 AM [facility] Z51.81 Encounter for therapeutic drug level mon itoring ENCOUNTER FOR THERAPEUTIC DRUG LEVEL MONITORING Diagnosis 06/28/2020 09:39:00 AM [facility] D75.89 Other specified diseases of blood and bl ood-forming organs OTHER SPECIFIED DISEASES OF BLOOD AND BLOOD-FORMING ORGANS Diagnosis 1 08/28/2019 09:39:00 AM [facility] R79.89 Other specified abnormal findings of blo od chemistry OTHER SPECIFIED ABNORMAL FINDINGS OF BLOOD CHEMISTRY Diagnosis 06/28/2020 09:39:00 AM [facility] R74.8 Abnormal levels of other serum enzymes A BNORMAL LEVELS OF OTHER SERUM ENZYMES Diagnosis 06/28/2020 09:39:00 AM [facility] S75813 Acute embolism and thrombosi s of unspecified deep veins of right lower extremity Acute embolism and thrombosis of unspeci fied deep veins of right lower extremity Diagnosis 06/14/2020 [facility] Chronic embolism and thrombo sis of unspecified deep veins of left lower extremity Chronic embolism and thrombosis of unspe cified deep veins of left lower extremity Diagnosis 06/14/2020 10:09:00 AM [facility] Z23 Encounter for immunization ENCOUNTER FOR IMMUNIZATION Diagnosis 06/08/2020 11:49:00 AM [facility] M81.0 Age-related osteoporosis without current pathological fracture AGE-RELATED OSTEOPOROSIS W/O CURRENT PATHOLOGICAL FRACTURE Diagnosis 2019 11:49:00 AM [facility] Z86.711 Personal history of pulmonary embolism P ERSONAL HISTORY OF PULMONARY EMBOLISM Diagnosis 05/27/2020 02:44:00 PM [facility] F10.10 Alcohol abuse, uncomplicated ALCOHOL ABUSE, UNCOMPLICA YAHAIRA Diagnosis 05/27/2020 02:44:00 PM [facility] F17.290 Nicotine dependence, other tobacco produ ct, uncomplicated NICOTINE DEPENDENCE, OTHER TOBACCO PRODUCT, UNCOMPLICATED Diagnosis 05/27 02:44:00 PM [facility] Z96.642 Presence of left artificial hip joint NH ESENCE OF LEFT ARTIFICIAL HIP JOINT Diagnosis 05/27/2020 02:44:00 PM [facility] Z85.72 Personal history of non-Hodgkin lymphoma s PERSONAL HISTORY OF NON-HODGKIN LYMPHOMAS Diagnosis 05/27/2020 02:44:00 PM [facility] Z87.11 Personal history of peptic ulcer disease PERSONAL HISTORY OF PEPTIC ULCER DISEASE Diagnosis 05/27/2020 02:44:00 PM [facility] M54.9 Dorsalgia, unspecified DORSALGIA, UNSPECIFIED Diagnosi s 05/27/2020 02:44:00 PM [facility] G89.29 Other chronic pain OTHER CHRONIC PAIN Diagnosis 03/2020 02:44:00 PM [facility] N18.2 Chronic kidney disease, stage 2 (mild) C HRONIC KIDNEY DISEASE, STAGE 2 (MILD) Diagnosis 05/27/2020 02:44:00 PM [facility] I12.9 Hypertensive chronic kidney disease with stage 1 through stage 4 chronic kidney disease, or unspecified chronic kidney disease HYPERTENSIVE CHRONIC KIDNEY DISEASE W STG 1-4/UNSP CHR KDNY Diagnosis 05/27/2020 02:44:00 P M [facility] M10.9 Gout, unspecified GOUT, UNSPECIFIED Diagnosis 05/27/2020 02:44:00 PM [facility] L03.116 Cellulitis of left lower limb CELLULITIS OF LEFT LOWER LIMB Diagnosis 05/27/2020 02:44:00 PM [facility] R60.0 Localized edema LOCALIZED EDEMA Diagnosis 05/27/2020 12:5 4:00 PM [facility] I82.412 Acute embolism and thrombosis of left fe moral vein ACUTE EMBOLISM AND THROMBOSIS OF LEFT FEMORAL VEIN Diagnosis 05/27/2020 12:54:[address] [facility] R59.0 Localized enlarged lymph nodes LOCALIZED ENLARGED LYMP H NODES Diagnosis 05/27/2020 12:54:00 PM [facility] Z87.81 Personal history of (healed) traumatic f racture PERSONAL HISTORY OF (HEALED) TRAUMATIC FRACTURE Diagnosis 05/27/2020 12:54:00 PM [facility] M11.262 Other chondrocalcinosis, left knee OTHER CHONDRO CALCINOSIS, LEFT KNEE Diagnosis 05/27/2020 12:54:00 PM [facility] M79.89 Other specified soft tissue disorders OT HER SPECIFIED SOFT TISSUE DISORDERS Diagnosis 05/27/2020 12:54:00 PM [facility] R11.2 Nausea and vomiting Nausea & vomiting Problem 0 12:00:00 AM EST eCW1 ([facility]) R10.9 Abdominal pain Abdominal pain Problem 07/21/2020 12:00: 00 AM EST eCW1 ([facility]) R19.7 Diarrhea Diarrhea Problem 07/21/2020 12:00:00 AM ES T eCW1 ([facility]) Surgeries/Procedures Procedure Description Date Indications Data Source(s) Hospital outpatient clinic visit for assessment and ma nagement of a patient Hospital Outpatient Clinic Visit 06/29/2021 12:00:00 AM [facility] RMVL IMPACTED CERUMEN SPX 1/BOTH EARS REMOVE IMPACTED EAR WA X UNI 06/29/2021 12:00:00 AM [facility] CUL BACT AEROBIC ADDL METHS DEFINITIVE EA ISOL CULTURE AEROB IC IDENTIFY 06/29/2021 12:00:00 AM [facility] CUL BACT XCPT URINE BLOOD/STOOL AEROBIC ISOL CULTURE OTHR SP ECIMN AEROBIC 06/29/2021 12:00:00 AM [facility] SUSCEPTIBLTY STDY ANTIMICRBIAL MICRO/AGAR DILUTJ MICROBE MARIA ESTHER CEPTIBLE [place] 06/29/2021 12:00:00 AM [facility] RADEX ANKLE COMPLETE MINIMUM 3 VIEWS X-RAY EXAM OF ANKLE 12:00:00 AM [facility] C9803 Sars-cov-2 Hospital outpt clinic visit s pecimen collection 05/21/2021 12:00:00 AM [facility] U0003 SARS-CoV-2 detection by nucleic acid 05/21/2021 12:00: 00 AM [facility] INJECTION 1 TENDON SHEATH/LIGAMENT APONEUROSIS INJ TENDON SH EATH/LIGAMENT 01/19/2021 12:00:00 AM [facility] DEBRIDEMENT NAIL ANY METHOD 6/> DEBRIDE NAIL 6 OR MORE 01/19 12:00:00 AM [facility] Injection, triamcinolone acetonide, not otherwise specified , 10 mg 01/19/2021 12:00:00 AM [facility] ARTHROCENTESIS ASPIR&/INJECTION SMALL JT/BURSA DRAIN/INJ KRISTA NT/BURSA W/O US 09/15/2020 12:00:00 AM [facility] DUP-SCAN XTR VEINS COMPLETE BILATERAL STUDY EXTREMITY STUDY 07/29/2020 12:00:00 AM [facility] ECG ROUTINE ECG W/LEAST 12 LDS TRCG ONLY W/O I&R ELECTROCARD IOGRAM TRACING 07/29/2020 12:00:00 AM [facility] 64535 SARS-COV-2 COVID-19 AMP PRB 07/29/2020 12:00:00 AM [facility] THROMBOPLASTIN TIME PARTIAL PLASMA/WHOLE BLOOD THROMBOPLASTI N TIME PARTIAL 07/29/2020 12:00:00 AM [facility] PROTHROMBIN TIME PROTHROMBIN TIME 07/29/2020 12:00:00 AM [facility] BLOOD COUNT COMPLETE AUTO&AUTO DIFRNTL WBC COUNT COMPLETE CB C W/AUTO DIFF WBC 07/29/2020 12:00:00 AM [facility] TROPONIN QUANTITATIVE ASSAY OF TROPONIN QUANT 07/29/2020 12:00:00 A M [facility] BASIC METABOLIC PANEL CALCIUM TOTAL METABOLIC PANEL TOTAL CA 07/29/2020 12:00:00 AM [facility] Injection, acetaminophen, 10 mg 07/29/2020 12:00:00 AM [facility] Injection, heparin sodium, per 1000 units 07/29/2020 1 2:00:00 AM [facility] Injection, morphine sulfate, up to 10 mg 07/29/2020 12 :00:00 AM [facility] COLLECTION VENOUS BLOOD VENIPUNCTURE ROUTINE VENIPUNCTURE 12:00:00 AM [facility] THERAPEUTIC INJECTION IV PUSH EACH NEW DRUG TX/PRO/DX INJ NE W DRUG ADDON 07/29/2020 12:00:00 AM [facility] THER PROPH/DX NJX IV PUSH SINGLE/1ST SBST/DRUG THER/PROPH/DI AG INJ IV PUSH 07/29/2020 12:00:00 AM [facility] EMERGENCY DEPT VISIT HIGH SEVERITY&THREAT FUNCJ EMERGENCY DE PT VISIT 07/29/2020 12:00:00 AM [facility] PARATHORMONE ASSAY OF PARATHORMONE 06/28/2020 12:00:00 AM [facility] THYROXINE FREE ASSAY OF FREE THYROXINE 06/28/2020 12:00:00 AM [facility] THYROID STIMULATING HORMONE TSH ASSAY THYROID STIM HORMONE 1 08/28/2019 12:00:00 AM [facility] 25 HYDROXY INCLUDES FRACTIONS IF PERFORMED VITAMIN D 25 HYDR OXY 06/28/2020 12:00:00 AM [facility] FOLIC ACID SERUM ASSAY OF FOLIC ACID SERUM 06/28/2020 12:00:00 AM [facility] CYANOCOBALAMIN VITAMIN B-12 VITAMIN B-12 06/28/2020 12:00:00 AM [facility] URIC ACID BLOOD ASSAY OF BLOOD/URIC ACID 06/28/2020 12:00:00 AM [facility] TRIIODOTHYRONINE T3 FREE FREE ASSAY (FT-3) 06/28/2020 12:00:00 AM E [facility] COMPREHENSIVE METABOLIC PANEL COMPREHEN METABOLIC PANEL 04/2020 12:00:00 AM [facility] Computerized Tomography (CT Scan) of Left Foot/Toe Krista nt COMPUTERIZED TOMOGRAPHY (CT SCAN) OF LEFT FOOT/TOE JOINT 06/01/2020 12:00:00 AM [facility] DUP-SCAN XTR VEINS UNILATERAL/LIMITED STUDY EXTREMITY STUDY 05/27/2020 12:00:00 AM [facility] RADIOLOGIC EXAMINATION TIBIA & FIBULA 2 VIEWS X-RAY EXAM OF LOWER LEG 05/27/2020 12:00:00 AM [facility] BLOOD COUNT SMEAR MCRSCP W/MNL DIFRNTL WBC COUNT BL SMEAR W/ DIFF WBC COUNT 05/27/2020 12:00:00 AM [facility] BLOOD COUNT COMPLETE AUTOMATED COMPLETE CBC AUTOMATED 2019 12:00:00 AM [facility] Non-covered item or service NON-COVERED ITEM OR SERVICE 03/2020 12:00:00 AM [facility] Injection, enoxaparin sodium, 10 mg 05/27/2020 12:00:0 0 AM [facility] Results ID Date Data Source [id number] 07/17/2021 04:45:20 PM [facility] Name Value Range Interpretation Code Description Data Gala rce(s) Supporting Document(s) Progress Note [facility] PJTYWy0uZqILGjMx00/KHWznWYAtu1QjWAzlBCk6OUpoHCWlB7ImZNL2zE4xJIU7GQcPDhTiXiIuQUH8 lbm [file] [facility]//2/583rF417yqhOvS0vc17uTMRL4SDWJX16UR7ycJUdTb+kh4YxjHAXEnGuRw4XdT8V3xuAsz73 [file] ogICAgICAgICAgICAgICAgICAgICAgICAgICAgICAgICAgICAgICAgICAgICAgICAgICAgICAgICAgIC AgICAgICAgICAgICAgICAgICAgICAgICAgICAgICAgICAgICAgICAgDQogICAgICAgICAgICAgICAgIC AgICAgICAgICAgICAgICAgICAgICAgICAgICAgICAg ICAgICAgICAgICAgICAgICAgICAgICAgICAgICAgICAgICAgICAgICAgICAgICAgICAgDQogICAgICAg ICAgICAgICAgICAgICAgICAgICAgICAgICAgICAgICAgICAgICAgICAgICAgICAgICAgICAgICAgICAg ICAgICAgICAgICAgICAgICAgICAgICAgICAgICAgIC AgDQogICAgICAgICAgICAgICAgICAgICAgICAgICAgICAgICAgICAgICAgICAgICAgICAgICAgICAgIC AgICAgICAgICAgICAgICAgICAgICAgICAgICAgICAgICAgICAgICAgICAgDQogICAgICAgICAgICAgIC AgICAgICAgICAgICAgICAgICAgICAgICAgICAgICAg ICAgICAgICAgICAgICAgICAgICAgICAgICAgICAgICAgICAgICAgICAgICAgICAgICAgICAgDQogICAg ICAgICAgICAgICAgICAgICAgICAgICAgICAgICAgICAgICAgICAgICAgICAgICAgICAgICAgICAgICAg ICAgICAgICAgICAgICAgICAgICAgICAgICAgICAgIC AgICAgDQogICAgICAgICAgICAgICAgICAgICAgICAgICAgICAgICAgICAgICAgICAgICAgICAgICAgIC AgICAgICAgICAgICAgICAgICAgICAgICAgICAgICAgICAgICAgICAgICAgICAgDQogICAgICAgICAgIC AgICAgICAgICAgICAgICAgICAgICAgICAgICAgICAg ICAgICAgICAgICAgICAgICAgICAgICAgICAgICAgICAgICAgICAgICAgICAgICAgICAgICAgICAgDQog ICAgICAgICAgICAgICAgICAgICAgICAgICAgICAgICAgICAgICAgICAgICAgICAgICAgICAgICAgICAg ICAgICAgICAgICAgICAgICAgICAgICAgICAgICAgIC AgICAgICAgDQogICAgICAgICAgICAgICAgICAgICAgICAgICAgICAgICAgICAgICAgICAgICAgICAgIC MmTZXuRKUzXADpCSRnKNQnKTXnOZZmQONtVTPzJAOzEHNrSBTcBWWsTYNuIWSeAMHhCXd9Y9vpTMDmBV HlZI0qQAx7Fv0+TOvDEjDwIWV9eoEwxY6KRU2ma7Zc HEczQBKkh2MjGEa3FT8FBEWfBNygAW4NNRsstd6ZJZQtWDZspLCNp5vcNlNlPZS6ZRNvLxqjXX2DLFBf V8qhptIqKEUcUMTVKC8DLuCcJ7BtvS17TEIMZj4+DDndgpYeFujNYhTvBUAha6GxKIq0RY0MFJNgHjxc o9AmWsNyZZNGNZzeXU2ISSA9GZZrXFCyQo0QPOCvB5 07qhRqGN1KQe5FQiLcTT6oev2OTgWvXVHtEhgWYcl8XAxaNS4MxJMfGNaKfa6dnaZvayIHw9PlhkNlbZ WDfEEfYGLxSVPti9Sad15bOKAIBwAtlPXgCV0dDO1yYTKhFHZ0NfE2RUKPCR7LCEPfGRViyNNmROTvCN GEQQ6AHSmnSWR2PDZmvsBusXArYArzRV8SKSRzvfTt MjIgMCBSDQo+Mn9DDX3ka3HbIKpxXVKeQD5nhv2SOJsFCiUqH8T6dBPtS4C2ZNgqXu1TDXSsKOYvQpSt SXPUEBmvDQ6MDH7jgeK3CE9FcKFeFOAvIGJinHFwPFx9D17ieLZdYNfnWA9SORS+Sarah Beth+Cg7VXVLaKQYm NDJiEhViKEUUXhOtG8TuV5BLi3OzR6ZpMU60jJmbrs TuEYhfPF8HFD1tLWGcPUBAFT4GmHXrvJ4zzpLbYbKiBFDSMlAiA43gpCFsBDYnQPAsYLNnFe4IFDSrG6 GxhgFomDscheDcPMOgNBZIAF3JKCkovwFshGFnxLdyOG24aOmbXQ4FEt2SFvUbQQ5vfm3JtCYoGq8FWA SbKH9BTNHiTBZfIYCzCUY4BRQkZyNmFXyzSJZxHWXl RTH7IBEyRTKpLZ0XNcKoHZRkNYvtToAjEIEfRCWpfq9LFUVuYGUvHCFhCWAnUEVdHVZpUEdkMBXcHWEt HAU6HPDbTFMwYD6PZsMxHJXpVZX8UMRyKXHlDNAkgy7EXALmHIJhOtMoWAZlTJRlBYYnTStoLKOkBAOj EPU2RYWeAIJsHH5JPgKdMFIeHBWnYCNsGGLcKLErzd 0KPHMpSYHcQiAxVMUjKBAkYCDcRVklXKQyOGF8TpivWERfUQNjRI2VYwKtHRHjBSO6ENNmKBAaZFSnna 6RTCXsZKUeUWQ6RmOjSOCqNPFzZXdfEDBpPKM0LMG3EWKvNHGwLE3IFgDqVLYfFUBlIJOhLKQbBKFwan 9NYMObGDGuKeF2JjNwBUXcZUHpDBrrRAPjMMB8ZZJs ZEIpMCXmDQ0FQnOmWWPgAQR4ACzhYHIrHDKpft5GYPWqHABeNvs3KmJgBDXlFKUkUOrjZDPxCJA3SNpl QQOvVNUuXY5OGaFoWNTnZTrbIARnZROjZNQuzz6YRBPzUGQtLVM2DOGhUIDbSCRcPDolCKJtMOUyVRb6 XMGyZYOsUI6MAsHoPGEkZcZbWjiaCHJvTFCtnc4NXP AmIPYkEJTuGNYfBBChLFVcPZt3piAmqIVdKKs5IR5KM2PzlfDzTsDBIo0Jl772XOF0GDShDi5OM7wcQa 5nUYPkOYUSYf9JIAg8LTm8GbN4EZHjErB7Y3Y7Ejc5JHT5OVRrMTOpWIAsWbO+BXtfAEptTfEiVdY4CY k5ZCriRsYzFknjJVZpVoYrYyUvDu3xIFQLSl6+ECduzNHudMbzGBYQOvRzPPK2KBmwEINPTj3M ID Date Data Source [id number] 07/17/2021 02:50:00 PM EST [facility] Name Value Range Interpretation Code Description Data Gala rce(s) Supporting Document(s) Lactate [Moles/volume] in Serum or Plasma 3.9 mmol/L 0.4 - 2.0 Above high normal [facility] \\BLDo\\[LA]LACTIC ACID \\BLDx\\ [facility] Adult and Pediatric Sepsis Protocols: Adult SIRS/Septic Patient = Lactate > or = 4.0 mmol/L Pediatric SIRS/Septic Patient = Lactate > or = 2.2 mmol/L Base Line, 3 hour and 6 hour lactic acid values should be obtained for further evaluation. ID Date Data Source [id number] 07/17/2021 02:50:00 PM EST [facility] Name Value Range Interpretation Code Description Data Gala rce(s) Supporting Document(s) Potassium [Moles/volume] in Serum or Plasma 5.6 mEq/L 3.5 - 5.1 Above high normal [facility] ID Date Data Source [id number] 07/17/2021 02:25:00 PM EST [facility] Name Value Range Interpretation Code Description Data Gala rce(s) Supporting Document(s) RESP PROFILE RP2.1 [facility] \\BLDo\\RESPIRATORY PROFILE NASAL PHARYNGEAL BY PCR\\BLDx\\ \\BLDo\\DETECTED _NONE \\BLDx\\ 07/17/21.9.[facility]. \\BLDo\\EQUIVOCAL _NONE \\BLDx\\ 07/17/21.[facility]. VIRUSES ADENOVIRUS NOT DETECTED NORMAL: NOT DETECTED [facility] CORONAVIRUS 229E NOT DETECTED NORMAL: NOT DETECTED [facility] CORONAVIRUS HKU1 NOT DETECTED NORMAL: NOT DETECTED [facility] CORONAVIRUS NL63 NOT DETECTED NORMAL: NOT DETECTED [facility] CORONAVIRUS OC43 NOT DETECTED NORMAL: NOT DETECTED [facility] [id number] NOT DETECTED NORMAL: NOT DETECTED [facility] REPORT TO DEPARTMENT OF HEAL TH HUMAN METAPNEUMO NOT DETECTED NORMAL: NOT DETECTED [facility] HUMAN RHINO/ENTERO NOT DETECTED NORMAL: NOT DETECTED [facility] NOT DETECTEDNOT DETECTEDNOT DETECTEDNOT DETECTED PARAINFLUENZA V3 NOT DETECTED NORMAL: NOT DETECTED [facility] NOT DETECTED RSV NOT DETECTED NORMAL: NOT DETECTED [facility] BACTERIANOT DET ECTEDNOT DETECTEDNOT DETECTEDNOT DETECTED TESTING PERFORMED USING THE SwipeToSpin RP2.1 MULTIPLEXED NUCLEIC ACID TEST. THIS TEST [...] OR REVOKED SOONER. ID Date Data Source [id number] 07/17/2021 02:10:00 PM EST [facility] Name Value Range Interpretation Code Description Data [facility] rce(s) Supporting Document(s) Magnesium [Mass/volume] in Serum or Plasma 1.8 mg/dL 1.8 - 2.4 [facility] ID Date Data Source [id number] 07/17/2021 02:10:00 PM EST [facility] Name Value Range Interpretation Code Description Data [facility] rce(s) Supporting Document(s) COMPREHENSIVE CHEM PROFILE [facility] COMPREHENSIVE METABOLIC PANEL Sodium [Moles/volume] in Serum or Plasma 135 mEq/L 136 - 145 Below low normal [facility] Potassium [Moles/volume] in Serum or Plasma 5.6 mEq/L 3.5 - 5.1 Above high normal [facility] Chloride [Moles/volume] in Serum or Plasma 101 mEq/L 98 - 107 [facility] Carbon dioxide, total [Moles/volume] in Serum or Plasma 20.2 mEq /L 21.0 - 32.0 Below low normal [facility] Glucose [Mass/volume] in Serum or Plasma 140 mg/dL 70 - 100 Above high normal [facility] Urea nitrogen [Mass/volume] in Serum or Plasma 7 mg/dL 7 - 18 [facility] CREATININE SERUM 1.06 mg/dL 0.70 - 1.30 [facility] AGE 65 yrs [facility] HEIGHT 66.00 INCHES [facility] ital eGFR NON-AFR AMR >60 [facility] eGFR AFR AMR >60 [facility] ital BUN/CREAT 7 6 - 25 [facility] l Protein [Mass/volume] in Serum or Plasma 6.6 g/dL 6.0 - 8.3 [facility] Albumin [Mass/volume] in Serum or Plasma 3.0 g/dL 3.8 - 5.4 Below low normal [facility] GLOBULIN 3.6 g/dL 2.0 - 4.0 [facility] A/G RATIO 0.8 0.8 - 2.0 [facility] Calcium [Mass/volume] in Serum or Plasma 8.5 mg/dL 8.8 - 10.2 Below low normal [facility] Bilirubin.total [Mass/volume] in Serum or Plasma 0.5 mg/dL 0.2 - 1.0 [facility] Bilirubin.direct [Mass/volume] in Serum or Plasma 0.2 mg/dL 0.0 - 0. 2 [facility] INDIRECT BILI 0.3 mg/dL 0.0 - 1.1 [facility] pital ALK PHOSPHATASE 259 U/L 40 - 129 Above high normal [facility] Aspartate aminotransferase [Enzymatic ac tivity/volume] in Serum or Plasma by With P-5'-P 62 IU/L 7 - 37 Above high normal [facility] Alanine aminotransferase [Enzymatic acti vity/volume] in Serum or Plasma by With P-5'-P 33 IU/L 12 - 78 [facility] ANION GAP 14 7 - 15 [facility] Estimated GFR referenc e range: >60ml/min/1.73m >18 years: Calculated using IDMS traceable Study Equation <18 years: Calculated using IDNE tracable Bedside Schartz Equation ID Date Data Source [id number] 07/17/2021 02:10:00 PM EST [facility] Name Value Range Interpretation Code Description Data Gala rce(s) Supporting Document(s) CBC [facility] COMPLETE BLOOD COUNT Leukocytes [#/volume] in Blood by Automated count 18.8 K/uL 4.0 - 10.0 Above high normal [facility] Erythrocytes [#/volume] in Blood by Automated count 3.76 M/uL 4.30 - 6.10 Below low normal [facility] Hemoglobin [Mass/volume] in Blood 13.9 g/dL 13.5 - 17.5 [facility] Hematocrit [Volume Fraction] of Blood by Automated count 39.6 % 3 9.0 - 50.0 [facility] Erythrocyte mean corpuscular volume [Entitic volume] b y Automated count 105.3 fL 80.0 - 96.0 Above high normal [facility] Erythrocyte mean corpuscular hemoglobin [Entitic mass] by Automated count 37.0 pg 26.0 - 34.0 Above high normal [facility] Erythrocyte mean corpuscular hemoglobin concentration [Mass/volume] by Automated count 35.1 g/dL 32.0 - 36.0 [facility] Erythrocyte distribution width [Ratio] by Automated count 15.4 % 11.6 - 14.8 Above high normal [facility] Platelets [#/volume] in Blood by Automated count 273 K/uL 150 - 450 [facility] Platelet mean volume [Entitic volume] in Blood by Automated count 8.4 fL 7.1 - 10.4 [facility] Neutrophils [#/volume] in Blood by Automated count 16.26 K/uL 1.70 - 7.70 Above high normal [facility] Lymphocytes [#/volume] in Blood by Automated count 1.04 K/uL 1.50 - 6.00 Below low normal [facility] Monocytes [#/volume] in Blood by Automated count 1.17 K/uL 0.00 - 1.00 Above high normal [facility] Eosinophils [#/volume] in Blood by Automated count 0.02 K/uL 0.03 - 0.48 Below low normal [facility] Basophils [#/volume] in Blood by Automated count 0.12 K/uL 0.01 - 0.08 Above high normal [facility] 0.15 Urinalysis macro (dipstick) panel - Urine 0.150 10^3/uL 0.000 - 0.012 Above high normal [facility] Neutrophils/100 leukocytes in Blood by Automated count 86.8 % 42.0 - 75.0 Above high normal [facility] Lymphocytes/100 leukocytes in Blood by Automated count 5.5 % 15.0 - 41.0 Below low normal [facility] Monocytes/100 leukocytes in Blood by Automated count 6.2 % 0.0 - 12.0 [facility] Eosinophils/100 leukocytes in Blood by Automated count 0.1 % 0.0 - 7.0 [facility] 0.60.80 NRBC 0.8 % [facility] MANUAL DIFF NOT INDICATED [facility] osp[facility] RBC MORPH NOT INDICATED [facility] pital ID Date Data Source [id number] 07/17/2021 02:10:00 PM EST [facility] Name Value Range Interpretation Code Description Data Gala rce(s) Supporting Document(s) [id number] 15.0 pg/mL 4.0 - 76.2 [facility] Hospi maria l \\BLDo\\TROPONIN I I NTERPRETATION:\\BLDx\\ [...] method. Effective 06/16/21. ID Date Data Source [id number] 07/17/2021 02:10:00 PM [facility] Name Value Range Interpretation Code Description Data Gala rce(s) Supporting Document(s) Fibrin D-dimer DDU [Mass/volume] in Platelet poor plas ma by Immunoassay >5000 ng/mL 0 - 400 Above high normal [facility] METHODOLOGY: FLUORESCENCE IMM UNOASSAY \\BLDo\\D- DIMER [...] erroneous D-dimer results. ID Date Data Source [id number] 07/01/2021 11:59:00 AM EST [facility] Value Range Interpretation Code Description Data Gala rce(s) Supporting Document(s) Ear Culture [facility] pital ID Date Data Source [id number] 07/01/2021 11:59:00 AM EST [facility] Value Range Interpretation Code Description Data Gala rce(s) Supporting Document(s) Ampicillin 16 Specimen in lab; results pending [facility] Cefazolin Susceptible. Indicates for microbiol ogy susceptibilities only. [facility] Cefepime Susceptible. Indicates for microbiol ogy susceptibilities only. [facility] ESBL - [facility] Hospi maria l Ceftazadime Susceptible. Indicates for m icrobiology susceptibilities only. [facility] Ceftriaxone Susceptible. Indicates for m icrobiology susceptibilities only. [facility] Ciprofloxacin Susceptible. Ind icates for microbiology susceptibilities only. [facility] Ertapenem Susceptible. Indicates for microbiol ogy susceptibilities only. [facility] Gentamicin Susceptible. Indicates for microbiol ogy susceptibilities only. [facility] Levofloxacin Susceptible. Indicates for m icrobiology susceptibilities only. [facility] Pipercillin/Tazobactam Susceptib le. Indicates for microbiology susceptibilities only. [facility] Trimeth/Sulfamethoxazole Suscept ible. Indicates for microbiology susceptibilities only. [facility] ID Date Data Source [id number] 06/02/2021 07:26:00 AM EDT [facility] Name: ZAY SMITH : 7 Age/Sex: 65M Ordering Provider: ADELAIDA Goncalves Med Rec #: [id number] Reg Status: [facility] Room #: Date of Service: 06/01/21 Report Number: [id number] cc:ADELAIDA Goncalves Send Report To: [id number] XRP/XR Ankle Rt Min. 3 Views Reason [...] Date/Time: 06/01/21 1527 Transcribed Date/Time: 06/02/21 0726 Air Duct Mechanic: MANDEEP Name Value Range Interpretation Code Description Data Gala rce(s) Supporting Document(s) ID Date Data Source [id number] 05/25/2021 10:21:00 PM EDT [facility] Name Value Range Interpretation Code Description Data Gala rce(s) Supporting Document(s) White Blood Count 4.8-10.8 Above high normal [facility] Red Blood Count 4.35-6.08 Below low normal [facility] Hemoglobin 13.0-17.5 Normal (applies to non-numeric resul ts) [facility] Hematocrit 37.7-51.0 Below low normal [facility] Mean Corpuscular Volume 80-94 Above high normal [facility] Mean Corpuscular Hemoglobin 27.0-33.0 Above high normal [facility] Mean Corpuscular HGB Conc 32.0-36.0 Normal (applies to no n-numeric results) [facility] Red Cell Distribution Width 11.5-14.5 Normal (appli es to non-numeric results) [facility] Platelet Count 466 X10 3/uL 130-450 Above high normal [facility] Mean Platelet Volume 9.6-13.1 Normal (applies to non-num mariya results) [facility] Imm Grans% (AUTO) 1 % 0-2 Normal (applies to non-numeri c results) [facility] Neutrophils % (AUTO) 59 % 40-75 Normal (applies to non-num mariya results) [facility] Lymphocytes % (AUTO) 28 % 21-46 Normal (applies to non-num mariya results) [facility] Monocytes % (AUTO) 10 % 5-12 Normal (applies to non-numer ic results) [facility] Eosinophils % (AUTO) 1 % 1-5 Normal (applies to non-num mariya results) [facility] Basophils % (AUTO) 1 % 0-1 Normal (applies to non-numer ic results) [facility] Imm Grans# (AUTO) 0.0-0.5 Normal (applies to non-numeri c results) [facility] Neutrophils # (AUTO) 1.5-8.1 Normal (applies to non-num mariya results) [facility] Lymphocytes # (AUTO) 1.0-3.1 Above high normal [facility] Monocytes # (AUTO) 0.2-1.3 Normal (applies to non-numer ic results) [facility] Eosinophils# (AUTO) 0.0-0.5 Normal (applies to non-nume adrianna results) [facility] Basophils # (AUTO) 0.0-0.1 Above high normal [facility] Slide Reviewed By Normal (applies to non-numeri c results) [facility] Slide has been reviewed and findings con firmed by a technologist/emergency veterinary technician. ID Date Data Source [id number] 05/25/2021 08:49:00 PM EDT [facility] Name Value Range Interpretation Code Description Data Gala rce(s) Supporting Document(s) Sodium 136 mmol/L 137-145 Below low normal [facility] Potassium 3.5-5.1 Normal (applies to non-numeric resul ts) [facility] Chloride 105 mmol/L 98-112 Normal (applies to non-numeric resul ts) [facility] Carbon Dioxide CO2 22.0-33.0 Normal (applies to non-numer ic results) [facility] Anion Gap 4.0-11.0 Normal (applies to non-numeric resul ts) [facility] BUN 6 mg/dL 9-20 Below low normal [facility] Creatinine 0.80-1.50 Below low normal [facility] GFR >60 Normal (applies to non-numeric results) [facility] Result based on MDRD formula. Glucose Level 56 mg/dL 74-[address] [facility] The reference range is only applicable w hen fasting. Calcium-Uncorrected 8.4-10.2 Normal (applies to non-nume adrianna results) [facility] Corrected Calcium 8.4-10.2 Normal (applies to non-numeri c results) [facility] ID Date Data Source [id number] 05/21/2021 01:03:00 PM EDT [facility] Name Value Range Interpretation Code Description Data Gala rce(s) Supporting Document(s) Respiratory specimen severe acute respir atory syndrome coronavirus 2 (SARS-CoV-2) RNA Negative (qualifier value) [facility] This lab was ordered by [facility] dania and reported by [facility]. ID Date Data Source [id number] 05/21/2021 10:37:00 PM EDT [facility] COVID-19 Specimen Source NASOPHARYNGEAL Testing was performed using the Aptima SARS-CoV-2 Assay ([employer]) Methodology: Nucleic Acid Amplification [employer] Giving Manager RT-PCR Mediated Amplification (TMA) and Dual Kinetic [...] following links EUA Fact Sheet for Providers: https://www.fda.gov/media/776913/download EUA Fact Sheet for Patients: https://www.fda.gov/media/110152/download THIS IS A STATE REPORTABLE COMMUNICABLE DISEASE. Test Performed By: [facility] [address] [place] [address] Director: Jesús Chen MD Name Value Range Interpretation Code Description Data Gala rce(s) Supporting Document(s) ID Date Data Source [id number] 05/04/2021 12:53:00 PM EDT [facility] SALLY HopeJennifer [facility] [address] [place] [id number] FOLLOW UP NOTENAME: ZAY SMITH DPHYSICIAN: KALEN RIVAS MDDATE OF SERVICE: 05/04/21DATE OF : 57ACCOUNT #: [id number]: ZAY SMITHDate: May 04OB: 1955Physician: Dr. Malcolm [...] DVTSeizurePast Surgical History:Ankle SurgeryAppendectomyBack surgeryDiscectomy - L3- N4Htdeouctb back stimulatorRight chest tube placementSplenectomyTesticle removal - [...] depression andeuphoria.Vital Signs:Performed on May 04, 2021 11:28Tgxmhh73.00 vmMffnit428 lbs(LOW)BSA (derived)1.84 sq.mBMI26.99Jfiskybuiqu70.7 GIyfun56 /rdjHleiaarswmk27 /kdeDJ221/72Pulse Oximetry (O2 Sat)98 %Fall RiskModerate RiskPerformance Status:1 [...] electrophoresis scan will follow via computer,mail, or podiatric surgeon delivery.Impression:65 years old white male with known [...] rce(s) Supporting Document(s) ID Date Data Source [id number] 04/13/2021 01:25:00 PM EDT [facility] Name Value Range Interpretation Code Description Data Gala rce(s) Supporting Document(s) Sodium 141 mmol/L 137-145 Normal (applies to non-numeric resul ts) [facility] Potassium 3.5-5.1 Normal (applies to non-numeric resul ts) [facility] Chloride 112 mmol/L 98-112 Normal (applies to non-numeric resul ts) [facility] Carbon Dioxide CO2 22.0-33.0 Normal (applies to non-numer ic results) [facility] Anion Gap 4.0-11.0 Normal (applies to non-numeric resul ts) [facility] BUN 8 mg/dL 9-20 Below low normal [facility] Creatinine 0.80-1.50 Below low normal [facility] GFR >60 Normal (applies to non-numeric results) [facility] Result based on MDRD formula. Glucose Level 89 mg/dL 74-99 Normal (applies to non-numeric re sults) [facility] The reference range is only applicable w hen fasting. Calcium-Uncorrected 8.4-10.2 Normal (applies to non-nume adrianna results) [facility] Corrected Calcium 8.4-10.2 Normal (applies to non-numeri c results) [facility] ID Date Data Source [id number] 04/11/2021 09:55:00 AM EDT [facility] Name Value Range Interpretation Code Description Data Gala rce(s) Supporting Document(s) COMPREHENSIVE CHEM PROFILE [facility] COMPREHENSIVE METABOLIC PANEL Sodium [Moles/volume] in Serum or Plasma 140 mEq/L 136 - 145 [facility] Potassium [Moles/volume] in Serum or Plasma 3.8 mEq/L 3.5 - 5.1 [facility] Chloride [Moles/volume] in Serum or Plasma 105 mEq/L 98 - 107 [facility] Carbon dioxide, total [Moles/volume] in Serum or Plasma 23.6 mEq /L 21.0 - 32.0 [facility] Glucose [Mass/volume] in Serum or Plasma 97 mg/dL 70 - 100 [facility] Urea nitrogen [Mass/volume] in Serum or Plasma 5 mg/dL 7 - 18 Below low normal [facility] CREATININE SERUM 1.03 mg/dL 0.70 - 1.30 [facility] AGE 65 yrs [facility] HEIGHT NA [facility] eGFR NON-AFR AMR >60 [facility] eGFR AFR AMR >60 [facility] BUN/CREAT 5 6 - 25 Below low normal [facility] Protein [Mass/volume] in Serum or Plasma 5.7 g/dL 6.0 - 8.3 Below low normal [facility] Albumin [Mass/volume] in Serum or Plasma 2.7 g/dL 3.8 - 5.4 Below low normal [facility] GLOBULIN 3.0 g/dL 2.0 - 4.0 [facility] A/G RATIO 0.9 0.8 - 2.0 [facility] Calcium [Mass/volume] in Serum or Plasma 8.3 mg/dL 8.8 - 10.2 Below low normal [facility] Bilirubin.total [Mass/volume] in Serum or Plasma 0.8 mg/dL 0.2 - 1.0 [facility] Bilirubin.direct [Mass/volume] in Serum or Plasma 0.3 mg/dL 0.0 - 0.2 Above high normal [facility] INDIRECT BILI 0.5 mg/dL 0.0 - 1.1 [facility] pital ALK PHOSPHATASE 142 U/L 40 - 129 Above high normal [facility] Aspartate aminotransferase [Enzymatic ac tivity/volume] in Serum or Plasma by With P-5'-P 34 IU/L 7 - 37 [facility] Alanine aminotransferase [Enzymatic acti vity/volume] in Serum or Plasma by With P-5'-P 22 IU/L 12 - 78 [facility] ANION GAP 11 7 - 15 [facility] Estimated GFR referenc e range: >60ml/min/1.73m >18 years: Calculated using IDMS traceable Study Equation <18 years: Calculated using IDMS tracable Bedside Schartz Equation ID Date Data Source [id number] 04/11/2021 09:55:00 AM EDT [facility] Name Value Range Interpretation Code Description Data Gala rce(s) Supporting Document(s) Fibrin D-dimer DDU [Mass/volume] in Platelet poor plas ma by Immunoassay 104 ng/mL 0 - 400 [facility] METHODOLOGY: FLUORESCENCE IMM UNOASSAY \\BLDo\\D- DIMER [...] erroneous D-dimer results. ID Date Data Source [id number] 04/11/2021 09:55:00 AM EDT [facility] Name Value Range Interpretation Code Description Data Gala rce(s) Supporting Document(s) CBC [facility] COMPLETE BLOOD COUNT Leukocytes [#/volume] in Blood by Automated count 12.3 K/uL 4.0 - 10.0 Above high normal [facility] Erythrocytes [#/volume] in Blood by Automated count 3.09 M/uL 4.30 - 6.10 Below low normal [facility] Hemoglobin [Mass/volume] in Blood 11.3 g/dL 13.5 - 17.5 Below low no rmal [facility] Hematocrit [Volume Fraction] of Blood by Automated count 32.9 % 39.0 - 50.0 Below low normal [facility] Erythrocyte mean corpuscular volume [Entitic volume] b y Automated count 106.5 fL 80.0 - 96.0 Above high normal [facility] Erythrocyte mean corpuscular hemoglobin [Entitic mass] by Automated count 36.6 pg 26.0 - 34.0 Above high normal [facility] Erythrocyte mean corpuscular hemoglobin concentration [Mass/volume] by Automated count 34.3 g/dL 32.0 - 36.0 [facility] Erythrocyte distribution width [Ratio] by Automated count 14.6 % 11.6 - 14.8 [facility] Platelets [#/volume] in Blood by Automated count 453 K/uL 150 - 450 Above high normal [facility] Platelet mean volume [Entitic volume] in Blood by Automated count 8.1 fL 7.1 - 10.4 [facility] Neutrophils [#/volume] in Blood by Automated count 7.17 K/uL 1.70 - 7.70 [facility] Lymphocytes [#/volume] in Blood by Automated count 3.28 K/uL 1.50 - 6.00 [facility] Monocytes [#/volume] in Blood by Automated count 1.25 K/uL 0.00 - 1.00 Above high normal [facility] Eosinophils [#/volume] in Blood by Automated count 0.37 K/uL 0.03 - 0.48 [facility] Basophils [#/volume] in Blood by Automated count 0.15 K/uL 0.01 - 0.08 Above high normal [facility] 0.10 Urinalysis macro (dipstick) panel - Urine 0.090 10^3/uL 0.000 - 0.012 Above high normal [facility] Neutrophils/100 leukocytes in Blood by Automated count 58.3 % 42. 0 - 75.0 [facility] Lymphocytes/100 leukocytes in Blood by Automated count 26.6 % 15. 0 - 41.0 [facility] Monocytes/100 leukocytes in Blood by Automated count 10.1 % 0.0 - 12.0 [facility] Eosinophils/100 leukocytes in Blood by Automated count 3.0 % 0.0 - 7.0 [facility] 1.20.80 NRBC 0.7 % [facility] NOT INDICATED [facility] RBC MORPH NOT INDICATED [facility] pital ID Date Data Source [id number] 04/10/2021 06:10:00 PM EDT [facility] Name Value Range Interpretation Code Description Data Gala rce(s) Supporting Document(s) RESP PROFILE RP2.1 NASAL PCR [facility] \\BLDo\\RESPIRATORY PROFILE NASAL PHARYNGEAL BY PCR\\BLDx\\ \\BLDo\\DETECTED _NONE \\BLDx\\ 04/10/21.1902.TMG. \\BLDo\\EQUIVOCAL _NONE \\BLDx\\ 04/10/21.TMG. VIRUSES ADENOVIRUS NOT DETECTED NORMAL: NOT DETECTED [facility] CORONAVIRUS 229E NOT DETECTED NORMAL: NOT DETECTED [facility] CORONAVIRUS HKU1 NOT DETECTED NORMAL: NOT DETECTED [facility] CORONAVIRUS NL63 NOT DETECTED NORMAL: NOT DETECTED [facility] CORONAVIRUS OC43 NOT DETECTED NORMAL: NOT DETECTED [facility] [id number] NOT DETECTED NORMAL: NOT DETECTED [facility] REPORT TO DEPARTMENT OF HEAL TH HUMAN METAPNEUMO NOT DETECTED NORMAL: NOT DETECTED [facility] HUMAN RHINO/ENTERO NOT DETECTED NORMAL: NOT DETECTED [facility] NOT DETECTEDNOT DETECTEDNOT DETECTEDNOT DETECTED PARAINFLUENZA V3 NOT DETECTED NORMAL: NOT DETECTED [facility] NOT DETECTED RSV NOT DETECTED NORMAL: NOT DETECTED [facility] BACTERIANOT DET ECTEDNOT DETECTEDNOT DETECTEDNOT DETECTED TESTING PERFORMED USING THE [employer]otics[employer] RP2.1 MULTIPLEXED NUCLEIC ACID TEST. THIS TEST [...] OR REVOKED SOONER. ID Date Data Source [id number] 04/10/2021 06:10:00 PM EDT [facility] Name Value Range Interpretation Code Description Data Gala rce(s) Supporting Document(s) URINALYSIS ROUTINE wMICRO RFLX TO CX [facility] URINALYSIS W/REFLEX CULTURE REFERENCE RANGES SOURCE Clean Catch [facility] maria l COLOR Yellow Colorless-Suzie [facility] ospital CLARITY Clear Normal: Clear [facility] pital [place] EST Negative Negative - Trace [facility] NITRITE Negative Normal: Negative [facility] UROBILINOGEN Negative Negative - Trace [facility] PROTEIN Negative Negative - Trace [facility] pH 7.0 5.0 - 8.0 [facility] l BLOOD Negative Negative - Trace [facility] SPEC GRAVITY <=1.005 1.000 - 1.030 Abnormal (applies to non-numeri c results) [facility] KETONE Negative Negative - Trace [facility] BILIRUBIN Negative Normal: Negative [facility] GLUCOSE Negative Normal: Negative [facility] MICROSCOPIC See Below [facility] maria l WBC 1 - 3 None Seen - 5/hpf [facility] RBC 0 - 1 None Seen - 5/hpf [facility] EPITHELIAL See Below NORMAL: None Seen [facility] SQUAMOUS EPI FEW/hpf NORMAL: None Seen [facility] TRANS EPI NONE SEEN NORMAL: None Seen [facility] RENAL EPI NONE SEEN NORMAL: None Seen [facility] BACTERIA NONE SEEN NORMAL: None Seen [facility] MUCOUS NONE SEEN NORMAL: None Seen [facility] CASTS Not Indicated [facility] pital CRYSTALS Not Indicated [facility] pital CULTURE INDICATED? NO Normal: No [facility] ID Date Data Source [id number] 04/10/2021 06:05:00 PM EDT [facility] Name Value Range Interpretation Code Description Data Gala rce(s) Supporting Document(s) Lactate [Moles/volume] in Serum or Plasma 2.8 mmol/L 0.4 - 2.0 Above high normal [facility] \\BLDo\\[LA]LACTIC ACID [facility] Adult and Pediatric Sepsis Protocols: Adult SIRS/Septic Patient = Lactate > or = 4.0 mmol/L Pediatric SIRS/Septic Patient = Lactate > or = 2.2 mmol/L Base Line, 3 hour and 6 hour lactic acid values should be obtained for further evaluation. ID Date Data Source [id number] 04/10/2021 06:05:00 PM EDT [facility] Name Value Range Interpretation Code Description Data Gala rce(s) Supporting Document(s) Troponin I.cardiac [Mass/volume] in Serum or Plasma <0.017 ng/mL 0.017 - 0.060 [facility] \\BLDo\\TROPONIN I I NTERPRETATION:\\BLDx\\ < 0.06 ng/mL NOT SUSPICIOUS FOR AN AMI 0.06 - 0.59 ng/mL RUSSELL ZONE FOR AN AMI, SERIAL MONITORING RECOMMENDED 0.6 - 1.5 ng/mL SUSPICIOUS FOR AN AMI Reference range updated for new chemiluminescent immunoassay method based on Mantis Deposition technology. Effective 04/01/18. ID Date Data Source [id number] 04/10/2021 03:15:00 PM EDT [facility] Name Value Range Interpretation Code Description Data Gala rce(s) Supporting Document(s) Lactate [Moles/volume] in Serum or Plasma 6.1 mmol/L 0.4 - 2.0 Above high normal [facility] \\BLDo\\[LA]LACTIC ACID \\BLDx\\ [facility] Adult and Pediatric Sepsis Protocols: Adult SIRS/Septic Patient = Lactate > or = 4.0 mmol/L Pediatric SIRS/Septic Patient = Lactate > or = 2.2 mmol/L Base Line, 3 hour and 6 hour lactic acid values should be obtained for further evaluation. ID Date Data Source [id number] 04/10/2021 03:15:00 PM EDT [facility] Name Value Range Interpretation Code Description Data Gala rce(s) Supporting Document(s) Fibrin D-dimer DDU [Mass/volume] in Platelet poor plas ma by Immunoassay <100 ng/mL 0 - 400 [facility] METHODOLOGY: FLUORESCENCE IMM UNOASSAY \\BLDo\\D- DIMER [...] erroneous D-dimer results. ID Date Data Source [id number] 04/10/2021 03:15:00 PM EDT [facility] Name Value Range Interpretation Code Description Data Gala rce(s) Supporting Document(s) Natriuretic peptide B [Mass/volume] in Serum or Plasma 487 PG/ML 0 - 125 Above high normal [facility] Testing methodology changed t o chemiluminscent immunoassay based on Mantis Deposition technology. Effective 03/26/18. ID Date Data Source [id number] 04/10/2021 03:15:00 PM EDT [facility] Name Value Range Interpretation Code Description Data Gala rce(s) Supporting Document(s) Troponin I.cardiac [Mass/volume] in Serum or Plasma <0.017 ng/mL 0.017 - 0.060 [facility] \\BLDo\\TROPONIN I I NTERPRETATION:\\BLDx\\ < 0.06 ng/mL NOT SUSPICIOUS FOR AN AMI 0.06 - 0.59 ng/mL RUSSELL ZONE FOR AN AMI, SERIAL MONITORING RECOMMENDED 0.6 - 1.5 ng/mL SUSPICIOUS FOR AN AMI Reference range updated for new chemiluminescent immunoassay method based on Mantis Deposition technology. Effective 04/01/18. ID Date Data Source [id number] 04/10/2021 03:15:00 PM EDT [facility] Name Value Range Interpretation Code Description Data Gala rce(s) Supporting Document(s) COMPREHENSIVE CHEM PROFILE [facility] COMPREHENSIVE METABOLIC PANEL Sodium [Moles/volume] in Serum or Plasma 138 mEq/L 136 - 145 [facility] Potassium [Moles/volume] in Serum or Plasma 3.6 mEq/L 3.5 - 5.1 [facility] Chloride [Moles/volume] in Serum or Plasma 104 mEq/L 98 - 107 [facility] Carbon dioxide, total [Moles/volume] in Serum or Plasma 19.1 mEq /L 21.0 - 32.0 Below low normal [facility] Glucose [Mass/volume] in Serum or Plasma 109 mg/dL 70 - 100 Above high normal [facility] Urea nitrogen [Mass/volume] in Serum or Plasma 5 mg/dL 7 - 18 Below low normal [facility] CREATININE SERUM 1.06 mg/dL 0.70 - 1.30 [facility] AGE 65 yrs [facility] l HEIGHT 65.00 INCHES [facility] ital eGFR NON-AFR AMR >60 [facility] eGFR AFR AMR >60 [facility] ital BUN/CREAT 5 6 - 25 Below low normal [facility] Protein [Mass/volume] in Serum or Plasma 5.4 g/dL 6.0 - 8.3 Below low normal [facility] Albumin [Mass/volume] in Serum or Plasma 2.6 g/dL 3.8 - 5.4 Below low normal [facility] GLOBULIN 2.8 g/dL 2.0 - 4.0 [facility] A/G RATIO 0.9 0.8 - 2.0 [facility] Calcium [Mass/volume] in Serum or Plasma 8.3 mg/dL 8.8 - 10.2 Below low normal [facility] Bilirubin.total [Mass/volume] in Serum or Plasma 0.4 mg/dL 0.2 - 1.0 [facility] Bilirubin.direct [Mass/volume] in Serum or Plasma 0.2 mg/dL 0.0 - 0. 2 [facility] INDIRECT BILI 0.2 mg/dL 0.0 - 1.1 [facility] pital ALK PHOSPHATASE 127 U/L 40 - 129 [facility] ospital Aspartate aminotransferase [Enzymatic ac tivity/volume] in Serum or Plasma by With P-5'-P 36 IU/L 7 - 37 [facility] Alanine aminotransferase [Enzymatic acti vity/volume] in Serum or Plasma by With P-5'-P 19 IU/L 12 - 78 [facility] ANION GAP 15 7 - 15 [facility] Estimated GFR referenc e range: >60ml/min/1.73m >18 years: Calculated using IDMS traceable Study Equation <18 years: Calculated using IDMS tracable Bedside Schartz Equation ID Date Data Source [id number] 04/10/2021 03:15:00 PM EDT [facility] PROTHROMBIN TIME Name Value Range Interpretation Code Description Data Gala rce(s) Supporting Document(s) WARFARIN? NO [facility] 13.2 INR in Platelet poor plasma by Coagulation assay 1.0 1.0 - 4.5 [facility] Reference ranges Warf aldair (Coumadin) Therapy: 21.6 - 40.7 secs Normal (Non-warfarin Therapy): 10.7 - 15.2 secs New Protime Reference Range as of July 09, 2020 ID Date Data Source [id number] 04/10/2021 03:15:00 PM EDT [facility] Name Value Range Interpretation Code Description Data Gala rce(s) Supporting Document(s) CBC [facility] COMPLETE BLOOD COUNT Leukocytes [#/volume] in Blood by Automated count 13.2 K/uL 4.0 - 10.0 Above high normal [facility] Erythrocytes [#/volume] in Blood by Automated count 2.94 M/uL 4.30 - 6.10 Below low normal [facility] Hemoglobin [Mass/volume] in Blood 10.7 g/dL 13.5 - 17.5 Below low no rmal [facility] Hematocrit [Volume Fraction] of Blood by Automated count 31.0 % 39.0 - 50.0 Below low normal [facility] Erythrocyte mean corpuscular volume [Entitic volume] b y Automated count 105.4 fL 80.0 - 96.0 Above high normal [facility] Erythrocyte mean corpuscular hemoglobin [Entitic mass] by Automated count 36.4 pg 26.0 - 34.0 Above high normal [facility] Erythrocyte mean corpuscular hemoglobin concentration [Mass/volume] by Automated count 34.5 g/dL 32.0 - 36.0 [facility] Erythrocyte distribution width [Ratio] by Automated count 14.5 % 11.6 - 14.8 [facility] Platelets [#/volume] in Blood by Automated count 425 K/uL 150 - 450 [facility] Platelet mean volume [Entitic volume] in Blood by Automated count 8.1 fL 7.1 - 10.4 [facility] Neutrophils [#/volume] in Blood by Automated count 9.42 K/uL 1.70 - 7.70 Above high normal [facility] Lymphocytes [#/volume] in Blood by Automated count 1.89 K/uL 1.50 - 6.00 [facility] Monocytes [#/volume] in Blood by Automated count 1.52 K/uL 0.00 - 1.00 Above high normal [facility] Eosinophils [#/volume] in Blood by Automated count 0.10 K/uL 0.03 - 0.48 [facility] Basophils [#/volume] in Blood by Automated count 0.16 K/uL 0.01 - 0.08 Above high normal [facility] 0.10 Urinalysis macro (dipstick) panel - Urine 0.090 10^3/uL 0.000 - 0.012 Above high normal [facility] Neutrophils/100 leukocytes in Blood by Automated count 71.4 % 42. 0 - 75.0 [facility] Lymphocytes/100 leukocytes in Blood by Automated count 14.3 % 15.0 - 41.0 Below low normal [facility] Monocytes/100 leukocytes in Blood by Automated count 11.5 % 0.0 - 12.0 [facility] Eosinophils/100 leukocytes in Blood by Automated count 0.8 % 0.0 - 7.0 [facility] 1.20.80 NRBC 0.7 % [facility] l MANUAL DIFF NOT INDICATED [facility] H ospital RBC MORPH NOT INDICATED [facility] pital ID Date Data Source [id number] 03/27/2021 08:18:00 AM EDT [facility] LEFT EAR Name Value Range Interpretation Code Description Data Gala rce(s) Supporting Document(s) Ear Culture [facility] pital ID Date Data Source [id number] 03/27/2021 08:18:00 AM EDT [facility] LEFT EAR Name Value Range Interpretation Code Description Data Gala rce(s) Supporting Document(s) Ceftazadime Susceptible. Indicates for m icrobiology susceptibilities only. [facility] Ciprofloxacin 2 Specimen in lab; results pending [facility] Gentamicin Susceptible. Indicates for microbiol ogy susceptibilities only. [facility] Imipenem Susceptible. Indicates for microbiol ogy susceptibilities only. [facility] Levofloxacin 4 Specimen in lab; results pending [facility] Pipercillin/Tazobactam 8 Susceptib le. Indicates for microbiology susceptibilities only. [facility] ID Date Data Source [id number] 03/26/2021 10:05:00 AM EDT [facility] RIGHT EAR [facility] Name Value Range Interpretation Code Description Data Gala rce(s) Supporting Document(s) ID Date Data Source [id number] 02/03/2021 08:36:00 AM EDT [facility] Name Value Range Interpretation Code Description Data Gala rce(s) Supporting Document(s) Ear Culture [facility] pital ID Date Data Source [id number] 02/03/2021 08:36:00 AM EDT [facility] Name Value Range Interpretation Code Description Data Gala rce(s) Supporting Document(s) Ampicillin Results entered -- not verified [facility] Cefazolin Susceptible. Indicates for microbiol ogy susceptibilities only. [facility] Cefepime Susceptible. Indicates for microbiol ogy susceptibilities only. [facility] Ceftazadime Susceptible. Indicates for m icrobiology susceptibilities only. [facility] Ceftriaxone Susceptible. Indicates for m icrobiology susceptibilities only. [facility] Ciprofloxacin Susceptible. Ind icates for microbiology susceptibilities only. [facility] Ertapenem Susceptible. Indicates for microbiol ogy susceptibilities only. [facility] Gentamicin Susceptible. Indicates for microbiol ogy susceptibilities only. [facility] Levofloxacin Susceptible. Indicates for m icrobiology susceptibilities only. [facility] Pipercillin/Tazobactam Susceptib le. Indicates for microbiology susceptibilities only. [facility] Trimeth/Sulfamethoxazole Suscept ible. Indicates for microbiology susceptibilities only. [facility] ID Date Data Source [id number] 01/18/2021 02:21:00 PM EDT [facility] Name Value Range Interpretation Code Description Data Gala rce(s) Supporting Document(s) Sodium 139 mmol/L 137-145 Normal (applies to non-numeric resul ts) [facility] Potassium 3.5-5.1 Above high normal [facility] Chloride 105 mmol/L 98-112 Normal (applies to non-numeric resul ts) [facility] Carbon Dioxide CO2 22.0-33.0 Normal (applies to non-numer ic results) [facility] Anion Gap 4.0-11.0 Normal (applies to non-numeric resul ts) [facility] BUN 4 mg/dL 9-20 Below low normal [facility] Creatinine 0.80-1.50 Below low normal [facility] GFR >60 Normal (applies to non-numeric results) [facility] Result based on MDRD formula. Glucose Level 82 mg/dL 74-99 Normal (applies to non-numeric re sults) [facility] The reference range is only applicable w hen fasting. Calcium-Uncorrected 8.4-10.2 Normal (applies to non-nume adrianna results) [facility] Corrected Calcium 8.4-10.2 Normal (applies to non-numeri c results) [facility] Bilirubin,Total 0.2-1.3 Normal (applies to non-numeric results) [facility] SGOT(AST) 37 U/L 17-59 Normal (applies to non-numeric resul ts) [facility] SGPT(ALT) 16 U/L 21-72 Below low normal [facility] Alkaline Phosphatase 183 U/L 38-126 Above high normal [facility] can increase Alkaline Phosp le vels up to 2 times the normal adult value. Normal values for children and adolescents are 2 to 3 times the normal adult value. Total Protein 6.3-8.2 Normal (applies to non-numeric re sults) [facility] Albumin 3.5-5.0 Below low normal [facility] ID Date Data Source [id number] 01/18/2021 02:21:00 PM EDT [facility] Name Value Range Interpretation Code Description Data Gala rce(s) Supporting Document(s) B-Type Natriuretic Peptide BNP 433 pg/mL <125 Above high neno l [facility] NT-proBNP values less than 300 pg/mL hav [...] acute congestive failure. ID Date Data Source [id number] 11/25/2020 11:16:04 AM EDT [facility] [address] [place] [address] TELEPHONE RADIOLOGY DEPARTMENT Name: ZUHLSDORF [facility] #: [id number] : 1955 Ordering Physician: PIETRO OKEEFE Sex: M Date: 11/22/20 Admission Type: E/R X-ray Number: [id number] Unsigned Transcriptions are preliminary reports and do not represent a Medical or Legal Document XRAY CHEST 2 VIEW SUMIT SOLIZ [id number] COMPLETE:11/22/20 15:34 LEI 79017 (REASON FOR CHEST: COUGH FINDINGS: Examination of [...] rce(s) Supporting Document(s) ID Date Data Source [id number] 11/25/2020 11:15:58 [place] [address] TELEPHONE RADIOLOGY DEPARTMENT Name: ZUHLSDORF Z[facility] #: [id number] : 1955 Ordering Physician: PIETRO OKEEFE Sex: M Date: 11/22/20 Admission Type: E/R X-ray Number: [id number] Unsigned Transcriptions are preliminary reports and do not represent a Medical or Legal Document CT ABDOMEN PELVIS WO CONTRAST [id number] COMPLETE:11/22/20 15:34 LEI 95764 (REASON FOR ABDOMEN: right flank/back pain Patient [...] along the distal colon. No surrounding inflammation. [id number] [place] [address] TELEPHONE RADIOLOGY DEPARTMENT Name: SARAH HERNANDEZ [facility] #: [id number] : 1955 Ordering Physician: PIETRO OKEEFE Sex: M Date: 11/22/20 Admission Type: E/R X-ray Number: [id number] Unsigned Transcriptions are preliminary reports and do [...] rce(s) Supporting Document(s) ID Date Data Source [id number] 11/22/2020 03:02:00 PM EDT [facility] Name Value Range Interpretation Code Description Data Gala rce(s) Supporting Document(s) URINE DRUG PANEL ER AND IP i [facility] URINE DRUG SCREEN AMPHETAMINES NEGATIVE NORMAL: NEGATIVE [facility] BARBITURATES NEGATIVE NORMAL: NEGATIVE [facility] BENZO NEGATIVE NORMAL: NEGATIVE [facility] COCAINE NEGATIVE NORMAL: NEGATIVE [facility] METHADONE NEGATIVE NORMAL: NEGATIVE [facility] METHAMPHET NEGATIVE NORMAL: NEGATIVE [facility] OPIATES NEGATIVE NORMAL: NEGATIVE [facility] PCP NEGATIVE NORMAL: NEGATIVE [facility] THC NEGATIVE NORMAL: NEGATIVE [facility] TRICYCLIC NEGATIVE NORMAL: NEGATIVE [facility] OXYCODONE NEGATIVE NORMAL: NEGATIVE [facility] PROPOXYPHENE NEGATIVE NORMAL: NEGATIVE [facility] \\BLDo\\URINE D RUG SCREEN INTERPRETATION\\BLDx\\ Qualitative results only. A result of "Negative" may mean that the drug is present, but below the threshold of the method. A result of "Positive" indicates a presence of the drug in the sample. Additional tests are necessary for confirmation. TEST NAME DRUG STANDARD CUTOFF CONC. (ng/mL) THC [id number] 50 OPI MORPHINE 100 AMP D-AMPHETAMINE 500 NGOZI BENZOLYECGONINE 150 TCA DESIPRAMINE 300 BAR BUTALBITAL 200 MTD METHADONE 200 BZO NORDIAZEPAM 150 PPX NORPROPOXYPHENE 300 MAMP d-METHAMPHETAMINE 500 OXY OXYCODONE 100 PCP PHENCYCLIDINE 25 ID Date Data Source [id number] 11/22/2020 03:02:00 PM EDT [facility] Name Value Range Interpretation Code Description Data [facility] rce(s) Supporting Document(s) URINALYSIS ROUTINE wMICRO RFLX TO CX [facility] URINALYSIS W/REFLEX CULTURE REFERENCE RANGES [facility]OURCE [facility] Yellow Colorless-Suzie [facility] CLARITY Clear Normal: Clear [facility] LEUK EST Negative Negative - Trace [facility] NITRITE Negative Normal: Negative [facility] UROBILINOGEN 1+ Negative - Trace Abnormal (applies to non-num mariya results) [facility] PROTEIN Negative Negative - Trace [facility] pH 6.5 5.0 - 8.0 [facility] l BLOOD Negative Negative - Trace [facility] SPEC GRAVITY 1.010 1.000 - 1.030 [facility] KETONE Negative Negative - Trace [facility] BILIRUBIN Negative Normal: Negative [facility] GLUCOSE Negative Normal: Negative [facility] MICROSCOPIC See Below [facility] WBC 0 - 1 None Seen - 5/hpf [facility] RBC NONE SEEN None Seen - 5/hpf [facility] EPITHELIAL None Seen NORMAL: None Seen [facility] BACTERIA NONE SEEN NORMAL: None Seen [facility] MUCOUS NONE SEEN NORMAL: None Seen [facility] CASTS Not Indicated [facility] pital CRYSTALS Not Indicated [facility] pital OTHER 0 [facility] CULTURE INDICATED? NO Normal: No [facility] ID Date Data Source [id number] 11/22/2020 02:40:00 PM EDT [facility] Name Value Range Interpretation Code Description Data Gala rce(s) Supporting Document(s) Lactate [Moles/volume] in Serum or Plasma 4.0 mmol/L 0.4 - 2.0 Above high normal [facility] \\BLDo\\[LA]LACTIC ACID \\BLDx\\ [facility] Adult and Pediatric Sepsis Protocols: Adult SIRS/Septic Patient = Lactate > or = 4.0 mmol/L Pediatric SIRS/Septic Patient = Lactate > or = 2.2 mmol/L Base Line, 3 hour and 6 hour lactic acid values should be obtained for further evaluation. ID Date Data Source [id number] 11/22/2020 02:40:00 PM EDT [facility] Name Value Range Interpretation Code Description Data Gala rce(s) Supporting Document(s) RESP PROFILE RP2.1 [facility] \\BLDo\\RESPIRATORY PROFILE NASAL PHARYNGEAL BY PCR\\BLDx\\ \\BLDo\\DETECTED _NONE \\BLDx\\ 04/05/21.1541.TMG. \\BLDo\\EQUIVOCAL _NONE \\BLDx\\ 11/22/20.1541.TMG. VIRUSES ADENOVIRUS NOT DETECTED NORMAL: NOT DETECTED [facility] CORONAVIRUS 229E NOT DETECTED NORMAL: NOT DETECTED [facility] CORONAVIRUS HKU1 NOT DETECTED NORMAL: NOT DETECTED [facility] CORONAVIRUS NL63 NOT DETECTED NORMAL: NOT DETECTED [facility] CORONAVIRUS OC43 NOT DETECTED NORMAL: NOT DETECTED [facility] [id number] NOT DETECTED NORMAL: NOT DETECTED [facility] REPORT TO DEPARTMENT OF HEAL TH HUMAN METAPNEUMO NOT DETECTED NORMAL: NOT DETECTED [facility] HUMAN RHINO/ENTERO NOT DETECTED NORMAL: NOT DETECTED [facility] NOT DETECTEDNOT DETECTEDNOT DETECTEDNOT DETECTED PARAINFLUENZA V3 NOT DETECTED NORMAL: NOT DETECTED [facility] NOT DETECTED RSV NOT DETECTED NORMAL: NOT DETECTED [facility] BACTERIANOT DET ECTEDNOT DETECTEDNOT DETECTEDNOT DETECTED TESTING PERFORMED USING THE SwipeToSpin RP2.1 MULTIPLEXED NUCLEIC ACID TEST. THIS TEST [...] OR REVOKED SOONER. ID Date Data Source [id number] 11/22/2020 02:00:00 PM EDT [facility] Name Value Range Interpretation Code Description Data Gala rce(s) Supporting Document(s) C reactive protein [Mass/volume] in Serum or Plasma <2.0 mg/L 0.0 - 9.0 [facility] Reference range updated to adriana monique recommended. Effective 04/17/18. ID Date Data Source [id number] 11/22/2020 02:00:00 PM EDT [facility] Name Value Range Interpretation Code Description Data Gala rce(s) Supporting Document(s) COMPREHENSIVE CHEM PROFILE [facility] COMPREHENSIVE METABOLIC PANEL Sodium [Moles/volume] in Serum or Plasma 135 mEq/L 136 - 145 Below low normal [facility] Potassium [Moles/volume] in Serum or Plasma 4.3 mEq/L 3.5 - 5.1 [facility] Chloride [Moles/volume] in Serum or Plasma 101 mEq/L 98 - 107 [facility] Carbon dioxide, total [Moles/volume] in Serum or Plasma 23.1 mEq /L 21.0 - 32.0 [facility] Glucose [Mass/volume] in Serum or Plasma 74 mg/dL 70 - 100 [facility] Urea nitrogen [Mass/volume] in Serum or Plasma 11 mg/dL 7 - 18 [facility] CREATININE SERUM 0.66 mg/dL 0.70 - 1.30 Below low normal C [facility] AGE 65 yrs [facility] l eGFR NON-AFR AMR >60 [facility] eGFR AFR AMR >60 [facility] ital BUN/CREAT 17 6 - 25 [facility] Protein [Mass/volume] in Serum or Plasma 5.8 g/dL 6.0 - 8.3 Below low normal [facility] Albumin [Mass/volume] in Serum or Plasma 2.7 g/dL 3.8 - 5.4 Below low normal [facility] GLOBULIN 3.1 g/dL 2.0 - 4.0 [facility] A/G RATIO 0.9 0.8 - 2.0 [facility] Calcium [Mass/volume] in Serum or Plasma 7.7 mg/dL 8.8 - 10.2 Below low normal [facility] Bilirubin.total [Mass/volume] in Serum or Plasma 1.0 mg/dL 0.2 - 1.0 [facility] Bilirubin.direct [Mass/volume] in Serum or Plasma 0.4 mg/dL 0.0 - 0.2 Above high normal [facility] INDIRECT BILI 0.6 mg/dL 0.0 - 1.1 [facility] pital ALK PHOSPHATASE 150 U/L 40 - 129 Above high normal [facility] Aspartate aminotransferase [Enzymatic ac tivity/volume] in Serum or Plasma by With P-5'-P 51 IU/L 7 - 37 Above high normal [facility] Alanine aminotransferase [Enzymatic acti vity/volume] in Serum or Plasma by With P-5'-P 28 IU/L 12 - 78 [facility] ANION GAP 11 7 - 15 [facility] l Estimated GFR referenc e range: >60ml/min/1.73m >18 years: Calculated using IDNE traceable Study Equation <18 years: Calculated using [facility]NE tracable Bedside Schartz Equation ID Date Data Source [id number] 11/22/2020 02:00:00 PM EDT [facility] Name Value Range Interpretation Code Description Data Gala rce(s) Supporting Document(s) Fibrin D-dimer DDU [Mass/volume] in Platelet poor plas ma by Immunoassay <100 ng/mL 0 - 400 [facility] METHODOLOGY: FLUORESCENCE IMM UNOASSAY \\BLDo\\D- DIMER [...] erroneous D-dimer results. ID Date Data Source [id number] 11/22/2020 02:00:00 PM EDT [facility] PROTHROMBIN TIME Name Value Range Interpretation Code Description Data Gala rce(s) Supporting Document(s) WARFARIN? NO [facility] l 19.8 INR in Platelet poor plasma by Coagulation assay 1.8 1.0 - 4.5 [facility] Reference ranges Warf aldair (Coumadin) Therapy: 21.6 - 40.7 secs Normal (Non-warfarin Therapy): 10.7 - 15.2 secs New Protime Reference Range as of July 09, 2020 ID Date Data Source [id number] 11/22/2020 02:00:00 PM EDT [facility] Name Value Range Interpretation Code Description Data Gala e(s) Supporting Document(s) [facility] COMPLETE BLOOD COUNT Leukocytes [#/volume] in Blood by Automated count 14.9 K/uL 4.0 - 10.0 Above high normal [facility] Erythrocytes [#/volume] in Blood by Automated count 3.11 M/uL 4.30 - 6.10 Below low normal [facility] Hemoglobin [Mass/volume] in Blood 12.4 g/dL 13.5 - 17.5 Below low no rmal [facility] Hematocrit [Volume Fraction] of Blood by Automated count 34.9 % 39.0 - 50.0 Below low normal [facility] Erythrocyte mean corpuscular volume [Entitic volume] b y Automated count 112.2 fL 80.0 - 96.0 Above high normal [facility] Erythrocyte mean corpuscular hemoglobin [Entitic mass] by Automated count 39.9 pg 26.0 - 34.0 Above high normal [facility] Erythrocyte mean corpuscular hemoglobin concentration [Mass/volume] by Automated count 35.5 g/dL 32.0 - 36.0 [facility] Erythrocyte distribution width [Ratio] by Automated count 17.4 % 11.6 - 14.8 Above high normal [facility] Platelets [#/volume] in Blood by Automated count 426 K/uL 150 - 450 [facility] Platelet mean volume [Entitic volume] in Blood by Automated count 8.8 fL 7.1 - 10.4 [facility] Neutrophils [#/volume] in Blood by Automated count 11.19 K/uL 1.70 - 7.70 Above high normal [facility] Lymphocytes [#/volume] in Blood by Automated count 2.20 K/uL 1.50 - 6.00 [facility] Monocytes [#/volume] in Blood by Automated count 1.23 K/uL 0.00 - 1.00 Above high normal [facility] Eosinophils [#/volume] in Blood by Automated count 0.07 K/uL 0.00 - 0.30 [facility] Basophils [#/volume] in Blood by Automated count 0.13 K/uL 0.00 - 0.10 Above high normal [facility] 0.08 Urinalysis macro (dipstick) panel - Urine 0.170 10^3/uL 0.000 - 0.012 Above high normal [facility] Neutrophils/100 leukocytes in Blood by Automated count 75.0 % 42. 2 - 75.2 [facility] Lymphocytes/100 leukocytes in Blood by Automated count 14.8 % 15.0 - 41.0 Below low normal [facility] Monocytes/100 leukocytes in Blood by Automated count 8.3 % 0.0 - 12.0 [facility] Eosinophils/100 leukocytes in Blood by Automated count 0.5 % 0.0 - 7.0 [facility] 0.90.50 NRBC 1.1 % [facility] MANUAL DIFF NOT INDICATED [facility] RBC MORPH NOT INDICATED [facility] ID Date Data Source [id number] 11/16/2020 11:16:00 PM EDT [facility] [place] [address] [address] FOLLOW UP NOTENAME: ZAY SMITH DPHYSICIAN: KACI HOUSTON, PAWANATE OF SERVICE: 11/16/20DATE OF : [birth year]ACCOUNT #: [id number]: ZAY AmorHONGDate: Nov 16OB: 1955Physician: Dr. Malcolm [...] during air travel. he is leaving for [place] at the end of the week.he thinks he will be more complaint with a daily pill because then he can takeit with all his other medications.Past Medical History:Atypical pneumoniaChronic alcohol abuseChronic back painCoronary artery diseaseDyslipidemiaGastroesophageal reflux diseaseHypertensionPneumothoraxPulmonary emboliRight femoral vein DVTSeizurePast Surgical History:Ankle SurgeryAppendectomyBack surgeryDiscectomy - L3- T2Pahcdansp back stimulatorRight chest tube placementSplenectomyTesticle removal - [...] depression andeuphoria.Vital Signs:Performed on Nov 16, 2020 11:83Fkhtva57.00 hkOkwnvp443 lbs(LOW)BSA (derived)1.84 sq.mBMI26.81Anxuvhmskcz85.5 GVicop94 /uuuZfagalqkbtg24 /srySI320/70Pulse Oximetry (O2 Sat)95 %(LOW)Fall RiskModerate RiskPerformance Status:0 [...] electrophoresis scan will follow via computer,mail, or podiatric surgeon delivery.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 Its performance characteristics were determined by [facility] in a manner consistent with CLIA requirements. This test has not been cleared or approved by the U.S. Food and Drug Administration. Test Performed by: [facility] [address] [address] Tube Lancer: Kurt Castillo M.D. Ph.D.; CLIA# [id number] ID Date Data Source [id number] 11/10/2020 02:40:00 PM EDT [facility] Name Value Range Interpretation Code Description Data [facility] rce(s) Supporting Document(s) PT 9.4-12.5 Above high normal [facility] INR Normal (applies to non-numeric results) [facility] The use of the INR is restricted to steven ents on stable oral anticoagulant. Therapeutic Range: 2.0-3.0 High Risk Values: 2.5-3.5 ID Date Data Source [id number] 11/10/2020 02:40:00 PM EDT [facility] Name Value Range Interpretation Code Description Data Gala rce(s) Supporting Document(s) PTT 25.1-36.5 Above high normal [facility] ID Date Data Source [id number] 11/10/2020 02:40:00 PM EDT [facility] Name Value Range Interpretation Code Description Data Gala rce(s) Supporting Document(s) D-Dimer Quant 546 ng/mLFEU <500 PH [facility] BHUPENDRA OVALLE read back critical informa tion 11/10/20 1434 LAB.DAVSA Positive for D-Dimer. DVT/PE or DIC may be present. D-Dimer is an exclusionary test and is used in conjunction with a clinical pretest probability (PTP) assessment model to exclude DVT and PE. Consider further diagnostic studies to confirm diagnosis. ID Date Data Source [id number] 11/10/2020 02:33:00 PM T [facility] Name Value Range Interpretation Code Description Data Gala rce(s) Supporting Document(s) LDH 195 U/L 87-241 Normal (applies to non-numeric resul ts) [facility] ID Date Data Source [id number] 11/10/2020 02:33:00 PM T [facility] Name Value Range Interpretation Code Description Data Gala rce(s) Supporting Document(s) Vitamin B12 332 pg/mL 193-986 Normal (applies to non-numeric resu lts) [facility] ID Date Data Source [id number] 11/10/2020 01:16:00 PM [facility] Name Value Range Interpretation Code Description Data Gala rce(s) Supporting Document(s) White Blood Count 4.8-10.8 Above high normal [facility] Red Blood Count 4.35-6.08 Below low normal [facility] Hemoglobin 13.0-17.5 Below low normal [facility] Hematocrit 37.7-51.0 Below low normal [facility] Mean Corpuscular Volume 80-94 Above high normal [facility] Mean Corpuscular Hemoglobin 27.0-33.0 Above high normal [facility] Mean Corpuscular HGB Conc 32.0-36.0 Above high normal [facility] Red Cell Distribution Width 11.5-14.5 Above high normal [facility] Platelet Count 631 X10 3/uL 130-450 Above high normal [facility] Mean Platelet Volume 9.6-13.1 Below low normal [facility] Imm Grans% (AUTO) 0 % 0-2 Normal (applies to non-numeri c results) [facility] Neutrophils % (AUTO) 70 % 40-75 Normal (applies to non-num mariya results) [facility] Lymphocytes % (AUTO) 20 % 21-46 Below low normal [facility] Monocytes % (AUTO) 7 % 5-12 Normal (applies to non-numer ic results) [facility] Eosinophils % (AUTO) 1 % 1-5 Normal (applies to non-num mariya results) [facility] Basophils % (AUTO) 2 % 0-1 Above high normal [facility] Imm Grans# (AUTO) 0.0-0.5 Normal (applies to non-numeri c results) [facility] Neutrophils # (AUTO) 1.5-8.1 Normal (applies to non-num mariya results) [facility] Lymphocytes # (AUTO) 1.0-3.1 Normal (applies to non-num mariya results) [facility] Monocytes # (AUTO) 0.2-1.3 Normal (applies to non-numer ic results) [facility] Eosinophils# (AUTO) 0.0-0.5 Normal (applies to non-nume adrianna results) [facility] Basophils # (AUTO) 0.0-0.1 Above high normal [facility] ID Date Data Source [id number] 11/12/2020 09:18:00 AM EDT [facility] Name Value Range Interpretation Code Description Data Gala rce(s) Supporting Document(s) FibroTest Score Normal (applies to non-numeric results) [facility] FibroTest Stage Normal (applies to non-numeric results) [facility] FibroTest Interpretation Normal (applies to non -numeric results) [facility] FibroTest estimates liver fibrosis Fibr oTest Score Stage Interpretation 0.00-0.21 F0 no fibrosis 0.21-0.27 F0-F1 no fibrosis 0.27-0.31 F1 minimal fibrosis 0.31-0.48 F1-F2 minimal fibrosis 0.48-0.58 F2 moderate fibrosis 0.58-0.72 F3 advanced fibrosis 0.72-0.74 F3-F4 advanced fibrosis 0.74-1.00 F4 severe fibrosis (Cirrhosis) NashTest 2 Score Normal (applies to non-numeric results) [facility] NashTest 2 Grade Normal (applies to non-numeric results) [facility] NashTest 2 Interpretation Normal (applies to no n-numeric results) [facility] NashTest 2 estimates non-alcoholic steat ohepatitis (BRANHAM) NashTest 2 Score Grade Interpretation 0.00-0.25 N0 no BRANHAM 0.25-0.50 N1 mild BRANHAM 0.50-0.75 N2 moderate BRANHAM 0.75-1.00 N3 severe BRANHAM SteatoTest 2 Score Normal (applies to non-numer ic results) [facility] SteatoTest 2 Grade Normal (applies to non-numer ic results) [facility] SteatoTest 2 Interpretation Normal (applies to non-numeric results) [facility] RESULT: moderate/severe steatosis (34-10 0%) SteatoTest 2 estimates liver steatosis. A stage of S1 or S2S3 is considered clinically significant. SteatoTest 2 Score Stage Interpretation 0.00-0.40 S0 no steatosis (<5%) 0.40-0.55 S1 mild steatosis (5-33%) 0.55-1.00 S2S3 moderate/severe steatosis (34-100%) BRANHAM-FibroTest Comment Normal (applies to non-n umeric results) [facility] The reliability of results is dependent on compliance with the preanalytical and analytical conditions recommended by [facility]. The tests have to be deferred for: [...] developed and its performance characteristics determined by [facility] in a manner consistent with CLIA requirements. This test has not been cleared or approved by the U.S. Food and Drug Administration. [facility] Serial Number [id number] Normal (appli es to non-numeric results) [facility] Apolipoprotein A1,S 124 mg/dL >=120 Normal (applies to non-nume adrianna results) [facility] Ytggb-1-Dytgisncmympo,S 141 mg/dL 100 - 280 Normal ( applies to non-numeric results) [facility] Haptoglobin,S 92 mg/dL 30 - 200 Normal (applies to non-numeric re sults) [facility] Alanine Amino (ALT),S 43 U/L 7-55 Normal (applies to non-nu meric results) [facility] Gamma Glutamyltrans (GGT),S 807 U/L 8 - 61 [place] [facility] Total Bilirubin,S <=1.2 Normal (applies to non-numeri c results) [facility] Aspartate Aminotrans (AST),S 115 U/L 8 - 48 [place] [facility] Total Cholesterol,S 79 mg/dL Normal (applies to non-nume adrianna results) [facility] REFERENCE VALUE------ Desirable: < 200 Borderline high: 200 - 239 High: > or = 240 Triglycerides,S 95 mg/dL Normal (applies to non-numeric results) [facility] REFERENCE VALUE------ Normal: <150 Borderline high: 150-199 High: 200-499 Very high: > or =500 Fasting Glucose,Plas 130 mg/dL 70 - [address] [facility] Test Performed by: [facility] - [facility] [address] [place] [address] Tube Lancer: Kurt Castillo M.D. Ph.D.; CLIA# [id number] Test Performed by: [facility] [address] [place] [address] Tube Lancer: Kurt Castillo M.D. Ph.D.; CLIA# [id number] ID Date Data Source [id number] 11/10/2020 03:39:00 PM EDT [facility] Name Value Range Interpretation Code Description Data Gala rce(s) Supporting Document(s) Creatinine,Urine Normal (applies to non-numeric results) [facility] Interpret with care as there is no estab lished reference range associated with this assay's methodology that pertains to this particular sex and/or age. Microalbumin,Urine <1.7 Normal (applies to non-numer ic results) [facility] Albumin/Creatinine Ratio,Urine Normal (applies to non-numeric results) [facility] Reference Ranges for Microalbumin,spot: Normal <30 ug/mg creatinine Microalbuminuria 30-300 ug/mg creatinine Clinical Albuminuria >300 ug/mg creatinine ID Date Data Source [id number] 11/10/2020 03:00:00 PM EDT [facility] Name Value Range Interpretation Code Description Data Gala rce(s) Supporting Document(s) Hep C Ab-T Test Nonreactive Normal (applies to non-numeric results) [facility] ID Date Data Source [id number] 11/10/2020 02:58:00 PM EDT [facility] Name Value Range Interpretation Code Description Data Gala rce(s) Supporting Document(s) Sodium 139 mmol/L 137-145 Normal (applies to non-numeric resul ts) [facility] Potassium 3.5-5.1 Normal (applies to non-numeric resul ts) [facility] Chloride 111 mmol/L 98-112 Normal (applies to non-numeric resul ts) [facility] Carbon Dioxide CO2 22.0-33.0 Normal (applies to non-numer ic results) [facility] Anion Gap 4.0-11.0 Normal (applies to non-numeric resul ts) [facility] BUN 6 mg/dL 9-20 Below low normal [facility] Creatinine 0.80-1.50 Below low normal [facility] GFR >60 Normal (applies to non-numeric results) [facility] Result based on MDRD formula. Glucose Level 126 mg/dL 74-99 Above high normal [facility] The reference range is only applicable w hen fasting. Calcium-Uncorrected 8.4-10.2 Normal (applies to non-nume adrianna results) [facility] Corrected Calcium 8.4-10.2 Normal (applies to non-numeri c results) [facility] Bilirubin,Total 0.2-1.3 Normal (applies to non-numeric results) [facility] SGOT(AST) 111 U/L 17-59 Above high normal [facility] SGPT(ALT) 47 U/L 21-72 Normal (applies to non-numeric resul ts) [facility] Alkaline Phosphatase 157 U/L 38-126 Above high normal [facility] can increase Alkaline Phosp le vels up to 2 times the normal adult value. Normal values for children and adolescents are 2 to 3 times the normal adult value. Total Protein 6.3-8.[address] [facility] Albumin 3.5-5.0 Below low normal [facility] ID Date Data Source [id number] 11/10/2020 02:58:00 PM EDT [facility] Name Value Range Interpretation Code Description Data Gala rce(s) Supporting Document(s) Gamma Glutamyl Transpep GGT 1062 U/L 15-73 Above high normal [facility] ID Date Data Source [id number] 11/10/2020 02:58:00 PM EDT [facility] Name Value Range Interpretation Code Description Data Gala rce(s) Supporting Document(s) Triglycerides 92 mg/dL 0-150 Normal (applies to non-numeric re sults) [facility] Cholesterol 82 mg/dL 0-200 Normal (applies to non-numeric resu lts) [facility] LDL Cholesterol,Direct 28 mg/dL <100 Normal (applies to non-n umeric results) [facility] LDL Interpretative Data Optimal <100 (mg/dL) Near optimal 100-129 (mg/dL) Borderline High 130-159 (mg/dL) High 160-189 (mg/dL) Very High >190 (mg/dL) HDL Cholesterol 40 mg/dL 40-60 Normal (applies to non-numeric results) [facility] CHOL/HDL Ratio Normal (applies to non-numeric r esults) [facility] NATIONAL CHOLESTEROL GUIDEL [facility], [...] Average 13.5 11.0 ID Date Data Source [id number] 11/05/2020 03:59:33 PM EDT [place] [address] [facility] [place] [address] TELEPHONE RADIOLOGY DEPARTMENT Name: [facility] Hospital #: [id number] : 1955 Ordering Physician: PIETRO OKEEFE Sex: M Date: 11/04/20 Admission Type: E/R X-ray Number: [id number] Unsigned Transcriptions are preliminary reports and do not represent a Medical or Legal Document XRAY ANKLE RIGHT MIN 3 VIEWS [id number] COMPLETE:11/04/20 22:43 RLL [id number] (REASON FOR PROCESS: fall with twist Examination [...] rce(s) Supporting Document(s) ID Date Data Source [id number] 11/04/2020 10:24:00 PM EDT [facility] Name Value Range Interpretation Code Description Data Gala rce(s) Supporting Document(s) Urate [Mass/volume] in Serum or Plasma 2.1 mg/dL 3.5 - 7.2 Below lo w normal [facility] ID Date Data Source [id number] 11/04/2020 10:24:00 PM EDT [facility] Name Value Range Interpretation Code Description Data Gala rce(s) Supporting Document(s) COMPREHENSIVE CHEM PROFILE [facility] COMPREHENSIVE METABOLIC PANEL Sodium [Moles/volume] in Serum or Plasma 136 mEq/L 136 - 145 [facility] Potassium [Moles/volume] in Serum or Plasma 4.6 mEq/L 3.5 - 5.1 [facility] Chloride [Moles/volume] in Serum or Plasma 101 mEq/L 98 - 107 [facility] Carbon dioxide, total [Moles/volume] in Serum or Plasma 25.8 mEq /L 21.0 - 32.0 [facility] Glucose [Mass/volume] in Serum or Plasma 82 mg/dL 70 - 100 [facility] Urea nitrogen [Mass/volume] in Serum or Plasma 9 mg/dL 7 - 18 [facility] CREATININE SERUM 0.71 mg/dL 0.70 - 1.30 [facility] AGE 64 yrs [facility] l HEIGHT 66.00 INCHES [facility] ital eGFR NON-AFR AMR >60 [facility] eGFR AFR AMR >60 [facility] BUN/CREAT 13 6 - 25 [facility] l Protein [Mass/volume] in Serum or Plasma 6.0 g/dL 6.0 - 8.3 [facility] Albumin [Mass/volume] in Serum or Plasma 2.7 g/dL 3.8 - 5.4 Below low normal [facility] GLOBULIN 3.3 g/dL 2.0 - 4.0 [facility] l A/G RATIO 0.8 0.8 - 2.0 [facility] Calcium [Mass/volume] in Serum or Plasma 7.9 mg/dL 8.8 - 10.2 Below low normal [facility] Bilirubin.total [Mass/volume] in Serum or Plasma 0.6 mg/dL 0.2 - 1.0 [facility] Bilirubin.direct [Mass/volume] in Serum or Plasma 0.3 mg/dL 0.0 - 0.2 Above high normal [facility] INDIRECT BILI 0.3 mg/dL 0.0 - 1.1 [facility] pital ALK PHOSPHATASE 144 U/L 40 - 129 Above high normal [facility] Aspartate aminotransferase [Enzymatic ac tivity/volume] in Serum or Plasma by With P-5'-P 77 IU/L 7 - 37 Above high normal [facility] Alanine aminotransferase [Enzymatic acti vity/volume] in Serum or Plasma by With P-5'-P 29 IU/L 12 - 78 [facility] ANION GAP 9 7 - 15 [facility] l Estimated GFR referenc e range: >60ml/min/1.73m >18 years: Calculated using [facility] traceable Study Equation <18 years: Calculated using [facility] tracable Bedside Schartz Equation ID Date Data Source [id number] 11/04/2020 10:24:00 PM EDT [facility] Name Value Range Interpretation Code Description Data Gala rce(s) Supporting Document(s) Fibrin D-dimer DDU [Mass/volume] in Platelet poor plas ma by Immunoassay 149 ng/mL 0 - 400 [facility] METHODOLOGY: FLUORESCENCE IMM UNOASSAY \\BLDo\\D- DIMER [...] erroneous D-dimer results. ID Date Data Source [id number] 11/04/2020 10:24:00 PM EDT [facility] Name Value Range Interpretation Code Description Data Gala rce(s) Supporting Document(s) CBC [facility] l COMPLETE BLOOD COUNT Leukocytes [#/volume] in Blood by Automated count 10.7 K/uL 4.0 - 10.0 Above high normal [facility] Erythrocytes [#/volume] in Blood by Automated count 3.07 M/uL 4.30 - 6.10 Below low normal [facility] Hemoglobin [Mass/volume] in Blood 11.8 g/dL 13.5 - 17.5 Below low no rmal [facility] Hematocrit [Volume Fraction] of Blood by Automated count 33.3 % 39.0 - 50.0 Below low normal [facility] Erythrocyte mean corpuscular volume [Entitic volume] b y Automated count 108.5 fL 80.0 - 96.0 Above high normal [facility] Erythrocyte mean corpuscular hemoglobin [Entitic mass] by Automated count 38.4 pg 26.0 - 34.0 Above high normal [facility] Erythrocyte mean corpuscular hemoglobin concentration [Mass/volume] by Automated count 35.4 g/dL 32.0 - 36.0 [facility] Erythrocyte distribution width [Ratio] by Automated count 17.9 % 11.6 - 14.8 Above high normal [facility] Platelets [#/volume] in Blood by Automated count 533 K/uL 150 - 450 Above high normal [facility] REVIEW OF SLIDE AGREES W/AUTOMATED PLT C T Platelet mean volume [Entitic volume] in Blood by Automated count 8.2 fL 7.1 - 10.4 [facility] Neutrophils [#/volume] in Blood by Automated count 5.08 K/uL 1.70 - 7.70 [facility] Lymphocytes [#/volume] in Blood by Automated count 3.65 K/uL 1.50 - 6.00 [facility] Monocytes [#/volume] in Blood by Automated count 1.24 K/uL 0.00 - 1.00 Above high normal [facility] Eosinophils [#/volume] in Blood by Automated count 0.38 K/uL 0.00 - 0.30 Above high normal [facility] Basophils [#/volume] in Blood by Automated count 0.21 K/uL 0.00 - 0.10 Above high normal [facility] 0.09 Urinalysis macro (dipstick) panel - Urine 0.040 10^3/uL 0.000 - 0.012 Above high normal [facility] 0.800.0 MANUAL DIFF SEE BELOW [facility] maria l SEGS 39 % 42.2000 - 75.2000 Below low normal [facility] RICHIE 0 % [facility] l MYEL 0 % [facility] META 1 % 0 - 1 [facility] l BAND 0 % 0 - 5 [facility] LYMPH 40 % 15 - 41 [facility] ALYM 0 % 0 - 5 [facility] MONO 10 % 0 - 12 [facility] EOS 6 % 0 - 7 [facility] BASO 4 % 0 - 2 Above high normal [facility] 0.0 RBC MORPH SEE BELOW [facility] POLYCHROMSIA NONE SEEN NORMAL: NONE SEEN [facility] HYPOCHROMIA NONE SEEN NORMAL: NONE SEEN [facility] POIKLOCYTOSIS NONE SEEN NORMAL: NONE SEEN [facility] BASO STIPPLING NONE SEEN NORMAL: NONE SEEN [facility] ANISOCYTOSIS 1+ NORMAL: NONE SEEN Abnormal (applies to non-nu meric results) [facility] MICROCYTOSIS NONE SEEN NORMAL: NONE SEEN [facility] MACROCYTOSIS 2+ NORMAL: NONE SEEN Abnormal (applies to non-nu meric results) [facility] SPHEROCYTES NONE SEEN NORMAL: NONE SEEN [facility] SCHISTOCYTES NONE SEEN NORMAL: NONE SEEN [facility] TARGET CELLS 1+ NORMAL: NONE SEEN [facility] TEARDROP NONE SEEN NORMAL: NONE SEEN [facility] OVALOCYTES NONE SEEN NORMAL: NONE SEEN [facility] STOMATOCYTES 1+ NORMAL: NONE SEEN [facility] HELMET CELLS NONE SEEN NORMAL: NONE SEEN [facility] CONSTANTINO JOLLY NONE SEEN NORMAL: NONE SEEN [facility] CABOT RINGS NONE SEEN NORMAL: NONE SEEN [facility] TOXIC GRAN NONE SEEN NORMAL: NONE SEEN [facility] DOHLE BODIES NONE SEEN NORMAL: NONE SEEN [facility] BRETT CELLS NONE SEEN NORMAL: NONE SEEN [facility] ACANTHOCYTES NONE SEEN NORMAL: NONE SEEN [facility] HYPER NEUT NONE SEEN NORMAL: NONE SEEN [facility] WILMA RODS NONE SEEN NORMAL: NONE SEEN [facility] ROULEAUX NONE SEEN NORMAL: NONE SEEN [facility] CRENATED CELL NONE SEEN NORMAL: NONE SEEN [facility] ID Date Data Source [id number] 11/01/2020 01:04:00 PM EDT [facility] Name: ZAY SMITH [facility] Rec #: [id number] : 1955 Age/Sex: 64M Date of Service: 11/01/20 DISPOSITION SUMMARY Discharge Summary [facility] Age:64 yrs Sex:Male :1955 Arrival:11/01/2020 13:04 Departure Date11/01/2020 Departure Time18:05 Private MD:Addis Mcdaniel MD Outcome: Discharge Location: Home/Self Care Condition: Good Chief Complaint: Back Pain, Leg Pain, Leg Swelling, Urinary Problem Diagnosis: Deep Vein Thrombosis (DVT) Prescriptions: Lovenox 80 mg/0.8 mL Subcutaneous syringe - inject 0.8 milliliter by SUBCUTANEOUS route every 12 hours; 34 milliliter, Lovejoy 5-325 mg Oral Tablet - take 1 [...] rce(s) Supporting Document(s) ID Date Data Source [id number] 11/01/2020 01:04:00 PM EDT [facility] Name: ZYA SMITH [facility] Rec #: [id number] : 1955 Age/Sex: 64M Date of Service: 11/01/20 PHYSICIAN CHART Physician Documentation [facility] Name: Zay Smith Age: 64 yrs Sex: [...] disease; GERD; HTN - hypertension; Hyperlipidemia; LYMPHOMA; OK; narcotic OD accidental; 12/30; SEIZURES; testicular cancer; [...] to communication noted, The patient speaks fluent Mosotho. ROS: 15:22 Skin: Negative for injury, rash, [...] 1; Neut% (AUTO) 72; Lymph% (AUTO) 15; Taylor% (AUTO) 10; Eos% (AUTO) 2; Baso% (AUTO) 1; ImmGran# (AUTO) 0.1; Neut# (AUTO) 10.6; Lymph# (AUTO) 2.3; Taylor# (AUTO) 1.5; Eos# (AUTO) 0.2; Baso# (AUTO) 0.1. 11/01 15:59 Order name: COMMET; Complete Time: 17:49 [facility] 11/01 17:50 Interpretation: NA 139; K 4.6; CL 106; CO2 28.0; GAP 5.0; zrw1 BUN 6; CREAT 0.58; Glom Filtration > 90; GLU 92; CA 8.4; Corrected CA 9.4; T Bili 0.9; SGOT(AST) 52; SGPT(ALT) 29; ALK PHOS 148; TP 5.9; ALB 2.7. 11/01 15:59 Order name: PT; Complete Time: 17:49 [facility] 11/01 17:50 Interpretation: PT 13.8; INR 1.20. [facility] 11/01 15:59 Order name: PTT; Complete Time: 17:49 [facility] 11/01 17:50 Interpretation: PTT 37.6. [facility] 11/01 16:52 Order name: POC COVID19 NOW; Complete Time: 17:49 [facility] 11/01 17:50 Interpretation: SARS-CoV-2 RNA Negative. [facility] 11/01 13:42 Order name: Us Duplex Lower Ext Veins Rt jam2 11/01 15:03 Order name: Collect Urine - Clean Catch; Complete Time: zrw1 17:24 11/01 15:23 Order name: Ankle Rt Min 3 Views - Xray [facility] 11/01 16:22 Order name: POC - Collect [...] milliliter; Refills: 0, Product Selection Permitted - Lovejoy 5-325 mg Oral Tablet - take 1 [...] rce(s) Supporting Document(s) ID Date Data Source [id number] 11/01/2020 01:04:00 PM EDT [facility] Name: ZAY SMITH [facility] Rec #: [id number] : 1955 Age/Sex: 64M Date of Service: 11/01/20 NURSE CHART Nurse's Notes [facility] Name: Zay Smith Age: 64 yrs Sex: [...] disease; GERD; HTN - hypertension; Hyperlipidemia; LYMPHOMA; OK; narcotic OD accidental; 12/30; SEIZURES; testicular cancer; [...] to communication noted, The patient speaks fluent Mosotho. Screenin:26 AUDIT 1. How often do you [...] RN RN edv Monroe, Susan, RN RN [facility] Ni Ceballos, RN RN Rosemary Webber RN RN willi Juanita Muhammad Zachary PA PA zrw1 Name Value Range Interpretation Code Description Data Gala rce(s) Supporting Document(s) ID Date Data Source [id number] 11/01/2020 05:34:00 PM EDT [facility] Name Value Range Interpretation Code Description Data Gala rce(s) Supporting Document(s) Color,Urine Yellow Normal (applies to non-numeric resu lts) [facility] Clarity,Urine Clear Normal (applies to non-numeric re sults) [facility] Specific [place],Urine 1.001-1.030 Normal (applies to non- numeric results) [facility] PH,Urine 5.0-8.0 Normal (applies to non-numeric resul ts) [facility] Protein,Urine Negative Normal (applies to non-numeric re sults) [facility] Glucose,Urine (UA) Negative Normal (applies to non-numer ic results) [facility] Ketones,Urine Negative Normal (applies to non-numeric re sults) [facility] Blood,Urine Negative Normal (applies to non-numeric resu lts) [facility] Bilirubin,Urine Negative Normal (applies to non-numeric results) [facility] Urobilinogen,Urine Norm 0.2-1 Normal (applies to non-numer ic results) [facility] Leukocyte Esterase,Urine Negative Normal (applies to non -numeric results) [facility] Nitrite,Urine Negative Normal (applies to non-numeric re sults) [facility] ID Date Data Source [id number] 11/01/2020 05:33:00 PM EDT [facility] Name Value Range Interpretation Code Description Data [facility] rce(s) Supporting Document(s) Sodium 139 mmol/L 137-145 Normal (applies to non-numeric resul ts) [facility] Potassium 3.5-5.1 Normal (applies to non-numeric resul ts) [facility] Chloride 106 mmol/L 98-112 Normal (applies to non-numeric resul ts) [facility] Carbon Dioxide CO2 22.0-33.0 Normal (applies to non-numer ic results) [facility] Anion Gap 4.0-11.0 Normal (applies to non-numeric resul ts) [facility] BUN 6 mg/dL 9-20 Below low normal [facility] Creatinine 0.80-1.50 Below low normal [facility] GFR >60 Normal (applies to non-numeric results) [facility] Result based on MDRD formula. Glucose Level 92 mg/dL 74-99 Normal (applies to non-numeric re sults) [facility] The reference range is only applicable w hen fasting. Calcium-Uncorrected 8.4-10.2 Normal (applies to non-nume adrianna results) [facility] Corrected Calcium 8.4-10.2 Normal (applies to non-numeri c results) [facility] Bilirubin,Total 0.2-1.3 Normal (applies to non-numeric results) [facility] SGOT(AST) 52 U/L 17-59 Normal (applies to non-numeric resul ts) [facility] SGPT(ALT) 29 U/L 21-72 Normal (applies to non-numeric resul ts) [facility] Alkaline Phosphatase 148 U/L 38-126 Above high normal [facility] can increase Alkaline Phosp le vels up to 2 times the normal adult value. Normal values for children and adolescents are 2 to 3 times the normal adult value. Total Protein 6.3-8.[address] [facility] Albumin 3.5-5.0 Below low normal [facility] ID Date Data Source [id number] 11/01/2020 05:18:00 PM EDT [facility] Name Value Range Interpretation Code Description Data Gala rce(s) Supporting Document(s) PT 9.4-12.5 Above high normal [facility] INR Normal (applies to non-numeric results) [facility] The use of the INR is restricted to steven ents on stable oral anticoagulant. Therapeutic Range: 2.0-3.0 High Risk Values: 2.5-3.5 ID Date Data Source [id number] 11/01/2020 05:18:00 PM EDT [facility] Name Value Range Interpretation Code Description Data Gala rce(s) Supporting Document(s) PTT 25.1-36.5 Above high normal [facility] ID Date Data Source [id number] 11/01/2020 05:08:00 PM EDT [facility] Name Value Range Interpretation Code Description Data Gala rce(s) Supporting Document(s) White Blood Count 4.8-10.8 Above high normal [facility] Red Blood Count 4.35-6.08 Below low normal [facility] Hemoglobin 13.0-17.5 Below low normal [facility] Hematocrit 37.7-51.0 Below low normal [facility] Mean Corpuscular Volume 80-94 Above high normal [facility] Mean Corpuscular Hemoglobin 27.0-33.0 Above high normal [facility] Mean Corpuscular HGB Conc 32.0-36.0 Above high normal [facility] Red Cell Distribution Width 11.5-14.5 Above high normal [facility] Platelet Count 415 X10 3/uL 130-450 Normal (applies to non-numeric results) [facility] Mean Platelet Volume 9.6-13.1 Below low normal Ca [facility] Imm Grans% (AUTO) 1 % 0-2 Normal (applies to non-numeri c results) [facility] Neutrophils % (AUTO) 72 % 40-75 Normal (applies to non-num mariya results) [facility] Lymphocytes % (AUTO) 15 % 21-46 Below low normal [facility] Monocytes % (AUTO) 10 % 5-12 Normal (applies to non-numer ic results) [facility] Eosinophils % (AUTO) 2 % 1-5 Normal (applies to non-num mariya results) [facility] Basophils % (AUTO) 1 % 0-1 Normal (applies to non-numer ic results) [facility] Imm Grans# (AUTO) 0.0-0.5 Normal (applies to non-numeri c results) [facility] Neutrophils # (AUTO) 1.5-8.1 Above high normal [facility] Lymphocytes # (AUTO) 1.0-3.1 Normal (applies to non-num mariya results) [facility] Monocytes # (AUTO) 0.2-1.3 Above high normal [facility] Eosinophils# (AUTO) 0.0-0.5 Normal (applies to non-nume adrianna results) [facility] Basophils # (AUTO) 0.0-0.1 Normal (applies to non-numer ic results) [facility] ID Date Data Source [id number] 11/01/2020 04:52:00 PM EDT [facility] Name Value Range Interpretation Code Description Data Gala rce(s) Supporting Document(s) Respiratory specimen severe acute respir atory syndrome coronavirus 2 (SARS-CoV-2) RNA Negative (qualifier value) [facility] This lab was ordered by [facility] dania and reported by [facility]. ID Date Data Source [id number] 11/01/2020 05:10:00 PM EDT [facility] Performed by: [employer] Pre sent? YCOVID Screen Result: NEGATIVENegative [...] Certificate of Accreditation. Factsheets for healthcare providers: https://www.fda.gov/media/408871/download Factsheets for patients: https://www.fda.gov/media/081455/download The ID NOW Instrument is a rapid molecular in vitro diagnostic test utilizing an isothermal nucleic acid amplification technology intended for the qualitative detection of nucleic acid from the SARS-CoV-2 viral RNA. THIS IS A STATE REPORTABLE COMMUNICABLE DISEASE. Manual entry verified by Mariza Abdi 11/01/209 Name Value Range Interpretation Code Description Data Gala rce(s) Supporting Document(s) ID Date Data Source [id number] 11/01/2020 05:01:00 PM EDT [facility] Name: ZAY SMITH : 7 Age/Sex: 64M Ordering Provider: SUMIT Gann Med Rec #: [id number] Reg Status: [facility] Room #: Date of Service: 11/01/20 Report Number: [id number] cc:Addis Mcdaniel MD Send Report To: [id number] XRP/XR Ankle Rt Min. 3 Views Reason [...] Date/Time: 11/01/20 1509 Transcribed Date/Time: 11/01/20 170 Air Duct Mechanic: PATO Name Value Range Interpretation Code Description Data Gala rce(s) Supporting Document(s) ID Date Data Source [id number] 11/02/2020 07:23:00 AM EDT [facility] Name: ZAY SMITH : Age/Sex: 64M Ordering Provider: Kiko Henry MD Med Rec #: [id number] Reg Status: [facility] Room #: Date of Service: 11/01/20 Report Number: [id number] cc:Kiko Henry MD; Addis Mcdaniel MD Send Report To: [id number] US/US Duplex Lower Ext Veins Rt Reason [...] Date/Time: 11/01/20 1358 Transcribed Date/Time: 11/02/20 0723 Air Duct Mechanic: MANDEEP Name Value Range Interpretation Code Description Data Gala rce(s) Supporting Document(s) ID Date Data Source [id number] 10/28/2020 03:32:00 PM EST [facility] Name: ZAY SMITH Med Rec #: [id number] : 1955 Age/Sex: 64M Date of Service: 10/28/20 PHYSICIAN CHART Physician Documentation [facility] Name: Zay Smith Age: 64 yrs Sex: Male : 1955 Arrival Date: 10/28/2020 Time: 15:32 Bed 2 Private MD: Addis Mcdaniel E ED Physician Kiko Henry Disposition: 10/28 18:39 Chart complete. [facility] HPI: 16:03 This 64 yrs old Male presents to ER via [facility] with complaints of Evaluation of DVT in R Leg, Back Pain. 16:03 The patient presents for evaluation of right leg swelling [facility] and mid back pain bilaterally. He has a history of DVT and is on Eliquis. In July he was told he had DVTs in both lower extremities. He went to [facility] where he had a thrombectomy on [...] disease; GERD; HTN - hypertension; Hyperlipidemia; LYMPHOMA; OK; SEIZURES; testicular cancer; narcotic OD accidental; 12/30; [...] 16:01 Order name: COMMET; Complete Time: 17:20 [facility] 10/28 16:01 Order name: Troponin I; Complete Time: 17:14 [facility] 10/28 16:01 Order name: PT; Complete Time: 17:14 [facility] 10/28 16:01 Order name: PTT; Complete Time: 17:14 [facility] 10/28 16:01 Order name: Magnesium; Complete Time: 17:20 [facility] 10/28 16:01 Order name: Us Duplex Lower Ext Veins Rt [facility] 10/28 16:01 Order name: CT Chest for PE with contrast (choose symptom) [facility] 10/28 16:01 Order name: Cardiology EKG Interpretation - Choose Reason [facility] for Test 10/28 16:01 Order name: Lipase; Complete Time: 17:20 [facility] 10/28 16:01 Order name: BNP; Complete Time: 17:20 [facility] 10/28 17:58 Order name: POC COVID19 NOW; Complete Time: 18:02 kd2 10/28 16:01 Order name: Iv Saline Lock; Complete Time: 16:34 [facility] 10/28 16:01 Order name: Emergency Room EKG Order - Use EKG Work- Up [facility] /Quick Select; Complete Time: 16:16 10/28 16:01 [...] (DVT) jam2 Followup: jam2 - With: Addis Mcdaniel MD - When: 1 week - Reason: Continuance of care Discharge Instructions: - Discharge Summary Sheet jam2 - Acute Back Pain, Adult jam2 - Deep Vein Thrombosis jam2 Forms: - Medication Reconciliation [facility] Prescriptions: - Lovejoy 5-325 mg Oral Tablet - take 1 tablet by ORAL route every 6 hours As jam2 needed; 12 tablet; Refills: 0, Product Selection Permitted Signatures: Dispatcher [employer] EDMS Kiko Henry MD MD [facility] Silvia Auguste RN RN sm6 Farr, Tammy, [...] rce(s) Supporting Document(s) ID Date Data Source [id number] 10/28/2020 03:32:00 PM [facility] Name: ZAY SMITH [facility] Rec #: [id number] : 1955 Age/Sex: 64M Date of Service: 10/28/20 DISPOSITION SUMMARY Discharge Summary [facility] Name:[facility] Emergency Department Age:64 yrs Sex:Male :1955 Arrival:10/28/2020 15:32 Departure Date10/28/2020 Departure Time19:51 Private MD:Addis Mcdaniel MD Outcome: Discharge Location: Home/Self Care Condition: Good Chief Complaint: - Evaluation of DVT in R Leg, Back Pain Diagnosis: Acute Mid Back Pain, Thoracic, Deep Vein Thrombosis (DVT) Prescriptions: Lovejoy 5-325 mg Oral Tablet - take 1 [...] rce(s) Supporting Document(s) ID Date Data Source [id number] 10/28/2020 03:32:00 PM EST [facility] Name: ZAY SMITH [facility] Rec #: [id number] : 1955 Age/Sex: 64M Date of Service: 10/28/20 NURSE CHART Nurse's Notes [facility] Age: 64 y[facility] Sex: Male : 1955 [...] care: patient was not received from another [facility] setting of care. Presenting complaint: Patient states [...] COVID-19? No. 15:42 Method Of Arrival: Walk-In [facility] 15:42 Acuity: Urgent - 3 [facility] Triage Assessment: 15:43 SEPSIS SCREEN: A Confirmed [...] disease; GERD; HTN - hypertension; Hyperlipidemia; LYMPHOMA; OK; SEIZURES; testicular cancer; narcotic OD accidental; 12/30; [...] Mass Index 26.63 (74.84 kg, 167.64 cm) [facility] ED Course: 15:32 Patient arrived in ED. EDMS 15:41 Addis Mcdaniel MD is Private Physician. selena 15:43 Triage completed. selena 15:45 Arm band placed on right wrist. Patient placed in exam room selena Patient has correct armband on for positive identification. 15:48 Maite Estrada, ROLA is Primary Nurse. selena 15:55 Kiko Henry MD is Attending Physician. [facility] 16:11 An EKG was obtained and reviewed by Kiko Henry MD. [facility] 16:16 Cardiology EKG Interpretation - Choose Reason for Test Sent.[facility] 16:33 Us Duplex Lower Ext Veins Rt Sent. tlf 16:34 Radiology: The patient returned from ultrasound at 16:34. tlf 16:34 property assessment monitor on. Pulse on is on. NIBP on. [...] 19:51 Follow up: Response: Pain is decreased formerly [facility] 19:02 Drug: HYDROmorphone 1 mg [hydromorphone 0.5 mg/0.5 mL rp1 injection syringe (1 mL)] Route: IVP; Site: left antecubital; 19:51 Follow up: Response: Pain is decreased formerly [facility] Outcome: 18:40 Discharge ordered by MD. martines 19:50 Patient verbalized understanding of disposition formerly [facility] instructions. Patient has no functional deficits. [...] Department Policy. 19:51 Patient left the ED. formerly [facility] 10/29 10:04 24 hour call back [...] rce(s) Supporting Document(s) ID Date Data Source [id number] 10/28/2020 05:58:00 PM [facility] Name Value Range Interpretation Code Description Data Gala rce(s) Supporting Document(s) Respiratory specimen severe acute respir atory syndrome coronavirus 2 (SARS-CoV-2) RNA Negative (qualifier value) [facility] This lab was ordered by [facility] dania and reported by [facility]. ID Date Data Source [id number] 10/28/2020 06:02:00 PM [facility] Performed by: Ramon moffett YCOVID Screen Result: [...] Certificate of Accreditation. Factsheets for healthcare providers: https://www.fda.gov/media/773542/download Factsheets for patients: https://www.fda.gov/media/704604/download The ID NOW Instrument is a rapid molecular in vitro diagnostic test utilizing an isothermal nucleic acid amplification technology intended for the qualitative detection of nucleic acid from the SARS-CoV-2 viral RNA. THIS IS A STATE REPORTABLE COMMUNICABLE DISEASE. Manual entry verified by Mariza Abdi 10/28/201800 Name Value Range Interpretation Code Description Data Gala rce(s) Supporting Document(s) ID Date Data Source [id number] 10/28/2020 05:17:00 PM EST [facility] Name Value Range Interpretation Code Description Data [facility] rce(s) Supporting Document(s) Sodium 139 mmol/L 137-145 Normal (applies to non-numeric resul ts) [facility] Potassium 3.5-5.1 Normal (applies to non-numeric resul ts) [facility] Chloride 109 mmol/L 98-112 Normal (applies to non-numeric resul ts) [facility] Carbon Dioxide CO2 22.0-33.0 Normal (applies to non-numer ic results) [facility] Anion Gap 4.0-11.0 Normal (applies to non-numeric resul ts) [facility] BUN 8 mg/dL 9-20 Below low normal [facility] Creatinine 0.80-1.50 Normal (applies to non-numeric resul ts) [facility] GFR >60 Normal (applies to non-numeric results) [facility] Result based on MDRD formula. Glucose Level 124 mg/dL 74-99 Above high normal [facility] The reference range is only applicable w hen fasting. Calcium-Uncorrected 8.4-10.2 Normal (applies to non-nume adrianna results) [facility] Corrected Calcium 8.4-10.2 Normal (applies to non-numeri c results) [facility] Bilirubin,Total 0.2-1.3 Normal (applies to non-numeric results) [facility] SGOT(AST) 59 U/L 17-59 Normal (applies to non-numeric resul ts) [facility] SGPT(ALT) 29 U/L 21-72 Normal (applies to non-numeric resul ts) [facility] Alkaline Phosphatase 146 U/L 38-126 Above high normal [facility] can increase Alkaline Phosp le vels up to 2 times the normal adult value. Normal values for children and adolescents are 2 to 3 times the normal adult value. Total Protein 6.3-8.[address] [facility] Albumin 3.5-5.0 Below low normal [facility] ID Date Data Source [id number] 10/28/2020 05:17:00 PM [facility] Name Value Range Interpretation Code Description Data Gala rce(s) Supporting Document(s) Lipase 117 U/L 73-393 Normal (applies to non-numeric resul ts) [facility] ID Date Data Source [id number] 10/28/2020 05:17:00 PM [facility] Value Range Interpretation Code Description Data Gala rce(s) Supporting Document(s) Magnesium 1.80-2.40 Normal (applies to non-numeric resul ts) [facility] ID Date Data Source [id number] 10/28/2020 05:17:00 PM [facility] Name Value Range Interpretation Code Description Data Gala rce(s) Supporting Document(s) B-Type Natriuretic Peptide BNP 445 pg/mL <125 Above high neno l [facility] NT-proBNP values less than 300 pg/mL hav [...] acute congestive failure. ID Date Data Source [id number] 10/28/2020 05:13:00 PM [facility] Name Value Range Interpretation Code Description Data Gala rce(s) Supporting Document(s) Troponin I 0.000-0.045 Normal (applies to non-numeric resu lts) [facility] ID Date Data Source [id number] 10/28/2020 05:08:00 PM [facility] Name Value Range Interpretation Code Description Data Gala rce(s) Supporting Document(s) PT 9.4-12.5 Above high normal [facility] INR Normal (applies to non-numeric results) [facility] The use of the INR is restricted to steven ents on stable oral anticoagulant. Therapeutic Range: 2.0-3.0 High Risk Values: 2.5-3.5 ID Date Data Source [id number] 10/28/2020 05:08:00 PM [facility] Name Value Range Interpretation Code Description Data Gala rce(s) Supporting Document(s) PTT 25.1-36.5 Normal (applies to non-numeric resul ts) [facility] ID Date Data Source [id number] 10/28/2020 04:52:00 PM [facility] Name Value Range Interpretation Code Description Data Gala rce(s) Supporting Document(s) White Blood Count 4.8-10.8 Above high normal [facility] Red Blood Count 4.35-6.08 Below low normal [facility] Hemoglobin 13.0-17.5 Below low normal [facility] Hematocrit 37.7-51.0 Below low normal [facility] Mean Corpuscular Volume 80-94 Above high normal [facility] Mean Corpuscular Hemoglobin 27.0-33.0 Above high normal [facility] Mean Corpuscular HGB Conc 32.0-36.0 Above high normal [facility] Red Cell Distribution Width 11.5-14.5 Above high normal [facility] Platelet Count 504 X10 3/uL 130-450 Above high normal [facility] Mean Platelet Volume 9.6-13.1 Below low normal [facility] Imm Grans% (AUTO) 1 % 0-2 Normal (applies to non-numeri c results) [facility] Neutrophils % (AUTO) 74 % 40-75 Normal (applies to non-num mariya results) [facility] Lymphocytes % (AUTO) 15 % 21-46 Below low normal [facility] Monocytes % (AUTO) 9 % 5-12 Normal (applies to non-numer ic results) [facility] Eosinophils % (AUTO) 1 % 1-5 Normal (applies to non-num mariya results) [facility] Basophils % (AUTO) 1 % 0-1 Normal (applies to non-numer ic results) [facility] Imm Grans# (AUTO) 0.0-0.5 Normal (applies to non-numeri c results) [facility] Neutrophils # (AUTO) 1.5-8.1 Above high normal [facility] Lymphocytes # (AUTO) 1.0-3.1 Normal (applies to non-num mariya results) [facility] Monocytes # (AUTO) 0.2-1.3 Above high normal [facility] Eosinophils# (AUTO) 0.0-0.5 Normal (applies to non-nume adrianna results) [facility] Basophils # (AUTO) 0.0-0.1 Normal (applies to non-numer ic results) [facility] ID Date Data Source [id number] 10/29/2020 04:39:00 PM [facility] Name: ZAY SMITH : 7 Age/Sex: 64M Ordering Provider: Kiko Henry MD Med Rec #: [id number] Reg Status: [facility] Room #: Date of Service: 10/28/20 Report Number: [id number] cc:Kiko Henry MD; Addis Mcdaniel MD Send Report To: [id number] CT/CT Chest for PE with Contrast Reason [...] Date/Time: 10/28/20 1755 Transcribed Date/Time: 10/29/20 1639 Air Duct Mechanic: PATO Name Value Range Interpretation Code Description Data Gala rce(s) Supporting Document(s) ID Date Data Source [id number] 10/29/2020 03:50:00 PM [facility] Name: ZAY SMITH : 7 Age/Sex: 64M Ordering Provider: Kiko Henry MD Med Rec #: [id number] Reg Status: [facility] Room #: Date of Service: 10/28/20 Report Number: [id number] cc:Kiko Henry MD; Addis Mcdaniel MD Send Report To: [id number] US/US Duplex Lower Ext Veins Rt Reason [...] Date/Time: 10/28/20 1735 Transcribed Date/Time: 10/29/20 1550 Air Duct Mechanic: PATO Name Value Range Interpretation Code Description Data Gala rce(s) Supporting Document(s) ID Date Data Source [id number] 10/29/2020 07:02:00 AM [facility] Name: ZAY SMITH : 7 Age/Sex: 64M Ordering Provider: Kiko Henry MD Med Rec #: [id number] Reg Status:[facility] Room #: Date of Service: 10/28/20 Report Number: [id number] cc: Kiko Henry MD; Addis Mcdaniel MD Send Report To: Reason for exam: Chest Pain SINUS RHYTHM BORDERLINE LEFT AXIS DEVIATION LOW LIMB VOLTAGE BORDERLINE ECG NO SIGNIFICANT CHANGE Physician Explosive Operator Fuse: Luz Sneed M.D. ECG HEART RATE: 99 /min ECG RR INTERVAL: 606 ms ECG P DURATION: 117 ms ECG QRS DURATION: 82 ms ECG NH INTERVAL: 170 ms ECG QT INTERVAL: 351 ms ECG QTC INTERVAL: 419 ms Q-T dispersion: ms ECG P AXIS: 41 deg ECG QRS AXIS: -24 deg ECG T AXIS: 39 deg REPORT SIGNATURE ON FILE 10/29/20 0703 Reported By: Luz Sneed MD <<Signature on File>> Exam Date/Time: 10/28/20 1611 Order #: [id number] Dictation Date/Time: 10/29/20701 Transcribed Date/Time: 10/29/20701 Air Duct Mechanic: DANITA Name Value Range Interpretation Code Description Data Gala rce(s) Supporting Document(s) ID Date Data Source [id number] 10/08/2020 10:00:00 AM EST [facility] Name Value Range Interpretation Code Description Data Gala rce(s) Supporting Document(s) Respiratory specimen severe acute respir atory syndrome coronavirus 2 (SARS-CoV-2) RNA Negative (qualifier value) [facility] This lab was ordered by [facility] and reported by [facility]. ID Date Data Source [id number] 10/08/2020 08:55:00 PM [facility] THIS IS A COUNT INCLUDES THE [facility] REPORTABLE COMMUNICABLE DISEASE. Testing was performed using the HipSwap COVID-19 MDx Assay. This test has been [...] be found at the following links: Providers: https://www.fda.gov/media/118628/download Patients : https://www.fda.gov/media/369019/download THIS IS A [facility] REPORTABLE COMMUNICABLE DISEASE Negative results do not preclude SARS-CoV-2 infection and should not be used as the sole basis for patient management decisions. Negative results must be combined with clinical observations,patient history, and epidemiological information. Name Value Range Interpretation Code Description Data Gala rce(s) Supporting Document(s) ID Date Data Source [id number] 10/05/2020 09:37:00 AM [facility] Name: ZAY SMITH : 7 Age/Sex: 64M Ordering Provider: Addis Mcdaniel MD Med Rec #: [id number] Reg Status: DEP REF Room #: Date of Service: 10/04/20 Report Number: [id number] cc: Send Report To: [id number] BD/Bone Densitometry Reason for exam: OSTEOPOROSIS W/O CURRENT PATHOLOGICAL FX The Bone Density results for this patient can be found in the E-chart and/or Synapse. REPORT SIGNATURE ON FILE Reported By: COLIN Cordon 10/05/20937 Dictation Date/Time: 10/05/20936 Transcribed Date/Time: 10/05/20936 Air Duct Mechanic: [email or web address] Name Value Range Interpretation Code Description Data Gala rce(s) Supporting Document(s) ID Date Data Source [id number] 09/13/2020 09:57:00 PM EST [facility] SALLY Syed [address] [address] NEW PATIENT CONSULTATIONNAME: ZAY SMITH DPHYSICIAN: KACI HOUSTON MDDATE OF SERVICE: 09/09/20DATE OF : [birth year]ACCOUNT #: [id number]: ZAY Antonina AmorHONGDate: Sep 09OB: 1955Physician: Dr. [...] DVTSeizurePast Surgical History:Ankle SurgeryAppendectomyBack surgeryDiscectomy - L3- S2Odo[place]rmey back stimulatorRight chest tube placementSplenectomyTesticle removal - [...] beer.Family History:Mr. SMITH's mother is alive. Mr. 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. ID Date Data Source [id number] 08/10/2020 09:10:00 AM EST [facility] Name Value Range Interpretation Code Description Data Gala rce(s) Supporting Document(s) FERRITIN 83 ng/mL 26 - 388 [facility] ID Date Data Source [id number] 08/10/2020 09:10:00 AM EST [facility] Name Value Range Interpretation Code Description Data Gala rce(s) Supporting Document(s) IRON AND TIBC PROFILE [facility] IRON PROFILE Iron [Mass/volume] in Serum or Plasma 62 ug/mL 65 - 175 Below low normal [facility] Iron binding capacity [Mass/volume] in Serum or Plasma 294 ug/dL 250 - 450 [facility] IRON SAT 21 % [facility] ID Date Data Source [id number] 08/09/2020 11:33:00 AM EST [facility] Name Value Range Interpretation Code Description Data Gala rce(s) Supporting Document(s) CBC [facility] COMPLETE BLOOD COUNT Leukocytes [#/volume] in Blood by Automated count 12.7 K/uL 4.0 - 10.0 Above high normal [facility] Erythrocytes [#/volume] in Blood by Automated count 3.62 M/uL 4.30 - 6.10 Below low normal [facility] Hemoglobin [Mass/volume] in Blood 12.8 g/dL 13.5 - 17.5 Below low no rmal [facility] Hematocrit [Volume Fraction] of Blood by Automated count 37.4 % 39.0 - 50.0 Below low normal [facility] Erythrocyte mean corpuscular volume [Entitic volume] b y Automated count 103.3 fL 80.0 - 96.0 Above high normal [facility] Erythrocyte mean corpuscular hemoglobin [Entitic mass] by Automated count 35.4 pg 26.0 - 34.0 Above high normal [facility] Erythrocyte mean corpuscular hemoglobin concentration [Mass/volume] by Automated count 34.2 g/dL 32.0 - 36.0 [facility] Erythrocyte distribution width [Ratio] by Automated count 18.7 % 11.6 - 14.8 Above high normal [facility] Platelets [#/volume] in Blood by Automated count 691 K/uL 150 - 450 Above upper panic limits [facility] CALLED TO: CRISTAL [facility] al REP/VERIFIED 699 [facility] ital READ BACK YES [facility] l Platelet mean volume [Entitic volume] in Blood by Automated count 8.2 fL 7.1 - 10.4 [facility] Neutrophils [#/volume] in Blood by Automated count 7.10 K/uL 1.70 - 7.70 [facility] Lymphocytes [#/volume] in Blood by Automated count 3.31 K/uL 1.50 - 6.00 [facility] Monocytes [#/volume] in Blood by Automated count 1.19 K/uL 0.00 - 1.00 Above high normal [facility] Eosinophils [#/volume] in Blood by Automated count 0.65 K/uL 0.00 - 0.30 Above high normal [facility] Basophils [#/volume] in Blood by Automated count 0.31 K/uL 0.00 - 0.10 Above high normal [facility] 0.10 Urinalysis macro (dipstick) panel - Urine 0.030 10^3/uL 0.000 - 0.012 Above high normal [facility] Neutrophils/100 leukocytes in Blood by Automated count 56.2 % 42. 2 - 75.2 [facility] Lymphocytes/100 leukocytes in Blood by Automated count 26.1 % 15. 0 - 41.0 [facility] Monocytes/100 leukocytes in Blood by Automated count 9.4 % 0.0 - 12.0 [facility] Eosinophils/100 leukocytes in Blood by Automated count 5.1 % 0.0 - 7.0 [facility] 2.40.80 NRBC 0.2 % [facility] MANUAL DIFF NOT INDICATED [facility] RBC MORPH NOT INDICATED [facility] ID Date Data Source [id number] 08/09/2020 11:33:00 AM EST [facility] Name Value Range Interpretation Code Description Data Gala rce(s) Supporting Document(s) COMPREHENSIVE CHEM PROFILE i [facility] COMPREHENSIVE METABOLIC PANEL Sodium [Moles/volume] in Serum or Plasma 137 mEq/L 136 - 145 [facility] Potassium [Moles/volume] in Serum or Plasma 4.6 mEq/L 3.5 - 5.1 [facility] Chloride [Moles/volume] in Serum or Plasma 103 mEq/L 98 - 107 [facility] Carbon dioxide, total [Moles/volume] in Serum or Plasma 22.5 mEq /L 21.0 - 32.0 [facility] Glucose [Mass/volume] in Serum or Plasma 123 mg/dL 70 - 100 Above high normal [facility] Urea nitrogen [Mass/volume] in Serum or Plasma 8 mg/dL 7 - 18 [facility] CREATININE SERUM 0.90 mg/dL 0.70 - 1.30 [facility] AGE 64 yrs [facility] HEIGHT NA [facility] eGFR NON-AFR AMR >60 [facility] eGFR AFR AMR >60 [facility] ital BUN/CREAT 9 6 - 25 [facility] Protein [Mass/volume] in Serum or Plasma 6.4 g/dL 6.0 - 8.3 [facility] Albumin [Mass/volume] in Serum or Plasma 2.6 g/dL 3.8 - 5.4 Below low normal [facility] GLOBULIN 3.8 g/dL 2.0 - 4.0 [facility] A/G RATIO 0.7 0.8 - 2.0 Below low normal [facility] Calcium [Mass/volume] in Serum or Plasma 8.8 mg/dL 8.8 - 10.2 [facility] Bilirubin.total [Mass/volume] in Serum or Plasma 0.5 mg/dL 0.2 - 1.0 [facility] Bilirubin.direct [Mass/volume] in Serum or Plasma 0.3 mg/dL 0.0 - 0.2 Above high normal [facility] INDIRECT BILI 0.2 mg/dL 0.0 - 1.1 [facility] pital ALK PHOSPHATASE 125 U/L 40 - 129 [facility] ospital Aspartate aminotransferase [Enzymatic ac tivity/volume] in Serum or Plasma by With P-5'-P 30 IU/L 7 - 37 [facility] Alanine aminotransferase [Enzymatic acti vity/volume] in Serum or Plasma by With P-5'-P 25 IU/L 12 - 78 [facility] ANION GAP 12 7 - 15 [facility] l Estimated GFR referenc e range: >60ml/min/1.73m >18 years: Calculated using IDNE traceable Study Equation <18 years: Calculated using IDNE tracable Bedside Schartz Equation ID Date Data Source [id number] 08/09/2020 11:33:00 AM EST [facility] Name Value Range Interpretation Code Description Data Gala rce(s) Supporting Document(s) ACTIVATED PARTIAL THROMBOPLASTIN [facility] ACTIVATED PARTIAL THROMBOPLASTIN HEPARIN? NO [facility] l PTT-A 37.2 24.3 - 100 [facility] al New PTT Heparin Therapeutic ra nge effective February 18, 2016 Heparin dose Therapeutic Range 0.1 - 0.3 uL 70.7 - 80.3 seconds 0.3 - 0.7 uL 80.3 - 99.6 seconds New normal reference range effective July 09, 2020 Normal 24.3 - 40.8 seconds ID Date Data Source [id number] 08/09/2020 11:33:00 AM EST [facility] PROTHROMBIN TIME Name Value Range Interpretation Code Description Data Gala rce(s) Supporting Document(s) WARFARIN? NO [facility] l 12.9 INR in Platelet poor plasma by Coagulation assay 1.0 1.0 - 4.5 [facility] Reference ranges Warf aldair (Coumadin) Therapy: 21.6 - 40.7 secs Normal (Non-warfarin Therapy): 10.7 - 15.2 secs New Protime Reference Range as of July 09, 2020 ID Date Data Source [id number] 07/29/2020 11:25:00 AM [facility] Name: ZAY SMITH [facility] Rec #: [id number] : 1955 Age/Sex: 64M Date of Service: 07/29/20 PHYSICIAN CHART Physician Documentation [facility] Name: Zay Smith Age: 64 yrs Sex: Male : 1955 Arrival Date: 07/29/2020 Time: 11:25 Bed 7 Private MD: Addis Mcdaniel E ED Physician Kiko Henry Disposition: 07/29 16:38 Attestation: I discussed the plan of care with [facility] Provider and agree with what they [...] 14. Patient has been followed by her weighing station operator here at [facility]. Patient states that he had a [...] GERD; HTN - hypertensio n; Hyperlipidemia; LYMPHOMA; OK; narcotic OD accidental; 12/30; SEIZURES; testicular cancer; [...] History: Smoking status (Tobacco): Cigars Preferred Language: Mosotho. - The history of the events were [...] Summary: 07/29/20 20:39 Transfer Ordered Transfer Location: [facility] Reason: Higher level of care jesse Condition: Stable jesse Accepting Physician: Amrit(07/29/20 20:39) jesse Diagnosis - Deep Vein Thrombosis (DVT)(07/29/20 20:39) [facility] Forms: - Fax Visit Summary [facility] Signatures: Dispatcher [employer] EDMS Rob Garner RN [...] Eliquis. Patient has been followed by her weighing station operator here at [facility]. Patient states that he had a [...] rce(s) Supporting Document(s) ID Date Data Source [id number] 07/29/2020 11:25:00 AM EST [facility] Name: ZAY SMITH [facility] Rec #: [id number] : 1955 Age/Sex: 64M Date of Service: 07/29/20 DISPOSITION SUMMARY Discharge Summary [facility] Name:[facility] Emergency Department Age:64 yrs Sex:Male :1955 Arrival:07/29/2020 11:25 Departure Date07/29/2020 Departure Time20:39 Private MD:Addis Mcdaniel MD Outcome: Transfer Location: [facility] Condition: Stable Chief Complaint: Leg Pain Diagnosis: [...] rce(s) Supporting Document(s) ID Date Data Source [id number] 07/29/2020 11:25:00 AM [facility] Name: ZAY SMITH [facility] Rec #: [id number] : 1955 Age/Sex: 64M Date of Service: 07/29/20 NURSE CHART Nurse's Notes [facility] Name: Zay Smith Age: 64 yrs Sex: Male : 1955 Arrival Date: 07/29/2020 Time: 11:25 Bed 7 Private MD: Addis Mcdaniel E Diagnosis: Deep Vein Thrombosis (DVT) Presentation: 07/29 11:27 Transition of care: patient was not received from another [facility] setting of care. Presenting complaint: Patient states [...] disease; GERD; HTN - hypertension; Hyperlipidemia; LYMPHOMA; OK; narcotic OD accidental; 12/30; SEIZURES; testicular cancer; [...] History: Smoking status (Tobacco): Cigars Preferred Language: Mosotho. - The history of the events were [...] 19:54 Report given to ROLA Caldera at [facility] ER ([phone]) awr 20:39 ER care complete, transfer ordered by . jesse 20:39 Patient left the ED. jesse 07/30 09:02 24 hour call back N/A - Patient was transferred edv Signatures: Gene Crane, RN RN edv Rob Garner, RN RN kl1 Yahaira Thomas, RN RN tp1 Carolyn Wall RN RN jc3 Cory Awad RN RN awr Meliza Julian Joseph, COLLARETTE SEPARATOR COLLARETTE SEPARATOR jja1 Meredith Vásquez dmd Ni Tapia RN [...] rce(s) Supporting Document(s) ID Date Data Source [id number] 08/30/2020 05:27:00 PM [facility] First test? UNKNOWNEmployed in [facility] re? UNKNOWNSymptomatic per CDC? UNKNOWNHospitalized? UNKNOWNICU? UNKNOWNResident in congregated care? [facility] [place] [facility] UNKNOWN? UNKNOWN Name Value Range Interpretation Code Description Data Gala rce(s) Supporting Document(s) SARS-CoV-2 RNA Negative Normal (applies to non-numeric r esults) [facility] Negative results should be treated as pr [...] Certificate of Accreditation. Factsheets for healthcare providers: https://www.fda.gov/media/412701/download Factsheets for patients: https://www.fda.gov/media/331402/download The ID NOW Instrument is a rapid molecular in vitro diagnostic test utilizing an isothermal nucleic acid amplification technology intended for the qualitative detection of nucleic acid from the SARS-CoV-2 viral RNA. THIS IS A STATE REPORTABLE COMMUNICABLE DISEASE. Manual entry verified by Mariza Abdi 08/30/20 1726 ID Date Data Source [id number] 08/03/2020 12:20:00 PM [facility] Name Value Range Interpretation Code Description Data Gala rce(s) Supporting Document(s) Troponin I 0.000-0.045 Normal (applies to non-numeric resu lts) [facility] ID Date Data Source [id number] 07/29/2020 03:49:00 PM [facility] Name: ZAY SMITH Antonina : 7 Age/Sex: 64M Ordering Provider: Santi Cook IV, FNP Med Rec #: [id number] Reg Status:ADM IN Room #: ED7-1 Date of Service: 07/29/20 Report Number: [id number] cc: Santi Cook IV FIBERGLASS LAMINATOR; Addis Mcdaniel MD; Tyler Birmingham MD Send Report To: Reason for exam: Baseline SINUS RHYTHM BORDERLINE LEFT AXIS DEVIATION BORDERLINE ECG Physician Explosive Operator Fuse: Nancy Stanton M.D. ECG HEART RATE: 89 /min ECG RR INTERVAL: 674 ms ECG P DURATION: 123 ms ECG QRS DURATION: 86 ms ECG NH INTERVAL: 173 ms ECG QT INTERVAL: 354 ms ECG QTC INTERVAL: 404 ms Q-T dispersion: ms ECG P AXIS: 36 deg ECG QRS AXIS: -24 deg ECG T AXIS: 50 deg REPORT SIGNATURE ON FILE 07/29/20 154 Reported By: Nancy Stanton MD <<Signature on File>> Exam Date/Time: 07/29/20 1342 Order #: [id number] Dictation Date/Time: 07/29/201548 Transcribed Date/Time: 07/29/201548 Air Duct Mechanic: DANITA Name Value Range Interpretation Code Description Data Gala rce(s) Supporting Document(s) ID Date Data Source [id number] 08/03/2020 12:20:00 PM [facility] Name Value Range Interpretation Code Description Data Gala rce(s) Supporting Document(s) PT 9.4-12.5 Above high normal [facility] INR Normal (applies to non-numeric results) [facility] The use of the INR is restricted to steven ents on stable oral anticoagulant. Therapeutic Range: 2.0-3.0 High Risk Values: 2.5-3.5 ID Date Data Source [id number] 08/03/2020 12:20:00 PM EST [facility] Name Value Range Interpretation Code Description Data Gala rce(s) Supporting Document(s) PTT 25.1-36.5 Above high normal [facility] ID Date Data Source [id number] 08/03/2020 12:20:00 PM EST [facility] Name Value Range Interpretation Code Description Data Gala rce(s) Supporting Document(s) Sodium 133 mmol/L 137-145 Below low normal [facility] Potassium 3.5-5.1 Normal (applies to non-numeric resul ts) [facility] Chloride 102 mmol/L 98-112 Normal (applies to non-numeric resul ts) [facility] Carbon Dioxide CO2 22.0-33.0 Normal (applies to non-numer ic results) [facility] Anion Gap 4.0-11.0 Normal (applies to non-numeric resul ts) [facility] BUN 8 mg/dL 9-20 Below low normal [facility] Creatinine 0.80-1.50 Normal (applies to non-numeric resul ts) [facility] GFR 68 mL/min >60 Normal (applies to non-numeric resul ts) [facility] Result based on MDRD formula. Glucose Level 105 mg/dL 74-99 Above high normal [facility] The reference range is only applicable w hen fasting. Calcium-Uncorrected 8.4-10.2 Normal (applies to non-nume adrianna results) [facility] Corrected Calcium 8.4-10.2 Normal (applies to non-numeri c results) [facility] ID Date Data Source [id number] 08/03/2020 12:20:00 PM [facility] Name Value Range Interpretation Code Description Data Gala rce(s) Supporting Document(s) White Blood Count 4.8-10.8 Above high normal [facility] Red Blood Count 4.35-6.08 Below low normal [facility] Hemoglobin 13.0-17.5 Normal (applies to non-numeric resul ts) [facility] Hematocrit 37.7-51.0 Normal (applies to non-numeric resul ts) [facility] Mean Corpuscular Volume 80-94 Above high normal [facility] [facility] Mean Corpuscular Hemoglobin 27.0-33.0 Above high normal [facility] Mean Corpuscular HGB Conc 32.0-36.0 Above high normal [facility] Red Cell Distribution Width 11.5-14.5 Above high normal [facility] Platelet Count 375 X10 3/uL 130-450 Normal (applies to non-numeric results) [facility] Mean Platelet Volume 9.6-13.1 Below low normal [facility] Imm Grans% (AUTO) 1 % 0-2 Normal (applies to non-numeri c results) [facility] Neutrophils % (AUTO) 74 % 40-75 Normal (applies to non-num mariya results) [facility] Lymphocytes % (AUTO) 9 % 21-46 Below low normal [facility] Monocytes % (AUTO) 13 % 5-12 Above high normal [facility] Eosinophils % (AUTO) 2 % 1-5 Normal (applies to non-num mariya results) [facility] Basophils % (AUTO) 1 % 0-1 Normal (applies to non-numer ic results) [facility] Imm Grans# (AUTO) 0.0-0.5 Normal (applies to non-numeri c results) [facility] Neutrophils # (AUTO) 1.5-8.1 Above high normal [facility] Lymphocytes # (AUTO) 1.0-3.1 Normal (applies to non-num mariya results) [facility] Monocytes # (AUTO) 0.2-1.3 Above high normal [facility] Eosinophils# (AUTO) 0.0-0.5 Normal (applies to non-nume adrianna results) [facility] Basophils # (AUTO) 0.0-0.1 Above high normal [facility] ID Date Data Source [id number] 07/30/2020 01:42:00 PM EST [facility] Name: ZAY SMITH : 7 Age/Sex: 64M Ordering Provider: Santi Cook IV, FNP Med Rec #: [id number] Reg Status: DEP ER Room #: Date of Service: 07/29/20 Report Number: [id number] cc:Addis Mcdaniel MD Send Report To: [id number] US/US Duplex Lower Ext Vein Bilat Reason [...] Date/Time: 07/29/20 1425 Transcribed Date/Time: 07/30/20 1342 Air Duct Mechanic: JUDE Name Value Range Interpretation Code Description Data Gala rce(s) Supporting Document(s) ID Date Data Source [id number] 08/03/2020 10:42:00 AM [facility] C.difficile strain 027/[id number] has been associated with severe disease outbreaks and poor treatment outcomes in healthcare facilities worldwide. Reference Range: Toxin producing C. difficile and 027/NAP-1 Name Value Range Interpretation Code Description Data Gala rce(s) Supporting Document(s) ID Date Data Source [id number] 08/03/2020 10:42:00 AM [facility] Methodology: Multiplexed PCR Refer ence Range: None detected Name Value Range Interpretation Code Description Data Gala rce(s) Supporting Document(s) ID Date Data Source [id number] 07/16/2020 09:44:00 AM [facility] PROTHROMBIN TIME Name Value Range Interpretation Code Description Data Gala rce(s) Supporting Document(s) WARFARIN? YES [facility] 22.2 INR in Platelet poor plasma by Coagulation assay 2.0 1.0 - 4.5 [facility] Reference ranges Warf aldair (Coumadin) Therapy: 21.6 - 40.7 secs Normal (Non-warfarin Therapy): 10.7 - 15.2 secs New Protime Reference Range as of July 09, 2020 ID Date Data Source [id number] 07/08/2020 11:00:00 AM [facility] Name Value Range Interpretation Code Description Data Gala rce(s) Supporting Document(s) PROTIME W/ANTICOAG 18.9 Secs 22.7 - 40.3 Below low normal [facility] INR in Platelet poor plasma by Coagulation assay 1.6 2.0 - 4.5 Below low normal [facility] New Protime Reference Range a s of June 20, 2019 ID Date Data Source [id number] 07/05/2020 09:13:00 AM [facility] Name Value Range Interpretation Code Description Data Gala rce(s) Supporting Document(s) PROTIME W/ANTICOAG 18.7 Secs 22.7 - 40.3 Below low normal [facility] INR in Platelet poor plasma by Coagulation assay 1.6 2.0 - 4.5 Below low normal [facility] New Protime Reference Range a s of June 20, 2019 ID Date Data Source [id number] 06/30/2020 01:12:00 PM [facility] Name Value Range Interpretation Code Description Data Gala rce(s) Supporting Document(s) PROTIME W/ANTICOAG 44.7 Secs 22.7 - 40.3 Above high normal [facility] INR in Platelet poor plasma by Coagulation assay 4.8 2.0 - 4.5 Above high normal [facility] New Protime Reference Range a s of June 20, 2019 ID Date Data Source [id number] 06/28/2020 12:52:00 PM [facility] Name Value Range Interpretation Code Description Data Gala rce(s) Supporting Document(s) PT 9.4-12.5 Above high normal [facility] read back critical informat ion 06/28/20 1244 LAB.DAVSA The use of the INR is restricted to patients on stable oral anticoagulant. Therapeutic Range: 2.0-3.0 High Risk Values: 2.5-3.5 ID Date Data Source [id number] 06/28/2020 12:15:00 PM EST [facility] Name Value Range Interpretation Code Description Data Gala rce(s) Supporting Document(s) Sodium 137 mmol/L 137-145 Normal (applies to non-numeric resul ts) [facility] Potassium 3.5-5.1 Normal (applies to non-numeric resul ts) [facility] Chloride 106 mmol/L 98-112 Normal (applies to non-numeric resul ts) [facility] Carbon Dioxide CO2 22.0-33.0 Normal (applies to non-numer ic results) [facility] Anion Gap 4.0-11.0 Normal (applies to non-numeric resul ts) [facility] BUN 3 mg/dL 9-20 Below low normal [facility] Creatinine 0.80-1.50 Normal (applies to non-numeric resul ts) [facility] GFR 84 mL/min >60 Normal (applies to non-numeric resul ts) [facility] Result based on MDRD formula. Glucose Level 102 mg/dL 74-99 Above high normal [facility] The reference range is only applicable w hen fasting. Calcium-Uncorrected 8.4-10.2 Normal (applies to non-nume adrianna results) [facility] Corrected Calcium 8.4-10.2 Normal (applies to non-numeri c results) [facility] Bilirubin,Total 0.2-1.3 Normal (applies to non-numeric results) [facility] SGOT(AST) 25 U/L 17-59 Normal (applies to non-numeric resul ts) [facility] SGPT(ALT) 18 U/L 21-72 Below low normal [facility] Alkaline Phosphatase 155 U/L 38-126 Above high normal [facility] can increase Alkaline Phosp le vels up to 2 times the normal adult value. Normal values for children and adolescents are 2 to 3 times the normal adult value. Total Protein 6.3-8.2 Normal (applies to non-numeric re sults) [facility] Albumin 3.5-5.0 Below low normal [facility] ID Date Data Source [id number] 06/28/2020 12:15:00 PM [facility] Name Value Range Interpretation Code Description Data Gala rce(s) Supporting Document(s) Vitamin B12 318 pg/mL 193-986 Normal (applies to non-numeric resu lts) [facility] ID Date Data Source [id number] 06/28/2020 12:15:00 PM [facility] Value Range Interpretation Code Description Data Gala rce(s) Supporting Document(s) Uric Acid 3.5-7.2 Normal (applies to non-numeric resul ts) [facility] ID Date Data Source [id number] 06/28/2020 12:15:00 PM [facility] Name Value Range Interpretation Code Description Data Glaa rce(s) Supporting Document(s) Free T4 (Free Thyroxine) 0.76-1.46 Normal (applies to non -numeric results) [facility] ID Date Data Source [id number] 06/28/2020 12:15:00 PM [facility] Name Value Range Interpretation Code Description Data Gala rce(s) Supporting Document(s) Folate 2.76-20.0 Below low normal [facility] ID Date Data Source [id number] 06/28/2020 12:15:00 PM [facility] Name Value Range Interpretation Code Description Data Gala rce(s) Supporting Document(s) Free T3 2.18-3.98 Normal (applies to non-numeric resul ts) [facility] ID Date Data Source [id number] 06/28/2020 12:15:00 PM [facility] Value Range Interpretation Code Description Data Gala rce(s) Supporting Document(s) Thyroid Stimulate Hormone TSH 0.358-3.740 No rmal (applies to non-numeric results) [facility] ID Date Data Source [id number] 06/28/2020 12:05:00 PM [facility] Value Range Interpretation Code Description Data Gala rce(s) Supporting Document(s) Parathyroid Hormone PTH Intact 18.4-80.1 N ormal (applies to non-numeric results) [facility] ID Date Data Source [id number] 06/28/2020 12:05:00 PM [facility] Value Range Interpretation Code Description Data Gala rce(s) Supporting Document(s) Vitamin D,Total (25OH) 30.0-100.0 Normal (applies to non-n umeric results) [facility] Reference Range: <10 ng/mL: Deficien t 10-30 ng/mL: Insufficient 30-100 ng/mL: Sufficient >100 ng/mL: Toxicity possible ID Date Data Source [id number] 06/14/2020 10:25:00 AM EDT [facility] Value Range Interpretation Code Description Data Gala rce(s) Supporting Document(s) FACTOR V LEIDEN MUTATION [facility] _FACTOR V LEIDEN MUTATION_ SEE SE [facility] REPORT ID Date Data Source [id number] 06/14/2020 10:25:00 AM EDT [facility] Value Range Interpretation Code Description Data Gala rce(s) Supporting Document(s) FACTOR II DNA ANALYSIS [facility] _FACTOR II DNA ANALYSIS_Factor II, DNA AnalysisReported: 06/18/2020 20:05 Status=F --------TEST RESULT FLAG RANGE UNITS SC --Factor II, DNA Analysis TG 06/18/20.rfl.COMPLETE.LCTRNEGATIVENo mutation identified. .Comment:A point mutation ([id number]) in the factor II (prothrombin) gene is thesecond most common cause of inherited thrombophilia. The incidence ofthis mutation in the [place] population is about 2% and in therican [place] population it is approximately 0.5%. This mutation [...] individual mutations.This assay detects only the prothrombin P46004N mutation and doesnot measure genetic abnormalities elsewhere in the genome. Otherthrombotic risk factors may be pursued through systematic clinicallaboratory analysis. These factors include the R506Q ([place])mutation in the Factor V gene, plasma homocysteine levels, as wellas testing for deficiencies of antithrombin III, protein C andprotein S.Genetic Counselors are available for health care providersto discuss results at [phone] ([phone]). .Methodology:DNA analysis of the Factor II gene wa s performed by PCRamplification followed by restriction analysis. Thediagnostic sensitivity is >99% for both. All the tests mustbe combined with clinical information for the most accurateinterpretation. Molecular-based testing is highly accurate,but as in any laboratory test, diagnostic errors may occur. .This test was developed and its performance characteristicsdetermined by [employer]. It has not been cleared or approvedby the Food and Drug Administration. .Poort SR, et al. Blood. 1996; 88:1053-5337.Amada RAMOS. Circulation. 2004; 110:e15-e18.Lis I, et al. Arterioscler Thromb Vasc Biol. 1999;19:700-703. .Presely Wells, PhD, Yi Cedeno, PhD, Moises Kaur MJenniferSJennifer, PhD, Beth Yan, PhD, Arpita Aguero, PhD, Kellee Shi, PhD, [facility] Test performed by: [employer] RTP [address] [place] [address] [id number] Brian Holland MD ID Date Data Source [id number] 06/14/2020 10:25:00 AM EDT [facility] Name Value Range Interpretation Code Description Data Gala rce(s) Supporting Document(s) ANTI CARDIOLIPIN IGA IGG IGM QN [facility] _ANTI-CARDIOLIPIN IGA/G/M,QN_Anticar diolip Ab, IgA/G/M, QnReported: [...] 80 High Positive: >80RN Test performed by: [place] [place] [address] Asha Sarkar MD ID Date Data Source [id number] 06/14/2020 10:25:00 AM EDT [facility] Name Value Range Interpretation Code Description Data Gala rce(s) Supporting Document(s) BETA 2 GLYCOPROTEIN 1 IGG A M [id number] [facility] _BETA 2 GLYCOPROTEIN 1 ABG/A/M 1639 [...] J Thromb Haem 2006;4:295-306.BN Test performed by: [employer] [address] [id number] Kurt Hogue MD ID Date Data Source [id number] 06/14/2020 10:25:00 AM EDT [facility] Name Value Range Interpretation Code Description Data Gala rce(s) Supporting Document(s) ANTITHROMBIN III PANEL [facility] _ANTITHROMBIN III PANEL_Antithrombi n III, Func/ImmunolReported: 06/16/2020 14:05 Status=F --------TEST RESULT FLAG RANGE UNITS SC --Antithrombin Activity 85 75-135 % BN 06/16/201405.rfl.COMPLETE.LCTRDirect Xa inhibitor anticoagulants such as rivaroxaban, apixaban andedoxaban will lead to spuriously elevated antithrombin activitylevels possibly masking a deficiency.Antithrombin Antigen 79 72-124 % BN 06/16/201405.rfl.COMPLETE.LCTRThis test was developed and its performance characteristicsdetermined by [employer]. It has not been cleared or approvedby the Food and Drug Administration.BN Test performed by: [employer] [address] [id number] Kurt Hogue MD ID Date Data Source [id number] 06/14/2020 10:25:00 AM EDT [facility] Name Value Range Interpretation Code Description Data Gala rce(s) Supporting Document(s) PHOSPHOLIPIDS SERUM [facility] _PHOSPHOLIPIDS SERUM_Phospholipids, SerumReported: 06/16/2020 14:05 Status=F RESULT FLAG RANGE UNITS SC --Phospholipids, Serum 243 150-250 mg/dL BN 06/16/201405.rfl.COMPLETE.LCTRResults for this test are for research purposes only by the assay'smanufacturer. The performance characteristics of this product havenot been established. Results should not be used as a diagnosticprocedure without confirmation of the diagnosis by another medicallyestablished diagnostic product or procedure.BN Test performed by: [employer] [address] [id number] Kurt Hogue MD ID Date Data Source [id number] 06/14/2020 10:25:00 AM EDT [facility] Name Value Range Interpretation Code Description Data Gala rce(s) Supporting Document(s) COMPREHENSIVE CHEM PROFILE [facility] COMPREHENSIVE METABOLIC PANEL Sodium [Moles/volume] in Serum or Plasma 137 mEq/L 136 - 145 [facility] Potassium [Moles/volume] in Serum or Plasma 3.9 mEq/L 3.5 - 5.1 [facility] Chloride [Moles/volume] in Serum or Plasma 102 mEq/L 98 - 107 [facility] Carbon dioxide, total [Moles/volume] in Serum or Plasma 21.7 mEq /L 21.0 - 32.0 [facility] Glucose [Mass/volume] in Serum or Plasma 107 mg/dL 70 - 100 Above high normal [facility] Urea nitrogen [Mass/volume] in Serum or Plasma 8 mg/dL 7 - 18 [facility] CREATININE SERUM 0.94 mg/dL 0.70 - 1.30 [facility] AGE 64 yrs [facility] l HEIGHT NA [facility] eGFR NON-AFR AMR >60 [facility] eGFR AFR AMR >60 [facility] ital BUN/CREAT 9 6 - 25 [facility] Protein [Mass/volume] in Serum or Plasma 6.6 g/dL 6.0 - 8.3 [facility] Albumin [Mass/volume] in Serum or Plasma 3.0 g/dL 3.8 - 5.4 Below low normal [facility] GLOBULIN 3.6 g/dL 2.0 - 4.0 [facility] A/G RATIO 0.8 0.8 - 2.0 [facility] Calcium [Mass/volume] in Serum or Plasma 8.9 mg/dL 8.8 - 10.2 [facility] Bilirubin.total [Mass/volume] in Serum or Plasma 0.4 mg/dL 0.2 - 1.0 [facility] Bilirubin.direct [Mass/volume] in Serum or Plasma 0.1 mg/dL 0.0 - 0. 2 [facility] INDIRECT BILI 0.3 mg/dL 0.0 - 1.1 [facility] pital ALK PHOSPHATASE 108 U/L 40 - 129 [facility] ospital Aspartate aminotransferase [Enzymatic ac tivity/volume] in Serum or Plasma by With P-5'-P 20 IU/L 7 - 37 [facility] Alanine aminotransferase [Enzymatic acti vity/volume] in Serum or Plasma by With P-5'-P 21 IU/L 12 - 78 [facility] ANION GAP 13 7 - 15 [facility] l Estimated GFR referenc e range: >60ml/min/1.73m >18 years: Calculated using IDMS traceable Study Equation <18 years: Calculated using IDMS tracable Bedside Schartz Equation ID Date Data Source [id number] 06/14/2020 10:25:00 AM EDT [facility] Name Value Range Interpretation Code Description Data Gala rce(s) Supporting Document(s) CBC [facility] l COMPLETE BLOOD COUNT Leukocytes [#/volume] in Blood by Automated count 13.0 K/uL 4.0 - 10.0 Above high normal [facility] Erythrocytes [#/volume] in Blood by Automated count 3.53 M/uL 4.30 - 6.10 Below low normal [facility] Hemoglobin [Mass/volume] in Blood 13.2 g/dL 13.5 - 17.5 Below low no rmal [facility] Hematocrit [Volume Fraction] of Blood by Automated count 37.9 % 39.0 - 50.0 Below low normal [facility] Erythrocyte mean corpuscular volume [Entitic volume] b y Automated count 107.4 fL 80.0 - 96.0 Above high normal [facility] Erythrocyte mean corpuscular hemoglobin [Entitic mass] by Automated count 37.4 pg 26.0 - 34.0 Above high normal [facility] Erythrocyte mean corpuscular hemoglobin concentration [Mass/volume] by Automated count 34.8 g/dL 32.0 - 36.0 [facility] Erythrocyte distribution width [Ratio] by Automated count 15.9 % 11.6 - 14.8 Above high normal [facility] Platelets [#/volume] in Blood by Automated count 643 K/uL 150 - 450 Above upper panic limits [facility] INCREASED PLATELETS NOTED ON SMEAR CALLED TO: [facility] spital REP/VERIFIED 645 [facility] ital READ BACK YES [facility] l Platelet mean volume [Entitic volume] in Blood by Automated count 8.2 fL 7.1 - 10.4 [facility] Neutrophils [#/volume] in Blood by Automated count 7.90 K/uL 1.70 - 7.70 Above high normal [facility] Lymphocytes [#/volume] in Blood by Automated count 2.67 K/uL 1.50 - 6.00 [facility] Monocytes [#/volume] in Blood by Automated count 1.68 K/uL 0.00 - 1.00 Above high normal [facility] Eosinophils [#/volume] in Blood by Automated count 0.45 K/uL 0.00 - 0.30 Above high normal [facility] Basophils [#/volume] in Blood by Automated count 0.21 K/uL 0.00 - 0.10 Above high normal [facility] 0.08 Urinalysis macro (dipstick) panel - Urine 0.040 10^3/uL 0.000 - 0.012 Above high normal [facility] Neutrophils/100 leukocytes in Blood by Automated count 60.8 % 42. 2 - 75.2 [facility] Lymphocytes/100 leukocytes in Blood by Automated count 20.6 % 15. 0 - 41.0 [facility] Monocytes/100 leukocytes in Blood by Automated count 12.9 % 0.0 - 12.0 Above high normal [facility] Eosinophils/100 leukocytes in Blood by Automated count 3.5 % 0.0 - 7.0 [facility] 1.60.60 NRBC 0.3 % [facility] l MANUAL DIFF NOT INDICATED [facility] H ospital RBC MORPH NOT INDICATED [facility] pital ID Date Data Source [id number] 06/14/2020 10:25:00 AM EDT [facility] Name Value Range Interpretation Code Description Data Gala rce(s) Supporting Document(s) PROTIME W/ANTICOAG 28.6 Secs 22.7 - 40.3 [facility] INR in Platelet poor plasma by Coagulation assay 2.7 2.0 - 4.5 [facility] New Protime Reference Range a s of June 20, 2019 ID Date Data Source [id number] 06/14/2020 10:25:00 AM EDT [facility] Name Value Range Interpretation Code Description Data Gala rce(s) Supporting Document(s) Fibrin D-dimer DDU [Mass/volume] in Platelet poor plas ma by Immunoassay 658 ng/mL 0 - 400 Above high normal [facility] METHODOLOGY: FLUORESCENCE IMM UNOASSAY \\BLDo\\D- DIMER [...] erroneous D-dimer results. ID Date Data Source [id number] 06/09/2020 03:23:00 PM EDT [facility] Name: ZAY SMITH : 7 Age/Sex: 64M Ordering Provider: Holger Armendariz MD [facility] Rec #: [id number] Reg Status: [facility] Room #: Date of Service: 06/09/20 Report Number: [id number] cc:Holger Armendariz MD; Addis Mcdaniel MD Send Report To: [id number] XRP/XR Foot Lt Min. 3 Views Reason [...] Date/Time: 06/09/20 1236 Transcribed Date/Time: 06/09/20 1523 Air Duct Mechanic: PATO Name Value Range Interpretation Code Description Data Gala rce(s) Supporting Document(s) ID Date Data Source [id number] 06/04/2020 11:28:00 AM EDT [facility] Name Value Range Interpretation Code Description Data Gala rce(s) Supporting Document(s) PROTIME W/ANTICOAG 21.8 Secs 22.7 - 40.3 Below low normal [facility] INR in Platelet poor plasma by Coagulation assay 1.9 2.0 - 4.5 Below low normal [facility] New Protime Reference Range a s of June 20, 2019 ID Date Data Source [id number] 06/01/2020 05:47:00 PM EDT [facility] Name: ZAY SMITH : 7 Age/Sex: 64M Attending Physician: Tyler Birmingham MD Med Rec #: [id number] Admission Date: 05/27/20 Room #: 205-1 Admitting Physician: Tyler Birmingham MD Report Number: [id number] _ cc: Send Report To: Report Status [...] rce(s) Supporting Document(s) ID Date Data Source [id number] 06/02/2020 09:29:00 AM EDT [facility] Name Value Range Interpretation Code Description Data Gala rce(s) Supporting Document(s) Sodium 138 mmol/L 137-145 Normal (applies to non-numeric resul ts) [facility] Potassium 3.5-5.1 Normal (applies to non-numeric resul ts) [facility] Chloride 109 mmol/L 98-112 Normal (applies to non-numeric resul ts) [facility] Carbon Dioxide CO2 22.0-33.0 Normal (applies to non-numer ic results) [facility] Anion Gap 4.0-11.0 Normal (applies to non-numeric resul ts) [facility] BUN 10 mg/dL 9-20 Normal (applies to non-numeric resul ts) [facility] Creatinine 0.80-1.50 Below low normal [facility] GFR >60 Normal (applies to non-numeric results) [facility] Result based on MDRD formula. Glucose Level 84 mg/dL 74-99 Normal (applies to non-numeric re sults) [facility] The reference range is only applicable w hen fasting. Calcium-Uncorrected 8.4-10.2 Below low normal [facility] Corrected Calcium 8.4-10.2 Normal (applies to non-numeri c results) [facility] ID Date Data Source [id number] 06/02/2020 09:29:00 AM EDT [facility] Name Value Range Interpretation Code Description Data Gala rce(s) Supporting Document(s) C-Reactive Protein,Wide Range <3.00 Above high normal [facility] ID Date Data Source [id number] 06/02/2020 09:18:00 AM EDT [facility] Name Value Range Interpretation Code Description Data Gala rce(s) Supporting Document(s) PT 9.4-12.5 Above high normal [facility] INR Normal (applies to non-numeric results) [facility] The use of the INR is restricted to steven ents on stable oral anticoagulant. Therapeutic Range: 2.0-3.0 High Risk Values: 2.5-3.5 ID Date Data Source [id number] 06/02/2020 09:10:[address] [facility] Name Value Range Interpretation Code Description Data Gala rce(s) Supporting Document(s) White Blood Count 4.8-10.8 Above high normal [facility] Red Blood Count 4.35-6.08 Below low normal [facility] Hemoglobin 13.0-17.5 Below low normal [facility] Hematocrit 37.7-51.0 Below low normal [facility] Mean Corpuscular Volume 80-94 Above high normal [facility] Mean Corpuscular Hemoglobin 27.0-33.0 Above high normal [facility] Mean Corpuscular HGB Conc 32.0-36.0 Normal (applies to no n-numeric results) [facility] Red Cell Distribution Width 11.5-14.5 Above high normal [facility] Platelet Count 529 X10 3/uL 130-450 Above high normal [facility] Mean Platelet Volume 9.6-13.1 Below low normal Ca [facility] Imm Grans% (AUTO) 1 % 0-2 Normal (applies to non-numeri c results) [facility] Neutrophils % (AUTO) 53 % 40-75 Normal (applies to non-num mariya results) [facility] Lymphocytes % (AUTO) 26 % 21-46 Normal (applies to non-num mariya results) [facility] Monocytes % (AUTO) 13 % 5-12 Above high normal [facility] Eosinophils % (AUTO) 6 % 1-5 Above high normal C [facility] Basophils % (AUTO) 1 % 0-1 Normal (applies to non-numer ic results) [facility] Imm Grans# (AUTO) 0.0-0.5 Normal (applies to non-numeri c results) [facility] Neutrophils # (AUTO) 1.5-8.1 Normal (applies to non-num mariya results) [facility] Lymphocytes # (AUTO) 1.0-3.1 Normal (applies to non-num mariya results) [facility] Monocytes # (AUTO) 0.2-1.3 Above high normal [facility] Eosinophils# (AUTO) 0.0-0.5 Above high [facility] # ([facility]O) 0.0-0.1 Normal (applies to non-numer ic results) [facility] ID Date Data Source [id number] 06/02/2020 09:59:00 AM EDT [facility] Name: ZAY SMITH : 195 7 Age/Sex: 64M Ordering Provider: Adelaide Sanders MD Med Rec #: [id number] Reg Status: ADM IN Room #: 205-1 Date of Service: 06/01/20 Report Number: [id number] cc:Addis Mcdaniel MD; Adelaide Sanders MD Send Report To: [id number] CT/CT Foot Lt No Contrast Reason for [...] Dictation Date/Time: 06/01/202019 Transcribed Date/Time: 06/02/20 0959 Air Duct Mechanic: [email or web address] Name Value Range Interpretation Code Description Data Gala rce(s) Supporting Document(s) ID Date Data Source [id number] 06/01/2020 04:57:00 PM EDT [facility] Name: ZAY SMITH : 7 Age/Sex: 64M Ordering Provider: Holger Armendariz MD Med Rec #: [id number] Reg Status: ADM IN Room #: 205-1 Date of Service: 06/01/20 Report Number: [id number] cc:Holger Armendariz MD; Addis Mcdaniel MD Send Report To: [id number] XRP/XR Foot Lt Min. 3 Views Reason [...] Date/Time: 06/01/20 1507 Transcribed Date/Time: 06/01/20 165 Air Duct Mechanic: [email or web address] Name Value Range Interpretation Code Description Data Gala rce(s) Supporting Document(s) ID Date Data Source [id number] 06/01/2020 05:31:00 PM EDT [facility] Name Value Range Interpretation Code Description Data Gala rce(s) Supporting Document(s) Uric Acid 3.5-7.2 Normal (applies to non-numeric resul ts) [facility] ID Date Data Source [id number] 06/01/2020 09:31:00 AM EDT [facility] Name Value Range Interpretation Code Description Data Gala rce(s) Supporting Document(s) Sodium 137 mmol/L 137-145 Normal (applies to non-numeric resul ts) [facility] Potassium 3.5-5.1 Normal (applies to non-numeric resul ts) [facility] Chloride 108 mmol/L 98-112 Normal (applies to non-numeric resul ts) [facility] Carbon Dioxide CO2 22.0-33.0 Normal (applies to non-numer ic results) [facility] Anion Gap 4.0-11.0 Normal (applies to non-numeric resul ts) [facility] BUN 9 mg/dL 9-20 Normal (applies to non-numeric resul ts) [facility] Creatinine 0.80-1.50 Below low normal [facility] GFR >60 Normal (applies to non-numeric results) [facility] Result based on MDRD formula. Glucose Level 82 mg/dL 74-99 Normal (applies to non-numeric re sults) [facility] The reference range is only applicable w hen fasting. Calcium-Uncorrected 8.4-10.2 Normal (applies to non-nume adrianna results) [facility] Corrected Calcium 8.4-10.2 Normal (applies to non-numeri c results) [facility] ID Date Data Source [id number] 06/01/2020 09:31:00 AM EDT [facility] Name Value Range Interpretation Code Description Data Gala rce(s) Supporting Document(s) C-Reactive Protein,Wide Range <3.00 Above high normal [facility] ID Date Data Source [id number] 06/01/2020 09:15:[address] [facility] Name Value Range Interpretation Code Description Data Gala rce(s) Supporting Document(s) White Blood Count 4.8-10.8 Above high normal [facility] Red Blood Count 4.35-6.08 Below low normal [facility] Hemoglobin 13.0-17.5 Below low normal [facility] Hematocrit 37.7-51.0 Below low normal [facility] Mean Corpuscular Volume 80-94 Above high normal [facility] Mean Corpuscular Hemoglobin 27.0-33.0 Above high normal [facility] Mean Corpuscular HGB Conc 32.0-36.0 Normal (applies to no n-numeric results) [facility] Red Cell Distribution Width 11.5-14.5 Above high normal [facility] Platelet Count 456 X10 3/uL 130-450 Above high normal [facility] Mean Platelet Volume 9.6-13.1 Below low normal Ca [facility] Imm Grans% (AUTO) 1 % 0-2 Normal (applies to non-numeri c results) [facility] Neutrophils % (AUTO) 61 % 40-75 Normal (applies to non-num mariya results) [facility] Lymphocytes % (AUTO) 20 % 21-46 Below low normal [facility] Monocytes % (AUTO) 13 % 5-12 Above high normal [facility] Eosinophils % (AUTO) 4 % 1-5 Normal (applies to non-num mariya results) [facility] Basophils % (AUTO) 1 % 0-1 Normal (applies to non-numer ic results) [facility] Imm Grans# (AUTO) 0.0-0.5 Normal (applies to non-numeri c results) [facility] Neutrophils # (AUTO) 1.5-8.1 Above high normal [facility] Lymphocytes # (AUTO) 1.0-3.1 Normal (applies to non-num mariya results) [facility] Monocytes # (AUTO) 0.2-1.3 Above high normal [facility] Eosinophils# (AUTO) 0.0-0.5 Above high normal [facility] Basophils # (AUTO) 0.0-0.1 Normal (applies to non-numer ic results) [facility] ID Date Data Source [id number] 06/01/2020 09:09:00 AM EDT [facility] Name Value Range Interpretation Code Description Data Gala rce(s) Supporting Document(s) PT 9.4-12.5 Above high normal [facility] INR Normal (applies to non-numeric results) [facility] The use of the INR is restricted to steven ents on stable oral anticoagulant. Therapeutic Range: 2.0-3.0 High Risk Values: 2.5-3.5 ID Date Data Source [id number] 06/02/2020 12:07:00 PM EDT [facility] Collected By: Nurse Initials: eduar Time Collected: 1020 Name Value Range Interpretation Code Description Data Gala rce(s) Supporting Document(s) Urine Culture [facility] ID Date Data Source [id number] 05/31/2020 10:56:00 AM EDT [facility] Name Value Range Interpretation Code Description Data Gala rce(s) Supporting Document(s) Color,Urine Yellow Normal (applies to non-numeric resu lts) [facility] Clarity,Urine Clear Normal (applies to non-numeric re sults) [facility] Specific [place],Urine 1.001-1.030 Normal (applies to non- numeric results) [facility] PH,Urine 5.0-8.0 Normal (applies to non-numeric resul ts) [facility] Protein,Urine Negative Normal (applies to non-numeric re sults) [facility] Glucose,Urine (UA) Negative Normal (applies to non-numer ic results) [facility] Ketones,Urine Negative Normal (applies to non-numeric re sults) [facility] Blood,Urine Negative Normal (applies to non-numeric resu lts) [facility] Bilirubin,Urine Negative Normal (applies to non-numeric results) [facility] Urobilinogen,Urine Norm 0.2-1 Normal (applies to non-numer ic results) [facility] Leukocyte Esterase,Urine Negative Normal (applies to non -numeric results) [facility] Nitrite,Urine Negative Normal (applies to non-numeric re sults) [facility] RBC,Auto Urine 0-2 Normal (applies to non-numeric r esults) [facility] WBC Urine Auto 0-2 Normal (applies to non-numeric r esults) [facility] Casts,Hyaline,Urine Auto 0-2 Normal (applies to non -numeric results) [facility] Bacteria Urine Auto None Seen Normal (applies to non-nume adrianna results) [facility] Epithelial Cell Ur Auto None-Few Normal (applies to non- numeric results) [facility] ID Date Data Source [id number] 06/05/2020 06:48:00 AM EDT [facility] Name Value Range Interpretation Code Description Data Gala rce(s) Supporting Document(s) Blood Culture-Venous [facility] ID Date Data Source [id number] 06/05/2020 06:48:00 AM EDT [facility] Name Value Range Interpretation Code Description Data Gala rce(s) Supporting Document(s) Blood Culture-Venous [facility] ID Date Data Source [id number] 05/31/2020 08:17:00 AM EDT [facility] Name Value Range Interpretation Code Description Data Gala rce(s) Supporting Document(s) Sodium 140 mmol/L 137-145 Normal (applies to non-numeric resul ts) [facility] Potassium 3.5-5.1 Normal (applies to non-numeric resul ts) [facility] Chloride 111 mmol/L 98-112 Normal (applies to non-numeric resul ts) [facility] Carbon Dioxide CO2 22.0-33.0 Normal (applies to non-numer ic results) [facility] Anion Gap 4.0-11.0 Normal (applies to non-numeric resul ts) [facility] BUN 7 mg/dL 9-20 Below low normal [facility] Creatinine 0.80-1.50 Below low normal [facility] GFR >60 Normal (applies to non-numeric results) [facility] Result based on MDRD formula. Glucose Level 89 mg/dL 74-99 Normal (applies to non-numeric re sults) [facility] The reference range is only applicable w hen fasting. Calcium-Uncorrected 8.4-10.2 Below low normal [facility] Corrected Calcium 8.4-10.2 Normal (applies to non-numeri c results) [facility] ID Date Data Source [id number] 05/31/2020 08:17:00 AM T [facility] Name Value Range Interpretation Code Description Data Gala rce(s) Supporting Document(s) C-Reactive Protein,Wide Range <3.00 Above high normal [facility] ID Date Data Source [id number] 05/31/2020 07:10:00 AM T [facility] Name Value Range Interpretation Code Description Data Gala rce(s) Supporting Document(s) PT 9.4-12.5 Above high normal [facility] INR Normal (applies to non-numeric results) [facility] The use of the INR is restricted to steven ents on stable oral anticoagulant. Therapeutic Range: 2.0-3.0 High Risk Values: 2.5-3.5 ID Date Data Source [id number] 05/31/2020 07:09:00 AM [facility] Name Value Range Interpretation Code Description Data Gala rce(s) Supporting Document(s) White Blood Count 4.8-10.8 Above high normal [facility] Red Blood Count 4.35-6.08 Below low normal [facility] Hemoglobin 13.0-17.5 Below low normal [facility] Hematocrit 37.7-51.0 Below low normal [facility] Mean Corpuscular Volume 80-94 Above high normal [facility] Mean Corpuscular Hemoglobin 27.0-33.0 Above high normal [facility] Mean Corpuscular HGB Conc 32.0-36.0 Normal (applies to no n-numeric results) [facility] Red Cell Distribution Width 11.5-14.5 Above high normal [facility] Platelet Count 495 X10 3/uL 130-450 Above high normal [facility] Mean Platelet Volume 9.6-13.1 Below low normal [facility] Imm Grans% (AUTO) 1 % 0-2 Normal (applies to non-numeri c results) [facility] Neutrophils % (AUTO) 65 % 40-75 Normal (applies to non-num mariya results) [facility] Lymphocytes % (AUTO) 17 % 21-46 Below low normal [facility] Monocytes % (AUTO) 13 % 5-12 Above high normal [facility] Eosinophils % (AUTO) 4 % 1-5 Normal (applies to non-num mariya results) [facility] Basophils % (AUTO) 1 % 0-1 Normal (applies to non-numer ic results) [facility] Imm Grans# (AUTO) 0.0-0.5 Normal (applies to non-numeri c results) [facility] Neutrophils # (AUTO) 1.5-8.1 Above high normal C [facility] Lymphocytes # (AUTO) 1.0-3.1 Normal (applies to non-num mariya results) [facility] Monocytes # (AUTO) 0.2-1.3 Above high normal [facility] Eosinophils# (AUTO) 0.0-0.5 Above high normal [facility] Basophils # (AUTO) 0.0-0.1 Normal (applies to non-numer ic results) [facility] ID Date Data Source [id number] 05/30/2020 08:16:00 PM EDT [facility] Name Value Range Interpretation Code Description Data Gala rce(s) Supporting Document(s) Procalcitonin 0.00-0.24 Normal (applies to non-numeric re sults) [facility] 1.Risk of Progression to severe sepsis a [...] therapy is warranted. ID Date Data Source [id number] 05/30/2020 07:56:00 PM EDT [facility] Name Value Range Interpretation Code Description Data Gala rce(s) Supporting Document(s) C-Reactive Protein,Wide Range <3.00 Above high normal [facility] ID Date Data Source [id number] 05/30/2020 07:41:00 AM EDT [facility] Name Value Range Interpretation Code Description Data Gala rce(s) Supporting Document(s) White Blood Count 4.8-10.8 Above high normal [facility] Red Blood Count 4.35-6.08 Below low normal [facility] Hemoglobin 13.0-17.5 Below low normal [facility] Hematocrit 37.7-51.0 Below low normal [facility] Mean Corpuscular Volume 80-94 Above high normal [facility] Mean Corpuscular Hemoglobin 27.0-33.0 Above high normal [facility] Mean Corpuscular HGB Conc 32.0-36.0 Normal (applies to no n-numeric results) [facility] Red Cell Distribution Width 11.5-14.5 Above high normal [facility] Platelet Count 481 X10 3/uL 130-450 Above high normal [facility] Mean Platelet Volume 9.6-13.1 Below low normal [facility] Imm Grans% (AUTO) 1 % 0-2 Normal (applies to non-numeri c results) [facility] Neutrophils % (AUTO) 59 % 40-75 Normal (applies to non-num mariya results) [facility] Lymphocytes % (AUTO) 21 % 21-46 Normal (applies to non-num mariya results) [facility] Monocytes % (AUTO) 12 % 5-12 Normal (applies to non-numer ic results) [facility] Eosinophils % (AUTO) 6 % 1-5 Above high normal [facility] Basophils % (AUTO) 1 % 0-1 Normal (applies to non-numer ic results) [facility] Imm Grans# (AUTO) 0.0-0.5 Normal (applies to non-numeri c results) [facility] Neutrophils # (AUTO) 1.5-8.1 Normal (applies to non-num mariya results) [facility] Lymphocytes # (AUTO) 1.0-3.1 Normal (applies to non-num mariya results) [facility] Monocytes # (AUTO) 0.2-1.3 Above high normal [facility] Eosinophils# (AUTO) 0.0-0.5 Above high normal [facility] Basophils # (AUTO) 0.0-0.1 Normal (applies to non-numer ic results) [facility] ID Date Data Source [id number] 05/30/2020 07:41:00 AM EDT [facility] Name Value Range Interpretation Code Description Data Gala rce(s) Supporting Document(s) Sodium 141 mmol/L 137-145 Normal (applies to non-numeric resul ts) [facility] Potassium 3.5-5.1 Normal (applies to non-numeric resul ts) [facility] Chloride 112 mmol/L 98-112 Normal (applies to non-numeric resul ts) [facility] Carbon Dioxide CO2 22.0-33.0 Normal (applies to non-numer ic results) [facility] Anion Gap 4.0-11.0 Normal (applies to non-numeric resul ts) [facility] BUN 6 mg/dL 9-20 Below low normal [facility] Creatinine 0.80-1.50 Below low normal [facility] GFR >60 Normal (applies to non-numeric results) [facility] Result based on MDRD formula. Glucose Level 82 mg/dL 74-99 Normal (applies to non-numeric re sults) [facility] The reference range is only applicable w hen fasting. Calcium-Uncorrected 8.4-10.2 Below low normal [facility] Corrected Calcium 8.4-10.2 Normal (applies to non-numeri c results) [facility] Bilirubin,Total 0.2-1.3 Normal (applies to non-numeric results) [facility] SGOT(AST) 34 U/L 17-59 Normal (applies to non-numeric resul ts) [facility] SGPT(ALT) 19 U/L 21-72 Below low normal [facility] Alkaline Phosphatase 116 U/L 38-126 Normal (applies to non-num mariya results) [facility] can increase Alkaline Phosp le vels up to 2 times the normal adult value. Normal values for children and adolescents are 2 to 3 times the normal adult value. Total Protein 6.3-8.[address] [facility] Albumin 3.5-5.0 Below low normal [facility] ID Date Data Source [id number] 05/30/2020 07:39:[address] [facility] Name Value Range Interpretation Code Description Data Gala rce(s) Supporting Document(s) PT 9.4-12.5 Above high normal [facility] INR Normal (applies to non-numeric results) [facility] The use of the INR is restricted to steven ents on stable oral anticoagulant. Therapeutic Range: 2.0-3.0 High Risk Values: 2.5-3.5 ID Date Data Source [id number] 05/29/2020 01:06:00 PM EDT [facility] Name Value Range Interpretation Code Description Data Gala rce(s) Supporting Document(s) White Blood Count 4.8-10.8 Normal (applies to non-numeri c results) [facility] Red Blood Count 4.35-6.08 Below low normal [facility] Hemoglobin 13.0-17.5 Below low normal [facility] Hematocrit 37.7-51.0 Below low normal [facility] Mean Corpuscular Volume 80-94 DH [facility] Delta: 114.7(u) on 05/28/20 Mean Corpuscular Hemoglobin 27.0-33.0 Above high normal [facility] Mean Corpuscular HGB Conc 32.0-36.0 Above high normal [facility] Red Cell Distribution Width 11.5-14.5 Above high normal [facility] Platelet Count 505 X10 3/uL 130-450 Above high normal [facility] Mean Platelet Volume 9.6-13.1 Below low normal [facility] ID Date Data Source [id number] 05/29/2020 07:04:00 AM EDT [facility] Name Value Range Interpretation Code Description Data Gala rce(s) Supporting Document(s) Sodium 141 mmol/L 137-145 Normal (applies to non-numeric resul ts) [facility] Potassium 3.5-5.1 Normal (applies to non-numeric resul ts) [facility] Chloride 111 mmol/L 98-112 Normal (applies to non-numeric resul ts) [facility] Carbon Dioxide CO2 22.0-33.0 Normal (applies to non-numer ic results) [facility] Anion Gap 4.0-11.0 Normal (applies to non-numeric resul ts) [facility] BUN 5 mg/dL 9-20 Below low normal [facility] Creatinine 0.80-1.50 Below low normal [facility] GFR >60 Normal (applies to non-numeric results) [facility] Result based on MDRD formula. Glucose Level 86 mg/dL 74-99 Normal (applies to non-numeric re sults) [facility] The reference range is only applicable w hen fasting. Calcium-Uncorrected 8.4-10.2 Below low normal [facility] Corrected Calcium 8.4-10.2 Normal (applies to non-numeri c results) [facility] ID Date Data Source [id number] 05/29/2020 06:52:[address] [facility] Name Value Range Interpretation Code Description Data Gala rce(s) Supporting Document(s) PT 9.4-12.5 Above high normal [facility] INR Normal (applies to non-numeric results) [facility] The use of the INR is restricted to steven ents on stable oral anticoagulant. Therapeutic Range: 2.0-3.0 High Risk Values: 2.5-3.5 ID Date Data Source [id number] 05/27/2020 02:43:00 PM EDT [facility] Name: ZAY SMITH [facility] Rec #: [id number] : 1955 Age/Sex: 64M Date of Service: 05/27/20 PHYSICIAN CHART Physician Documentation [facility] Name: Zay Amorromain Age: 64 yrs Sex: [...] disease; GERD; HTN - hypertension; Hyperlipidemia; LYMPHOMA; OK; narcotic OD accidental; 12/30; SEIZURES; testicular cancer; - PSHx: A ppendectomy; Hip replacement- Left; spleenectomy; testical - right; - Med Reconciliation:: Yellow Alert: The patient's home medication list is partly complete. However, additional information is required to complete list. Medications reviewed, completed by nurse verbally from patient/family. - Immunization history: Flu vaccine is not up to date. - Advance directive: Yes, Patient/patient's desk representative states that a copy of his/her advanced directive/health care proxy document on file at [facility]. - Family History:: mother is healthy, Father has/had COPD, has a history of cancer, is . - Social History: Smoking status (Tobacco): Pt states smokes cigars, No barriers to communication noted, The patient speaks fluent [place]oth[place]. ROS: 15:30 ENT: Negative for injury, pain, [...] 15:18 Order name: COMMET; Complete Time: 16: [facility]05/27 15:18 Order name: PT; Complete Time: 16: [facility]05/27 15:18 Order n barb: PTT; Complete Time: 16: [facility]05/27 15:27 Order name: Saline Lock; Complete Time: 15:27 [facility] 05/27 16:41 Order name: Assign to Observation [...] 05/27/20 16:40 Hospitalization Ordered Hospitalization Status: Observation [facility] Provider: Nostrom, Kurt zrw1 Location: Observation zrw1 Condition: Fair zrw1 Room Assignment: [id number](05/27/20 16:44) hmp Diagnosis - DVT of the [...] rce(s) Supporting Document(s) ID Date Data Source [id number] 05/27/2020 02:43:00 PM EDT [facility] Name: ZAY SMITH [facility] Rec #: [id number] : 1955 Age/Sex: 64M Date of Service: 05/27/20 DISPOSITION SUMMARY Discharge Summary [facility] Name:Zay [facility] Emergency Department Age:64 yrs Sex:Male :1955 Arrival:05/27/2020 14:43 Departure Date05/27/2020 Departure Time17:33 Private MD:Addis Mcdaniel MD Outcome: Hospitalize Location: Observation Condition: [...] rce(s) Supporting Document(s) ID Date Data Source [id number] 05/27/2020 02:43:00 PM EDT [facility] Name: ZAY SMITH [facility] Rec #: [id number] : 1955 Age/Sex: 64M Date of Service: 05/27/20 NURSE CHART Nurse's Notes [facility] Hospital Name: Zay Smith Age: 64 yrs Sex: Male : 1955 Arrival Date: 05/27/2020 Time: 14:43 Bed 8 Private MD: Addis Mcdaniel E Diagnosis: DVT of the left leg Inbound Details: Referred by: [phone] Arriving by: Walk-In ETA: Who will see [...] disease; GERD; HTN - hypertension; Hyperlipidemia; LYMPHOMA; OK; narcotic OD accidental; 12/30; SEIZURES; testicular cancer; - PSHx: Appendectomy; Hip replacement- Left; spleenectomy; testical - right; - Med Reconciliation:: Yellow Alert: The patient's home medication list is partly complete. However, additional information is required to complete list. Medications reviewed, completed by nurse verbally from patient/family. - Immunization history: Flu vaccine is not up to date. - Advance directive: Yes, Patient/patient's desk representative states that a copy of his/her advanced directive/health care proxy document on file at [facility]. - Family History:: mother is healthy, Father has/had COPD, has a history of cancer, is . - Social History: Smoking status (Tobacco): Pt states smokes cigars, No barriers to communication noted, The patient speaks fluent [place]. Screenin:37 AUDIT 1. How often do you [...] Name Value Range Interpretation Code Description Data [facility] rce(s) Supporting Document(s) ID Date Data Source [id number] 05/29/2020 05:19:00 PM EDT [facility] Name Value Range Interpretation Code Description Data [facility] Document([facility]) White Blood Count 4.8-10.8 Normal (applies to non-numeri c results) [facility] Red Blood Count 4.35-6.08 Below low normal [facility] Hemoglobin 13.0-17.5 Below low normal [facility] Hematocrit 37.7-51.0 Below low normal [facility] Mean Corpuscular Volume 80-94 [facility]: 105.7 on 05/27/20-1728 Mean Corpuscular Hemoglobin 27.0-33.0 Above high normal [facility] Mean Corpuscular HGB Conc 32.0-36.0 Normal (applies to no n-numeric results) [facility] Red Cell Distribution Width 11.5-14.5 Above high normal [facility] Platelet Count 486 X10 3/uL 130-450 Above high normal [facility] Mean Platelet Volume 9.6-13.1 Below low normal [facility] ID Date Data Source [id number] 05/29/2020 11:33:[address] [facility] Name Value Range Interpretation Code Description Data Gala rce(s) Supporting Document(s) PT 9.4-12.5 Above high normal [facility] INR Normal (applies to non-numeric results) [facility] The use of the INR is restricted to steven ents on stable oral anticoagulant. Therapeutic Range: 2.0-3.0 High Risk Values: 2.5-3.5 ID Date Data Source [id number] 05/27/2020 08:10:[address] [facility] Name Value Range Interpretation Code Description Data Gala rce(s) Supporting Document(s) White Blood Count 4.8-10.8 Above high normal [facility] Red Blood Count 4.35-6.08 Below low normal [facility] Hemoglobin 13.0-17.5 Below low normal [facility] Hematocrit 37.7-51.0 Below low normal [facility] Mean Corpuscular Volume 80-94 Above high normal [facility] Mean Corpuscular Hemoglobin 27.0-33.0 Above high normal [facility] Mean Corpuscular HGB Conc 32.0-36.0 Above high normal [facility] Red Cell Distribution Width 11.5-14.5 Above high normal [facility] Platelet Count 512 X10 3/uL 130-450 Above high normal [facility] Mean Platelet Volume 9.6-13.1 Below low normal [facility] Total Cells Counted 100 0-100 Normal (applies to non-nume adrianna results) [facility] Neutrophils % (manual) 72 % 40-75 Normal (applies to non-n umeric results) [facility] Lymphocytes % (manual) 16 % 21-46 Below low normal [facility] Monocytes % (manual) 3 % 5-12 Below low normal [facility] Eosinophils % (manual) 5 % 1-5 Normal (applies to non-n umeric results) [facility] Basophils % (manual) 0 % 0-1 Normal (applies to non-num mariya results) [facility] Band Neutrophils% (manual) 0 % 0-5 Normal (applies to n on-numeric results) [facility] Atypical Lymph% (manual) 4 % 0-5 Normal (applies to non -numeric results) [facility] Neutrophils # (Manual) 1.5-8.1 Above high normal [facility] Lymphocytes # (Manual) 1.0-3.1 Normal (applies to non-n umeric results) [facility] Monocytes # (Manual) 0.2-1.3 Normal (applies to non-num mariya results) [facility] Eosinophils# (Manual) 0.0-0.5 Above high normal [facility] Basophils # (Manual) 0.0-0.1 Normal (applies to non-num mariya results) [facility] Platelet Estimate Adequate Normal (applies to non-numeri c results) [facility] Estimate agrees with automated count Slide Reviewed By Normal (applies to non-numeri c results) [facility] Slide has been reviewed and findings con firmed by a technologist/emergency veterinary technician. ID Date Data Source [id number] 05/27/2020 04:05:00 PM EDT [facility] Name Value Range Interpretation Code Description Data Gala rce(s) Supporting Document(s) Sodium 140 mmol/L 137-145 Normal (applies to non-numeric resul ts) [facility] Potassium 3.5-5.1 Normal (applies to non-numeric resul ts) [facility] Chloride 110 mmol/L 98-112 Normal (applies to non-numeric resul ts) [facility] Carbon Dioxide CO2 22.0-33.0 Normal (applies to non-numer ic results) [facility] Anion Gap 4.0-11.0 Normal (applies to non-numeric resul ts) [facility] BUN 6 mg/dL 9-20 Below low normal [facility] Creatinine 0.80-1.50 Below low normal [facility] GFR >60 Normal (applies to non-numeric results) [facility] Result based on MDRD formula. Glucose Level 85 mg/dL 74-99 Normal (applies to non-numeric re sults) [facility] The reference range is only applicable w hen fasting. Calcium-Uncorrected 8.4-10.2 Normal (applies to non-nume adrianna results) [facility] Corrected Calcium 8.4-10.2 Normal (applies to non-numeri c results) [facility] Bilirubin,Total 0.2-1.3 Normal (applies to non-numeric results) [facility] SGOT(AST) 32 U/L 17-59 Normal (applies to non-numeric resul ts) [facility] SGPT(ALT) 19 U/L 21-72 Below low normal [facility] Alkaline Phosphatase 178 U/L 38-126 Above high normal [facility] can increase Alkaline Phosp le vels up to 2 times the normal adult value. Normal values for children and adolescents are 2 to 3 times the normal adult value. Total Protein 6.3-8.2 Normal (applies to non-numeric re sults) [facility] Albumin 3.5-5.0 Below low normal [facility] ID Date Data Source [id number] 05/27/2020 03:57:00 PM EDT [facility] Name Value Range Interpretation Code Description Data Gala rce(s) Supporting Document(s) PT 9.4-12.5 Normal (applies to non-numeric results) [facility] INR Normal (applies to non-numeric results) [facility] The use of the INR is restricted to steven ents on stable oral anticoagulant. Therapeutic Range: 2.0-3.0 High Risk Values: 2.5-3.5 ID Date Data Source [id number] 05/27/2020 03:57:00 PM EDT [facility] Name Value Range Interpretation Code Description Data Gala rce(s) Supporting Document(s) PTT 25.1-36.5 Normal (applies to non-numeric resul ts) [facility] ID Date Data Source [id number] 05/27/2020 03:44:00 PM EDT [facility] Name Value Range Interpretation Code Description Data Gala rce(s) Supporting Document(s) White Blood Count 4.8-10.8 Above high normal [facility] Red Blood Count 4.35-6.08 Below low normal [facility] Hemoglobin 13.0-17.5 Normal (applies to non-numeric resul ts) [facility] Hematocrit 37.7-51.0 Normal (applies to non-numeric resul ts) [facility] Mean Corpuscular Volume 80-94 Above high normal [facility] Mean Corpuscular Hemoglobin 27.0-33.0 Above high normal [facility] Mean Corpuscular HGB Conc 32.0-36.0 Normal (applies to no n-numeric results) [facility] Red Cell Distribution Width 11.5-14.5 Above high normal [facility] Platelet Count 553 X10 3/uL 130-450 Above high normal [facility] Mean Platelet Volume 9.6-13.1 Below low normal [facility] Imm Grans% (AUTO) 1 % 0-2 Normal (applies to non-numeri c results) [facility] Neutrophils % (AUTO) 62 % 40-75 Normal (applies to non-num mariya results) [facility] Lymphocytes % (AUTO) 20 % 21-46 Below low normal [facility] Monocytes % (AUTO) 11 % 5-12 Normal (applies to non-numer ic results) [facility] Eosinophils % (AUTO) 5 % 1-5 Normal (applies to non-num mariya results) [facility] Basophils % (AUTO) 2 % 0-1 Above high normal [facility] Imm Grans# (AUTO) 0.0-0.5 Normal (applies to non-numeri c results) [facility] Neutrophils # (AUTO) 1.5-8.1 Above high normal [facility] Lymphocytes # (AUTO) 1.0-3.1 Normal (applies to non-num mariya results) [facility] Monocytes # (AUTO) 0.2-1.3 Above high normal [facility] Eosinophils# (AUTO) 0.0-0.5 Above high normal [facility] Basophils # (AUTO) 0.0-0.1 Above high normal [facility] ID Date Data Source [id number] 05/28/2020 08:46:00 AM EDT [facility] Hospital Name: ZuleymaMICHELLELILIA OSWALDQUEENIE Sarkar : 7 Age/Sex: 64M Ordering Provider: Addis Mcdaniel MD Med Rec #: [id number] Reg Status: DEP REF Room #: Date of Service: 05/27/20 Report Number: [id number] cc:Addis Mcdaniel MD Send Report To: [id number] US/US Duplex Lower Ext Veins Lt Reason [...] Date/Time: 05/27/20 1635 Transcribed Date/Time: 05/28/20 0846 Air Duct Mechanic: MANDEEP Name Value Range Interpretation Code Description Data Gala rce(s) Supporting Document(s) ID Date Data Source [id number] 05/28/2020 05:40:00 AM EDT [facility] Name: ZAY SMITH : 7 Age/Sex: 64M Ordering Provider: Addis Mcdaniel MD Med Rec #: [id number] Reg Status: DEP REF Room #: Date of Service: 05/27/20 Report Number: [id number] cc:Addis Mcdaniel MD Send Report To: [id number] XRP/XR Leg Tibia Fibula Lt 2 views [...] Date/Time: 05/27/20 1329 Transcribed Date/Time: 05/28/20 0540 Air Duct Mechanic: JUDE Name Value Range Interpretation Code Description Data Gala rce(s) Supporting Document(s) Procedure Social History Code Duration Value Status Description Data Source(s ) Smoking 08/30/2020 12:00:00 AM EST Former Smoker completed Former Smoker eCW1 ([facility]) Smoking 07/12/2020 12:00:00 AM EST Former Smoker completed Former Smoker eCW1 ([facility]) Vital Signs ID Date Data Source UNK Name Value Range Interpretation Code Description Data Source(s) Body mass index (BMI) [Ratio] 26.63 kg/m2 26.63 kg/m2 [facility] Systolic blood pressure 137 mm[Hg] 137 mm[Hg] C [facility] Diastolic blood pressure 64 mm[Hg] 64 mm[Hg] [facility] Body surface area Derived from formula 1.91 m2 1.91 m2 [facility] Body height 170.1800 cm 170.1800 cm [facility] Oxygen saturation in Arterial blood by Pulse oximetry 96 % 96 % [facility] Heart rate 77.0 /min 77.0 /min [facility] Respiratory rate 18 /min 18 /min [facility] Body temperature 36.6 Brook 36.6 Brook [facility] Body weight 77.11 kg 77.11 kg [facility] Systolic blood pressure 107 mm[Hg] 107 mm[Hg] Health system Body mass index (BMI) [Ratio] 26.31 kg/m2 26.31 kg/m2 [facility] Diastolic blood pressure 70 mm[Hg] 70 mm[Hg] [facility] Body surface area Derived from formula 1.90 m2 1.90 m2 [facility] Body height 170.1800 cm 170.1800 cm [facility] Oxygen saturation in Arterial blood by Pulse oximetry 99 % 99 % [facility] Heart rate 72.0 /min 72.0 /min [facility] Respiratory rate 18 /min 18 /min [facility] Body temperature 37.3 Brook 37.3 Brook [facility] Body weight 76.20 kg 76.20 kg [facility] Systolic blood pressure 115 mm[Hg] 115 mm[Hg] Health system Diastolic blood pressure 78 mm[Hg] 78 mm[Hg] [facility] Oxygen saturation in Arterial blood by Pulse oximetry 97 % 97 % [facility] Heart rate 101.0 /min 101.0 /min [facility] Respiratory rate 16 /min 16 /min [facility] Body temperature 36.3 Brook 36.3 Brook [facility] Heart rate 108 /min 108 /min eCW1 ([facility] Respiratory rate 18 /min 18 /min eCW1 [facility] Body height 66 [in_i] 66 [in_i] eCW1 ([facility] Body weight 169 [lb_av] 169 [lb_av] eCW1 ([facility]) Body temperature 99.6 [degF] 99.6 [degF] eCW1 ( [facility] Body mass index (BMI) [Ratio] 27.27 kg/m2 27.27 kg/m2 eCW1 ([facility]) Systolic blood pressure 114 mm[Hg] 114 mm[Hg] e CW1 ([facility]) Diastolic blood pressure 86 mm[Hg] 86 mm[Hg] eCW1 ([facility]) Body height 68 [in_i] 68 [in_i] eCW1 ([facility]) Body weight 177 [lb_av] 177 [lb_av] eCW1 ([facility]) Body mass index (BMI) [Ratio] 26.91 kg/m2 26.91 kg/m2 eCW1 ([facility]) Heart rate 112 /min 112 /min eCW1 ([facility]) Oxygen saturation in Arterial blood by Pulse oximetry 98 % 98 % eCW1 ([facility]) Systolic blood pressure 122 mm[Hg] 122 mm[Hg] e CW1 ([facility]) Diastolic blood pressure 84 mm[Hg] 84 mm[Hg] eCW1 ([facility]) ID Date Data Source [id number] 07/07/2021 05:41:00 AM [facility] Name Value Range Interpretation Code Description Data Source(s) Weight (Calculated Kilograms) 76.71 76.71 [facility] Height (Calculated Centimeters) 167.64 167. 64 [facility] Body Mass Index (BMI) 27.3 27.3 [facility] ID Date Data Source [id number] 07/11/2021 08:13:00 AM [facility] Value Range Interpretation Code Description Data Source(s) Weight (Calculated Kilograms) 76.71 76.71 [facility] Height (Calculated Centimeters) 167.64 167. 64 [facility] Body Mass Index (BMI) 27.3 27.3 [facility] ID Date Data Source [id number] 06/16/2021 07:51:00 AM EDT [facility] Name Value Range Interpretation Code Description Data Source(s) Weight (Calculated Kilograms) 76.71 76.71 [facility] Height (Calculated Centimeters) 167.64 167. 64 [facility] Body Mass Index (BMI) 27.3 27.3 [facility] ID Date Data Source [id number] 05/26/2021 08:23:00 AM EDT [facility] Name Value Range Interpretation Code Description Data Source(s) Weight (Calculated Kilograms) 76.71 76.71 [facility] Height (Calculated Centimeters) 167.64 167. 64 [facility] Body Mass Index (BMI) 27.3 27.3 [facility] Weight (Calculated Kilograms) 76.71 76.71 [facility] Height (Calculated Centimeters) 167.64 167. 64 [facility] Body Mass Index (BMI) 27.3 27.3 [facility] ID Date Data Source [id number] 06/01/2021 10:31:00 AM EDT [facility] Name Value Range Interpretation Code Description Data Source(s) Weight (Calculated Kilograms) 76.71 76.71 [facility] Height (Calculated Centimeters) 167.64 167. 64 [facility] Body Mass Index (BMI) 27.3 27.3 [facility] Weight (Calculated Kilograms) 76.71 76.71 [facility] Height (Calculated Centimeters) 167.64 167. 64 [facility] Body Mass Index (BMI) 27.3 27.3 [facility] ID Date Data Source [id number] 05/23/2021 10:39:00 AM EDT [facility] Name Value Range Interpretation Code Description Data Source(s) Weight (Calculated Kilograms) 76.71 76.71 [facility] Height (Calculated Centimeters) 167.64 167. 64 [facility] Body Mass Index (BMI) 27.3 27.3 [facility] Hospital ID Date Data Source [id number] 05/10/2021 11:54:00 AM EDT [facility] Name Value Range Interpretation Code Description Data Source(s) Weight (Calculated Kilograms) 76.71 76.71 [facility] Height (Calculated Centimeters) 167.64 167. 64 [facility] Body Mass Index (BMI) 27.3 27.3 [facility] ID Date Data Source [id number] 04/16/2021 08:28:00 AM EDT [facility] Name Value Range Interpretation Code Description Data Source(s) Weight (Calculated Kilograms) 76.71 76.71 [facility] Height (Calculated Centimeters) 167.64 167. 64 [facility] Body Mass Index (BMI) 27.3 27.3 [facility] Weight (Calculated Kilograms) 76.71 76.71 [facility] Height (Calculated Centimeters) 167.64 167. 64 [facility] Body Mass Index (BMI) 27.3 27.3 [facility] ID Date Data Source [id number] 04/18/2021 08:03:00 AM [facility] Name Value Range Interpretation Code Description Data Source(s) Weight (Calculated Kilograms) 76.71 76.71 [facility] Height (Calculated Centimeters) 167.64 167. 64 [facility] Body Mass Index (BMI) 27.3 27.3 [facility] ID Date Data Source [id number] 04/11/2021 12:36:00 PM T [facility] Name Value Range Interpretation Code Description Data Source(s) Weight (Calculated Kilograms) 76.71 76.71 [facility] Height (Calculated Centimeters) 167.64 167. 64 [facility] Body Mass Index (BMI) 27.3 27.3 [facility] ID Date Data Source [id number] 04/04/2021 12:58:00 PM [facility] Name Value Range Interpretation Code Description Data Source(s) Weight (Calculated Kilograms) 76.71 76.71 [facility] Height (Calculated Centimeters) 167.64 167. 64 [facility] Body Mass Index (BMI) 27.3 27.3 [facility] ID Date Data Source [id number] 04/04/2021 12:57:00 PM [facility] Name Value Range Interpretation Code Description Data Source(s) Weight (Calculated Kilograms) 76.71 76.71 [facility] Height (Calculated Centimeters) 167.64 167. 64 [facility] Body Mass Index (BMI) 27.3 27.3 [facility] ID Date Data Source [id number] 02/03/2021 08:36:00 AM [facility] Name Value Range Interpretation Code Description Data Source(s) Weight (Calculated Kilograms) 76.71 76.71 [facility] Height (Calculated Centimeters) 167.64 167. 64 [facility] Body Mass Index (BMI) 27.3 27.3 [facility] ID Date Data Source [id number] 03/09/2021 11:26:00 AM [facility] Name Value Range Interpretation Code Description Data Source(s) Weight (Calculated Kilograms) 76.71 76.71 [facility] Height (Calculated Centimeters) 167.64 167. 64 [facility] Body Mass Index (BMI) 27.3 27.3 [facility] ID Date Data Source [id number] 01/20/2021 12:30:00 AM [facility] Name Value Range Interpretation Code Description Data Source(s) Weight (Calculated Kilograms) 76.71 76.71 [facility] Height (Calculated Centimeters) 167.64 167. 64 [facility] Body Mass Index (BMI) 27.3 27.3 [facility] ID Date Data Source [id number] 01/19/2021 12:54:00 AM [facility] Name Value Range Interpretation Code Description Data Source(s) Weight (Calculated Kilograms) 76.71 76.71 [facility] Height (Calculated Centimeters) 167.64 167. 64 [facility] Body Mass Index (BMI) 27.3 27.3 [facility] ID Date Data Source [id number] 05/02/2021 03:42:00 PM [facility] Name Value Range Interpretation Code Description Data Source(s) Weight (Calculated Kilograms) 76.71 76.71 [facility] Height (Calculated Centimeters) 167.64 167. 64 [facility] Body Mass Index (BMI) 27.3 27.3 [facility] ID Date Data Source [id number] 12/14/2020 12:22:00 AM [facility] Name Value Range Interpretation Code Description Data Source(s) Weight (Calculated Kilograms) 76.71 76.71 [facility] Height (Calculated Centimeters) 167.64 167. 64 [facility] Body Mass Index (BMI) 27.3 27.3 [facility] ID Date Data Source [id number] 11/16/2020 12:20:00 AM EDT [facility] Name Value Range Interpretation Code Description Data Source(s) Weight (Calculated Kilograms) 76.71 76.71 [facility] Height (Calculated Centimeters) 167.64 167. 64 [facility] Body Mass Index (BMI) 27.3 27.3 [facility] Hospital ID Date Data Source [id number] 11/12/2020 11:51:00 AM T [facility] Name Value Range Interpretation Code Description Data Source(s) Weight (Calculated Kilograms) 76.71 76.71 [facility] Height (Calculated Centimeters) 167.64 167. 64 [facility] Body Mass Index (BMI) 27.3 27.3 [facility] ID Date Data Source [id number] 11/03/2020 12:39:00 AM [facility] Name Value Range Interpretation Code Description Data Source(s) Weight (Calculated Kilograms) 76.71 76.71 [facility] Height (Calculated Centimeters) 167.64 167. 64 [facility] Body Mass Index (BMI) 27.3 27.3 [facility] ID Date Data Source [id number] [facility] Value Range Interpretation Code Description Data Source(s) Weight (Calculated Kilograms) 76.71 76.71 [facility] Height (Calculated Centimeters) 167.64 167. 64 [facility] Body Mass Index (BMI) 27.3 27.3 [facility] Weight (Calculated Kilograms) 76.71 76.71 [facility] Height (Calculated Centimeters) 167.64 167. 64 [facility] Body Mass Index (BMI) 27.3 27.3 [facility] ID Date Data Source [id number] 11/01/2020 11:28:00 AM [facility] Name Value Range Interpretation Code Description Data Source(s) Weight (Calculated Kilograms) 76.71 76.71 [facility] Height (Calculated Centimeters) 167.64 167. 64 [facility] Body Mass Index (BMI) 27.3 27.3 [facility] Weight (Calculated Kilograms) 76.71 76.71 [facility] Height (Calculated Centimeters) 167.64 167. 64 [facility] Body Mass Index (BMI) 27.3 27.3 [facility] Weight (Calculated Kilograms) 76.71 76.71 [facility] Height (Calculated Centimeters) 167.64 167. 64 [facility] [facility] Body Mass Index (BMI) 27.3 27.3 [facility] ID Date Data Source [id number] 11/15/2020 11:16:00 AM EDT [facility] Name Value Range Interpretation Code Description Data Source(s) Weight (Calculated Kilograms) 76.71 76.71 [facility] Height (Calculated Centimeters) 167.64 167. 64 [facility] Body Mass Index (BMI) 27.3 27.3 [facility] ID Date Data Source [id number] 10/19/2020 12:51:00 AM EST [facility] Name Value Range Interpretation Code Description Data Source(s) Weight (Calculated Kilograms) 76.71 76.71 [facility] Height (Calculated Centimeters) 167.64 167. 64 [facility] Body Mass Index (BMI) 27.3 27.3 [facility] ID Date Data Source [id number] 10/09/2020 09:06:00 AM EST [facility] Name Value Range Interpretation Code Description Data Source(s) Weight (Calculated Kilograms) 76.71 76.71 [facility] Height (Calculated Centimeters) 167.64 167. 64 [facility] Body Mass Index (BMI) 27.3 27.3 [facility] Weight (Calculated Kilograms) 76.71 76.71 [facility] Height (Calculated Centimeters) 167.64 167. 64 [facility] Body Mass Index (BMI) 27.3 27.3 [facility] ID Date Data Source [id number] 10/05/2020 09:38:00 AM EST [facility] Name Value Range Interpretation Code Description Data Source(s) Weight (Calculated Kilograms) 76.71 76.71 [facility] Height (Calculated Centimeters) 167.64 167. 64 [facility] Body Mass Index (BMI) 27.3 27.3 [facility] ID Date Data Source [id number] 10/01/2020 01:06:00 AM [facility] Name Value Range Interpretation Code Description Data Source(s) Weight (Calculated Kilograms) 76.71 76.71 [facility] Height (Calculated Centimeters) 167.64 167. 64 [facility] Body Mass Index (BMI) 27.3 27.3 [facility] ID Date Data Source [id number] 09/17/2020 12:32:00 AM [facility] Name Value Range Interpretation Code Description Data Source(s) Weight (Calculated Kilograms) 76.71 76.71 [facility] Height (Calculated Centimeters) 167.64 167. 64 [facility] Body Mass Index (BMI) 27.3 27.3 [facility] ID Date Data Source [id number] 09/30/2020 09:18:00 AM [facility] Name Value Range Interpretation Code Description Data Source(s) Weight (Calculated Kilograms) 76.71 76.71 [facility] Height (Calculated Centimeters) 167.64 167. 64 [facility] Body Mass Index (BMI) 27.3 27.3 [facility] ID Date Data Source [id number] 08/19/2020 12:22:00 AM [facility] Name Value Range Interpretation Code Description Data Source(s) Weight (Calculated Kilograms) 76.71 76.71 [facility] Height (Calculated Centimeters) 167.64 167. 64 [facility] Body Mass Index (BMI) 27.3 27.3 [facility] ID Date Data Source [id number] 08/30/2020 08:41:00 AM [facility] Name Value Range Interpretation Code Description Data Source(s) Weight (Calculated Kilograms) 76.71 76.71 [facility] Height (Calculated Centimeters) 167.64 167. 64 [facility] Body Mass Index (BMI) 27.3 27.3 [facility] Weight (Calculated Kilograms) 76.71 76.71 [facility] Height (Calculated Centimeters) 167.64 167. 64 [facility] Body Mass Index (BMI) 27.3 27.3 [facility] ID Date Data Source [id number] 08/12/2020 12:24:00 AM EST [facility] Name Value Range Interpretation Code Description Data Source(s) Weight (Calculated Kilograms) 76.71 76.71 [facility] Height (Calculated Centimeters) 167.64 167. 64 [facility] Body Mass Index (BMI) 27.3 27.3 [facility] ID Date Data Source [id number] 11/10/2020 09:50:00 AM EDT [facility] Name Value Range Interpretation Code Description Data Source(s) Weight (Calculated Kilograms) 76.71 76.71 [facility] Height (Calculated Centimeters) 167.64 167. 64 [facility] Body Mass Index (BMI) 27.3 27.3 [facility] Weight (Calculated Kilograms) 76.71 76.71 [facility] Height (Calculated Centimeters) 167.64 167. 64 [facility] Body Mass Index (BMI) 27.3 27.3 [facility] Weight (Calculated Kilograms) 76.71 76.71 [facility] Height (Calculated Centimeters) 167.64 167. 64 [facility] Body Mass Index (BMI) 27.3 27.3 [facility] Weight (Calculated Kilograms) 76.71 76.71 [facility] Height (Calculated Centimeters) 167.64 167. 64 [facility] Body Mass Index (BMI) 27.3 27.3 [facility] Weight (Calculated Kilograms) 76.71 76.71 [facility] Height (Calculated Centimeters) 167.64 167. 64 [facility] Body Mass Index (BMI) 27.3 27.3 [facility] Weight (Calculated Kilograms) 76.71 76.71 [facility] Height (Calculated Centimeters) 167.64 167. 64 [facility] Body Mass Index (BMI) 27.3 27.3 [facility] Weight (Calculated Kilograms) 76.71 76.71 [facility] Height (Calculated Centimeters) 167.64 167. 64 [facility] Body Mass Index (BMI) 27.3 27.3 [facility] ID Date Data Source [id number] 08/04/2020 05:05:00 AM [facility] Name Value Range Interpretation Code Description Data Source(s) Weight (Calculated Kilograms) 76.71 76.71 [facility] Height (Calculated Centimeters) 167.64 167. 64 [facility] Body Mass Index (BMI) 27.3 27.3 [facility] Weight (Calculated Kilograms) 76.71 76.71 [facility] Height (Calculated Centimeters) 167.64 167. 64 [facility] Body Mass Index (BMI) 27.3 27.3 [facility] ID Date Data Source [id number] 07/06/2020 12:19:00 AM [facility] Name Value Range Interpretation Code Description Data Source(s) Weight (Calculated Kilograms) 76.71 76.71 [facility] Height (Calculated Centimeters) 167.64 167. 64 [facility] Body Mass Index (BMI) 27.3 27.3 [facility] ID Date Data Source [id number] 07/14/2020 10:39:00 AM [facility] Name Value Range Interpretation Code Description Data Source(s) Weight (Calculated Kilograms) 76.71 76.71 [facility] Height (Calculated Centimeters) 167.64 167. 64 [facility] Body Mass Index (BMI) 27.3 27.3 [facility] Weight (Calculated Kilograms) 76.71 76.71 [facility] Height (Calculated Centimeters) 167.64 167. 64 [facility] Body Mass Index (BMI) 27.3 27.3 [facility] ID Date Data Source [id number] 06/28/2020 12:52:00 PM [facility] Name Value Range Interpretation Code Description Data Source(s) Weight (Calculated Kilograms) 76.71 76.71 [facility] Height (Calculated Centimeters) 167.64 167. 64 [facility] Body Mass Index (BMI) 27.3 27.3 [facility] Weight (Calculated Kilograms) 76.71 76.71 [facility] Height (Calculated Centimeters) 167.64 167. 64 [facility] Body Mass Index (BMI) 27.3 27.3 [facility] ID Date Data Source [id number] 06/10/2020 12:28:00 AM EDT [facility] Name Value Range Interpretation Code Description Data Source(s) Weight (Calculated Kilograms) 76.71 76.71 [facility] Height (Calculated Centimeters) 167.64 167. 64 [facility] Body Mass Index (BMI) 27.3 27.3 [facility] Weight (Calculated Kilograms) 76.71 76.71 [facility] Height (Calculated Centimeters) 167.64 167. 64 [facility] Body Mass Index (BMI) 27.3 27.3 [facility] ID Date Data Source [id number] 06/10/2020 08:35:00 AM EDT [facility] Name Value Range Interpretation Code Description Data Source(s) Weight (Calculated Kilograms) 76.71 76.71 [facility] Height (Calculated Centimeters) 167.64 167. 64 [facility] Body Mass Index (BMI) 27.3 27.3 [facility] ID Date Data Source [id number] 06/11/2020 10:24:00 AM EDT [facility] Name Value Range Interpretation Code Description Data Source(s) Weight (Calculated Kilograms) 76.71 76.71 [facility] Height (Calculated Centimeters) 167.64 167. 64 [facility] Body Mass Index (BMI) 27.3 27.3 [facility] ID Date Data Source [id number] 07/07/2020 10:09:00 AM EST [facility] Name Value Range Interpretation Code Description Data Source(s) Weight Measurement Method 1 1 [facility] Weight (Calculated Kilograms) 76.71 76.71 [facility] Weight 2706 2706 [facility] Temperature Source 7 7 [facility] Temperature 98.2 98.2 [facility] Respiratory Effort 1 1 [facility] Respiratory Rate 16 16 [facility] Pulse Assessment Method 4 4 [facility] Pulse Rate 66 66 [facility] Height (Calculated Centimeters) 167.64 167. 64 [facility] Height 66 66 [facility] Blood Pressure 129/74 129/74 [facility] Body Mass Index (BMI) 27.3 27.3 [facility] Weight Measurement Method 1 1 [facility] Weight (Calculated Kilograms) 76.71 76.71 [facility] Weight 2706 2706 [facility] Temperature Source 7 7 [facility] Temperature 98.2 98.2 [facility] Respiratory Effort 1 1 [facility] Respiratory Rate 16 16 [facility] Pulse Assessment Method 4 4 [facility] Pulse Rate 66 66 [facility] Height (Calculated Centimeters) 167.64 167. 64 [facility] Height 66 66 [facility] Blood Pressure 129/74 129/74 [facility] Body Mass Index (BMI) 27.3 27.3 [facility] Weight Measurement Method 1 1 [facility] Weight (Calculated Kilograms) 76.71 76.71 [facility] Weight 2706 2706 [facility] Temperature Source 7 7 [facility] Temperature 100.9 100.9 [facility] Respiratory Effort 1 1 [facility] Respiratory Rate 18 18 [facility] Pulse Assessment Method 4 4 [facility] Pulse Rate 82 82 [facility] Height (Calculated Centimeters) 167.64 167. 64 [facility] Height 66 66 [facility] Blood Pressure 128/70 128/70 [facility] Body Mass Index (BMI) 27.3 27.3 [facility] Weight Measurement Method 1 1 [facility] Weight (Calculated Kilograms) 76.71 76.71 [facility] Weight 2706 2706 [facility] Temperature Source 7 7 [facility] Temperature 98 98 [facility] Respiratory Effort 1 1 [facility] Respiratory Rate 18 18 [facility] Pulse Assessment Method 4 4 [facility] Pulse Rate 87 87 [facility] Height (Calculated Centimeters) 167.64 167. 64 [facility] Height 66 66 [facility] Blood Pressure 119/83 119/83 [facility] Body Mass Index (BMI) 27.3 27.3 [facility] Weight (Calculated Kilograms) 77.75 77.75 [facility] Height (Calculated Centimeters) 167.64 167. 64 [facility] Body Mass Index (BMI) 27.6 27.6 [facility] Weight Measurement Method 1 1 [facility] Weight (Calculated Kilograms) 76.71 76.71 [facility] Weight 2706 2706 [facility] Temperature Source 7 7 [facility] Temperature 98.2 98.2 [facility] Respiratory Effort 1 1 [facility] Respiratory Rate 16 16 [facility] Pulse Assessment Method 4 4 [facility] Pulse Rate 66 66 [facility] Height (Calculated Centimeters) 167.64 167. 64 [facility] Height 66 66 [facility] Blood Pressure 129/74 129/74 [facility] Body Mass Index (BMI) 27.3 27.3 [facility] Weight Measurement Method 1 1 [facility] Weight (Calculated Kilograms) 76.71 76.71 [facility] Weight 2706 2706 [facility] Temperature Source 7 7 [facility] Temperature 98.2 98.2 [facility] Respiratory Effort 1 1 [facility] Respiratory Rate 16 16 [facility] Pulse Assessment Method 4 4 [facility] Pulse Rate 66 66 [facility] Height (Calculated Centimeters) 167.64 167. 64 [facility] Height 66 66 [facility] Blood Pressure 129/74 129/74 [facility] Body Mass Index (BMI) 27.3 27.3 [facility] Weight (Calculated Kilograms) 77.75 77.75 [facility] Height (Calculated Centimeters) 167.64 167. 64 [facility] Body Mass Index (BMI) 27.6 27.6 [facility] Weight (Calculated Kilograms) 77.75 77.75 [facility] Height (Calculated Centimeters) 167.64 167. 64 [facility] Body Mass Index (BMI) 27.6 27.6 [facility] ID Date Data Source [id number] 05/31/2020 12:43:00 PM EDT [facility] Name Value Range Interpretation Code Description Data Source(s) Weight (Calculated Kilograms) 77.75 77.75 [facility] Height (Calculated Centimeters) 167.64 167. 64 [facility] Body Mass Index (BMI) 27.6 27.6 [facility] Weight (Calculated Kilograms) 77.75 77.75 [facility] Height (Calculated Centimeters) 167.64 167. 64 [facility] Body Mass Index (BMI) 27.6 27.6 [facility] ID Date Data Source [id number] 05/28/2020 12:20:00 AM EDT [facility] Name Value Range Interpretation Code Description Data Source(s) Weight (Calculated Kilograms) 77.75 77.75 [facility] Height (Calculated Centimeters) 167.64 167. 64 [facility] Body Mass Index (BMI) 27.6 27.6 [facility] Patient Treatment Plan of Care Planned Activity Planned Date Details Description Data Source (s) Acetaminophen 325 MG / Hydrocodone Bitartrate 5 MG Ora l Tablet 11/22/2020 12:00:00 AM EDT [facility] rivarox[facility] 20 MG Oral Tablet [facility] Del[facility] Release Oral Tablet 11/22/2020 12:00:00 AM [facility] atorvastatin 20 MG Oral Tablet 11/22/2020 12:00:00 AM [facility] Allopurinol 300 MG Oral Tablet 11/22/2020 12:00:00 AM [facility] Losartan Potassium 100 MG Oral Tablet [facility]04[facility] Oral Capsule 11/04/2020 12:00:00 AM [facility]
--- NOTE | 2021-07-18 00:28 | REPVR ---
PROCEDURE INFORMATION: Exam: XR Chest Exam date and time: 07/18/2021 12:22 AM Age: 65 years old Clinical indication: Other: Pre op TECHNIQUE: Imaging protocol: XR of the chest. Views: 1 view. COMPARISON: No relevant prior studies available. FINDINGS: Tubes, catheters and devices: Epidural electrodes are noted in the lower thoracic spine. Lungs: There is decreased inflation of the lungs. Minimal left upper lobe linear atelectasis or scar. No focal infiltrates. Pleural spaces: Unremarkable. No pleural effusion. No pneumothorax. Heart/Mediastinum: The heart is within normal limits considering AP and lordotic projection. Bones/joints: Chronic bilateral rotator cuff tears of the shoulders. IMPRESSION: 1. Minimal left upper lobe linear atelectasis or scar. 2. Otherwise essentially negative lordotic chest. No acute process is identified. Electronically signed by: Juan Dumont On 07/18/2021 00:27:31 AM
[2021-07-18] MEDS: THIAMINE 100 MG TAB PO SCH ×3 (00:34→20:35)
[2021-07-18] MEDS ORDERED: ISOVUE-370 76% 100ML VIAL As Ordered ONE (01:30)
[2021-07-18 01:40] LABS: RSV AMPLIFICATION NEGATIVE (NEGATIVE)
--- NOTE | 2021-07-18 02:05 | REPVR ---
PROCEDURE INFORMATION: Exam: CTA Chest With Contrast Exam date and time: 07/18/2021 1:45 AM Age: 65 years old Clinical indication: Chest wall pain; Additional info: Tachycardia R occulsive femoral dvt / HX of embolic events TECHNIQUE: Imaging protocol: Computed tomographic angiography of the chest with contrast. 3D rendering (Not supervised by radiologist): MIP and/or 3D reconstructed images were created by the technologist. Radiation optimization: All CT scans at this facility use at least one of these dose optimization techniques: automated exposure control; mA and/or kV adjustment per patient size (includes targeted exams where dose is matched to clinical indication); or iterative reconstruction. Contrast material: ISO 370; Contrast volume: 75 ml; Contrast route: INTRAVENOUS (IV); COMPARISON: CR PORTABLE CHEST X-RAY 07/18/2021 12:08 AM FINDINGS: Tubes, catheters and devices: Lower thoracic epidural electrodes in position. Pulmonary arteries: The main pulmonary artery measures 22 mm. Minimal pulmonary embolism extending into the superior segment of the left lower lobe. Aorta: The ascending thoracic aorta measures 37 mm. Lungs: Mild scattered fibro-atelectatic change, greatest in the lower lobes and anterior left upper lobe. Pleural spaces: Unremarkable. No pneumothorax. No pleural effusion. Heart: Unremarkable. No cardiomegaly. No pericardial effusion. Heart RV/LV ratio: RV diameter is 4.7 cm, LV diameter is 3.3 cm. RV/LV ratio is 1.4. Lymph nodes: Unremarkable. No enlarged lymph nodes. Bones/joints: Probable chronic bilateral rotator cuff tears of the shoulders. Multiple old right rib fractures. Soft tissues: Unremarkable. IMPRESSION: 1. Minimal pulmonary embolism extending into the superior segment of the left lower lobe. 2. Elevated RV/LV ratio of 1.4. 3. Mild scattered fibro-atelectatic change, greatest in the lower lobes and anterior left upper lobe. Electronically signed by: Juan Dumont On 07/18/2021 02:04:50 AM
--- NOTE | 2021-07-18 02:27 | REPVR ---
PROCEDURE INFORMATION: Exam: US Retroperitoneal Limited, Kidneys Exam date and time: 07/18/2021 2:05 AM Age: 65 years old Clinical indication: Other: [place] TECHNIQUE: Imaging protocol: Real-time ultrasound of the retroperitoneum with image documentation. Examination was focused on the kidneys. COMPARISON: CT ANGIO CHEST 07/18/2021 1:37 AM FINDINGS: Right kidney: The right kidney measures 10.2 cm in its cephalocaudad dimension and 5.3 x 4.4 cm in diameter. No mass, cyst or hydronephrosis. Left kidney: The left kidney measures 12.0 cm in its cephalocaudad dimension and 6.8 x 5.2 cm in diameter. No mass or hydronephrosis. There is a small left renal cyst measuring 11 x 13 x 14 mm. Mild left perinephric fluid is noted. Bladder: The urinary bladder appears normal. IMPRESSION: 1. Left renal cyst measuring 11 x 13 x 14 mm. 2. Left perinephric fluid. 3. Otherwise negative renal sonogram. No hydronephrosis. Electronically signed by: Juan Dumont On 07/18/2021 02:27:13 AM
[2021-07-18] MEDS: PIPERACILLIN/TAZOBACTAM SOD 4.5 GM in D5W MINI-BAG PLUS 50 ML IV SCH ×2 (02:40→11:34)
[2021-07-18] MEDS: NS 1,000 ML IV SCH ×6 (03:56→22:30)
[2021-07-18] MEDS ORDERED: VANCOMYCIN HCL 1,000 MG, VIAL MATE ADAPTER 1 EACH in NS 250 ML IV ONE (04:00)
[2021-07-18 04:06] LABS: SODIUM,RANDOM URINE < 10 MEQ/L; TOTAL PROTEIN,RANDOM URINE 22.7 MG/DL (0.0-12.0)
[2021-07-18 04:09] LABS: OSMOLALITY URINE 230 MOSM/KG (50-1400)
[2021-07-18 05:57] LABS: HEMATOCRIT 36.1 % (42.0-52.0); HEMOGLOBIN 12.3 g/dl (13.5-17.5); MEAN CORPUSCULAR HEMOGLOBIN 36.9 pg (27.0-33.0); MEAN CORPUSCULAR HGB CONC 34.1 g/dl (32.0-36.5); MEAN CORPUSCULAR VOLUME 108.4 fl (80.0-96.0); PLATELET COUNT, AUTOMATED 250 10^3/uL (150-450); RED BLOOD COUNT 3.33 10^6/uL (4.30-6.10); WHITE BLOOD COUNT 20.6 10^3/uL (4.0-10.0)
[2021-07-18 06:09] LABS: INR 1.15; PROTHROMBIN TIME 15.1 SECONDS (12.7-14.5)
[2021-07-18 06:28] LABS: BLOOD UREA NITROGEN 8 MG/DL (7-18); CALCIUM LEVEL 7.9 MG/DL (8.8-10.2); CARBON DIOXIDE LEVEL 19 MEQ/L (21-32); CHLORIDE LEVEL 104 MEQ/L (98-107); CREATININE FOR GFR 1.25 MG/DL (0.70-1.30); GLOMERULAR FILTRATION RATE > 60.0 (>49); GLUCOSE, FASTING 98 MG/DL (70-100); MAGNESIUM LEVEL 1.8 MG/DL (1.8-2.4); POTASSIUM SERUM 4.2 MEQ/L (3.5-5.1); SODIUM LEVEL 134 MEQ/L (136-145)
[2021-07-18] MEDS: VANCOMYCIN HCL 1,000 MG, VIAL MATE ADAPTER 1 EACH in NS 250 ML IV SCH ×2 (06:34→17:17)
[2021-07-18 07:21] LABS: PARTIAL THROMBOPLASTIN TIME 141.1 SECONDS (25.9-37.0)
[2021-07-18] MEDS ORDERED: fentaNYL 100 MCG/2 ML INJECTION (J3010) As Ordered ONE (08:02)
[2021-07-18] MEDS ORDERED: ISOVUE-300 61% 50ML VIAL As Ordered ONE ×2 (08:02→09:52)
[2021-07-18] MEDS ORDERED: MIDAZOLAM INJ 2MG/2ML VIAL (J2250 PER 1MG) As Ordered ONE (08:03)
[2021-07-18] MEDS ORDERED: LIDOCAINE 1% MDV 20ML VIAL As Ordered ONE (08:03)
[2021-07-18] MEDS ORDERED: LOSARTAN 50MG TABLET PO SCH (09:00)
[2021-07-18] MEDS ORDERED: allopurinoL 300 MG TAB PO SCH (09:00)
--- NOTE | 2021-07-18 10:31 | REP ---
INDICATION: dvt. COMPARISON: None. TECHNIQUE: Multiple ultrasonographic images of the deep venous structures of the right lower extremity were obtained from the inguinal ligament to the ankle. Venous compression techniques, color doppler imaging, and augmentation techniques were also obtained where appropriate. As per the ACR guidelines the anterior tibial vein can not be effectively evaluated. Only compression techniques in the calf on the peroneal and posterior tibial veins was attempted/performed. FINDINGS: There is abnormal echogenic material seen in the proximal superficial femoral vein and the popliteal vein the briggs of which will not coapt. IMPRESSION: There is deep vein thrombosis involving the proximal superficial femoral vein and popliteal vein which appears occlusive or near occlusive. <Electronically signed by Anish Valle > 07/18/21 1022
[2021-07-18] MEDS: MULTIVITAMINS/MINERALS THERAP 1 TAB PO SCH (11:35)
[2021-07-18] MEDS: PANTOPRAZOLE 20 MG TAB PO SCH (11:35)
[2021-07-18] MEDS: FOLIC ACID 1 MG TAB PO SCH (11:36)
[2021-07-18 12:35] LABS: CK-MB VALUE MASS 2.5 NG/ML (<3.6); MB/CK RELATIVE INDEX 2.53 (< OR =4)
[2021-07-18] MEDS: MORPHINE 4 MG/ML 1ML VIAL/SYRINGE (J2270) IV PRN ×2 (13:10→22:13)
[2021-07-18] MEDS: NICOTINE 14 MG/24 HR TRANSDERMAL TD PRN (14:30)
--- NOTE | 2021-07-18 15:29 | ECGEPIP ---
[facility] - ED Test Date: 2021-07-17 Pat Name: DAVID SMITH Department: Room: [place] [address] Gender: Male Briar Wood Sorter: : [id number] Requested By: MARSHALL Robertson Order Number: [id number] Reading MD: Jazmine Quinn Measurements Intervals [place] Rate: 105 P: 26 [place]: 168 QRS: -30 QRSD: 74 T: 37 QT: 348 QTc: 459 Interpretive Statements Sinus tachycardia baseline artifact may affect interpretation NSTTW abnormalities Left axis deviation prwp no prior Electronically Signed on 07-18-2021 15:29:20 EST by Jazmine Quinn
--- NOTE | 2021-07-18 16:13 | IPNPDOC ---
Text Note Date of Service The patient was seen on 07/18/21. 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 Upon presentation was found to have an occlusive right femoral thrombus that was consistent with phlegmasia cerula dolens and was transferred to [facility] ED for vascular surgery consult and eval. At time of exam patient had been seen by vascular surgery who had performed a percutaneous thrombectomy. Patient reported inability to feel palpation at knee and below but above in the thigh was intact, patient also described a throbbing pain along the entire length of his left leg that radiated to his groin. Right leg is still erythematous and edematous post procedure. Patient noted that he may have been inconsistent with taking his lovenox. He also remarked on having these DVT's occur after his prosthetic hip replacement 8 years ago. Patient denies headache, dizziness, chest pain, SOB, nausea, vomiting, or abdominal discomfort. ROS: A 10 point review of systems was found negative other than pertinent posit juan m in the HPI: Objective: - General appearance: Patient is a fair appearing 65 year old who looks his age who is hard of hearing and is in no acute distress and - HEENT: Cranium is atraumatic and normocephalic, EOMI and PERRLA - Cardiac: RRR, no murmurs or gallops appreciated - Respiratory: CTAB, no wheezes, rales, or rhonchi appreciated - Abdominal: Nontender and nondistended, no guarding with normoactive bowel sounds - Extremities: Right leg is nontender upon palpation as patient claims he cant feel anything below the knee, right thigh is painful upon palpation. Right thigh has mottled appearance and right leg is cool to the touch with mild pitting edema. - Neurological: Loss of sensation in right leg to right foot, sensation is intact at and above right knee. CN 2-12 grossly intact - Psychiatric: Appropriate affect as well as appropriate mood Imaging: - CXR: IMPRESSION: 1. Minimal left upper lobe linear atelectasis or scar. 2. Otherwise essentially negative lordotic chest. No acute process is identified. - Renal US: IMPRESSION: 1. Left renal cyst measuring 11 x 13 x 14 mm. 2. Left perinephric fluid. 3. Otherwise negative renal sonogram. No hydronephrosis. - Angiography CT: IMPRESSION: 1. Minimal pulmonary embolism extending into the superior segment of the left lower lobe. 2. Elevated RV/LV ratio of 1.4. 3. Mild scattered fibro-atelectatic change, greatest in the lower lobes and anterior left upper lobe. - Vascular US: IMPRESSION: 1. There is deep vein thrombosis involving the proximal superficial femoral vein and popliteal vein which appears occlusive or near occlusive. Assesment: Zay Lott is a 65 year old male with PMHx of rec urrent DVT on outpatient Lovenox injections, lymphoma as a teenager, HTN, and COPD who was admitted last night after presenting to [facility] due to severe new onset pain in his right groin that began yesterday morning (07/17). Upon presentation was found to have an occlusive right femoral thrombus that was consistent with phlegmasia cerula dolens and was transferred to [facility] ED for vascular surgery consult and eval. Plan: #. Phelgmasia Cerula Dolens of RLE - Percutaneous thrombectomy performed - Vascular noted strong dorsalis pedis pulses bilaterally post-procedure. - Continue with heparin drip - Continue morphine for pain - CPK WNL at 99, r/o compartment syndrome #. Lactic Acidosis, likely 2ndary to ischemic tissue damage, improved - LA of 2.4 today 07/18, down from 4 on 07/17 - Will continue to trend LA levels - blood cultures pending to r/o SIRS #SIRS, possible - Leukocytosis of 20.6 - Blood cultures pending to r/o - LA of 2.4 - Zosyn d/c'd - Continue Vanco until tomorrow, will reasses - Lactic acidosis and Leukocytosis likely due to ischemic tissue damage #. PE - CTA performed in ED revealed small left lower lobe PE, likey from LE DVT - Patient is on room air and otherwise asymptomatic aside from cough he states is chronic - RV:LV ratio of 1.4, vascular consulted and noted not to require thrombectomy - As above, continue heparin drip - Continue to cycle troponins, 07/18 WNL at 0.01 #. CHARLY, resolved - Creatinine now 1.25, down from 1.53 yesterday 07/17 - GFR >60 - Continue to avoid nephrotoxic agents #. Hyperkalemia, resolved - K levels 4.2 07/18 - will follow potassium - Kayeaxelate administered, post status resolution #. Alcohol abuse - noted to be a daily drinker - continue CIWA protocol #. Gout - Hold allopurinol due to CHARLY #. HTN - Continue to hold losartan due to CHARLY #. GERD - Continue pantaprazole #Nicotine abuse - Continue patch #DVT Prophylaxis - Continue Heparin drip VS,Fishbone, I+O VS, Fishbone, I+O Laboratory Tests 07/17/21 22:28 07/17/21 22:50 07/18/21 05:15 Vital Signs Date Time Temp Pulse Resp B/P (MAP) Pulse Ox O2 Delivery O2 Flow Rate FiO2 07/18/21 13:20 20 07/18/21 13:10 98 Room Air 07/18/21 13:00 94 100/72 (81) 07/18/21 12:00 99.0 07/18/21 10:15 2.0 I&O- Last 24 Hours up to 6 AM 07/18/21 06:00 Intake Total 2110 ml Balance 2110 ml GME ATTESTATION GME ATTESTATION My faculty preceptor for this patient encounter was physically present during the encounter and was fully available. All aspects of the patient interview, exa mination, medical decision making process, and medical care plan development were reviewed and approved by the faculty preceptor. The faculty preceptor is aware and concurs with the plan as stated in the body of this note and will attest to such by his/her cosignature. ATTENDING NOTE I, Srikanth Caicedo MD, have independently examined this patient and performed my own physical exam while the resident and the students were with me in the patient room, as well as reviewed the documentation and edited where necessary. I have discussed in detail with the resident / student the findings and plan of treatment as documented by the resident / student and edited their note. I agree with their findings and treatment plan and have edited their documentation. FILIBERTO DURAN OMS-3 Jul 18, 2021 16:13 SRIKANTH CAICEDO MD Jul 22, 2021 15:42
--- NOTE | 2021-07-18 16:51 | ROOPDOC ---
[facility] Report Of Operation Report of Operation DATE OF PROCEDURE: 07/18/21 PREPROCEDURE DIAGNOSES: Right femoral to popliteal vein thrombosis POSTPROCEDURE DIAGNOSES: Acute and subacute thrombosis of Right Common Iliac Vein and acute thrombosis of femoral to popliteal vein PROCEDURE PERFORMED: 1. Percutaneous Thrombectomy of Right Common Iliac Vein 2. Venography 3. Ultrasound guided percutaneous entry x 2 SURGEON: Adair Tovar MD ANESTHESIA: Local and sedation ESTIMATED BLOOD LOSS: Approximately 100mL. COMPLICATIONS: None FINDINGS: 1. Right iliac vein stent into IVC 2. Acute and subacute thrombus of the right external iliac vein 3. Residual acute thrombus in femoral vein and popliteal vein Patient was brought to the IR suite and placed on the IR table in prone position. After anesthesia was administered the bilateral popliteal fossa were prepped and draped in standard surgical fashion. Under ultrasound guidance, entry into the right popliteal vein was made with a micropuncture needle and over guidewire exchange a microsheath was inserted (this was the initial anticipated entry point to place an IVC Filter). The Nitrex would not advance, there a venogram was performed which showed total occlusion of the distal femoral vein. The sheath was removed and the patient was repositioned to be in the supine position. Attempt to place IVC filter was then decided to be placed through the left groin. The patient's bilateral groins were prepped and draped in standard surgical fashion. Under ultrasound guidance, entry into the left femoral vein was made with a micropuncture needle and over guidewire exchange a microsheath was inserted. Fluoroscopy showed 2 overlapping stents in the left iliac venous system and into the IVC. Venography was performed and showed patent stents and a patent IVC with some concern for clot formation in the right external iliac vein. The right iliac vein was "jailed" secondary to the left iliac vein stent which extended into the IVC. The left groin microsheath was removed and manual pressure held. Attention then was brought to the right groin. Under ultrasound guidance, entry into the right femoral vein was made with a micropuncture needle and over guidewire exchange a microsheath was in serted. Venography was performed and showed thrombosis in the right common iliac vein just below the confluence. Over guidewire exchange, a 12 Fr sheath was placed. A Penumbra Cat-12 aspiration thrombectomy device was used to perform percutaneous thrombectomy of the right common iliac vein. After several passes, a repeat venography was performed and revealed resolution of thrombosis of the right common iliac vein with good flow into the IVC. A limited ultrasound examination was performed and showed residual thrombus in the proximal femoral vein and distal popliteal vein. No further intervention was performed. The sheath was removed and manual pressure held at the entry site. Sterile dressings were then placed. ADAIR TOVAR MD Jul 18, 2021 16:51
[2021-07-18 18:21] LABS: CK-MB VALUE MASS 2.6 NG/ML (<3.6); MB/CK RELATIVE INDEX 2.32 (< OR =4)
[2021-07-18] MEDS: HEPARIN SOD (PORCINE) 5000UNITS/ML 1ML VIAL/SYRINGE IV PRN (18:51)
[2021-07-19] VITALS (32 sets, daily range): BP systolic 81–130; BP diastolic 50–75
[2021-07-19 00:27] LABS: CK-MB VALUE MASS 1.7 NG/ML (<3.6); MB/CK RELATIVE INDEX 1.93 (< OR =4)
[2021-07-19] MEDS ORDERED: LR 1,000 ML IV ONE (02:15)
[2021-07-19] MEDS ORDERED: NS 1,000 ML IV ONE (03:25)
[2021-07-19 04:22] LABS: HEMATOCRIT 27.7 % (42.0-52.0); MEAN CORPUSCULAR HEMOGLOBIN 37.2 pg (27.0-33.0); MEAN CORPUSCULAR HGB CONC 34.7 g/dl (32.0-36.5); MEAN CORPUSCULAR VOLUME 107.4 fl (80.0-96.0); PLATELET COUNT, AUTOMATED 224 10^3/uL (150-450); RED BLOOD COUNT 2.58 10^6/uL (4.30-6.10); WHITE BLOOD COUNT 16.7 10^3/uL (4.0-10.0)
[2021-07-19 04:25] LABS: HEMOGLOBIN 9.6 g/dl (13.5-17.5)
[2021-07-19 04:36] LABS: BLOOD UREA NITROGEN 6 MG/DL (7-18); CALCIUM LEVEL 6.9 MG/DL (8.8-10.2); CARBON DIOXIDE LEVEL 22 MEQ/L (21-32); CHLORIDE LEVEL 112 MEQ/L (98-107); CREATININE FOR GFR 0.48 MG/DL (0.70-1.30); GLOMERULAR FILTRATION RATE > 60.0 (>49); GLUCOSE, FASTING 96 MG/DL (70-100); MAGNESIUM LEVEL 1.6 MG/DL (1.8-2.4); SODIUM LEVEL 141 MEQ/L (136-145); VANCOMYCIN LEVEL TROUGH 14.4 UG/ML (10.0-20.0)
[2021-07-19] MEDS: VANCOMYCIN HCL 1,000 MG, VIAL MATE ADAPTER 1 EACH in NS 250 ML IV SCH (04:48)
[2021-07-19] MEDS ORDERED: KCL 10MEQ/100ML SWI (KRUN) 10 MEQ in IV 1 EA IV ONE (06:10)
[2021-07-19] MEDS ORDERED: POTASSIUM CHLORIDE 10% LIQ 20 MEQ/15 ML UDC PO ONE (06:10)
[2021-07-19] MEDS: NS 1,000 ML IV SCH ×2 (06:56→07:39)
[2021-07-19] MEDS ORDERED: SODIUM CHLORIDE 0.9% 1000ML IV ONE (07:20)
[2021-07-19] MEDS ORDERED: PERCOCET 5MG/325MG TAB PO PRN (08:35)
[2021-07-19] MEDS ORDERED: MAG SULF 1GM/100ML (MAG RUN) 1 GM in IV 1 EA IV ONE (08:35)
[2021-07-19] MEDS ORDERED: POTASSIUM CHLORIDE 10MEQ SR TABLET PO ONE (08:35)
[2021-07-19] MEDS: MAGNESIUM OXIDE 400MG TAB (MAG-OX) PO SCH (09:00)
[2021-07-19] MEDS: THIAMINE 100 MG TAB PO SCH ×2 (09:25→20:33)
[2021-07-19] MEDS: MULTIVITAMINS/MINERALS THERAP 1 TAB PO SCH (09:25)
[2021-07-19] MEDS: FOLIC ACID 1 MG TAB PO SCH (09:25)
[2021-07-19] MEDS: PANTOPRAZOLE 20 MG TAB PO SCH (09:25)
[2021-07-19] MEDS: PERCOCET 5MG/325MG TAB PO PRN ×3 (09:27→20:32)
[2021-07-19] MEDS: NICOTINE 14 MG/24 HR TRANSDERMAL TD PRN (09:30)
--- NOTE | 2021-07-19 09:35 | ECHO ---
ECHOCARDIOGRAM DATE OF PROCEDURE: 07/18/2021 Age: 65 Gender: Male Height: 168 cm Weight: 75 kg REFERRING PHYSICIAN: Dr. Jennifer Urena INDICATION: Dyspnea MEASUREMENTS: IVS 1.1 cm LV 4.9 cm LVPW 1.1 cm LA 3.4 cm Aorta 3.7 cm IVC 1.7 cm DOPPLER MEASUREMENT Mitral E wave velocity 67 Mitral A wave velocity 91 E prime septal 7.3 E prime lateral 11.1 FINDINGS: This study is of fair technical quality. Underlying sinus rhythm with heart rate in 90's. Left ventricle is normal size and systolic function, I estimate EF around 65%. No apparent segmental wall motion abnormalities were seen based on fair views. Right ventricle has also normal size and systolic function. Both atria appear normal. Aortic valve is minimally sclerotic, but has three cusps and preserved mobility. Mitral and tricuspid valves appear normal. Pulmonic valve was not well visualized. No pericardial effusion is noted. Inferior vena cava is normal size. Aortic root is normal. Aortic arch and abdominal aorta were not seen. Doppler interrogation reveals competent aortic valve. There is trace mitral and tricuspid insufficiency. Calculated pulmonary artery pressure is on upper limits of normal values. Mitral inflow pattern and tissue Doppler imaging of the mitral annulus revealed grade 1 diastolic dysfunction. CONCLUSIONS: 1. The study is of fair technical quality, underlying sinus rhythm. 2. Normal LV size with normal LV systolic function and grade 1 diastolic dysfunction. 3. No significant valvular disease. 4. Likely normal central venous pressure and normal pulmonary artery pressure. 5. No obvious explanation for dyspnea. MTDD
[2021-07-19 12:39] LABS: BASO # 0.1 10^3/uL (0.0-0.2); BASO % 0.8 % (0.0-1.0); EOS # 0.5 10^3/uL (0.0-0.5); EOS % 2.7 % (0.0-3.0); HEMATOCRIT 28.8 % (42.0-52.0); LYMPH # 2.5 10^3/uL (1.5-5.0); LYMPH % 14.1 % (24.0-44.0); MEAN CORPUSCULAR HEMOGLOBIN 37.5 pg (27.0-33.0); MEAN CORPUSCULAR HGB CONC 34.7 g/dl (32.0-36.5); MEAN CORPUSCULAR VOLUME 107.9 fl (80.0-96.0); MONO # 1.6 10^3/uL (0.0-0.8); MONO % 9.2 % (2.0-8.0); NEUTROPHILS # 12.9 10^3/uL (1.5-8.5); NEUTROPHILS % 72.5 % (36.0-66.0); PLATELET COUNT, AUTOMATED 258 10^3/uL (150-450); RED BLOOD COUNT 2.67 10^6/uL (4.30-6.10); WHITE BLOOD COUNT 17.8 10^3/uL (4.0-10.0)
[2021-07-19] MEDS: MORPHINE 4 MG/ML 1ML VIAL/SYRINGE (J2270) IV PRN (12:49)
[2021-07-19 13:18] LABS: BLOOD UREA NITROGEN 5 MG/DL (7-18); CALCIUM LEVEL 7.7 MG/DL (8.8-10.2); CARBON DIOXIDE LEVEL 21 MEQ/L (21-32); CHLORIDE LEVEL 113 MEQ/L (98-107); CREATININE FOR GFR 0.46 MG/DL (0.70-1.30); GLOMERULAR FILTRATION RATE > 60.0 (>49); GLUCOSE, FASTING 94 MG/DL (70-100); MAGNESIUM LEVEL 2.2 MG/DL (1.8-2.4); POTASSIUM SERUM 3.8 MEQ/L (3.5-5.1); SODIUM LEVEL 141 MEQ/L (136-145)
[2021-07-19] MEDS: HEPARIN SOD (PORCINE) 5000UNITS/ML 1ML VIAL/SYRINGE IV PRN (14:07)
--- NOTE | 2021-07-19 14:14 | IPNPDOC ---
Date Seen The patient was seen on 07/19/21. Subjective Resting in bed comfortably. States he is feeling better. Physical Examination General Exam: Positive: Alert, No Acute Distress Eye Exam: Positive: PERRLA, Conjunctiva & lids normal, EOMI; Negative: Sclera icteric ENT Exam: Positive: Atraumatic, Mucous membr. moist/pink, Pharynx Normal Neck Exam: Positive: Supple; Negative: JVD, thyromegaly Chest Exam: Positive: Clear to auscultation, Normal air movement Heart Exam: Positive: Rate Normal, Regular Rhythm, Normal S1, Normal S2; Negative: Murmurs, Rubs Telemetry: Positive: No significant arrhythmia Abdomen Exam: Positive: Normal bowel sounds, Soft; Negative: Tenderness, Hepatospenomegaly Extremity Exam: Positive: Other (right leg without purplish discoloration, now normal skin color, right thigh superficial blotchy rash still present, right thigh edema has significantly improved, still has edema below knee and foot, bilateral feet warm) Skin Exam: Positive: Nl turgor and temperature; Negative: Rash, Breakdown Neuro Exam: Positive: Normal Gait, Normal Speech, Cranial Nerves 3-12 NL, Reflexes 2+ Psych Exam: Positive: Mental status NL, Mood NL, Oriented x 3 Assessment/Plan S/p Right Iliac and Femoral Vein Percutaneous Thrombectomy POD #1, patient doing much better today. As per nurse, patient was taking Lovenox every other day instead of daily regimen, this may be the reason for acute DVT. Patient also has chronic DVT in both legs. He will need to be on lifelong anticoagulation. Recommend Hematology consultation for proper anticoagulant and hypercoagulable state. Patient still has elevated WBC... etiology?? No further vascular surgery intervention required at this time. Reconsult prn. VS, I&O, 24H, [place]bone Vital Signs/I&O Vital Signs Date Time Temp Pulse Resp B/P (MAP) Pulse Ox O2 Delivery O2 Flow Rate FiO2 07/19/21 12:59 20 97 Room Air 07/19/21 10:00 89 104/62 (76) 07/19/21 07:30 99.6 07/19/21 06:15 2.0 I&O- Last 24 Hours up to 6 AM 07/19/21 05:59 Intake Total 7256 ml Output Total 1940 ml Balance 5316 ml Laboratory Data 24H LABS Laboratory Tests 2 07/18/21 17:19: Activated Partial Thromboplast Time 60.1H, Lactic Acid Followup at 4 Hours 2.4*H, Total Creatine Kinase 112, Creatine Kinase MB 2.6, Creatine Kinase MB Relative Index 2.32, Troponin I High Sensitivity 45.0 07/18/21 17:20: Methicillin-Resist S.aureus DNA PCR NOT DETECTED 07/18/21 23:52: Activated Partial Thromboplast Time 106.7H, Total Creatine Kinase 88, Creatine Kinase MB 1.7, Creatine Kinase MB Relative Index 1.93, Troponin I High Sensitivity 42.0 07/19/21 03:50: Nucleated Red Blood Cells % (auto) 0.8H, Anion Gap 7L, Glomerular Filtration Rate > 60.0, Lactic Acid Level 1.5, Calcium Level 6.9L, Magnesium Level 1.6L, Procalcitonin 0.38, Vancomycin Level Trough 14.4 07/19/21 05:50: Activated Partial Thromboplast Time 65.9H 07/19/21 12:28: Activated Partial Thromboplast Time 54.3H, Immature Granulocyte % (Auto) 0.7, Neutrophils (%) (Auto) 72.5H, Lymphocytes (%) (Auto) 14.1L, Monocytes (%) (Auto) 9.2H, Eosinophils (%) (Auto) 2.7, Basophils (%) (Auto) 0.8, Neutrophils # (Auto) 12.9H, Lymphocytes # (Auto) 2.5, Monocytes # (Auto) 1.6H, Eosinophils # (Auto) 0.5, Basophils # (Auto) 0.1, Nucleated Red Blood Cells % (auto) 0.7H, Anion Gap 7L, Glomerular Filtration Rate > 60.0, Calcium Level 7.7L, Magnesium Level 2.2 CBC/BMP Laboratory Tests 07/19/21 03:50 07/19/21 12:28 Microbiology Microbiology 07/18/21 Blood Culture - Preliminary, Resulted No growth after 24 hours . All specim... 07/18/21 Blood Culture - Preliminary, Resulted No growth after 24 hours . All specim... ADAIR CASTILLO MD Jul 19, 2021 14:14
--- NOTE | 2021-07-19 15:48 | IPNPDOC ---
Subjective Date Seen The patient was seen on 07/19/21. Subjective Chief Complaint/HPI Patient was reported to have soft blood pressure with MAP of 64 overnight. He received 1L of NS bolus and 1L of LR bolus and blood pressure stabilized since then. Patient is examined at bedside today. He reported diffuse body pain especially bilateral groin pain. He reported loss of sensation from right knee down which is unchanged from yesterday. He has decreased appetite. He denies fever, chills, nausea, vomiting, hematemesis, dyspnea, hemoptysis, or blood in stool. General: Denies: Normal Appetite Constitutional: Denies: Chills, Fever Pulmonary: Denies: Dyspnea Cardiovascular: Denies: Chest Pain Gastrointestinal: Denies: Nausea, Vomiting, Constipation Genitourinary: Reports: Other Symptoms (Has urinary catheter in) Hematologic: Denies: Bleeding Excessively Neurological: Reports: Numbness (from right knee down) Objective Physical Examination General Exam: Positive: Alert, No Acute Distress Eye Exam: Positive: PERRLA, Conjunctiva & lids normal; Negative: Sclera icteric ENT Exam: Positive: Atraumatic, Mucous membr. moist/pink Neck Exam: Positive: Supple; Negative: JVD, thyromegaly Chest Exam: Positive: Clear to auscultation, Normal air movement; Negative: Rales, Rhonchi, Wheezing, Diminished Heart Exam: Positive: Rate Normal, Regular Rhythm; Negative: Rubs Abdomen Exam: Positive: Normal bowel sounds, Soft; Negative: Tenderness Extremity Exam: Positive: Swelling (right lower extremity from thigh down), Other (right thigh erthematous and purple macules and patches. Right lower extremitiy moderate swelling from thigh down to right ankle. Faint ); Negative: Cyanosis Skin Exam: Positive: Nl turgor and temperature, Rash (in right thigh); Negative: Breakdown Neuro Exam: Positive: Normal Gait, Normal Speech, Other (Spontaneous movement of all right toes); Negative: Sensation Intact (No sensation in right leg from knee down) Psych Exam: Positive: Mental status NL, Mood NL, Memory Intact, Oriented x 3 Assessment /Plan Assessment Patient is a pleasant 65 year old male with history of recurrent DVT and PE on outpatient Lovenox injections intermittently who presented to [facility] due to new-onset right groin pain started on 07/17/2021. 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 Per vascular surgery's note "Findings: Right iliac vein stent into IVC. Acute and subacute thrombus of the right external iliac vein. Residual acute thrombus in femoral vein and popliteal vein" Patient was also noted to have chronic bilateral DVT per vascular surgery's note -+2 right posterior tibial pulse and right dorsalis pedis artery -Patient said he was taking Lovenox intermittently outpatient -Continue with heparin drip. Consulted professor of food biochemistry Dr. Catalan. Dr. Tran who recommends the patient may be switched to SC Lovenox BID dosing starting this evening. Antiphospholipid panel ordered including anticardiolipin antibody, antiglycoprotein antibody, anti-lupus anticoagulant ordered. We appreciate hematology team's assistance in patient care -Acetaminophen, Percocet, and Morphine PRN for pain control #Left lower lobe pulmonary embolism -CTA at [facility] showed "Minimal pulmonary embolism extending into the superior segment of the left lower lobe. 2. Elevated RV/LV ratio of 1.4. 3. Mild scattered fibro-atelectatic change, greatest in the lower lobes and anterior left upper lobe. " -RV:LV ratio of 1.4, vascular surgery consulted and recommended no indication for thrombectomy -Patient saturates well on room air -Patient on heparin drip, and will be switching to lovenox SC this evening #Hypomagnesemia likely due to decreased oral intake -Mg of 1.6 this morning. Repleted, and repeat Mag was 2.2 within normal range -Start 400mg Mag Oxide daily -Follow up Mag level #Hypokalemia likely due to hypomagnesemia and decreased oral intake -K 3.0 this morning. Repleted with PO and IV potassium. Repeat K level was 3.8 within normal range -Follow up with BMP #Lactic Acidosis, likely due to ischemic tissue damage, resolved -Lactic acid level initially 4 on 07/17. 1.5 wnl on 07/19 -Will continue to trend LA levels -blood cultures negative for 24 hours -Patient's Zosyn and Vanco were discontinued #Leukocytosis, likely reactive -trending down from 20.6 to 17.8 -lactic acidosis resolved. Blood culture negative for 24 hours -Continue to follow up with CBC -Procalcitonin 0.71 -S/p Zosyn and Vanco #Macrocytic anemia, rule out blood loss vs dilutional effect vs B12/folate/iron deficiency vs hemolysis vs less likely erythrocyte under-production -Hg 9.6 compared to 12.3 yesterday -Patient denies hemoptysis, hematemsis, or blood in stool. UA 07/18 only 1 blood and 2+ RBC -Continue daily occult stool for blood while on heparin -Iron panel, folate level, and B12 level ordered -LDH and haptoglobin ordered to rule out hemolysis -Reticulocyte count ordered to rule out underproduction of erythrocyte #Alcohol abuse -noted to be a daily drinker -continue CIWA protocol #Gout -Continue to hold allopurinol due to recent CHARLY #HTN -Continue to hold losartan due to CHARLY and soft BP overnight -Soft blood pressure overnight likely due to dehydration, resolved after 2L of fluid boluses. Blood pressure has been stable since then #GERD -Continue pantaprazole #Nicotine abuse -Continue Nicotine patch #DVT Prophylaxis -Continue with Heparin drip Plan/VTE VTE Prophylaxis Ordered?: Yes VS, I&O, 24H, Fishbone Vital Signs/I&O Vital Signs Date Time Temp Pulse Resp B/P (MAP) Pulse Ox O2 Delivery O2 Flow Rate FiO2 07/19/21 15:18 20 Room Air 07/19/21 14:00 89 07/19/21 12:59 97 07/19/21 12:30 99.3 07/19/21 06:15 2.0 I&O- Last 24 Hours up to 6 AM 07/19/21 06:00 Intake Total 7944 ml Output Total 2090 ml Balance 5854 ml Laboratory Data 24H LABS Laboratory Tests 2 07/18/21 17:19: Activated Partial Thromboplast Time 60.1H, Lactic Acid Followup at 4 Hours 2.4*H, Total Creatine Kinase 112, Creatine Kinase MB 2.6, Creatine Kinase MB Relative Index 2.32, Troponin I High Sensitivity 45.0 07/18/21 17:20: Methicillin-Resist S.aureus DNA PCR NOT DETECTED 07/18/21 23:52: Activated Partial Thromboplast Time 106.7H, Total Creatine Kinase 88, Creatine Kinase MB 1.7, Creatine Kinase MB Relative Index 1.93, Troponin I High Sensitivity 42.0 07/19/21 03:50: Nucleated Red Blood Cells % (auto) 0.8H, Anion Gap 7L, Glomerular Filtration Rate > 60.0, Lactic Acid Level 1.5, Calcium Level 6.9L, Magnesium Level 1.6L, Procalcitonin 0.38, Vancomycin Level Trough 14.4 07/19/21 05:50: Activated Partial Thromboplast Time 65.9H 07/19/21 12:28: Activated Partial Thromboplast Time 54.3H, Immature Granulocyte % (Auto) 0.7, Neutrophils (%) (Auto) 72.5H, Lymphocytes (%) (Auto) 14.1L, Monocytes (%) (Auto) 9.2H, Eosinophils (%) (Auto) 2.7, Basophils (%) (Auto) 0.8, Neutrophils # (Auto) 12.9H, Lymphocytes # (Auto) 2.5, Monocytes # (Auto) 1.6H, Eosinophils # (Auto) 0.5, Basophils # (Auto) 0.1, Nucleated Red Blood Cells % (auto) 0.7H, Anion Gap 7L, Glomerular Filtration Rate > 60.0, Calcium Level 7.7L, Magnesium Level 2.2 CBC/BMP Laboratory Tests 07/19/21 03:50 07/19/21 12:28 Microbiology Microbiology 07/18/21 Blood Culture - Preliminary, Resulted No growth after 24 hours . All specim... 07/18/21 Blood Culture - Preliminary, Resulted No growth after 24 hours . All specim... GME ATTESTATION GME ATTESTATION My faculty preceptor for this patient encounter was physically present during the encounter and was fully available. All aspects of the patient interview, examination, medical decision making process, and medical care plan development were reviewed and approved by the faculty preceptor. The faculty preceptor is aware and concurs with the plan as stated in the body of this note and will attest to such by his/her cosignature. ATTENDING NOTE I, Srikanth Caicedo MD, have independently examined this patient and performed my own physical exam while the resident and the students were with me in the patient room, as well as reviewed the documentation and edited where necessary. I have discussed in detail with the resident / student the findings and plan of treatment as documented by the resident / student and edited their note. I agree with their findings and treatment plan and have edited their documentation. JAKE DYER DO Jul 19, 2021 15:48 SRIKANTH CAICEDO MD Jul 22, 2021 15:45
[2021-07-19] MEDS: ENOXAPARIN 80MG/0.8ML SYRINGE (J1650 PER 10MG) SC SCH (17:45)
[2021-07-19 20:38] LABS: FOLATE 7.1 NG/ML (>5.4)
[2021-07-19] MEDS ORDERED: diphenhydrAMINE 25MG CAP PO PRN (23:55)
[2021-07-20] MEDS: ENOXAPARIN 80MG/0.8ML SYRINGE (J1650 PER 10MG) SC SCH ×2 (05:05→17:59)
[2021-07-20 06:00] VITALS: BP 131/79
[2021-07-20 06:33] LABS: HEMATOCRIT 27.2 % (42.0-52.0); HEMOGLOBIN 9.4 g/dl (13.5-17.5); MEAN CORPUSCULAR HEMOGLOBIN 36.9 pg (27.0-33.0); MEAN CORPUSCULAR HGB CONC 34.6 g/dl (32.0-36.5); MEAN CORPUSCULAR VOLUME 106.7 fl (80.0-96.0); PLATELET COUNT, AUTOMATED 280 10^3/uL (150-450); RED BLOOD COUNT 2.55 10^6/uL (4.30-6.10); WHITE BLOOD COUNT 13.5 10^3/uL (4.0-10.0)
[2021-07-20 06:54] LABS: BLOOD UREA NITROGEN 4 MG/DL (7-18); CALCIUM LEVEL 7.9 MG/DL (8.8-10.2); CARBON DIOXIDE LEVEL 21 MEQ/L (21-32); CHLORIDE LEVEL 114 MEQ/L (98-107); CREATININE FOR GFR 0.41 MG/DL (0.70-1.30); GLOMERULAR FILTRATION RATE > 60.0 (>49); GLUCOSE, FASTING 90 MG/DL (70-100); SODIUM LEVEL 142 MEQ/L (136-145)
[2021-07-20] MEDS: FOLIC ACID 1 MG TAB PO SCH (08:51)
[2021-07-20] MEDS: MULTIVITAMINS/MINERALS THERAP 1 TAB PO SCH (08:51)
[2021-07-20] MEDS: PANTOPRAZOLE 20 MG TAB PO SCH (08:51)
[2021-07-20] MEDS: MAGNESIUM OXIDE 400MG TAB (MAG-OX) PO SCH (08:52)
[2021-07-20] MEDS: FERROUS SULFATE 325MG TAB PO SCH (08:52)
[2021-07-20] MEDS: THIAMINE 100 MG TAB PO SCH (08:52)
[2021-07-20] MEDS: PERCOCET 5MG/325MG TAB PO PRN ×2 (08:54→18:02)
[2021-07-20] MEDS: POLYVINYL ALCOHOL OPHTH SOLN 15 ML(LIQUITEARS) OU SCH ×4 (10:23→20:56)
--- NOTE | 2021-07-20 10:44 | IPNPDOC ---
Text Note Date of Service The patient was seen on 07/20/21. 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 Today patient reports feeling worse but an overall improvement in his groin pain. Patient complains of fareily severe right hip pain at 10/10 while a reduction in his bilateral groin pain to a 5/10 while on pain control. The patient noptes an increasing SOB since last night but is breathing fine on RA, as well as a reduction in his cough. He remarks on a slightly improved sensation in his right leg below the knee but still not normal, although he know says its easier to move and use his leg. Guillermina ent reports feeling anxious and feels this is causing him to have an upset stomach and diarrhea along with a dizzy feeling. He emphasized a severe eye pain he rated as a 10/10 but that he has experienced this before throughout his life and thinks it may be due to lack of sleep/eye closure. ROS: - HEENT: Patient reports dizziness and eye pain. - Cardiac:Patient denies chest pain/pressure. Denies feelings of palpitations. - Respiratory: Patient reports increasing SOB since last night but a decrease in his chronic cough - Abdominal: patient reports nausea and diarrhea and believes it to be a result of his anxiety after being moved into a new room, denies constipation or pain. Patient denies blood or black color to diarrhea. - Extremities: Patient reports 10/10 hip pain and decreasing to 4/10 inguinal pain bilaterally. He notes slight improvement to sensation below the knee in right leg where palpation elicits a "pins and needles" sensation. Patient denies any pain or numbness in left leg. Objective: - General appearance: Patient is a fair appearing 65 year old man who looks his age and is in no acute distress. - HEENT: Cranium is atraumatic and normocephalic, eyes appear red and dry but other mucous membranes appear moist - Cardiac: RRR no murmurs or gallops appreciated - Respiratory: CTAB with no wheezes rales or rhonci appreciated. No use of accessory muscles. - Abdominal: Tenderness to palpation in the right and left lower quadrants. No distention or guarding. Denies tenderness to palpation of upper 2 quadrants. Hyperactive bowel sounds. - Extremities: Right lower leg slightly erythematous and edematous. Palpation elicits pins and needles sensation below the knee and pain upon palpation to dorsal foot. Patient can feel palpation above the knee but describes slight numbness. Patient is able to wiggle toes but unable to lift right leg. left leg unremarkable. - Psychiatric: Mood and affect appropriate. Imaging: #. Vascular US 07/18 - IMPRESSION: There is deep vein thrombosis involving the proximal superficial femoral vein and popliteal vein which appears occlusive or near occlusive. #. Angiography CT 07/18 - IMPRESSION: 1. Minimal pulmonary embolism extending into the superior segment of the left lower lobe. 2. Elevated RV/LV ratio of 1.4. 3. Mild scattered fibro-atelectatic change, greatest in the lower lobes and anterior left upper lobe. #. Renal US - IMPRESSION: 1. Left renal cyst measuring 11 x 13 x 14 mm. 2. Left perinephric fluid. 3. Otherwise negative renal sonogram. No hydronephrosis. #. CXR - IMPRESSION: 1. Minimal left upper lobe linear atelectasis or scar. 2. Otherwise essentially negative lordotic chest. No acute process is identified. Assesment: Zay Lott is a pleasant 65 year old male who has a PMHx of recurrent DVT as well as PE and is on outpatient Lovenox intermittently who presented to [facility] due to new onset right groin pain that began on 07/17/2021. Patient was transferred from [facility] for a vascular surgery eval for phlegmasia cerulea dolens in his RLE due to a fully obstructive right femoral thrombus. Plan: #. Phlegmasia cerulea dolens - Vascular surgery was consulted and perfromed a percutaneous thrombectomy of his right common iliac vein. Vascular surgery noted: "Findings: Right iliac vein stent into IVC. Acute and subacute thrombus of the right external iliac vein. Residual acute thrombus in femoral vein and popliteal vein" Patient was also noted to have chronic bilateral DVT, again per vascular surgery's note. - Post procedure vascular surgery noted 2+ posterior tibial and dorsalis pedis pulses and as of today doppler reports the same - Heparin drip has been discontinued and replaced with Lovenox Q12 @ 80mg - Anticardiolipin, Beta-2-GPI IgG, IgA, and IgM AB all pending. - Continue acetominophen, percoet and morphine PRN for pain control #. LLL PE - IMAGING: Angiography CT 07/18 - IMPRESSION: 1. Minimal pulmonary embolism extending into the superior segment of the left lower lobe. 2. Elevated RV/LV ratio of 1.4. 3. Mild scattered fibro-atelectatic change, greatest in the lower lobes and anterior left upper lobe. - Patient satting well on RA - Patient on Lovenox Q12 80mg, heparin drip d/c - Vascular surgery consulted and feel thrombectomy is not indicated at this time #. Hypomagnesemia, likely due to decreased oral intake, resolved - 400 mag oxide administered, post status - Magnesium today at 2.0, will trend #. Hypokalemia, likely due to decreased oral intake + hypomagnesemia, resolved - Patient repleted with IV and PO potassium - Potassium level today of 4.0, will trend #. Lactic acidosis, likely secondary to ischemic tissue damage , resolved - Blood cultures negative for 48 hours - LA levels WNL at 1.5 as of 07/19, will trend - Vanco + Zosyn both d/c #. Leukocytosis, likely reactive, resolving - Trending down from 17.8 07/19, to 13.5 07/20 - Vanco + Zosyn d/c - Blood cultures negative 48 hours - Procal 0.38 07/19 #. Macrocytic anemia, ruling out blood loss vs. iron deficiency, hemolysis and megaloblastic less likely - Hg 9.4, down from 9.6 07/19 - Patient denies hematochezia, hemoptysis, hematuria - UA reports 1+ RBC on 07/18 - Folate WNL at 7.1, B12 WNL at 476 on 07/19 - LDH WNL at 171, Haptoglobin pending, hemolysis less likely - Reticulocytes high at 94, Retic Hgb high at 39.2, Retic % high at 3.4 - Iron low at 29, TIBC low at 207, Ferritin normal at 206, transferrin still pending - Likely due to blood loss from surgical procedure, potential for early stages of iron deficiency anemia #. Alcohol abuse - Noted as daily drinker - COntinue CIWA #. Gout - Continue holding allopurinol due to recent CHARLY #. HTN - Continue holdiing losartan, recent CHARLY as well as soft BP 07/18 overnight - Blood pressure stable [facility] episode of soft BP, currently 131/79, MAP of 96 #. GERD - Continue pantaprazole #. Nicotine abuse - continue patch #. DVT prophylaxis - continue Lovenox Q12 80mg - heparin drip d/c VS,Fishbone, I+O VS, Fishbone, I+O Laboratory Tests 07/19/21 12:28 07/20/21 06:15 Vital Signs Date Time Temp Pulse Resp B/P (MAP) Pulse Ox O2 Delivery O2 Flow Rate FiO2 07/20/21 10:21 18 07/20/21 06:00 98.3 90 131/79 (96) 95 Room Air 07/19/21 06:15 2.0 I&O- Last 24 Hours up to 6 AM 07/20/21 06:00 Intake Total 1717 ml Output Total 925 ml Balance 792 ml GME ATTESTATION GME ATTESTATION My faculty preceptor for this patient encounter was physically present during the encounter and was fully available. All aspects of the patient interview, examination, medical decision making process, and medical care plan development were reviewed and approved by the faculty preceptor. The faculty preceptor is aware and concurs with the plan as stated in the body of this note and will attest to such by his/her cosignature. ATTENDING NOTE I, Srikanth Caicedo MD, have independently examined this patient and performed my own physical exam while the resident and the students were with me in the patient room, as well as reviewed the documentation and edited where necessary. I have discussed in detail with the resident / student the findings and plan of treatment as documented by the resident / student and edited their note. I agree with their findings and treatment plan and have edited their documentation. FILIBERTO DURAN OMS-3 Jul 20, 2021 10:44 SRIKANTH CAICEDO MD Jul 22, 2021 16:01
[2021-07-20 14:00] VITALS: BP 137/89
[2021-07-20 22:00] VITALS: BP 129/83
[2021-07-21] MEDS: ENOXAPARIN 80MG/0.8ML SYRINGE (J1650 PER 10MG) SC SCH ×2 (05:35→18:00)
[2021-07-21 06:00] VITALS: BP 130/82
[2021-07-21 06:13] LABS: HEMOGLOBIN 9.8 g/dl (13.5-17.5); MEAN CORPUSCULAR HEMOGLOBIN 37.4 pg (27.0-33.0); MEAN CORPUSCULAR VOLUME 106.9 fl (80.0-96.0); PLATELET COUNT, AUTOMATED 363 10^3/uL (150-450); RED BLOOD COUNT 2.62 10^6/uL (4.30-6.10)
[2021-07-21 06:41] LABS: BLOOD UREA NITROGEN 5 MG/DL (7-18); CALCIUM LEVEL 8.3 MG/DL (8.8-10.2); CARBON DIOXIDE LEVEL 21 MEQ/L (21-32); CHLORIDE LEVEL 113 MEQ/L (98-107); CREATININE FOR GFR 0.42 MG/DL (0.70-1.30); GLOMERULAR FILTRATION RATE > 60.0 (>49); GLUCOSE, FASTING 70 MG/DL (70-100); MAGNESIUM LEVEL 2.3 MG/DL (1.8-2.4); POTASSIUM SERUM 4.1 MEQ/L (3.5-5.1); SODIUM LEVEL 142 MEQ/L (136-145)
[2021-07-21] MEDS: MAGNESIUM OXIDE 400MG TAB (MAG-OX) PO SCH (09:00)
[2021-07-21] MEDS: FERROUS SULFATE 325MG TAB PO SCH (09:47)
[2021-07-21] MEDS: MULTIVITAMINS/MINERALS THERAP 1 TAB PO SCH (09:47)
[2021-07-21] MEDS: PANTOPRAZOLE 20 MG TAB PO SCH (09:47)
[2021-07-21] MEDS: FOLIC ACID 1 MG TAB PO SCH (09:47)
[2021-07-21] MEDS: POLYVINYL ALCOHOL OPHTH SOLN 15 ML(LIQUITEARS) OU SCH ×3 (09:49→17:00)
[2021-07-21] MEDS: PERCOCET 5MG/325MG TAB PO PRN (10:38)
[2021-07-21 10:54] LABS: DRVV SCREEN 49.3 SEC
[2021-07-21 10:56] LABS: PTT LUPUS TYPE ANTICOAG SCREEN 1.3 (0-1.2)
[2021-07-21 11:03] LABS: DRVV CONFIRM 47.7 SEC; LUPUS CONFIRM RATIO 1.2
[2021-07-21 11:06] LABS: NORMALIZED RATIO 1.08 (0.00-1.20)
--- NOTE | 2021-07-21 12:22 | REP ---
INDICATION: Severe right foot pain. Phlegmasia cerulea dolens of RLE. COMPARISON: None. TECHNIQUE: Real time presley scale and Duplex Doppler evaluation of the right lower extremity arterial vasculature using linear high frequency transducer. FINDINGS: Duplex doppler interrogation demonstrates normal triphasic wave patterns and normal flow velocities from the common femoral artery through the popliteal and calf arteries. There appears to be occlusion of the dorsalis pedis artery with distal revascularization. There is [id number] diffuse plaquing throughout the right lower extremity arterial structures. PSV(cm/sec) Common femoral artery: 122 Profunda femoris artery: 52 Proximal superficial femoral artery: 82 Mid superficial femoral artery: 79 Distal superficial femoral artery: 71 Popliteal artery: 91 Tibioperoneal trunk: 49 JEWELRY ENGRAVER (prox.): 96 JEWELRY ENGRAVER (distal): 86 Peroneal (prox.): 38 Peroneal (dist.): 42 CLOVIS (prox.): 58 CLOVIS (distal): 27 IMPRESSION: No Duplex Doppler sonographic evidence of hemodynamically significant stenosis of the right lower extremity arterial system from common femoral artery through the distal calf arteries. There is occlusion at the origin of the dorsalis pedis artery with reconstitution more distally.. <Electronically signed by Girish Presley > 07/21/21 0292
--- NOTE | 2021-07-21 12:42 | IPNPDOC ---
Text Note Date of Service The patient was seen on 07/21/21. 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 Today pateint remarks on feeling much better in multiple aspects. His SOB has abated and reports no a ssociated chest pain or pressure, as well as abatement of his cough. Patient notes improvement of his ocular discomfort after administration of eye drops which he previously mentioned felt like a 10/10 burning, they still are bothering him but do not seem as severe. Patient also remarks that his abdominal pain and nausea have dissipated and he is no longer feeling anxious. Patient is passing gas but has not had a bowel movement since his last episode of diarrhea. The patient also noted an increase in his sensation of his lower right leg, it still feels like pins and needles upon palpation but he is now able to detect pressure below the knee to about the mid tibial aspect. Sensation of the thigh is almost normal according to the patient. He is still experieicning 10/10 hip pain but no more bilateral groin pain. Patient notes increased sensitivity and pain of the sole of his right foot. Patient did remark that his urine appeared to be reddish in color. Patient denies abdominal discomfort, constipation, hematochezia, or hemoptysis. ROS: - HEENT: Patient denies headache, dizziness, or light headedness, reports alleviation of ocular irritation. - Cardiac: Patient denies chest pain/ discomfort, and reports no palpitations - Respiratory: Patient reports dissipation of SOB, denies hemoptysis and cough - Abdominal: Patient denies constipation, hematochezia, nausea and vomiting - Extremities: Patient reports increased sensation in right leg, can feel pressure + pinpricks down to midtibial region, but the leg is still feeling numb overall. Above the right knee patient notes near normal sensation. Sole of right foot is reported to be sensitive and tender below the ankle. Left leg is reported as normal. Patient also reports 10/10 pain in right hip. - Genitourinary: Patient reports improvement of his bilateral groin pain, and notes red tinge to his urine, denies dysuria. Objective: - General appearance: Patient is a fair appearing 65 year old male who looks his age and is in no acute distress. - HEENT: Cranium is atraumatic and normocephalic, mucous membranes are moist, eyes are no longer red. - Cardiac: RRR no murmurs or gallops appreciated - Respiratory: CTAB with no wheezes rales or rhonci appreciated. No use of accessory muscles. - Abdominal: No distention or guarding. Nontender to palpation with normoactive bowel sounds. - Extremities: Right lower leg slightly erythematous and edematous. Palpation elicits pins and needles sensation below the knee and pain upon palpation to sole of foot. Patient can feel palpation above the knee and reports near normal sensation. Patient is able to wiggle toes but unable to lift right leg. left leg unremarkable. - Psychiatric: Mood and affect appropriate. - Neuro: CN 2-12 grossly intact Imaging: #. Vascular US 07/18 - IMPRESSION: There is deep vein thrombosis involving the proximal superficial femoral vein and popliteal vein which appears occlusive or near occlusive. #. Angiography CT 07/18 - IMPRESSION: 1. Minimal pulmonary embolism extending into the superior segment of the left lower lobe. 2. Elevated RV/LV ratio of 1.4. 3. Mild scattered fibro-atelectatic change, greatest in the lower lobes and anterior left upper lobe. #. Renal US - IMPRESSION: 1. Left renal cyst measuring 11 x 13 x 14 mm. 2. Left perinephric fluid. 3. Otherwise negative renal sonogram. No hydronephrosis. #. CXR - IMPRESSION: 1. Minimal left upper lobe linear atelectasis or scar. 2. Otherwise essentially negative lordotic chest. No acute process is identified. #. Arterial US 07/21 Assesment: Zay Lott is a pleasant 65 year old male who has a PMHx of recurrent DVT as well as PE and is on outpatient Lovenox intermittently who presented to [facility] due to new onset right groin pain that began on 07/17/2021. Patient was transferred from [facility] for a vascular surgery evaluation for phlegmasia cerulea dolens in his RLE due to a fully obstructive right femoral thrombus. Plan: #. Phlegmasia cerulea dolens - Vascular surgery was consulted and performed a percutaneous thrombectomy of his right common iliac vein. Vascular surgery noted: "Findings: Right iliac vein stent into IVC. Acute and subacute thrombus of the right external iliac vein. Residual acute thrombus in femoral vein and popliteal vein" Patient was also noted to have chronic bilateral DVT, again per vascular surgery's note. - Post procedure vascular surgery noted 2+ posterior tibial and dorsalis pedis pulses and as of today right dorsalis pedis is noted to be present but faint - Heparin drip has been discontinued and replaced with Lovenox Q12 @ 80mg - Anticardiolipin, Beta-2-GPI IgG, IgA, and IgM AB still pending. - Continue acetominophen, percoet and morphine PRN for pain control #. LLL PE - IMAGING: Angiography CT 07/18 - IMPRESSION: 1. Minimal pulmonary embolism extending into the superior segment of the left lower lobe. 2. Elevated RV/LV ratio of 1.4. 3. Mild scattered fibro-atelectatic change, greatest in the lower lobes and anterior left upper lobe. - Patient satting well on RA - Patient on Lovenox Q12 80mg, heparin drip d/c - Vascular surgery consulted and feel thrombectomy is not indicated at this time #. Hypomagnesemia, likely due to decreased oral intake, resolved - 400 mag oxide administered, post status - Magnesium today at 2.3, will trend #. Hypokalemia, likely due to decreased oral intake + hypomagnesemia, resolved - Patient repleted with IV and PO potassium, post status - Potassium level today of 4.1, will trend #. Lactic acidosis, likely secondary to ischemic tissue damage , resolved - Blood cultures negative for 48 hours - LA levels WNL at 1.5 as of 07/19, will trend - Vanco + Zosyn both d/c #. Leukocytosis, likely reactive, resolving - Trending down from 17.8 07/19, to 13.5 07/20 up to 14 on 07/21 - Vanco + Zosyn d/c - Blood cultures negative 72 hours - Procal 0.38 07/19 #. Macrocytic anemia, ruling out blood loss vs. iron deficiency, hemolysis and megaloblastic less likely - Hg at 9.8 07/21 - Patient denies hematochezia, hemoptysis, but reports hematuria - UA reports 1+ RBC on 07/18, - Folate WNL at 7.1, B12 WNL at 476 on 07/19 - LDH WNL at 171, Haptoglobin WNL at 198, hemolysis less likely - Reticulocytes high at 94, Retic Hgb high at 39.2, Retic % high at 3.4 all as of 07/19 - Iron low at 29, TIBC low at 207, Ferritin normal at 206, transferrin low at 163 ppon 07/19 - Likely due to blood loss from surgical procedure, potential for early stages of iron deficiency anemia #. Alcohol abuse - Noted as daily drinker - COntinue CIWA #. Gout - Continue holding allopurinol due to recent CHARLY #. HTN - Continue holdiing losartan, recent CHARLY as well as soft BP 07/18 overnight - Blood pressure stable sinc episode of soft BP, currently 131/79, MAP of 96 #. GERD - Continue pantaprazole #. Nicotine abuse - continue patch #. DVT prophylaxis - continue Lovenox Q12 80mg - heparin drip d/c VS,Fishbone, I+O VS, Fishbone, I+O Laboratory Tests 07/21/21 05:50 Vital Signs Date Time Temp Pulse Resp B/P (MAP) Pulse Ox O2 Delivery O2 Flow Rate FiO2 07/21/21 10:38 83 18 119/66 07/21/21 06:00 98.7 98 Room Air 07/19/21 06:15 2.0 I&O- Last 24 Hours up to 6 AM 07/21/21 06:00 Intake Total 360 ml Output Total 175 ml Balance 185 ml GME ATTESTATION GME ATTESTATION My faculty preceptor for this patient encounter was physically present during the encounter and was fully available. All aspects of the patient interview, examination, medical decision making process, and medical care plan development were reviewed and approved by the faculty preceptor. The faculty preceptor is aware and concurs with the plan as stated in the body of this note and will attest to such by his/her cosignature. FILIBERTO DURAN OMS-3 Jul 21, 2021 12:42
--- NOTE | 2021-07-21 13:22 | DS.PDOC ---
Discharge Summary General Date of Admission Jul 17, 2021 at 23:52 Date of Discharge 07/21/2021 Attending Physician: ROSA MONCADA MD Specialist/Consultants Involve: ADAIR CASTILLO MD Discharge Summary PROCEDURES PERFORMED DURING STAY: Percutaneous thrombectomy of right common iliac vein ADMITTING DIAGNOSES: 1. Hx of recurrent DVT's 2. HTN 3. COPD 4. Lymphoma as a teenager DISCHARGE DIAGNOSES: 1. Phlegmasia Cerulea Dolens 2. Hx of recurrent DVT's 3. HTN 4. COPD 5. Lymphoma as a teenager COMPLICATIONS/CHIEF COMPLAINT: Phlegmasia Cerulea Dolens Of Right Lower Extremity. 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 Today pateint remarks on fee ling much better in multiple aspects. His SOB has abated and reports no associated chest pain or pressure, as well as abatement of his cough. Patient notes improvement of his ocular discomfort after administration of eye drops which he previously mentioned felt like a 10/10 burning, they still are b othering him but do not seem as severe. Patient also remarks that his abdominal pain and nausea have dissipated and he is no longer feeling anxious. Patient is passing gas but has not had a bowel movement since his last episode of diarrhea. The patient also noted an increase in his sensation of his lower right leg, it still feels like pins and needles upon palpation but he is now able to detect pr essure below the knee to about the mid tibial aspect. Sensation of the thigh is almost normal according to the patient. He is still experieicning 10/10 hip pain but no more bilateral groin pain. Patient notes increased sensitivity and pain of the sole of his right foot. Patient did remark that his urine appeared to be reddish in color. Patient denies abdominal discomfort, constipation, hematochezi a, or hemoptysis. HOSPITAL COURSE: Patient initially presented to [facility] for new onset right groin pain where he was found to have an occlusive right femoral thrombus and findings that were consistent with phlegmasia cerulea dolens and so he was transferred to the [facility] ED for a vascular surgery consultation. The morning after admission patient was flaco to the OR for a percutaneous thrombectomy on 07/19 of the right common iliac vein, post procedure surgery noted that the dorsalis pedis and posterior tibial pulses were 2+ bilaterally. After procedure patients Hgb dropped from 12. 3 to 9.6 on 07/19. Imaging was performed and a small PE was found in the LLL and a RV/LV ratio of 1.4, so again vascular was consulted and decided thrombectomy of the PE was not indicated at this time. Patient was noted to be hypokalemic and hypomagnesemic and was treated accordingly with repletion and these scenarios have resolved. Patient was noted to be a daily drinker and has been on CIWA protocol since admission. Patient developed CHARLY and as a result his losartan and allopurinal have been held during the stay. Patient developed a lactic acidosis and leukocytosis likely secondary to the ischemic tissue damages as a result of the phlegmasia, these lab values were followed and the acidosis has resolved and the leukocytosis is trending down. Patient was initially placed on zosyn and then switched to vanco for the leukocytosis but these have since been discontinued as of 07/19. Additionally patient admitted to intermittent use of his daily lovenox injections and was counseled daily on the importance of taking his anticoagulation. During his stay he was started on heparin drip for his phlegmasia and DVT prophylaxis and was switched to Lovenox on 07/19. During the hospital stay patient slowly regained degrees of sensation in his leg and a decrease in swelling and redness of his leg although at this time it is still slightly edematous. DISCHARGE MEDICATIONS: Please see below. ALLERGIES: Please see below. PHYSICAL EXAMINATION ON DISCHARGE: - General appearance: Patient is a fair appearing 65 year old male who looks his age and is in no acute distress. - HEENT: Cranium is atraumatic and normocephalic, mucous membranes are moist, eyes are no longer red. - Cardiac: RRR no murmurs or gallops appreciated - Respiratory: CTAB with no wheezes rales or rhonci appreciated. No use of accessory muscles. - Abdominal: No distention or guarding. Nontender to palpation with normoactive bowel sounds. - Extremities: Right lower leg slightly erythematous and edematous. Palpation elicits pins and needles sensation below the knee and pain upon palpation to sole of foot. Patient can feel palpation above the knee and reports near normal sensation. Patient is able to wiggle toes but unable to lift right leg. left leg unremarkable. - Psychiatric: Mood and affect appropriate. - Neuro: CN 2-12 grossly intact LABORATORY DATA: Please see below. IMAGING: #. Vascular US 07/18 - IMPRESSION: There is deep vein thrombosis involving the proximal superficial femoral vein and popliteal vein which appears occlusive or near occlusive. #. Angiography CT 07/18 - IMPRESSION: 1. Minimal pulmonary embolism extending into the superior segment of the left lower lobe. 2. Elevated RV/LV ratio of 1.4. 3. Mild scattered fibro-atelectatic change, greatest in the lower lobes and anterior left upper lobe. #. Renal US - IMPRESSION: 1. Left renal cyst measuring 11 x 13 x 14 mm. 2. Left perinephric fluid. 3. Otherwise negative renal sonogram. No hydronephrosis. #. CXR - IMPRESSION: 1. Minimal left upper lobe linear atelectasis or scar. 2. Otherwise essentially negative lordotic chest. No acute process is identified. #. Arterial US 07/21 - IMPRESSION: 1. No Duplex Doppler sonographic evidence of hemodynamically significant stenosis of the right lower extremity arterial system from common femoral artery through the distal calf arteries. 2. There is occlusion at the origin of the dorsalis pedis artery with reconstitution more distally. PROGNOSIS: Fair ACTIVITY: As tolerated. DIET: As tolerated. DISCHARGE PLAN: Home DISPOSITION: Home DISCHARGE INSTRUCTIONS: 1. Opthalmology for eye pain 2. Vascular surgery for distal occlusion of right dorsalis pedis occulsion 3. Primary care provider for PE, antiocoagulation, anemia, and left renal cyst 4. Please be compliant with medical plan ITEMS TO FOLLOWUP ON ON OUTPATIENT: 1. PE 2. Phlegmasia cerulea dolens 3. Eye pain 4. Distal occlusion of the dorsalis pedis 5. Anemia 6. Anticoagulation workup 7. Left renal cyst 8. Inc RVF/LV ratio DISCHARGE CONDITION: Stable. TIME SPENT ON DISCHARGE: 35 minutes. Vital Signs/I&Os Vital Signs Date Time Temp Pulse Resp B/P (MAP) Pulse Ox O2 Delivery O2 Flow Rate FiO2 07/21/21 10:38 83 18 119/66 07/21/21 06:00 98.7 98 Room Air 07/19/21 06:15 2.0 I&O- Last 24 Hours up to 6 AM0 07/21/21 06:00 Intake Total 360 ml Output Total 175 ml Balance 185 ml Laboratory Data Labs 24H Laboratory Tests 2 07/21/21 05:50: Nucleated Red Blood Cells % (auto) 0.7H, Anion Gap 8, Glomerular Filtration Rate > 60.0, Calcium Level 8.3L, Magnesium Level 2.3 CBC/BMP Laboratory Tests 07/21/21 05:50 Microbiology Microbiology 07/18/21 Blood Culture - Preliminary, Resulted No Growth after 72 hours. All specime... 07/18/21 Blood Culture - Preliminary, Resulted No Growth after 72 hours. All specime... Discharge Medications Scheduled Enoxaparin Sodium (Enoxaparin Sodium) 80 Mg/0.8 Ml Syringe, 80 MG INJ BID, (Reported) Losartan Potassium (Losartan Potassium) 100 Mg Tablet, 100 MG PO DAILY, (Reported) Pantoprazole Sodium (Pantoprazole Sodium) 20 Mg Tablet.dr, 20 MG PO DAILY, (Reported) allopurinoL (allopurinoL) 300 Mg Tablet, 300 MG PO DAILY, (Reported) Allergies Coded Allergies: No Known Allergies (Verified , 12/17/09) GME ATTESTATION GME ATTESTATION My faculty preceptor for this patient encounter was physically present during the encounter and was fully available. All aspects of the patient interview, examination, medical decision making process, and medical care plan development were reviewed and approved by the faculty preceptor. The faculty preceptor is aware and concurs with the plan as stated in the body of this note and will attest to such by his/her cosignature. FILIBERTO DURAN OMS-3 Jul 21, 2021 13:22
[2021-07-21] MEDS ORDERED: VITMTA PO (13:31)
[2021-07-21] MEDS ORDERED: FERR1TAB8 PO (13:31)
[2021-07-21] MEDS ORDERED: FOLI1TAB11 PO (13:31)
[2021-07-21] MEDS ORDERED: MAGN400T2 PO (13:31)
[2021-07-21] MEDS ORDERED: ASPI81CH33 PO (13:31)
[2021-07-21] MEDS ORDERED: POLYOPD OU (13:31)
[2021-07-21] MEDS ORDERED: ATOR40TA75 PO (13:32)
[2021-07-21 14:00] VITALS: BP 108/70
[2021-07-22 04:07] LABS: BETA-2 GLYCOPROTEIN I ABY IGA <9 (0-25); BETA-2 GLYCOPROTEIN I ABY IGG <9 (0-20); BETA-2 GLYCOPROTEIN I ABY IGM <9 (0-32)
== END 2021-07-21 18:10 | disposition home health service (06) | DRG 270 ==
LOC: M ED 21:54 → M ED INP 23:52 → M PCU 07-18 03:32 → M MSPAV 07-19 15:23
PROVIDERS: ADMIT Internal Medicine; ATTEND Internal Medicine
PROC: 06CC3ZZ Extirpation of Matter from Right Common Iliac Vein, Percutaneous Approach (ICD-10-PCS; principal; 2021-07-18 07:58)
DX: I80.291 Phlebitis and thrombophlebitis of other deep vessels of right lower extremity (principal); I26.99 Other pulmonary embolism without acute cor pulmonale; N17.9 Acute kidney failure, unspecified; E87.2 Acidosis; R65.10 Systemic inflammatory response syndrome (SIRS) of non-infectious origin without acute organ dysfunction; E87.5 Hyperkalemia; F10.10 Alcohol abuse, uncomplicated; I10 Essential (primary) hypertension; E83.42 Hypomagnesemia; J44.9 Chronic obstructive pulmonary disease, unspecified; Z90.81 Acquired absence of spleen; Z90.79 Acquired absence of other genital organ(s); Z96.642 Presence of left artificial hip joint; F17.200 Nicotine dependence, unspecified, uncomplicated; M10.9 Gout, unspecified; K21.9 Gastro-esophageal reflux disease without esophagitis; Z79.899 Other long term (current) drug therapy; D64.9 Anemia, unspecified